=== PATIENT | male | born 1960 | race Hispanic/Latino ===

== ENCOUNTER 2017-08-20 11:47 | Emergency (ER) | payer OTHER ==
--- NOTE | 2017-08-20 13:09 | RAD REPORT ---
EXAM DESCRIPTION: [facility]08/20/2017 1:00 pm CLINICAL HISTORY: Right leg pain COMPARISON: None. FINDINGS: Right common femoral, superficial femoral, popliteal and right posterior tibial veins are compressible and demonstrate augmentation. Doppler demonstrates good flow. IMPRESSION: No evidence of deep venous thrombosis involving the right lower extremity.
--- NOTE | 2017-08-20 13:13 | ER ---
Nurse's Notes [facility] Name: Dhaval Carrizales Age: 56 yrs Sex: Male : 1960 Arrival Date: 08/20/2017 Time: 11:52 Bed 19 Private MD: Diagnosis: Right leg/calf pain Presentation: 08/20 12:06 Presenting complaint: Patient states: RIGHT calf pain and intermittent swelling x 2 hb days. Pain worse when ambulating. Transition of care: patient was not received from another setting of care. Onset of symptoms was August 18, 2017. Care prior to arrival: None. 12:06 Method Of Arrival: Ambulatory hb 12:06 Acuity: DANDRE 3 hb 12:30 Initial Sepsis Screen: Does the patient meet any 2 criteria? No. Patient's initial em sepsis screen is negative. Does the patient have a suspected source of infection? No. Patient's initial sepsis screen is negative. Historical: - Allergies: 12:07 No Known Allergies; hb - PMHx: 12:07 Diabetes - NIDDM; High Cholesterol; Hypertension; hb - PSHx: 12:07 None; hb - Immunization history:: Adult Immunizations up to date. - Social history:: Smoking status: Patient/guardian denies using tobacco. Screenin:55 Abuse screen: Denies threats or abuse. Nutritional screening: No deficits noted. em Tuberculosis screening: No symptoms or risk factors identified. Fall Risk None identified. Assessment: 12:24 General: Appears in no apparent distress. uncomfortable, Behavior is calm, cooperative, em Reports right calf pay for 2 days, denies trauma, swelling noted to right hester with crusted scabs, warm to touch Denies fever. Pain: Complains of pain in right calf Pain currently is 8 out of 10 on a pain scale. Neuro: Level of Consciousness is awake, alert, obeys commands, Oriented to person, place, time, situation. Cardiovascular: Capillary refill < 3 seconds Patient's skin is warm and dry. Respiratory: Airway is patent Respiratory effort is even, unlabored, Respiratory pattern is regular, symmetrical. GI: Abdomen is round non-distended, Patient currently denies nausea, vomiting. : No signs and/or symptoms were reported regarding the genitourinary system. EENT: No signs and/or symptoms were reported regarding the EENT system. Derm: No signs and/or symptoms reported regarding the dermatologic system. Musculoskeletal: Range of motion: intact in all extremities. 12:30 Reassessment: Patient appears in no apparent distress at this time. I agree with the iw above assessment by Jason Monaco LVN. Vital Signs: 12:07 BP 164 / 99; Pulse 84; Resp 16; Temp 98.1; Pulse Ox 100% on R/A; Weight 90.72 kg; hb Height 5 ft. 6 in. (167.64 cm); Pain 8/10; 12:07 Body Mass Index 32.28 (90.72 kg, 167.64 cm) hb ED Course: 11:52 Patient arrived in ED. na 12:06 Triage completed. hb 12:07 Arm band placed on right wrist. hb 12:08 Dean Eckert MD is Attending Physician. kdr 12:09 Jason Monaco LVN is Primary Nurse. em 12:47 Patient taken to ultrasound. aa4 12:55 Patient has correct armband on for positive identification. Bed in low position. Call em light in reach. Side rails up X2. 12:55 No provider procedures requiring assistance completed. em 13:00 Ultrasound completed. Patient tolerated well. aa4 13:00 Extremity Venous Uni Ltd In Process Unspecified. EDMS 13:00 Patient moved back from ultrasound. aa4 13:55 Patient did not have IV access during this emergency room visit. em Administered Medications: No medications were administered Outcome: 13:12 Discharge ordered by . kdr 13:47 Discharged to home ambulatory. em 13:47 Condition: good 13:47 Discharge instructions given to patient, Instructed on discharge instructions, follow up and referral plans. Demonstrated understanding of instructions, follow-up care. 13:49 Patient left the ED. iw Signatures: Dispatcher [employer] EDID Dean Eckert MD MD kdr Star, Pedro na Jason Monaco LVN LVN em Marianela Watts, CLARENCE RN Hannah Tellez aa4 Nohemi Scott RN RN Corrections: (The following items were deleted from the chart) 13:57 13:55 Condition: good em em 13:57 13:55 Discharged to home ambulatory, em em 13:57 13:55 Discharge instructions given to patient, Instructed on discharge instructions, em follow up and referral plans. Demonstrated understanding of instructions, follow-up care, em
--- NOTE | 2017-08-20 13:13 | EDPHYS ---
Physician Documentation [facility] Name: Dhaval Carrizales Age: 56 yrs Sex: Male : 1960 Arrival Date: 08/20/2017 Time: 11:52 Bed 19 Private MD: ED Physician Dean Eckert HPI: 08/20 12:25 This 56 yrs old Male presents to ER via Ambulatory with complaints of Leg Pain.kdr 12:26 The patient presents with pain, that is acute, swelling, The patient a focal density in kdr the right calf which he states regularly swells and is painful making it hard to walk. He seems to go down at night. The complaints affect the right calf. Context: The problem was sustained at an unknown site, resulted from an unknown cause, the patient can partially bear weight, the patient is able to ambulate, with mild difficulty, Problem is a result from a previous injury: No. The patient has numerous lesions in various states of healing which he states are from his work boots rubbing on his leg. Onset: The symptoms/episode began/occurred Wednesday. Modifying factors: The symptoms are alleviated by elevating leg, the symptoms are aggravated by movement, weight bearing, Worse with pain. Treatment prior to arrival includes: no previous treatment. Severity of symptoms: At their worst the symptoms were mild, in the emergency department the symptoms have resolved, and did so earlier today. The patient has not experienced similar symptoms in the past. The patient has not recently seen a physician. Historical: - Allergies: 12:07 No Known Allergies; hb - PMHx: 12:07 Diabetes - NIDDM; High Cholesterol; Hypertension; hb - PSHx: 12:07 None; hb - Immunization history:: Adult Immunizations up to date. - Social history:: Smoking status: Patient/guardian denies using tobacco. ROS: 12:26 Constitutional: Negative for fever, chills, and weight loss. kdr 12:26 MS/extremity: Positive for swelling, tenderness, warmth, Negative for pain. Exam: 12:26 Constitutional: This is a well developed, well nourished patient who is awake, alert, kdr and in no acute distress. 12:26 Musculoskeletal/extremity: Extremities: pain, swelling, tenderness. Vital Signs: 12:07 BP 164 / 99; Pulse 84; Resp 16; Temp 98.1; Pulse Ox 100% on R/A; Weight 90.72 kg; hb Height 5 ft. 6 in. (167.64 cm); Pain 8/10; 12:07 Body Mass Index 32.28 (90.72 kg, 167.64 cm) hb MDM: 13:12 Patient medically screened. kdr 19:01 Data reviewed: vital signs, nurses notes, lab test result(s). Counseling: I had a kdr detailed discussion with the patient and/or guardian regarding: the historical points, exam findings, and any diagnostic results supporting the discharge/admit diagnosis, lab results, radiology results, the need for outpatient follow up. 08/20 12:35 Order name: Extremity [facility] EDMS Administered Medications: No medications were administered Disposition: 08/20/17 13:12 Discharged to Home. Impression: Right leg/calf pain. - Condition is Stable. - Blank Diagnosis Outline, Medication Reconciliation Form, Thank You Letter, Antibiotic Education, Prescription Opioid Use form. - Follow up: Private Physician; When: 2 - 3 days; Reason: If symptoms return, Further diagnostic work-up, Recheck today's complaints, Continuance of care, Re-evaluation by your physician. - Problem is an ongoing problem. - Symptoms have improved. Signatures: Dispatcher [employer] EDMS Dean Eckert MD MD kdr Marianela Watts, CLARENCE RN Nohemi Scott, CLARENCE RN Corrections: (The following items were deleted from the chart) 12:32 12:25 Extrmty [facility] [employer]US.RAD.BRZ ordered. EDNV EDMS
[2017-08-20 13:54] VITALS: BP 164/99; TEMP 98.1; O2SAT 100
== END 2017-08-20 13:49 | disposition home or self-care (01) ==
LOC: ER 11:47
DX: M79.661 Pain in right lower leg (principal)
CPT/HCPCS: 93971; 99284

== ENCOUNTER 2017-11-03 15:19 | Emergency (ER) | payer OTHER ==
[2017-11-03] MEDS ORDERED: METHYLPREDNISOLONE 125 MG INJ ONE (16:11)
[2017-11-03] MEDS ORDERED: KETOROLAC 30 MG/ML INJ ONE (16:12)
--- NOTE | 2017-11-03 16:17 | ER ---
Nurse's Notes [facility] Name: Dhaval Carrizales Age: 57 yrs Sex: Male : 1960 Arrival Date: 11/03/2017 Time: 15:22 Bed 23 Private MD: SHARON GRAY Diagnosis: Olecranon bursitis, right elbow Presentation: 11/03 15:32 Presenting complaint: Patient states: pt was seen at PCP for right elbow swelling and sv pain and was prescribed Bactrim, Naproxen and Prednisone. Pain and swelling has not resolved. Transition of care: patient was not received from another setting of care. Onset of symptoms was October 27, 2017. Care prior to arrival: None. 15:32 Method Of Arrival: Ambulatory sv 15:32 Acuity: DANDRE 3 sv 15:40 Risk Assessment: Do you want to hurt yourself or someone else? Patient reports no kr2 desire to harm self or others. Initial Sepsis Screen: Does the patient meet any 2 criteria? No. Patient's initial sepsis screen is negative. Does the patient have a suspected source of infection? No. Patient's initial sepsis screen is negative. Triage Assessment: 15:40 General: Appears in no apparent distress. comfortable, well groomed, well developed, kr2 well nourished, Behavior is calm, cooperative, appropriate for age. Injury Description: Patient denies injury. Historical: - Allergies: 15:34 No Known Allergies; sv - PMHx: 15:34 Diabetes - NIDDM; High Cholesterol; Hypertension; sv - PSHx: 15:34 None; sv - Immunization history:: Adult Immunizations up to date. - Social history:: Smoking status: Patient/guardian denies using tobacco. - Ebola Screening: : No symptoms or risks identified at this time. - Family history:: not pertinent. - Hospitalizations: : No recent hospitalization is reported. Screenin:40 Abuse screen: Denies threats or abuse. Denies injuries from another. Nutritional kr2 screening: No deficits noted. Tuberculosis screening: No symptoms or risk factors identified. Fall Risk None identified. Assessment: 15:40 General: Appears in no apparent distress. comfortable, well groomed, well developed, kr2 well nourished, Behavior is calm, cooperative, appropriate for age. Pain: Complains of pain in right elbow Pain radiates to right arm Pain currently is 7 out of 10 on a pain scale. Quality of pain is described as aching, tender, Is continuous, Alleviated by rest, Aggravated by increased activity, repositioning. Neuro: Level of Consciousness is awake, alert, obeys commands, Oriented to person, place, time, situation, Appropriate for age. Cardiovascular: Capillary refill < 3 seconds in bilateral fingers Patient's skin is warm and dry. Respiratory: Airway is patent Respiratory effort is even, unlabored, Respiratory pattern is regular, symmetrical. GI: Abdomen is flat, non-distended. Derm: Skin is intact, is healthy with good turgor, Skin is pink, warm \T\ dry. Musculoskeletal: Circulation, motion, and sensation intact. Range of motion: limited in right elbow Swelling present in right elbow. 16:27 Reassessment: Patient appears in no apparent distress at this time. Patient and/or kr2 family updated on plan of care and expected duration. Pain level reassessed. Patient is alert, oriented x 3, equal unlabored respirations, skin warm/dry/pink. Vital Signs: 15:33 BP 142 / 87; Pulse 83; Resp 18; Temp 98.4; Pulse Ox 96% ; Weight 95.25 kg; Height 5 ft. sv 6 in. (167.64 cm); Pain 8/10; 16:31 BP 140 / 84; Pulse 80; Resp 20; Pulse Ox 99% on R/A; kr2 15:33 Body Mass Index 33.89 (95.25 kg, 167.64 cm) sv ED Course: 15:22 Patient arrived in ED. sb2 15:23 SHARON GRAY is Private Physician. sb2 15:33 Triage completed. sv 15:34 Arm band placed on left wrist. sv 15:40 Patient has correct armband on for positive identification. Bed in low position. Call kr2 light in reach. Side rails up X 1. Pulse ox on. NIBP on. 15:45 Terry Montana MD is Attending Physician. rn 16:00 Mireya Patrick RN is Primary Nurse. kr2 16:16 Jayesh Mckeon MD is Referral Physician. rn 16:29 No provider procedures requiring assistance completed. Patient did not have IV access kr2 during this emergency room visit. Administered Medications: 16:14 Drug: SOLU-Medrol 125 mg Route: IM; Site: left deltoid; kr2 16:28 Follow up: Response: No adverse reaction kr2 16:14 Drug: TORadol 30 mg Route: IM; Site: right deltoid; kr2 16:27 Follow up: Response: No adverse reaction kr2 Outcome: 16:16 Discharge ordered by . rn 16:29 Discharged to home ambulatory, with family. kr2 16:29 Condition: good 16:29 Discharge instructions given to patient, Instructed on discharge instructions, follow up and referral plans. medication usage, Demonstrated understanding of instructions, follow-up care, medications, Prescriptions given X 2. 16:31 Patient left the ED. kr2 Signatures: Sia Patricio RN RN Terry Cisneros MD MD rn Reaves, Karey, RN RN kr2 Zaida Andrew sb2 Corrections: (The following items were deleted from the chart) 16:28 16:14 SOLU-Medrol 125 mg IM in right deltoid kr2 kr2
--- NOTE | 2017-11-03 16:17 | EDPHYS ---
Physician Documentation [facility] Name: Dhaval Carrizales Age: 57 yrs Sex: Male : 1960 Arrival Date: 11/03/2017 Time: 15:22 Bed 23 Private MD: SHARON GRAY ED Physician Terry Montana HPI: 11/03 16:14 This 57 yrs old Male presents to ER via Ambulatory with complaints of Elbow rn Injury. 16:14 The patient or guardian complains of pain. The complaints affect the right elbow. rn Onset: The symptoms/episode began/occurred 1 week(s) ago. Severity of symptoms: At their worst the symptoms were moderate, in the emergency department the symptoms have improved. The patient has experienced a previous episode. The patient has been recently seen by a physician:. REports saw his physician last week, given steroids and abx, states swelling and redness improved but not gone away, no fever, his physician put a needle in it and no fluid came out, no trauma . Historical: - Allergies: 15:34 No Known Allergies; sv - PMHx: 15:34 Diabetes - NIDDM; High Cholesterol; Hypertension; sv - PSHx: 15:34 None; sv - Immunization history:: Adult Immunizations up to date. - Social history:: Smoking status: Patient/guardian denies using tobacco. - Ebola Screening: : No symptoms or risks identified at this time. - Family history:: not pertinent. - Hospitalizations: : No recent hospitalization is reported. ROS: 16:14 Constitutional: Negative for fever, chills, and weight loss, Eyes: Negative for injury, rn pain, redness, and discharge, Neck: Negative for injury, pain, and swelling, Cardiovascular: Negative for chest pain, palpitations, and edema, Respiratory: Negative for shortness of breath, cough, wheezing, and pleuritic chest pain, Abdomen/GI: Negative for abdominal pain, nausea, vomiting, diarrhea, and constipation, MS/Extremity: + swelling right elbow Skin: Negative for injury, rash, and discoloration, Neuro: Negative for headache, weakness, numbness, tingling, and seizure. Exam: 16:14 Constitutional: This is a well developed, well nourished patient who is awake, alert, rn and in no acute distress. MS/ Extremity: Pulses equal, no cyanosis. Neurovascular intact. Full, normal range of motion. Equal circumference. + right olecranon bursitis/prominence, non-fluctuant, no erythema Vital Signs: 15:33 BP 142 / 87; Pulse 83; Resp 18; Temp 98.4; Pulse Ox 96% ; Weight 95.25 kg; Height 5 ft. sv 6 in. (167.64 cm); Pain 8/10; 16:31 BP 140 / 84; Pulse 80; Resp 20; Pulse Ox 99% on R/A; kr2 15:33 Body Mass Index 33.89 (95.25 kg, 167.64 cm) sv MDM: 15:45 Patient medically screened. rn 16:14 Differential diagnosis: olecranon bursitis. Data reviewed: vital signs, nurses notes, rn and as a result, I will discharge patient. Counseling: I had a detailed discussion with the patient and/or guardian regarding: the historical points, exam findings, and any diagnostic results supporting the discharge/admit diagnosis, the need for outpatient follow up, to return to the emergency department if symptoms worsen or persist or if there are any questions or concerns that arise at home. Special discussion: I discussed with the patient/guardian in detail that at this point there is no indication for admission to the hospital. It is understood, however, that if the symptoms persist or worsen the patient needs to return immediately for re-evaluation. Based on the history and exam findings, there is no indication for further emergent testing or inpatient evaluation. I discussed with the patient/guardian the need to see the orthopedic surgeon for further evaluation of the symptoms. Administered Medications: 16:14 Drug: SOLU-Medrol 125 mg Route: IM; Site: left deltoid; kr2 16:28 Follow up: Response: No adverse reaction kr2 16:14 Drug: TORadol 30 mg Route: IM; Site: right deltoid; kr2 16:27 Follow up: Response: No adverse reaction kr2 Disposition: 11/03/17 16:16 Discharged to Home. Impression: Olecranon bursitis, right elbow. - Condition is Stable. - Discharge Instructions: Olecranon Bursitis, Bursitis, Rwoy-no-Dety. - Prescriptions for Clindamycin HCl 300 mg Oral Capsule - take 1 capsule by ORAL route every 6 hours for 10 days; 40 capsule. Prednisone 20 mg Oral Tablet - take 3 tablet by ORAL route once daily for 5 days; 15 tablet. - Medication Reconciliation Form, Thank You Letter, Antibiotic Education, Prescription Opioid Use form. - Follow up: Jayesh Mckeon MD; When: 2 - 3 days; Reason: Recheck today's complaints, Re-evaluation by your physician. - Problem is an ongoing problem. - Symptoms have improved. Signatures: Sia Patricio RN RN sv Nieto, Roman, MD MD rn Reaves, Karey, RN RN kr2 Corrections: (The following items were deleted from the chart) 16:31 16:16 11/03/2017 16:16 Discharged to Home. Impression: Olecranon bursitis, right elbow. kr2 Condition is Stable. Forms are Medication Reconciliation Form, Thank You Letter, Antibiotic Education, Prescription Opioid Use. Follow up: Jayesh Mckeon; When: 2 - 3 days; Reason: Recheck today's complaints, Re-evaluation by your physician. Problem is an ongoing problem. Symptoms have improved. rn
[2017-11-03 16:40] VITALS: TEMP 98.4
[2017-11-03 16:41] VITALS: BP 140/84; O2SAT 99
== END 2017-11-03 16:31 | disposition home or self-care (01) ==
LOC: ER 15:19
DX: M70.21 Olecranon bursitis, right elbow (principal); Y93.9 Activity, unspecified; E11.9 Type 2 diabetes mellitus without complications; E78.00 Pure hypercholesterolemia, unspecified; I10 Essential (primary) hypertension
CPT/HCPCS: 96372; 99283; J2930

== ENCOUNTER 2017-11-05 02:54 | Emergency (ER) | payer OTHER ==
[2017-11-05] MEDS ORDERED: TRAMADOL HCL 50 MG TAB ONE (03:08)
--- NOTE | 2017-11-05 03:36 | ER ---
Nurse's Notes [facility] Name: Dhaval Carrizales Age: 57 yrs Sex: Male : 1960 Arrival Date: 11/05/2017 Time: 02:54 Bed 5 Private MD: SHARON GRAY Diagnosis: Bursitis right elbow Presentation: 11/05 03:00 Presenting complaint: Patient states: Seen yesterday for same complaint and diagnosed tl2 with bursitis of right elbow. Pt was unable to fill prescriptions and pain has not improved. Transition of care: patient was not received from another setting of care. Onset of symptoms was November 02, 2017. Risk Assessment: Do you want to hurt yourself or someone else? Patient reports no desire to harm self or others. Initial Sepsis Screen: Does the patient meet any 2 criteria? No. Patient's initial sepsis screen is negative. Does the patient have a suspected source of infection? No. Patient's initial sepsis screen is negative. Care prior to arrival: None. 03:00 Method Of Arrival: Ambulatory tl2 03:00 Acuity: DANDRE 4 tl2 Triage Assessment: 03:05 General: Appears in no apparent distress. uncomfortable, Behavior is calm, cooperative, tl2 appropriate for age. Pain: Complains of pain in right elbow. Historical: - Allergies: 03:05 No Known Allergies; tl2 - Home Meds: 03:05 unknown diabetes med [Active]; unknown HTN med [Active]; tl2 - PMHx: 03:05 Diabetes - NIDDM; Hypertension; High Cholesterol; tl2 - Immunization history:: Adult Immunizations up to date. - Social history:: Smoking status: Patient/guardian denies using tobacco. - Ebola Screening: : No symptoms or risks identified at this time. Screenin:06 Abuse screen: Denies threats or abuse. Nutritional screening: No deficits noted. tl2 Tuberculosis screening: No symptoms or risk factors identified. Fall Risk None identified. Assessment: 03:08 General: Appears in no apparent distress. comfortable, Behavior is calm, cooperative. rv Pain: Complains of pain in right elbow. Neuro: Level of Consciousness is awake, alert, obeys commands, Oriented to person, place, time, situation. Cardiovascular: Heart tones S1 S2 present. Respiratory: Airway is patent. GI: No signs and/or symptoms were reported involving the gastrointestinal system. : No signs and/or symptoms were reported regarding the genitourinary system. EENT: No signs and/or symptoms were reported regarding the EENT system. Derm: Skin is intact. Vital Signs: 03:05 BP 171 / 98; Pulse 80; Resp 18; Temp 97.8(O); Pulse Ox 98% on R/A; Weight 95.25 kg; tl2 Height 5 ft. 6 in. (167.64 cm); Pain 8/10; 03:05 Body Mass Index 33.89 (95.25 kg, 167.64 cm) tl2 ED Course: 02:54 Patient arrived in ED. ds1 02:55 SHARON GRAY is Private Physician. ds1 02:56 Duane Lopez MD is Attending Physician. pkl 03:01 Triage completed. tl2 03:05 Arm band placed on right wrist. tl2 03:06 Patient has correct armband on for positive identification. Bed in low position. Call tl2 light in reach. Side rails up X 1. 03:35 Jayesh Mckeon MD is Referral Physician. pkl 03:42 Elbow Right 3 View XRAY In Process Unspecified. EDMS 03:54 No provider procedures requiring assistance completed. Patient did not have IV access rv during this emergency room visit. Administered Medications: 03:08 Drug: UltRAM 50 mg Route: PO; rv 03:55 Follow up: Response: No adverse reaction rv Outcome: 03:36 Discharge ordered by . pkl 03:54 Discharged to home ambulatory. rv 03:54 Condition: good 03:54 Discharge instructions given to patient, Instructed on discharge instructions, follow up and referral plans. 03:55 Patient left the ED. rv Signatures: Dispatcher [employer] EDMS Duane Lopez MD MD pkl Matilde Dc ds1 Renetta Jalloh RN RN tl2 Keron Dubon RN RN rv Corrections: (The following items were deleted from the chart) 03:39 03:39 Blood Glucose: Blood Glucose Reading=31 mg/dL. rv rv
--- NOTE | 2017-11-05 03:37 | EDPHYS ---
Physician Documentation [facility] Name: Dhaval Carrizales Age: 57 yrs Sex: Male : 1960 Arrival Date: 11/05/2017 Time: 02:54 Bed 5 Private MD: SHARON GRAY ED Physician Duane Lopez HPI: 11/05 03:06 This 57 yrs old Male presents to ER via Ambulatory with complaints of Elbow pkl Pain. 03:06 The complaints affect the right elbow. Onset: The symptoms/episode began/occurred 5 pkl day(s) ago. The patient has been recently seen at the [facility] Emergency Department, yesterday, for similar complaints. Historical: - Allergies: 03:05 No Known Allergies; tl2 - Home Meds: 03:05 unknown diabetes med [Active]; unknown HTN med [Active]; tl2 - PMHx: 03:05 Diabetes - NIDDM; Hypertension; High Cholesterol; tl2 - Immunization history:: Adult Immunizations up to date. - Social history:: Smoking status: Patient/guardian denies using tobacco. - Ebola Screening: : No symptoms or risks identified at this time. ROS: 03:06 Eyes: Negative for injury, pain, redness, and discharge, ENT: Negative for injury, pkl pain, and discharge, Neck: Negative for injury, pain, and swelling, Cardiovascular: Negative for chest pain, palpitations, and edema, Respiratory: Negative for shortness of breath, cough, wheezing, and pleuritic chest pain, Abdomen/GI: Negative for abdominal pain, nausea, vomiting, diarrhea, and constipation, Back: Negative for injury and pain, : Negative for injury, bleeding, discharge, and swelling, Neuro: Negative for headache, weakness, numbness, tingling, and seizure. 03:06 MS/extremity: Positive for pain, of the right elbow. Exam: 03:06 Head/Face: Normocephalic, atraumatic. Eyes: Pupils equal round and reactive to light, pkl extra-ocular motions intact. Lids and lashes normal. Conjunctiva and sclera are non-icteric and not injected. Cornea within normal limits. Periorbital areas with no swelling, redness, or edema. ENT: Nares patent. No nasal discharge, no septal abnormalities noted. Tympanic membranes are normal and external auditory canals are clear. Oropharynx with no redness, swelling, or masses, exudates, or evidence of obstruction, uvula midline. Mucous membranes moist. Neck: Trachea midline, no thyromegaly or masses palpated, and no cervical lymphadenopathy. Supple, full range of motion without nuchal rigidity, or vertebral point tenderness. No Meningismus. Chest/axilla: Normal chest wall appearance and motion. Nontender with no deformity. No lesions are appreciated. Cardiovascular: Regular rate and rhythm with a normal S1 and S2. No gallops, murmurs, or rubs. Normal PMI, no JVD. No pulse deficits. Respiratory: Lungs have equal breath sounds bilaterally, clear to auscultation and percussion. No rales, rhonchi or wheezes noted. No increased work of breathing, no retractions or nasal flaring. Abdomen/GI: Soft, non-tender, with normal bowel sounds. No distension or tympany. No guarding or rebound. No evidence of tenderness throughout. Back: No spinal tenderness. No costovertebral tenderness. Full range of motion. Neuro: Awake and alert, GCS 15, oriented to person, place, time, and situation. Cranial nerves II-XII grossly intact. Motor strength 5/5 in all extremities. Sensory grossly intact. Cerebellar exam normal. Normal gait. 03:06 Musculoskeletal/extremity: Extremities: grossly normal except: noted in the right elbow: pain, tenderness. Vital Signs: 03:05 BP 171 / 98; Pulse 80; Resp 18; Temp 97.8(O); Pulse Ox 98% on R/A; Weight 95.25 kg; tl2 Height 5 ft. 6 in. (167.64 cm); Pain 8/10; 03:05 Body Mass Index 33.89 (95.25 kg, 167.64 cm) tl2 MDM: 02:56 Patient medically screened. pkl 03:35 Data reviewed: vital signs, nurses notes, radiologic studies, plain films. pkl 11/05 03:05 Order name: Elbow Right 3 View XRAY pkl 11/05 03:34 Order name: Sling; Complete Time: 03:55 pkl Administered Medications: 03:08 Drug: UltRAM 50 mg Route: PO; rv 03:55 Follow up: Response: No adverse reaction rv Disposition: 11/05/17 03:36 Discharged to Home. Impression: Bursitis right elbow. - Condition is Stable. - Work release form, Medication Reconciliation Form, Thank You Letter, Antibiotic Education, Prescription Opioid Use form. - Follow up: Jayesh Mckeon MD; When: 2 - 3 days; Reason: Re-evaluation by your physician. - Problem is new. - Symptoms are unchanged. Signatures: Dispatcher [employer] EDDuane Kiran MD MD pkl Renetta Jalloh, RN RN tl2 Keron Dubon RN RN rv Corrections: (The following items were deleted from the chart) 03:55 03:36 11/05/2017 03:36 Discharged to Home. Impression: Bursitis right elbow. Condition rv is Stable. Forms are Medication Reconciliation Form, Thank You Letter, Antibiotic Education, Prescription Opioid Use. Follow up: Jayesh Mckeon; When: 2 - 3 days; Reason: Re-evaluation by your physician. Problem is new. Symptoms are unchanged. pkl
[2017-11-05 04:01] VITALS: BP 171/98; TEMP 97.8; O2SAT 98
--- NOTE | 2017-11-05 08:49 | RAD REPORT ---
EXAM DESCRIPTION: RAD - Elbow Right 3 View - 11/05/2017 3:43 am CLINICAL HISTORY: PAIN COMPARISON: No comparisons FINDINGS: Moderate soft tissue swelling is seen about the olecranon process, likely representing bur sitis. No fracture, dislocation or aggressive marrow pattern. No subcutaneous air seen
== END 2017-11-05 03:55 | disposition home or self-care (01) ==
LOC: ER 02:54
DX: M70.31 Other bursitis of elbow, right elbow (principal); E11.9 Type 2 diabetes mellitus without complications; I10 Essential (primary) hypertension; Y93.9 Activity, unspecified
CPT/HCPCS: 99283

== ENCOUNTER 2019-01-20 14:36 | Emergency (ER) | payer OTHER ==
--- OUTSIDE RECORDS SUMMARY | 2019-01-20 14:37 | XMS REPORT ---
:1960 Author Organization [employer] Care Team Providers Name Role Phone MckeonJayesh Provider Role Unavailable Allergies, Adverse Reactions, Alerts Substance Reaction Event Type N.K.D.A. Info Not Available Non Drug Allergy Problems Problem Type Condition Code Onset Dates Condition Status Assessment Pain in right elbow M25.521 Active Assessment Bursitis of other bursa of right M70.31 Active elbow Medications Medication Code Code Instructions Start End Status Dosage System Date Date Mupirocin [facility] 10312360326 2 % External Active not defined Clindamycin [facility] 85062869765 1 % External Active not Phosphate defined Hydrocodone-Clay [facility] 28144430839 10-325 MG Oral Active not taminophen defined Tramadol HCl [facility] 47804505143 50 MG Orally November 24, Active 1 tablet every 6 hrs 2017 as needed Clobetasol [facility] 20829658772 0.05 % External Active not Propionate defined Losartan [facility] 13919264357 100-12.5 MG Oral Active not Potassium-HCTZ defined GlipiZIDE [facility] 11759811001 5 MG Oral Active not defined Clindamycin HCl [facility] 32814756026 300 MG Orally November 24, Dec 04, Active 1 capsule every 6 hrs 2017 2018 Results No Known Results Summary Purpose [facility]
[2019-01-20] MEDS ORDERED: IBUPROFEN 200 MG TAB PO ONE (15:18)
[2019-01-20] MEDS ORDERED: PROMETHAZINE 25 MG TABLET ONE (15:19)
[2019-01-20] MEDS ORDERED: NA CHLORIDE 0.9% 1,000 ML ONE (16:53)
[2019-01-20 17:16] LABS: Absolute Lymphocytes (CBC) 0.8 K/uL (0.7-4.9); Basophils % 0.5 % (0-1.3); Hematocrit 44.4 % (39.6-49.0); Lymphocytes % 5.1 % (15.3-44.8); MPV 8.2 fL (7.6-11.3); RBC Red Blood Cell Count 5.26 M/uL (4.33-5.43)
[2019-01-20 17:25] LABS: Urine Bacteria <20 /HPF (NONE SEEN); Urine Culture Reflex Order NOT NEEDED; Urine Mucus MOD /HPF (NONE SEEN); Urine RBC 20-50 /HPF (NONE SEEN)
[2019-01-20 17:27] LABS: Albumin 3.6 g/dL (3.4-5.0); Bilirubin Direct 0.2 mg/dL (0-0.2); Bilirubin Total 0.9 mg/dL (0.2-1.0); Potassium 3.8 mmol/L (3.5-5.1); Protein, Total 7.7 g/dL (6.4-8.2)
--- NOTE | 2019-01-20 18:05 | RAD REPORT ---
EXAM DESCRIPTION: CT - Abdomen Pelvis W Contrast - 01/20/2019 5:48 pm CLINICAL HISTORY: Abdominal pain COMPARISON: 2013 TECHNIQUE: Computed axial tomography of the abdomen pelvis was obtained. 100 cc Isovue-300 was admin istered intravenously. Oral contrast was not requested which limits evaluation of bowel. All CT scans are performed using dose optimization technique as appropriate and may include automated exposure control or mA/KV adjustment according to patient size. FINDINGS: Fatty liver The Spleen, pancreas, adrenal and kidneys appear unremarkable. There is no evidence of diverticulitis. Normal appendix Small inguinal hernias contain fat. Mild enlargement prostate gland IMPRESSION: Fatty liver
--- NOTE | 2019-01-20 18:34 | ER ---
Nurse's Notes [facility] Name: Dhaval Carrizales Age: 58 yrs Sex: Male : 1960 Arrival Date: 01/20/2019 Time: 14:39 Bed 15 Private MD: Diagnosis: Fever, unspecified;Vomiting Presentation: 01/20 15:06 Presenting complaint: Patient states: Bodyaches and vomiting since yesterday. Denies aj1 cough, congestion, sore throat. Patient took Tylenol for fever at 1200 today. Denies SOB, denies CP. Transition of care: patient was not received from another setting of care. Onset of symptoms was January 19, 2019. Risk Assessment: Do you want to hurt yourself or someone else? Patient reports no desire to harm self or others. Initial Sepsis Screen: Does the patient meet any 2 criteria? Temp <36.0*C (96.8*F)) or > 38.3*C (100.9*F). HR > 90 bpm. Yes Does the patient have a suspected source of infection? Yes: Other: fever and vomiting If YES to both, name of provider notified: Dean Eckert MD. Care prior to arrival: None. 15:06 Method Of Arrival: Wheelchair aj1 15:06 Acuity: DANDRE 3 aj1 15:[address] Eckert about patient, hold sepsis protocol for now. aj1 Triage Assessment: 15:09 General: Appears in no apparent distress. uncomfortable, Behavior is calm, cooperative, aj1 appropriate for age. Pain: Denies pain. Neuro: Level of Consciousness is awake, alert, obeys commands, Oriented to person, place, time, situation. Cardiovascular: Patient's skin is warm and dry. Respiratory: Airway is patent Respiratory effort is even, unlabored, Respiratory pattern is regular, symmetrical. Historical: - Allergies: 15:09 No Known Allergies; aj1 - Home Meds: 15:09 Metformin Oral [Active]; Unknown HTN med [Active]; unknown cholesterol medication aj1 [Active]; - PMHx: 15:09 Diabetes - NIDDM; High Cholesterol; Hypertension; aj1 - Immunization history:: Flu vaccine is not up to date. - Social history:: Smoking status: Patient/guardian denies using tobacco. - Ebola Screening: : Patient denies travel to an Ebola-affected area in the 21 days before illness onset. Screenin:58 Abuse screen: Denies threats or abuse. Denies injuries from another. Nutritional bp screening: No deficits noted. Tuberculosis screening: No symptoms or risk factors identified. Fall Risk None identified. Assessment: 16:10 General: SEE TRIAGE NOTE. bp 18:16 Reassessment: Patient and/or family updated on plan of care and expected duration. Pain bp level reassessed. PT RETURNED FROM CT. ALL CURRENT ORDERS COMPLETED. Patient states symptoms have improved. 18:55 Reassessment: PT D/C HOME AMBULATORY WITH FAMILY, DX WITH FEVER AND VOMITING. bp Vital Signs: 15:09 BP 143 / 75; Pulse 107; Resp 20; Temp 102.9; Pulse Ox 96% on R/A; Weight 92.53 kg (R); aj1 Height 5 ft. 6 in. (167.64 cm) (R); Pain 9/10; 16:30 BP 141 / 79; Pulse 100; Resp 20; Pulse Ox 95% ; bp 18:14 BP 131 / 83; Pulse 92; Resp 18; Temp 99.2; Pulse Ox 96% ; bp 15:09 Body Mass Index 32.93 (92.53 kg, 167.64 cm) aj1 ED Course: 14:39 Patient arrived in ED. as 15:08 Triage completed. aj1 15:10 Arm band placed on Patient placed in waiting room, Patient notified of wait time. aj1 16:09 Brijesh Buck PA is PHCP. cp 16:09 Dean Eckert MD is Attending Physician. cp 16:11 Austin Blank, CLARENCE is Primary Nurse. bp 16:53 Initial lab(s) drawn, by ED staff, sent to lab. Inserted saline lock: 20 gauge in right lt1 antecubital area, using aseptic technique. 16:54 Urine Microscopic Only Sent. lt1 16:58 Patient has correct armband on for positive identification. Placed in gown. Bed in low bp position. Call light in reach. Side rails up X2. Adult w/ patient. 17:48 CT Abd/Pelvis - IV Contrast Only In Process Unspecified. EDMS 17:48 CT completed. Patient tolerated procedure well. Patient moved back from CT. 2 18:56 No provider procedures requiring assistance completed. IV discontinued, intact, bp bleeding controlled, No redness/swelling at site. Pressure dressing applied. Administered Medications: 15:28 CANCELLED (Inappropriate at this time): Tylenol 1000 mg PO once aj1 15:31 Drug: Motrin 600 mg Route: PO; aj1 16:46 Follow up: Response: No adverse reaction bp 15:31 Drug: Phenergan 25 mg Route: PO; aj1 16:47 Follow up: Response: No adverse reaction bp 16:50 Drug: NS 0.9% 1000 ml Route: IV; Rate: 1 bolus; Site: right antecubital; bp 18:57 Follow up: IV Status: Completed infusion; IV Intake: 1000ml bp Intake: 18:57 IV: 1000ml; Total: 1000ml. bp Outcome: 18:34 Discharge ordered by MD. cp 18:57 Discharged to home ambulatory, with family. bp 18:57 Condition: stable 18:57 Discharge instructions given to patient, Instructed on discharge instructions, follow up and referral plans. medication usage, Demonstrated understanding of instructions, follow-up care, medications, Prescriptions given X 2. 18:57 Patient left the ED. bp Signatures: Dispatcher [employer] EDMS Isis Goodwin, RN RN Stephanie Tovar Corey, PA PA cp McGuire, Victoria 2 Austin Blank RN RN Hansa Campbell
--- NOTE | 2019-01-20 18:35 | EDPHYS ---
Physician Documentation [facility] Name: Dhaval Carrizales Age: 58 yrs Sex: Male : 1960 Arrival Date: 01/20/2019 Time: 14:39 Bed 15 Private MD: ED Physician Dean Eckert HPI: 01/20 16:25 This 58 yrs old Male presents to ER via Wheelchair with complaints of Flu cp Symptoms. 16:25 The patient reports fever, with an emergency department temperature of 102.9 degrees cp Fahrenheit. Onset: The symptoms/episode began/occurred yesterday. Associated signs and symptoms: Pertinent positives: vomiting, body aches, Pertinent negatives: abdominal pain, chest pain, cough, diarrhea, headache, sinus congestion, sinus drainage. Severity of symptoms: in the emergency department the symptoms are unchanged despite home interventions. Historical: - Allergies: 15:09 No Known Allergies; aj1 - Home Meds: 15:09 Metformin Oral [Active]; Unknown HTN med [Active]; unknown cholesterol medication aj1 [Active]; - PMHx: 15:09 Diabetes - NIDDM; High Cholesterol; Hypertension; aj1 - Immunization history:: Flu vaccine is not up to date. - Social history:: Smoking status: Patient/guardian denies using tobacco. - Ebola Screening: : Patient denies travel to an Ebola-affected area in the 21 days before illness onset. ROS: 16:30 Constitutional: Positive for body aches, fever, Negative for poor PO intake. cp 16:30 Eyes: Negative for injury, pain, redness, and discharge. cp 16:30 ENT: Negative for drainage from ear(s), ear pain, sinus congestion, sore throat, difficulty swallowing, difficulty handling secretions. 16:30 Neck: Negative for pain with movement, pain at rest, stiffness, tenderness. 16:30 Cardiovascular: Negative for chest pain. 16:30 Respiratory: Negative for cough, shortness of breath, wheezing. 16:30 Abdomen/GI: Positive for vomiting, Negative for diarrhea, constipation, black/tarry stool, rectal bleeding. 16:30 Back: Negative for pain at rest, pain with movement. 16:30 : Negative for urinary symptoms, flank pain, testicular pain 16:30 Skin: Negative for rash. 16:30 Neuro: Negative for altered mental status, dizziness, headache, weakness. 16:30 All other systems are negative. Exam: 16:40 Constitutional: The patient appears in no acute distress, alert, awake, cp non-diaphoretic, non-toxic, well developed, well nourished. 16:40 Head/Face: Normocephalic, atraumatic. cp 16:40 Eyes: Periorbital structures: appear normal, Conjunctiva: normal, no exudate, no injection, Sclera: no appreciated abnormality, Lids and lashes: appear normal. 16:40 ENT: External ear(s): are unremarkable, Ear canal(s): are normal, clear, TM's: bulging, is not appreciated, bilaterally, dullness, bilaterally, erythema, is not appreciated, bilaterally, Nose: is normal, Mouth: Lips: moist, Oral mucosa: moist, Posterior pharynx: is normal, airway is patent, no erythema, no exudate. 16:40 Neck: ROM/movement: is normal, is supple, without pain, no range of motions limitations, no meningismus, no nuchal rigidity. 16:40 Chest/axilla: Inspection: normal, Palpation: is normal, no crepitus, no tenderness. 16:40 Cardiovascular: Rate: tachycardic, Rhythm: regular, Edema: is not appreciated, JVD: is not appreciated. 16:40 Respiratory: the patient does not display signs of respiratory distress, Respirations: normal, no use of accessory muscles, no retractions, no splinting, no tachypnea, Breath sounds: are clear throughout, no decreased breath sounds, no stridor, no wheezing. 16:40 Abdomen/GI: Inspection: abdomen appears normal, Bowel sounds: active, all quadrants, Palpation: soft, in all quadrants, mild abdominal tenderness, in the right lower quadrant, rebound tenderness, is not appreciated, involuntary guarding, is not appreciated. 16:40 Back: pain, is absent, ROM is normal. 16:40 Skin: cellulitis, is not appreciated, no rash present. 16:40 Neuro: Orientation: to person, place \T\ time. Mentation: is normal, Cerebellar function: is grossly normal, Motor: moves all fours, strength is normal, Sensation: is normal. Vital Signs: 15:09 BP 143 / 75; Pulse 107; Resp 20; Temp 102.9; Pulse Ox 96% on R/A; Weight 92.53 kg (R); aj1 Height 5 ft. 6 in. (167.64 cm) (R); Pain 9/10; 16:30 BP 141 / 79; Pulse 100; Resp 20; Pulse Ox 95% ; bp 18:14 BP 131 / 83; Pulse 92; Resp 18; Temp 99.2; Pulse Ox 96% ; bp 15:09 Body Mass Index 32.93 (92.53 kg, 167.64 cm) [facility] MDM: 16:13 Patient medically screened. cp 17:00 Differential diagnosis: viral Infection, bacterial infection, bronchitis, pneumonia cp UTI, gastroenteritis, meningitis. 18:33 Data reviewed: vital signs, nurses notes, lab test result(s), radiologic studies, CT cp scan. 18:33 Counseling: I had a detailed discussion with the patient and/or guardian regarding: the cp historical points, exam findings, and any diagnostic results supporting the discharge/admit diagnosis, lab results, radiology results, to return to the emergency department if symptoms worsen or persist or if there are any questions or concerns that arise at home. Response to treatment: the patient's symptoms have markedly improved after treatment, VSS. Discussed results of labs and CT. Patient appears non-toxic. Will discharge to home for continued monitoring. 01/20 15:11 Order name: Flu; Complete Time: 17:43 [facility] 01/20 16:22 Order name: Basic Metabolic Panel; Complete Time: 17:43 01/20 17:43 Interpretation: Normal except: NA 134; GLUC 265; GFR 62. 01/20 16:22 Order name: CBC with Diff 01/20 17:43 Interpretation: Normal except: WBC 15.0; NEY% 88.3; LYM% 5.1; NEUT A 13.3. 01/20 16:22 Order name: Creatinine for Radiology; Complete Time: 18:10 01/20 16:22 Order name: Hepatic Function; Complete Time: 17:43 01/20 18:12 Interpretation: Reviewed. 01/20 16:22 Order name: Lipase; Complete Time: 17:43 01/20 16:22 Order name: IV Saline Lock; Complete Time: 16:54 01/20 16:22 Order name: Urine Microscopic Only; Complete Time: 17:43 01/20 16:45 Order name: CT Abd/Pelvis - IV Contrast Only; Complete Time: 18:10 01/20 18:24 Order name: Blood Culture Adult (2) 01/20 16:22 Order name: Labs collected and sent; Complete Time: 16:54 01/20 16:22 Order name: Urine Dipstick-Ancillary (obtain specimen); Complete Time: 16:54 01/20 18:11 Order name: Vital Signs: recheck to include temp; Complete Time: 18:15 cp Administered Medications: 15:28 CANCELLED (Inappropriate at this time): Tylenol 1000 mg PO once aj1 15:31 Drug: Motrin 600 mg Route: PO; aj1 16:46 Follow up: Response: No adverse reaction bp 15:31 Drug: Phenergan 25 mg Route: PO; aj1 16:47 Follow up: Response: No adverse reaction bp 16:50 Drug: NS 0.9% 1000 ml Route: IV; Rate: 1 bolus; Site: right antecubital; bp 18:57 Follow up: IV Status: Completed infusion; IV Intake: 1000ml bp Disposition: 01/20/19 18:34 Discharged to Home. Impression: Fever, unspecified, Vomiting. - Condition is Stable. - Discharge Instructions: Fever, Adult, Vomiting, Adult. - Prescriptions for Ibuprofen 800 mg Oral Tablet - take 1 tablet by ORAL route every 8 hours As needed take with food; 30 tablet. Zofran 4 mg Oral Tablet - take 1 tablet by ORAL route every 12 hours As needed; 20 tablet. - Medication Reconciliation Form, Thank You Letter, Antibiotic Education, Prescription Opioid Use form. - Follow up: Private Physician; When: 2 - 3 days; Reason: Recheck today's complaints. - Problem is new. - Symptoms have improved. Addendum: 01/23/2019 09:02 Co-signature as Attending Physician, Dean Eckert MD I agree with the assessment and k dr plan of care. Signatures: Dispatcher [employer] EDIsis Bradshaw RN RN aj1 Dean Eckert MD MD [facility] Brijesh Buck PA PA Austin Iniguez RN RN bp Corrections: (The following items were deleted from the chart) 01/20 15:28 15:11 Tylenol 1000 mg PO once ordered. aj1 aj1 18:57 18:34 01/20/2019 18:34 Discharged to Home. Impression: Fever, unspecified; Vomiting. bp Condition is Stable. Forms are Medication Reconciliation Form, Thank You Letter, Antibiotic Education, Prescription Opioid Use. Follow up: Private Physician; When: 2 - 3 days; Reason: Recheck today's complaints. Problem is new. Symptoms have improved. cp
[2019-01-20 20:18] VITALS: BP 131/83; TEMP 99.2; O2SAT 96
[2019-01-20 22:13] LABS: Blood Morphology Comment NOT SEEN (NOT SEEN); Platelet Estimate ADEQ; Urine White Blood Cell Casts OK
== END 2019-01-20 18:57 | disposition home or self-care (01) ==
LOC: ER 14:36
DX: R11.10 Vomiting, unspecified (principal); I10 Essential (primary) hypertension; E78.00 Pure hypercholesterolemia, unspecified; E11.9 Type 2 diabetes mellitus without complications
CPT/HCPCS: 96361; 87040 ×2; 85025; 80048; 36415; 80076; 81015; 83690; 87804 ×2; 74177; 96360; 99284; Q9967; J7030

== ENCOUNTER 2024-04-11 01:13 | Inpatient (IN) | payer OTHER, SELFPAY ==
--- OUTSIDE RECORDS SUMMARY | 2024-04-11 01:21 | XMS REPORT | Continuity of Care Document ---
Author Name Unknown Address [address] [facility] [address] [place] [address] [facility] Address [address] [facility] [address] [place] [address] Care Team Providers Care Travel Services Professional Name Role Phone ED URENA Primary Care Physician UnavailRIGOBERTO Albarado Attending Clinician Unavailable ED URENA Attending Clinician Unavailable JAMA JOHNSON Attending Clinician Unavailable CHRISSIE CARRASCO Attending Clinician Unavailable CHRISSIE CARRASCO Attending Clinician Unavailable Rigoberto Lezama MD Attending Clinician [phone] Ed Rand Attending Clinician [phone] Lab, Yo Penaloza Attending Clinician Unavailable PRAKASH YATES Attending Clinician Unavailable Ed Rand Attending Clinician [phone] VAISHNAVI HERNANDEZ Attending Clinician Unavailabdirahman andrea Doctor Unassigned, Laura Attending Clinician U navailable UNKNOWN, ATTENDING Attending Clinician Unavailab racheal Lab, Ang Sangeetha Penaloza Attending Clinician Unavailable Unknown, Attending Attending Clinician Unavailab Vaishnavi Ramos Attending Clinician Prakash Yates MD Attending Clinician [phone] Rigoberto Lezama MD Attending Clinician [phone] MIGEL GUAN Attending Clinician UnavailMIGEL Randall Attending Clinician UnavailBENI Lowry Attending Clinician Unavailable COURTNEY PEDRAZA Attending Clinician Unavaila christy Zarate, [facility] Main Attending Clinician UnavailBeni Suresh MD Attending Clinician [phone] JESSICA AMEZQUITA Attending Clinician UnavailJessica Stewart Attending Clinician [phone] [facility] Attending Clinician Unavailable 1, [facility] Attending Clinician Unavailable DENITA PONCE Attending Clinician SPRING Queen Attending Clinician Unavailable Spring Salvador Attending Clinician [phone] Johnny Larson RN, Yamilka Attending Clinician Unavailable Santiago Wagner MD Attending Clinician [phone] AMANDA ZHOU Attending Clinician Unavailable LEV SANDERSON Attending Clinician Unavailable Lev Sanderson DO Attending Clinician [phone] JANIE PANIAGUA Attending Clinician Unavailable Janie Paniagua MD Attending Clinician [phone] Denita Ponce MD Attending Clinician +- [phone] NARINDER ANDERSON Attending Clinician Unavailable Narinder Anderson MD Attending Clinician [phone] DREW INGRAM Attending Clinician Unavaila christy Ingram ACNDrew Burnett Attending Clinician [phone]- [phone] Brody CASE Attending Clinician Unavailable Brody Staton Attending Clinician [phone] ATTILA SIMEON Attending Clinician Unavailable 2, [facility] Attending Clinician Unavailable ED URENA Admitting Clinician Unavailable LEV SANDERSON Admitting Clinician Unavailable JANIE PANIAGUA Admitting Clinician Unavailable Janie Paniagua MD Admitting Clinician [phone] NARINDER ANDERSON Admitting Clinician Unavailable Brody CASE Admitting Clinician Unavailable Payers Payer Name Policy Type Policy Number Effective Date Expirati on Date Source [facility] PPO/POS [id number] 2019 00:00:00 [employer] [id number] 2021 00:00:00 Problems Condition Name Condition Details Condition Category Status Onset Date Resolution Date Last Treatment Date Treating Clinician Comments Source Stage 3 chronic kidney disease, unspecifie d whether stage 3a or 3b CKD Stage 3 chronic kidney disease, unspecifie d whether stage 3a or 3b CKD Disease Active 01-19 00:00: 00 [facility] Leg edema Leg edema Disease Active 01-19 00:00: 00 [facility] Folliculit is barbae Folliculit is barbae Disease Active 1-04 00:00: 00 [facility] Other male erectile dysfunctio n Other male erectile dysfunctio n Disease Active 2022-05 00:00: 00 [facility] Vitamin D deficiency Vitamin D deficiency Disease Active 2022-05 00:00: 00 [facility] Hypertrigl yceridemia Hypertrigl yceridemia Disease Active 2022-05 00:00: 00 [facility] Obesity (BMI 30-39.9) Obesity (BMI 30-39.9) Disease Active 12-16 00:00: 00 [facility] Coronary artery calcificat ion Coronary artery calcificat ion Disease Active 12-16 00:00: 00 [facility] Encounter for colorectal cancer screening Encounter for colorectal cancer screening Disease Active 2021-05 00:00: 00 Overview: Formattin g of this note might be different from the original. 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, uncontroll ed Disease Active 12-06 00:00: 00 [facility] Pain in right elbow Pain in right elbow Diagnosis Active [facility] Bursitis of other bursa of right elbow Bursitis of other bursa of right elbow Diagnosis Active [facility] Allergies, Adverse Reactions, Alerts Allergy Name Allergy Type Status Severity Reaction(s) Onset Date Inactive Date Treating Clinician Comments Source NO KNOWN ALLERGIE S Drug Class Active [facility] Social History Social Habit Start Date Stop Date Quantity Comments Source History of tobacco use Current smoker [facility] Gender identity [facility] Sexual orientation [facility] Alcoholic beverage intake 2024-01-20 00:00:00 2024-01-20 00:00:00 Current drinker of alcohol (finding) [facility] History of Social function 2023-12-20 00:00:00 2023-12-20 00:00:00 [facility] Alcohol intake 2023-07-19 00:00:00 2023-07-19 00:00:00 Current drinker of alcohol (finding) [facility] Exposure to SARS-CoV-2 (event) 2022-08-25 00:00:00 2022-09-04 15:07:00 Not sure [facility] Tobacco use and exposure 2022-03-09 00:00:00 2022-03-09 00:00:00 Smokeless tobacco non-user [facility] Sex assigned at 1960 00:00:00 1960 00:00:00 [facility] Smoking Status Start Date Stop Date Source Ex-smoker 2022-03-09 00:00:00 2022-03-09 00:00:00 [facility] Medications Ordered Medication Name Filled Medication Name Start Date Stop Date Current Medication? Ordering Clinician Indication Dosage Frequency Signature (SIG) Comments Components Source carvediloL 12.5 mg tablet 01-19 00:00: 00 Yes [id number] 12.5mg Take 1 tablet by mouth in the morning and 1 tablet in the evening. Take with meals. [facility] atorvastati n 20 mg tablet 12-19 00:00: 00 Yes [id number] 20mg Take 1 tablet by mouth in the morning. [facility] empaglifloz in (JARDIANCE) 25 mg Tab tablet 12-19 00:00: 00 Yes [id number] 25mg Take 1 tablet by mouth every morning. [facility] gabapentin 300 mg capsule 12-19 00:00: 00 Yes [id number] 300mg Take 1 capsule by mouth in the morning and 1 capsule in the evening. [facility] glipiZIDE XL 10 mg 24 hr tablet 12-19 00:00: 00 Yes [id number] 20mg Take 2 tablets by mouth daily with breakfast. Per Dr. Yates endocrinol ogist [facility] losartan-hy drochloroth iazide 100-25 mg per tablet 12-19 00:00: 00 Yes [id number] 1{tbl} Take 1 tablet by mouth in the morning. [facility] omega-3-aci d ethyl esters 1 gram capsule 12-19 00:00: 00 Yes [id number] 2g Take 2 capsules by mouth in the morning and 2 capsules in the evening. [facility] insulin glargine U-300 conc (TOUJEO SOLOSTAR U-300 INSULIN) 300 unit/mL (1.5 mL) InPn 12-19 00:00: 00 Yes [id number] 30U inject 30 Units under the skin in the morning. [facility] Insulin Vassar, Disposable, (BD INSULIN PEN NEEDLE UF) 31 gauge x 5/16" Ndle 12-19 00:00: 00 Yes [id number] USE TO INJECT INSULIN DAILY. DX:E11.8 [facility] dulaglutide (TRULICITY) 0.75 mg/0.5 mL PnIj 12-19 00:00: 00 Yes [id number] .75mg inject 1 Pen under the skin weekly. [facility] carvediloL 6.25 mg tablet 12-19 00:00: 00 01-19 00:00 :00 No [id number] 6.25mg Take 1 tablet by mouth in the morning and 1 tablet in the evening. Take with meals. [facility] amLODIPine 10 mg tablet 11-04 00:00: 00 Yes [id number] 10mg Take 1 tablet by mouth in the morning. [facility] ezetimibe 10 mg tablet 10-31 00:00: 00 Yes [id number] 10mg Take 1 tablet by mouth in the morning. [facility] tadalafiL (CIALIS) 10 mg tablet 08-08 00:00: 00 Yes [id number] 10mg Take 1 tablet by mouth as needed for Erectile dysfunctio n. [facility] atorvastati n 20 mg tablet 08-08 00:00: 00 12-19 00:00 :00 No [id number] 20mg Take 1 tablet by mouth in the morning. [facility] dulaglutide (TRULICITY) 0.75 mg/0.5 mL PnIj 07-18 00:00: 00 12-19 00:00 :00 No [id number] .75mg inject 1 Pen under the skin weekly. [facility] LOVAZA, omega-3-aci d ethyl esters, 1 gram capsule 2-13 00:00: 00 12-19 00:00 :00 No [id number] 2g Take 2 capsules by mouth in the morning and 2 capsules in the evening. [facility] ACCU-CHEK SOFTCLIX LANCETS [facility] 06-01 00:00: 00 Yes [id number] Use as directed TID [facility] Blood-Gluco se Meter (ACCU-CHEK GUIDE GLUCOSE METER) [facility] 06-01 00:00: 00 Yes [id number] Use TID. Dx E11.8 [facility] blood sugar diagnostic (ACCU-CHEK GUIDE TEST STRIPS) strip 06-01 00:00: 00 Yes [id number] USE TID. DX:E11.8 [facility] empaglifloz in (JARDIANCE) 25 mg Tab 06-01 00:00: 00 12-19 00:00 :00 No [id number] 25mg Take 1 tablet by mouth every morning. [facility] glipiZIDE XL 10 mg 24 hr tablet 06-01 00:00: 00 12-19 00:00 :00 No [id number] 20mg Take 2 tablets by mouth daily with breakfast. Per Dr. Yates endocrinol ogist [facility] dulaglutide (TRULICITY) 0.75 mg/0.5 mL PnIj 30 00:00: 00 07-18 00:00 :00 No [id number] .75mg inject 1 Pen under the skin weekly. [facility] clindamycin (CLEOCIN T) 1 % lotion 05-06 00:00: 00 Yes [id number] Apply to area(s) 2 (two) times daily. [facility] methocarbam oL 500 mg tablet 05-06 00:00: 00 12-19 00:00 :00 No [id number] 500mg Take 1 tablet by mouth 3 (three) times daily as needed for Pain (scale 7-10). [facility] clindamycin 300 mg capsule 05-06 00:00: 00 12-19 00:00 :00 No [id number] 300mg Take 1 capsule by mouth in the morning and 1 capsule at noon and 1 capsule in the evening. [facility] LOVAZA, omega-3-aci d ethyl esters, 1 gram capsule 2022-05 00:00: 00 06-15 00:00 :00 No [id number] 2g Take 2 capsules by mouth in the morning and 2 capsules in the evening. [facility] ergocalcife rol, vitamin d2, 1,250 mcg (50,000 unit) capsule 2022-05 00:00: 00 Yes [id number] 39259P Take 1 capsule by mouth weekly. [facility] losartan-hy drochloroth iazide 100-25 mg per tablet 2022-05 00:00: 00 12-19 00:00 :00 No [id number] 1{tbl} Take 1 tablet by mouth in the morning. [facility] amLODIPine 10 mg tablet 2022-05 00:00: 00 11-04 00:00 :00 No [id number] 10mg Take 1 tablet by mouth in the morning. [facility] ezetimibe 10 mg tablet 2022-05 00:00: 00 10-29 00:00 :00 No [id number] 10mg Take 1 tablet by mouth in the morning. [facility] tadalafiL (CIALIS) 10 mg tablet 2022-05 00:00: 00 08-06 00:00 :00 No [id number] 10mg Take 1 tablet by mouth as needed for Erectile dysfunctio n. [facility] icosapent ethyL (VASCEPA) 1 gram capsule 2022-05 00:00: 00 03-16 00:00 :00 No [id number] 2g Take 2 capsules by mouth in the morning and 2 capsules in the evening. [facility] insulin glargine U-300 conc (TOUJEO SOLOSTAR U-300 INSULIN) 300 unit/mL (1.5 mL) InPn 01-19 00:00: 00 12-19 00:00 :00 No [id number] 30U inject 30 Units under the skin in the morning. [facility] Blood-Gluco se Sensor (FREESTYLE PAMELA 3 SENSOR) Becki 01-19 00:00: 00 06-01 00:00 :00 No [id number] Use as directed every 2 weeks [facility] carvediloL 6.25 mg tablet 12-16 00:00: 00 12-19 00:00 :00 No [id number] 6.25mg Take 1 tablet by mouth in the morning and 1 tablet in the evening. Take with meals. [facility] GABAPENTIN 300 mg capsule 12-11 00:00: 00 12-19 00:00 :00 No [id number] 300mg TAKE 1 CAPSULE BY MOUTH IN THE MORNING AND 1 CAPSULE IN THE EVENING. [facility] OZEMPIC 0.25 mg or 0.5 mg (2 mg/3 mL) PnIj 12-10 00:00: 00 Yes [id number] INJECT 0.25 MG UNDER THE SKIN WEEKLY. [facility] Insulin Vassar, Disposable, (BD INSULIN PEN NEEDLE UF) 31 gauge x 5/16" Ndle - 00:00: 00 12-19 00:00 :00 No [id number] USE TO INJECT INSULIN DAILY. DX:E11.8 [facility] insulin glargine U-300 conc (TOUOTONIEL SOLOSTAR U-300 INSULIN) 300 unit/mL (1.5 mL) InPn 12-10 00:00: 00 01-19 00:00 :00 No [id number] 24U inject 24 Units under the skin in the morning. [facility] semaglutide (OZEMPIC) 0.25 mg or 0.5 mg(2 mg/1.5 mL) PnIj 12-10 00:00: 00 12-10 00:00 :00 No [id number] .25mg inject 0.25 mg under the skin weekly. [facility] icosapent ethyL (VASCEPA) 1 gram capsule 11-14 00:00: 00 03-12 00:00 :00 No [id number] 2g Take 2 capsules by mouth in the morning and 2 capsules in the evening. [facility] ergocalcife rol, vitamin d2, 1,250 mcg (50,000 unit) capsule 11-14 00:00: 00 03-12 00:00 :00 No [id number] 23753Q Take 1 capsule by mouth weekly. [facility] empaglifloz in (JARDIANCE) 25 mg Tab 10-30 00:00: 00 06-01 00:00 :00 No [id number] 25mg Take 1 tablet by mouth every morning. [facility] glipiZIDE XL 10 mg 24 hr tablet 10-30 00:00: 00 06-01 00:00 :00 No [id number] 20mg Take 2 tablets by mouth daily with breakfast. Per Dr. Yates endocrinol ogslava [facility] carvediloL 6.25 mg tablet 614 00:00: 00 12-16 00:00 :00 No [id number] 6.25mg Take 1 tablet by mouth in the morning and 1 tablet in the evening. Take with meals. [facility] metoprolol tartrate 50 mg tablet 24 00:00: 00 Yes [id number] 50mg Take 1 tablet by mouth in the morning and 1 tablet in the evening. [facility] gabapentin 300 mg capsule 17 00:00: 00 12-11 00:00 :00 No [id number] 300mg TAKE 1 CAPSULE BY MOUTH IN THE MORNING AND 1 CAPSULE IN THE EVENING. [facility] tamsulosin 0.4 mg 24 hr capsule 05 00:00: 00 Yes [id number] 9102 .4mg Take 1 capsule by mouth in the morning and 1 capsule in the evening. [facility] finerenone 20 mg Tab 08-04 00:00: 00 Yes [id number] 20mg Take 1 tablet by mouth in the morning. [facility] Insulin Vassar, Disposable, (BD INSULIN PEN NEEDLE UF) 31 gauge x 5/16" Ndle 07-24 00:00: 00 Yes [id number] USE TO INJECT INSULIN DAILY. DX:E11.8 [facility] atorvastati n 20 mg tablet 07-24 00:00: 00 08-06 00:00 :00 No [id number] 20mg Take 1 tablet by mouth in the morning. [facility] amLODIPine 10 mg tablet 07-24 00:00: 00 03-12 00:00 :00 No [id number] 10mg Take 1 tablet by mouth in the morning. [facility] losartan-hy drochloroth iazide 100-25 mg per tablet 07-24 00:00: 00 03-12 00:00 :00 No [id number] 1{tbl} Take 1 tablet by mouth in the morning. [facility] ezetimibe 10 mg tablet 07-24 00:00: 00 03-12 00:00 :00 No [id number] 10mg Take 1 tablet by mouth in the morning. [facility] insulin glargine U-300 conc (TOUJEO SOLOSTAR U-300 INSULIN) 300 unit/mL (1.5 mL) InPn 24 00:00: 00 12-10 00:00 :00 No [id number] 24U inject 24 Units under the skin in the morning. [facility] Insulin Vassar, Disposable, (BD INSULIN PEN NEEDLE UF) 31 gauge x 5/16" Ndle 07-24 00:00: 00 12-10 00:00 :00 No [id number] USE TO INJECT INSULIN DAILY. DX:E11.8 [facility] empaglifloz in (JARDIANCE) 25 mg Tab 07-24 00:00: 00 10-30 00:00 :00 No [id number] 25mg Take 1 tablet by mouth every morning. [facility] glipiZIDE XL 10 mg 24 hr tablet 07-24 00:00: 00 10-30 00:00 :00 No [id number] 20mg Take 2 tablets by mouth daily with breakfast. Per Dr. Yates endocrinol ogist [facility] mupirocin 2 % ointment 07-21 00:00: 00 05-06 00:00 :00 No [facility] Diclofenac Sodium (VOLTAREN ARTHRITIS PAIN) 1 % gel 06-30 00:00: 00 Yes [id number] Apply to area(s) 2 (two) times daily as needed for Pain (scale 7-10). Apply to affected region, 0.5-1 ribbon [facility] tamsulosin 0.4 mg 24 hr capsule 2- 00:00: 00 08-05 00:00 :00 No [id number] 9102 .4mg Take 1 capsule by mouth in the morning. [facility] finerenone (KERENDIA) 10 mg Tab 2- 00:00: 00 08-04 00:00 :00 No [id number] 10mg Take 1 tablet by mouth in the morning. [facility] methocarbam oL 500 mg tablet 130 00:00: 00 Yes [id number] 500mg Take 1 tablet by mouth in the morning and 1 tablet at noon and 1 tablet in the evening. [facility] Diclofenac Sodium (VOLTAREN ARTHRITIS PAIN) 1 % gel 06-01 00:00: 00 06-30 00:00 :00 No [id number] Apply to area(s) 2 (two) times daily as needed for Pain (scale 7-10). Apply to affected region, 0.5-1 ribbon [facility] lidocaine 5 % (700 mg/patch) patch 05-29 00:00: 00 Yes APPLY 1 PATCH TO AREA(S) ONCE NOW FOR 1 DOSE. [facility] methocarbam oL 500 mg tablet 05-29 00:00: 00 06-01 00:00 :00 No [id number] 500mg Take 1 tablet by mouth in the morning and 1 tablet at noon and 1 tablet in the evening. Do all this for 5 days. [facility] water for irrigation irrigation solution 05-08 17:37: 00 05-08 18:10 :51 No PRN, Starting on Wed05/08/22 at 1137, Until Wed05/08/22 at 1210, Routine, Intra-op [facility] simethicone (GAS RELIEF (SIMETHICON E)) 40 mg/0.6 mL drops 05-08 17:37: 00 05-08 18:10 :51 No PRN, Starting on Wed05/08/22 at 1137, Until Wed05/08/22 at 1210, Routine, Intra-op [facility] lactated ringers IV infusion 1,000 mL 05-08 16:00: 00 05-08 16:23 :00 No 1000mL at 42 mL/hr, 1,000 mL, IV Infusion, ONCE, 1 dose, On Wed05/08/22 at 1000, Routine, DSU Pre-op [facility] ezetimibe 10 mg tablet 2021-05 00:00: 00 07-24 00:00 :00 No [id number] 10mg Take 1 tablet by mouth in the morning. [facility] niacin 100 mg tablet 2021-05 1- 00:00: 00 05-08 00:00 :00 No [id number] 100mg Take 1 tablet by mouth at bedtime. [facility] insulin glargine U-300 conc (TOUJEO SOLOSTAR U-300 INSULIN) 300 unit/mL (1.5 mL) In 2021-05 0-26 00:00: 00 07-24 00:00 :00 No [id number] 24U inject 24 Units under the skin daily. [facility] gabapentin 300 mg capsule 2021-05 0-25 00:00: 00 08-17 00:00 :00 No [id number] 300mg Take 1 capsule by mouth in the morning and 1 capsule in the evening. [facility] empaglifloz in (JARDIANCE) 25 mg Tab 2021-05 0-25 00:00: 00 07-24 00:00 :00 No [id number] 25mg Take 1 tablet by mouth every morning. [facility] glipiZIDE XL 10 mg 24 hr tablet 2021-05 0-25 00:00: 00 07-24 00:00 :00 No [id number] 20mg Take 2 tablets by mouth daily with breakfast. [facility] insulin degludec (TRESIBA FLEXTOUCH U-100) 100 unit/mL (3 mL) [facility] 2021-05 0-25 00:00: 00 02-25 00:00 :00 No [id number] 24U inject 24 Units under the skin daily. DX: E11.65 [facility] valACYclovi r (VALTREX) 1 gram tablet 8-05 00:00: 00 12-11 00:00 :00 No 1g Take 1 tablet by mouth in the morning and 1 tablet at noon and 1 tablet in the evening. [facility] traMADoL (ULTRAM) 50 mg tablet 7-07 00:00: 00 12-11 00:00 :00 No [id number] 50mg Take 1 tablet by mouth every 6 (six) hours as needed for Pain (scale 7-10). Indication s: acute pain [facility] gabapentin 300 mg capsule 10-22 00:00: 00 02-24 00:00 :00 No [id number] Take one capsule today. Tomorrow take one capsule twice (morning and afternoon) . After that take one capsule three times per day for 7 days. [facility] insulin degludec (TRESIBA FLEXTOUCH U-100) 100 unit/mL (3 mL) InPn 10-21 00:00: 00 02-24 00:00 :00 No [id number] 24U inject 24 Units under the skin daily. DX: E11.65 [facility] dulaglutide (TRULICITY) 0.75 mg/0.5 mL PnIj 10-21 00:00: 00 02-24 00:00 :00 No [id number] .75mg inject 1 Pen under the skin weekly. [facility] glipiZIDE XL 10 mg 24 hr tablet 10-21 00:00: 00 02-24 00:00 :00 No [id number] 20mg Take 2 tablets by mouth daily with breakfast. [facility] naproxen (NAPROSYN) 500 mg tablet 10-20 00:00: 00 05-08 00:00 :00 No [id number] 500mg Take 1 tablet by mouth 2 (two) times daily with meals. [facility] amLODIPine 10 mg tablet 6-17 00:00: 00 07-24 00:00 :00 No [id number] 10mg Take 1 tablet by mouth daily. [facility] losartan-hy drochloroth iazide 100-25 mg per tablet 4-20 00:00: 00 07-24 00:00 :00 No [id number] 1{tbl} Take 1 tablet by mouth daily. [facility] Lancets (ACCU-CHEK SOFTCLIX LANCETS) Misc 3-09 00:00: 00 Yes [id number] Use as directed BID [facility] blood sugar diagnostic (ACCU-CHEK GUIDE TEST STRIPS) strip 07-09 00:00: 00 06-01 00:00 :00 No [id number] USE TID. DX:E11.8 [facility] Lancets (ACCU-CHEK SOFTCLIX LANCETS) [facility] 07-09 00:00: 00 06-01 00:00 :00 No [id number] Use as directed BID [facility] atorvastati n 20 mg tablet 07-09 00:00: 00 07-24 00:00 :00 No [id number] 20mg Take 1 tablet by mouth daily. [facility] Insulin Vassar, Disposable, (BD INSULIN PEN NEEDLE UF) 31 gauge x 5/16" Ndle 07-09 00:00: 00 07-24 00:00 :00 No [id number] USE TO INJECT INSULIN DAILY. DX:E11.8 [facility] Blood-Gluco se Meter (ACCU-CHEK GUIDE GLUCOSE METER) [facility] 2019-05 00:00: 00 Yes Use TID. Dx E11.8 [facility] Blood-Gluco se Meter (ACCU-CHEK GUIDE GLUCOSE METER) [facility] 2019-05 00:00: 00 06-01 00:00 :00 No Use TID. Dx E11.8 [facility] Tramadol HCl Tramadol HCl 11-24 00:00: 00 Yes Jayesh Mckeon 1 tablet as needed [facility] Clindamycin HCl Clindamycin HCl 11-24 00:00: 00 12-04 00:00 :00 No Jayesh Mckeon 1 capsule [facility] Losartan Potassium-H CTZ Losartan Potassium-H CTZ Yes Jayesh Mckeon not defined [facility] GlipiZIDE GlipiZIDE Yes Jayesh Mckeon not defined [facility] Mupirocin Mupirocin Yes Jayesh Mckeon not defined [facility] Clindamycin Phosphate Clindamycin Phosphate Yes Jayesh Mckeon not defined [facility] Hydrocodone -Acetaminop hen Hydrocodone -Acetaminop hen Yes Jayesh Mckeon not defined [facility] Clobetasol Propionate Clobetasol Propionate Yes Jayesh Mckeon not defined [facility] Immunizations Ordered Immunization Name Filled Immunization Name Date Status Comments Source Zoster Vaccine Recombinant 2022-05-24 00:00:00 Completed [facility] Zoster Vaccine Recombinant 2022-05-24 00:00:00 Completed [facility] Zoster Vaccine Recombinant 2022-05-24 00:00:00 Completed [facility] Zoster Vaccine Recombinant 2022-05-24 00:00:00 Completed [facility] Zoster Vaccine Recombinant 2022-05-24 00:00:00 Completed [facility] Zoster Vaccine Recombinant 2022-05-24 00:00:00 Completed [facility] Zoster Vaccine Recombinant 2022-05-24 00:00:00 Completed [facility] Zoster Vaccine Recombinant 2022-05-24 00:00:00 Completed [facility] Zoster Vaccine Recombinant 2022-05-24 00:00:00 Completed [facility] Zoster Vaccine Recombinant 2022-05-24 00:00:00 Completed [facility] Zoster Vaccine Recombinant 2022-05-24 00:00:00 Completed [facility] Zoster Vaccine Recombinant 2022-05-24 00:00:00 Completed [facility] Zoster Vaccine Recombinant 2022-05-24 00:00:00 Completed [facility] Zoster Vaccine Recombinant 2022-05-24 00:00:00 Completed [facility] Zoster Vaccine Recombinant 2022-05-24 00:00:00 Completed [facility] Zoster Vaccine Recombinant 2022-05-24 00:00:00 Completed [facility] Zoster Vaccine Recombinant 2022-05-24 00:00:00 Completed [facility] Zoster Vaccine Recombinant 2022-05-24 00:00:00 Completed [facility] Zoster Vaccine Recombinant 2022-05-24 00:00:00 Completed [facility] Zoster Vaccine Recombinant 2022-05-24 00:00:00 Completed [facility] Zoster Vaccine Recombinant 2022-05-24 00:00:00 Completed [facility] Zoster Vaccine Recombinant 2022-05-24 00:00:00 Completed [facility] Zoster Vaccine Recombinant 2022-05-24 00:00:00 Completed [facility] Zoster Vaccine Recombinant 2022-05-24 00:00:00 Completed [facility] Zoster Vaccine Recombinant 2022-05-24 00:00:00 Completed [facility] Zoster Vaccine Recombinant 2022-05-24 00:00:00 Completed [facility] Zoster Vaccine Recombinant 2022-05-24 00:00:00 Completed [facility] Zoster Vaccine Recombinant 2022-05-24 00:00:00 Completed [facility] Zoster Vaccine Recombinant 2022-05-24 00:00:00 Completed [facility] Zoster Vaccine Recombinant 2022-05-24 00:00:00 Completed [facility] Zoster Vaccine Recombinant 2022-05-24 00:00:00 Completed [facility] Zoster Vaccine Recombinant 2022-05-24 00:00:00 Completed [facility] Zoster Vaccine Recombinant 2022-05-24 00:00:00 Completed [facility] Zoster Vaccine Recombinant 2022-05-24 00:00:00 Completed [facility] Zoster Vaccine Recombinant 2022-05-24 00:00:00 Completed [facility] Zoster Vaccine Recombinant 2022-05-24 00:00:00 Completed [facility] Zoster Vaccine Recombinant 2022-05-24 00:00:00 Completed [facility] Zoster Vaccine Recombinant 2022-05-24 00:00:00 Completed [facility] Zoster Vaccine Recombinant 2022-05-24 00:00:00 Completed [facility] Zoster Vaccine Recombinant 2022-05-24 00:00:00 Completed [facility] Zoster Vaccine Recombinant 2022-05-24 00:00:00 Completed [facility] Zoster Vaccine Recombinant 2022-05-24 00:00:00 Completed [facility] Zoster Vaccine Recombinant 2022-05-24 00:00:00 Completed [facility] Zoster Vaccine Recombinant 2022-03-15 00:00:00 Completed [facility] Zoster Vaccine Recombinant 2022-03-15 00:00:00 Completed [facility] Zoster Vaccine Recombinant 2022-03-15 00:00:00 Completed [facility] Zoster Vaccine Recombinant 2022-03-15 00:00:00 Completed [facility] Zoster Vaccine Recombinant 2022-03-15 00:00:00 Completed [facility] Zoster Vaccine Recombinant 2022-03-15 00:00:00 Completed [facility] Zoster Vaccine Recombinant 2022-03-15 00:00:00 Completed [facility] Zoster Vaccine Recombinant 2022-03-15 00:00:00 Completed [facility] Zoster Vaccine Recombinant 2022-03-15 00:00:00 Completed [facility] Zoster Vaccine Recombinant 2022-03-15 00:00:00 Completed [facility] Zoster Vaccine Recombinant 2022-03-15 00:00:00 Completed [facility] Zoster Vaccine Recombinant 2022-03-15 00:00:00 Completed [facility] Zoster Vaccine Recombinant 2022-03-15 00:00:00 Completed [facility] Zoster Vaccine Recombinant 2022-03-15 00:00:00 Completed [facility] Zoster Vaccine Recombinant 2022-03-15 00:00:00 Completed [facility] Zoster Vaccine Recombinant 2022-03-15 00:00:00 Completed [facility] Zoster Vaccine Recombinant 2022-03-15 00:00:00 Completed [facility] Zoster Vaccine Recombinant 2022-03-15 00:00:00 Completed [facility] Zoster Vaccine Recombinant 2022-03-15 00:00:00 Completed [facility] Zoster Vaccine Recombinant 2022-03-15 00:00:00 Completed [facility] Zoster Vaccine Recombinant 2022-03-15 00:00:00 Completed [facility] Zoster Vaccine Recombinant 2022-03-15 00:00:00 Completed [facility] Zoster Vaccine Recombinant 2022-03-15 00:00:00 Completed [facility] Zoster Vaccine Recombinant 2022-03-15 00:00:00 Completed [facility] Zoster Vaccine Recombinant 2022-03-15 00:00:00 Completed [facility] Zoster Vaccine Recombinant 2022-03-15 00:00:00 Completed [facility] Zoster Vaccine Recombinant 2022-03-15 00:00:00 Completed [facility] Zoster Vaccine Recombinant 2022-03-15 00:00:00 Completed [facility] Zoster Vaccine Recombinant 2022-03-15 00:00:00 Completed [facility] Zoster Vaccine Recombinant 2022-03-15 00:00:00 Completed [facility] Zoster Vaccine Recombinant 2022-03-15 00:00:00 Completed [facility] Zoster Vaccine Recombinant 2022-03-15 00:00:00 Completed [facility] Zoster Vaccine Recombinant 2022-03-15 00:00:00 Completed [facility] Zoster Vaccine Recombinant 2022-03-15 00:00:00 Completed [facility] Zoster Vaccine Recombinant 2022-03-15 00:00:00 Completed [facility] Zoster Vaccine Recombinant 2022-03-15 00:00:00 Completed [facility] Zoster Vaccine Recombinant 2022-03-15 00:00:00 Completed [facility] Zoster Vaccine Recombinant 2022-03-15 00:00:00 Completed [facility] Zoster Vaccine Recombinant 2022-03-15 00:00:00 Completed [facility] Zoster Vaccine Recombinant 2022-03-15 00:00:00 Completed [facility] Zoster Vaccine Recombinant 2022-03-15 00:00:00 Completed [facility] Zoster Vaccine Recombinant 2022-03-15 00:00:00 Completed [facility] Zoster Vaccine Recombinant 2022-03-15 00:00:00 Completed [facility] Influenza Virus Vaccine Quad IM, Preserv and ABX Free 6 MO-64 YRS 2022-03-09 00:00:00 Completed [facility] TDAP 2022-03-09 00:00:00 Completed [facility] Influenza Virus Vaccine Quad IM, Preserv and ABX Free 6 MO-64 YRS 2022-03-09 00:00:00 Completed [facility] TDAP 2022-03-09 00:00:00 Completed [facility] Influenza Virus Vaccine Quad IM, Preserv and ABX Free 6 MO-64 YRS 2022-03-09 00:00:00 Completed [facility] TDAP 2022-03-09 00:00:00 Completed [facility] Influenza Virus Vaccine Quad IM, Preserv and ABX Free 6 MO-64 YRS 2022-03-09 00:00:00 Completed [facility] TDAP 2022-03-09 00:00:00 Completed [facility] Influenza Virus Vaccine Quad IM, Preserv and ABX Free 6 MO-64 YRS 2022-03-09 00:00:00 Completed [facility] TDAP 2022-03-09 00:00:00 Completed [facility] Influenza Virus Vaccine Quad IM, Preserv and ABX Free 6 MO-64 YRS 2022-03-09 00:00:00 Completed [facility] TDAP 2022-03-09 00:00:00 Completed [facility] Influenza Virus Vaccine Quad IM, Preserv and ABX Free 6 MO-64 YRS 2022-03-09 00:00:00 Completed [facility] TDAP 2022-03-09 00:00:00 Completed [facility] Influenza Virus Vaccine Quad IM, Preserv and ABX Free 6 MO-64 YRS 2022-03-09 00:00:00 Completed [facility] TDAP 2022-03-09 00:00:00 Completed [facility] Influenza Virus Vaccine Quad IM, Preserv and ABX Free 6 MO-64 YRS 2022-03-09 00:00:00 Completed [facility] TDAP 2022-03-09 00:00:00 Completed [facility] Influenza Virus Vaccine Quad IM, Preserv and ABX Free 6 MO-64 YRS 2022-03-09 00:00:00 Completed [facility] TDAP 2022-03-09 00:00:00 Completed [facility] Influenza Virus Vaccine Quad IM, Preserv and ABX Free 6 MO-64 YRS 2022-03-09 00:00:00 Completed [facility] TDAP 2022-03-09 00:00:00 Completed [facility] Influenza Virus Vaccine Quad IM, Preserv and ABX Free 6 MO-64 YRS 2022-03-09 00:00:00 Completed [facility] TDAP 2022-03-09 00:00:00 Completed [facility] Influenza Virus Vaccine Quad IM, Preserv and ABX Free MO-64 YRS 2022-03-09 00:00:00 Completed [facility] TDAP 2022-03-09 00:00:00 Completed [facility] Influenza Virus Vaccine Quad IM, Preserv and ABX Free 6 MO-64 2022-03-09 00:00:00 Completed [facility] TDAP 2022-03-09 00:00:00 Completed [facility] Influenza Virus Vaccine Quad IM, Preserv and ABX Free 6 MO-64 YRS 2022-03-09 00:00:00 Completed [facility] TDAP 2022-03-09 00:00:00 Completed [facility] Influenza Virus Vaccine Quad IM, Preserv and ABX Free 6 MO-64 YRS 2022-03-09 00:00:00 Completed [facility] TDAP 2022-03-09 00:00:00 Completed [facility] Influenza Virus Vaccine Quad IM, Preserv and ABX Free 6 MO-64 YRS 2022-03-09 00:00:00 Completed [facility] TDAP 2022-03-09 00:00:00 Completed [facility] Influenza Virus Vaccine Quad IM, Preserv and ABX Free 6 MO-64 YRS 2022-03-09 00:00:00 Completed [facility] TDAP 2022-03-09 00:00:00 Completed [facility] Influenza Virus Vaccine Quad IM, Preserv and ABX Free 6 MO-64 YRS 2022-03-09 00:00:00 Completed [facility] TDAP 2022-03-09 00:00:00 Completed [facility] Influenza Virus Vaccine Quad IM, Preserv and ABX Free 6 MO-64 YRS 2022-03-09 00:00:00 Completed [facility] TDAP 2022-03-09 00:00:00 Completed [facility] Influenza Virus Vaccine Quad IM, Preserv and ABX Free 6 MO-64 YRS 2022-03-09 00:00:00 Completed [facility] TDAP 2022-03-09 00:00:00 Completed [facility] Influenza Virus Vaccine Quad IM, Preserv and ABX Free 6 MO-64 YRS 2022-03-09 00:00:00 Completed [facility] TDAP 2022-03-09 00:00:00 Completed [facility] Influenza Virus Vaccine Quad IM, Preserv and ABX Free 6 MO-64 YRS 2022-03-09 00:00:00 Completed [facility] TDAP 2022-03-09 00:00:00 Completed [facility] Influenza Virus Vaccine Quad IM, Preserv and ABX Free 6 MO-64 YRS 2022-03-09 00:00:00 Completed [facility] TDAP 2022-03-09 00:00:00 Completed [facility] Influenza Virus Vaccine Quad IM, Preserv and ABX Free 6 MO-64 YRS 2022-03-09 00:00:00 Completed [facility] TDAP 2022-03-09 00:00:00 Completed [facility] Influenza Virus Vaccine Quad IM, Preserv and ABX Free 6 MO-64 YRS 2022-03-09 00:00:00 Completed [facility] TDAP 2022-03-09 00:00:00 Completed [facility] Influenza Virus Vaccine Quad IM, Preserv and ABX Free 6 MO-64 YRS 2022-03-09 00:00:00 Completed [facility] TDAP 2022-03-09 00:00:00 Completed [facility] Influenza Virus Vaccine Quad IM, Preserv and ABX Free 6 MO-64 YRS 2022-03-09 00:00:00 Completed [facility] TDAP 2022-03-09 00:00:00 Completed [facility] Influenza Virus Vaccine Quad IM, Preserv and ABX Free 6 MO-64 YRS 2022-03-09 00:00:00 Completed [facility] TDAP 2022-03-09 00:00:00 Completed [facility] Influenza Virus Vaccine Quad IM, Preserv and ABX Free 6 MO-64 YRS 2022-03-09 00:00:00 Completed [facility] TDAP 2022-03-09 00:00:00 Completed [facility] Influenza Virus Vaccine Quad IM, Preserv and ABX Free 6 MO-64 YRS 2022-03-09 00:00:00 Completed [facility] TDAP 2022-03-09 00:00:00 Completed [facility] Influenza Virus Vaccine Quad IM, Preserv and ABX Free 6 MO-64 YRS 2022-03-09 00:00:00 Completed [facility] TDAP 2022-03-09 00:00:00 Completed [facility] Influenza Virus Vaccine Quad IM, Preserv and ABX Free 6 MO-64 YRS 2022-03-09 00:00:00 Completed [facility] TDAP 2022-03-09 00:00:00 Completed [facility] Influenza Virus Vaccine Quad IM, Preserv and ABX Free 6 MO-64 YRS 2022-03-09 00:00:00 Completed [facility] TDAP 2022-03-09 00:00:00 Completed [facility] Influenza Virus Vaccine Quad IM, Preserv and ABX Free 6 MO-64 YRS 2022-03-09 00:00:00 Completed [facility] TDAP 2022-03-09 00:00:00 Completed [facility] Influenza Virus Vaccine Quad IM, Preserv and ABX Free 6 MO-64 YRS 2022-03-09 00:00:00 Completed [facility] TDAP 2022-03-09 00:00:00 Completed [facility] Influenza Virus Vaccine Quad IM, Preserv and ABX Free 6 MO-64 YRS 2022-03-09 00:00:00 Completed [facility] TDAP 2022-03-09 00:00:00 Completed [facility] Influenza Virus Vaccine Quad IM, Preserv and ABX Free 6 MO-64 2022-03-09 00:00:00 Completed [facility] TD 2022-03-09 00:00:00 Completed [facility] Influenza Virus Vaccine Quad IM, Preserv and ABX Free 6 MO-64 YRS 2022-03-09 00:00:00 Completed [facility] TDAP 2022-03-09 00:00:00 Completed [facility] Influenza Virus Vaccine Quad IM, Preserv and ABX Free 6 MO-64 2022-03-09 00:00:00 Completed [facility] TDAP 2022-03-09 00:00:00 Completed [facility] Influenza Virus Vaccine Quad IM, Preserv and ABX Free 6 MO-64 2022-03-09 00:00:00 Completed [facility] TDAP 2022-03-09 00:00:00 Completed [facility] Influenza Virus Vaccine Quad IM, Preserv and ABX Free 6 MO-64 YRS 2022-03-09 00:00:00 Completed [facility] TDAP 2022-03-09 00:00:00 Completed [facility] Influenza Virus Vaccine Quad IM, Preserv and ABX Free 6 MO-64 YRS 2022-03-09 00:00:00 Completed [facility] TDAP 2022-03-09 00:00:00 Completed [facility] Influenza Virus Vaccine Quad IM, Preserv and ABX Free 6 MO-64 YRS 2022-03-09 00:00:00 Completed [facility] TDAP 2022-03-09 00:00:00 Completed [facility] Influenza Virus Vaccine Quad IM, Preserv and ABX Free 6 MO-64 YRS 2022-03-09 00:00:00 Completed [facility] TDAP 2022-03-09 00:00:00 Completed [facility] Influenza Virus Vaccine Quad IM, Preserv and ABX Free 6 MO-64 YRS 2022-03-09 00:00:00 Completed [facility] TDAP 2022-03-09 00:00:00 Completed [facility] Influenza Virus Vaccine Quad IM, Preserv and ABX Free 6 MO-64 YRS 2022-03-09 00:00:00 Completed [facility] TDAP 2022-03-09 00:00:00 Completed [facility] Influenza Virus Vaccine Quad IM, Preserv and ABX Free 6 MO-64 YRS 2022-03-09 00:00:00 Completed [facility] TDAP 2022-03-09 00:00:00 Completed [facility] Influenza Virus Vaccine Quad IM, Preserv and ABX Free 6 MO-64 YRS 2022-03-09 00:00:00 Completed [facility] TDAP 2022-03-09 00:00:00 Completed [facility] Influenza Virus Vaccine Quad IM, Preserv and ABX Free 6 MO-64 YRS (FLUCELVAX) 2022-03-09 00:00:00 Completed [facility] TDAP 2022-03-09 00:00:00 Completed [facility] Influenza Virus Vaccine Quad IM, Preserv and ABX Free 6 MO-64 YRS (FLUCELVAX) 2022-03-09 00:00:00 Completed [facility] TDAP 2022-03-09 00:00:00 Completed [facility] Influenza Virus Vaccine Quad IM, Preserv and ABX Free 6 MO-64 YRS (FLUCELVAX) 2022-03-09 00:00:00 Completed [facility] TDAP 2022-03-09 00:00:00 Completed [facility] SARS-COV-2 COVID-19 PFIZER VACCINE 2020-12-05 00:00:00 Completed [facility] SARS-COV-2 COVID-19 PFIZER VACCINE 2020-12-05 00:00:00 Completed [facility] SARS-COV-2 COVID-19 PFIZER VACCINE 2020-12-05 00:00:00 Completed [facility] SARS-COV-2 COVID-19 PFIZER VACCINE 2020-12-05 00:00:00 Completed [facility] SARS-COV-2 COVID-19 PFIZER VACCINE 2020-12-05 00:00:00 Completed [facility] SARS-COV-2 COVID-19 PFIZER VACCINE 2020-12-05 00:00:00 Completed [facility] SARS-COV-2 COVID-19 PFIZER VACCINE 2020-12-05 00:00:00 Completed [facility] SARS-COV-2 COVID-19 PFIZER VACCINE 2020-12-05 00:00:00 Completed [facility] SARS-COV-2 COVID-19 PFIZER VACCINE 2020-12-05 00:00:00 Completed [facility] SARS-COV-2 COVID-19 PFIZER VACCINE 2020-12-05 00:00:00 Completed [facility] SARS-COV-2 COVID-19 PFIZER VACCINE 2020-12-05 00:00:00 Completed [facility] SARS-COV-2 COVID-19 PFIZER VACCINE 2020-12-05 00:00:00 Completed [facility] SARS-COV-2 COVID-19 PFIZER VACCINE 2020-12-05 00:00:00 Completed [facility] SARS-COV-2 COVID-19 PFIZER VACCINE 2020-12-05 00:00:00 Completed [facility] SARS-COV-2 COVID-19 PFIZER VACCINE 2020-12-05 00:00:00 Completed [facility] SARS-COV-2 COVID-19 PFIZER VACCINE 2020-12-05 00:00:00 Completed [facility] SARS-COV-2 COVID-19 PFIZER VACCINE 2020-12-05 00:00:00 Completed [facility] SARS-COV-2 COVID-19 PFIZER VACCINE 2020-12-05 00:00:00 Completed [facility] SARS-COV-2 COVID-19 PFIZER VACCINE 2020-12-05 00:00:00 Completed [facility] SARS-COV-2 COVID-19 PFIZER VACCINE 2020-12-05 00:00:00 Completed [facility] SARS-COV-2 COVID-19 PFIZER VACCINE 2020-12-05 00:00:00 Completed [facility] SARS-COV-2 COVID-19 PFIZER VACCINE 2020-12-05 00:00:00 Completed [facility] SARS-COV-2 COVID-19 PFIZER VACCINE 2020-12-05 00:00:00 Completed [facility] SARS-COV-2 COVID-19 PFIZER VACCINE 2020-12-05 00:00:00 Completed [facility] SARS-COV-2 COVID-19 PFIZER VACCINE 2020-12-05 00:00:00 Completed [facility] SARS-COV-2 COVID-19 PFIZER VACCINE 2020-12-05 00:00:00 Completed [facility] SARS-COV-2 COVID-19 PFIZER VACCINE 2020-12-05 00:00:00 Completed [facility] SARS-COV-2 COVID-19 PFIZER VACCINE 2020-12-05 00:00:00 Completed [facility] SARS-COV-2 COVID-19 PFIZER VACCINE 2020-12-05 00:00:00 Completed [facility] SARS-COV-2 COVID-19 PFIZER VACCINE 2020-12-05 00:00:00 Completed [facility] SARS-COV-2 COVID-19 PFIZER VACCINE 2020-12-05 00:00:00 Completed [facility] SARS-COV-2 COVID-19 PFIZER VACCINE 2020-12-05 00:00:00 Completed [facility] SARS-COV-2 COVID-19 PFIZER VACCINE 2020-12-05 00:00:00 Completed [facility] SARS-COV-2 COVID-19 PFIZER VACCINE 2020-12-05 00:00:00 Completed [facility] SARS-COV-2 COVID-19 PFIZER VACCINE 2020-12-05 00:00:00 Completed [facility] SARS-COV-2 COVID-19 PFIZER VACCINE 2020-12-05 00:00:00 Completed [facility] SARS-COV-2 COVID-19 PFIZER VACCINE 2020-12-05 00:00:00 Completed [facility] SARS-COV-2 COVID-19 PFIZER VACCINE 2020-12-05 00:00:00 Completed [facility] SARS-COV-2 COVID-19 PFIZER VACCINE 2020-12-05 00:00:00 Completed [facility] SARS-COV-2 COVID-19 PFIZER VACCINE 2020-12-05 00:00:00 Completed [facility] SARS-COV-2 COVID-19 PFIZER VACCINE 2020-12-05 00:00:00 Completed [facility] SARS-COV-2 COVID-19 PFIZER VACCINE 2020-12-05 00:00:00 Completed [facility] SARS-COV-2 COVID-19 PFIZER VACCINE 2020-12-05 00:00:00 Completed [facility] SARS-COV-2 COVID-19 PFIZER VACCINE 2020-11-12 00:00:00 Completed [facility] SARS-COV-2 COVID-19 PFIZER VACCINE 2020-11-12 00:00:00 Completed [facility] SARS-COV-2 COVID-19 PFIZER VACCINE 2020-11-12 00:00:00 Completed [facility] SARS-COV-2 COVID-19 PFIZER VACCINE 2020-11-12 00:00:00 Completed [facility] SARS-COV-2 COVID-19 PFIZER VACCINE 2020-11-12 00:00:00 Completed [facility] SARS-COV-2 COVID-19 PFIZER VACCINE 2020-11-12 00:00:00 Completed [facility] SARS-COV-2 COVID-19 PFIZER VACCINE 2020-11-12 00:00:00 Completed [facility] SARS-COV-2 COVID-19 PFIZER VACCINE 2020-11-12 00:00:00 Completed [facility] SARS-COV-2 COVID-19 PFIZER VACCINE 2020-11-12 00:00:00 Completed [facility] SARS-COV-2 COVID-19 PFIZER VACCINE 2020-11-12 00:00:00 Completed [facility] SARS-COV-2 COVID-19 PFIZER VACCINE 2020-11-12 00:00:00 Completed [facility] SARS-COV-2 COVID-19 PFIZER VACCINE 2020-11-12 00:00:00 Completed [facility] SARS-COV-2 COVID-19 PFIZER VACCINE 2020-11-12 00:00:00 Completed [facility] SARS-COV-2 COVID-19 PFIZER VACCINE 2020-11-12 00:00:00 Completed [facility] SARS-COV-2 COVID-19 PFIZER VACCINE 2020-11-12 00:00:00 Completed [facility] SARS-COV-2 COVID-19 PFIZER VACCINE 2020-11-12 00:00:00 Completed [facility] SARS-COV-2 COVID-19 PFIZER VACCINE 2020-11-12 00:00:00 Completed [facility] SARS-COV-2 COVID-19 PFIZER VACCINE 2020-11-12 00:00:00 Completed [facility] SARS-COV-2 COVID-19 PFIZER VACCINE 2020-11-12 00:00:00 Completed [facility] SARS-COV-2 COVID-19 PFIZER VACCINE 2020-11-12 00:00:00 Completed [facility] SARS-COV-2 COVID-19 PFIZER VACCINE 2020-11-12 00:00:00 Completed [facility] SARS-COV-2 COVID-19 PFIZER VACCINE 2020-11-12 00:00:00 Completed [facility] SARS-COV-2 COVID-19 PFIZER VACCINE 2020-11-12 00:00:00 Completed [facility] SARS-COV-2 COVID-19 PFIZER VACCINE 2020-11-12 00:00:00 Completed [facility] SARS-COV-2 COVID-19 PFIZER VACCINE 2020-11-12 00:00:00 Completed [facility] SARS-COV-2 COVID-19 PFIZER VACCINE 2020-11-12 00:00:00 Completed [facility] SARS-COV-2 COVID-19 PFIZER VACCINE 2020-11-12 00:00:00 Completed [facility] SARS-COV-2 COVID-19 PFIZER VACCINE 2020-11-12 00:00:00 Completed [facility] SARS-COV-2 COVID-19 PFIZER VACCINE 2020-11-12 00:00:00 Completed [facility] SARS-COV-2 COVID-19 PFIZER VACCINE 2020-11-12 00:00:00 Completed [facility] SARS-COV-2 COVID-19 PFIZER VACCINE 2020-11-12 00:00:00 Completed [facility] SARS-COV-2 COVID-19 PFIZER VACCINE 2020-11-12 00:00:00 Completed [facility] SARS-COV-2 COVID-19 PFIZER VACCINE 2020-11-12 00:00:00 Completed [facility] SARS-COV-2 COVID-19 PFIZER VACCINE 2020-11-12 00:00:00 Completed [facility] SARS-COV-2 COVID-19 PFIZER VACCINE 2020-11-12 00:00:00 Completed [facility] SARS-COV-2 COVID-19 PFIZER VACCINE 2020-11-12 00:00:00 Completed [facility] SARS-COV-2 COVID-19 PFIZER VACCINE 2020-11-12 00:00:00 Completed [facility] SARS-COV-2 COVID-19 PFIZER VACCINE 2020-11-12 00:00:00 Completed [facility] SARS-COV-2 COVID-19 PFIZER VACCINE 2020-11-12 00:00:00 Completed [facility] SARS-COV-2 COVID-19 PFIZER VACCINE 2020-11-12 00:00:00 Completed [facility] SARS-COV-2 COVID-19 PFIZER VACCINE 2020-11-12 00:00:00 Completed [facility] SARS-COV-2 COVID-19 PFIZER VACCINE 2020-11-12 00:00:00 Completed [facility] SARS-COV-2 COVID-19 PFIZER VACCINE 2020-11-12 00:00:00 Completed [facility] SARS-COV-2 COVID-19 PFIZER VACCINE Unknown Completed [facility] Zoster Vaccine Recombinant Unknown Completed [facility] Influenza Virus Vaccine Quad IM, Preserv and ABX Free 6 MO-64 YRS (FLUCELVAX) Unknown Completed [facility] TDAP Unknown Completed [facility] Zoster Vaccine Recombinant Unknown Completed [facility] SARS-COV-2 COVID-19 PFIZER VACCINE Unknown Completed [facility] TDAP Unknown Completed [facility] Influenza Virus Vaccine Quad IM, Preserv and ABX Free 6 MO-64 YRS (FLUCELVAX) Unknown Completed [facility] Zoster Vaccine Recombinant Unknown Completed [facility] SARS-COV-2 COVID-19 PFIZER VACCINE Unknown Completed [facility] Influenza Virus Vaccine Quad IM, Preserv and ABX Free 6 MO-64 YRS (FLUCELVAX) Unknown Completed [facility] TDAP Unknown Completed [facility] Zoster Vaccine Recombinant Unknown Completed [facility] SARS-COV-2 COVID-19 PFIZER VACCINE Unknown Completed [facility] Influenza Virus Vaccine Quad IM, Preserv and ABX Free 6 MO-64 YRS (FLUCELVAX) Unknown Completed [facility] TDAP Unknown Completed [facility] Zoster Vaccine Recombinant Unknown Completed [facility] SARS-COV-2 COVID-19 PFIZER VACCINE Unknown Completed [facility] TDAP Unknown Completed [facility] TDAP Unknown Completed [facility] Influenza Virus Vaccine Quad IM, Preserv and ABX Free 6 MO-64 YRS (FLUCELVAX) Unknown Completed [facility] Zoster Vaccine Recombinant Unknown Completed [facility] SARS-COV-2 COVID-19 PFIZER VACCINE Unknown Completed [facility] Influenza Virus Vaccine Quad IM, Preserv and ABX Free 6 MO-64 YRS (FLUCELVAX) Unknown Completed [facility] Zoster Vaccine Recombinant Unknown Completed [facility] SARS-COV-2 COVID-19 PFIZER VACCINE Unknown Completed [facility] Influenza Virus Vaccine Quad IM, Preserv and ABX Free 6 MO-64 YRS (FLUCELVAX) Unknown Completed [facility] TDAP Unknown Completed [facility] Zoster Vaccine Recombinant Unknown Completed [facility] SARS-COV-2 COVID-19 PFIZER VACCINE Unknown Completed [facility] Influenza Virus Vaccine Quad IM, Preserv and ABX Free 6 MO-64 YRS (FLUCELVAX) Unknown Completed [facility] TDAP Unknown Completed [facility] Zoster Vaccine Recombinant Unknown Completed [facility] SARS-COV-2 COVID-19 PFIZER VACCINE Unknown Completed [facility] Influenza Virus Vaccine Quad IM, Preserv and ABX Free 6 MO-64 YRS (FLUCELVAX) Unknown Completed [facility] TDAP Unknown Completed [facility] Zoster Vaccine Recombinant Unknown Completed [facility] SARS-COV-2 COVID-19 PFIZER VACCINE Unknown Completed [facility] Influenza Virus Vaccine Quad IM, Preserv and ABX Free 6 MO-64 YRS (FLUCELVAX) Unknown Completed [facility] TDAP Unknown Completed [facility] Zoster Vaccine Recombinant Unknown Completed [facility] SARS-COV-2 COVID-19 PFIZER VACCINE Unknown Completed [facility] TDAP Unknown Completed [facility] Influenza Virus Vaccine Quad IM, Preserv and ABX Free 6 MO-64 YRS (FLUCELVAX) Unknown Completed [facility] Zoster Vaccine Recombinant Unknown Completed [facility] SARS-COV-2 COVID-19 PFIZER VACCINE Unknown Completed [facility] Influenza Virus Vaccine Quad IM, Preserv and ABX Free 6 MO-64 YRS (FLUCELVAX) Unknown Completed [facility] TDAP Unknown Completed [facility] Zoster Vaccine Recombinant Unknown Completed [facility] SARS-COV-2 COVID-19 PFIZER VACCINE Unknown Completed [facility] Influenza Virus Vaccine Quad IM, Preserv and ABX Free 6 MO-64 YRS (FLUCELVAX) Unknown Completed [facility] TDAP Unknown Completed [facility] Zoster Vaccine Recombinant Unknown Completed [facility] SARS-COV-2 COVID-19 PFIZER VACCINE Unknown Completed [facility] Influenza Virus Vaccine Quad IM, Preserv and ABX Free 6 MO-64 YRS (FLUCELVAX) Unknown Completed [facility] TDAP Unknown Completed [facility] Zoster Vaccine Recombinant Unknown Completed [facility] SARS-COV-2 COVID-19 PFIZER VACCINE Unknown Completed [facility] Influenza Virus Vaccine Quad IM, Preserv and ABX Free 6 MO-64 YRS (FLUCELVAX) Unknown Completed [facility] TDAP Unknown Completed [facility] Zoster Vaccine Recombinant Unknown Completed [facility] SARS-COV-2 COVID-19 PFIZER VACCINE Unknown Completed [facility] TDAP Unknown Completed [facility] Influenza Virus Vaccine Quad IM, Preserv and ABX Free 6 MO-64 YRS (FLUCELVAX) Unknown Completed [facility] Zoster Vaccine Recombinant Unknown Completed [facility] SARS-COV-2 COVID-19 PFIZER VACCINE Unknown Completed [facility] Influenza Virus Vaccine Quad IM, Preserv and ABX Free 6 MO-64 YRS (FLUCELVAX) Unknown Completed [facility] TDAP Unknown Completed [facility] Zoster Vaccine Recombinant Unknown Completed [facility] SARS-COV-2 COVID-19 PFIZER VACCINE Unknown Completed [facility] Influenza Virus Vaccine Quad IM, Preserv and ABX Free 6 MO-64 YRS (FLUCELVAX) Unknown Completed [facility] TDAP Unknown Completed [facility] Zoster Vaccine Recombinant Unknown Completed [facility] SARS-COV-2 COVID-19 PFIZER VACCINE Unknown Completed [facility] Influenza Virus Vaccine Quad IM, Preserv and ABX Free 6 MO-64 YRS (FLUCELVAX) Unknown Completed [facility] TDAP Unknown Completed [facility] Zoster Vaccine Recombinant Unknown Completed [facility] SARS-COV-2 COVID-19 PFIZER VACCINE Unknown Completed [facility] Influenza Virus Vaccine Quad IM, Preserv and ABX Free 6 MO-64 YRS (FLUCELVAX) Unknown Completed [facility] TDAP Unknown Completed [facility] Zoster Vaccine Recombinant Unknown Completed [facility] SARS-COV-2 COVID-19 PFIZER VACCINE Unknown Completed [facility] Influenza Virus Vaccine Quad IM, Preserv and ABX Free 6 MO-64 YRS (FLUCELVAX) Unknown Completed [facility] TDAP Unknown Completed [facility] Zoster Vaccine Recombinant Unknown Completed [facility] SARS-COV-2 COVID-19 PFIZER VACCINE Unknown Completed [facility] Influenza Virus Vaccine Quad IM, Preserv and ABX Free 6 MO-64 YRS (FLUCELVAX) Unknown Completed [facility] TDAP Unknown Completed [facility] Zoster Vaccine Recombinant Unknown Completed [facility] SARS-COV-2 COVID-19 PFIZER VACCINE Unknown Completed [facility] Influenza Virus Vaccine Quad IM, Preserv and ABX Free 6 MO-64 YRS (FLUCELVAX) Unknown Completed [facility] TDAP Unknown Completed [facility] Zoster Vaccine Recombinant Unknown Completed [facility] SARS-COV-2 COVID-19 PFIZER VACCINE Unknown Completed [facility] Influenza Virus Vaccine Quad IM, Preserv and ABX Free 6 MO-64 YRS (FLUCELVAX) Unknown Completed [facility] TDAP Unknown Completed [facility] Zoster Vaccine Recombinant Unknown Completed [facility] SARS-COV-2 COVID-19 PFIZER VACCINE Unknown Completed [facility] Vital Signs Vital Name Observation Time Observation Value Comments S ource Systolic blood pressure 2024-01-20 20:54:00 177 mm[Hg] [facility] Diastolic blood pressure 2024-01-20 20:54:00 90 mm[Hg] [facility] Heart rate 2024-01-20 20:54:00 78 /min [facility] Oxygen saturation in Arterial blood by Pulse oximetry 2024-01-20 20:54:00 96 /min [facility] Respiratory rate 2024-01-20 20:48:00 18 /min [facility] Body height 2024-01-20 20:48:00 167.6 cm [facility] Body weight 2024-01-20 20:48:00 96.888 kg [facility] BMI 2024-01-20 20:48:00 34.48 kg/m2 [facility] Systolic blood pressure 2023-12-20 21:48:00 191 mm[Hg] [facility] Diastolic blood pressure 2023-12-20 21:48:00 94 mm[Hg] [facility] Heart rate 2023-12-20 21:47:00 74 /min [facility] Body height 2023-12-20 21:47:00 167.6 cm [facility] Body weight 2023-12-20 21:47:00 90.447 kg [facility] BMI 2023-12-20 21:47:00 32.18 kg/m2 [facility] Oxygen saturation in Arterial blood by Pulse oximetry 2023-12-20 21:47:00 97 /min [facility] Systolic blood pressure 2023-07-19 20:56:00 167 mm[Hg] [facility] Diastolic blood pressure 2023-07-19 20:56:00 83 mm[Hg] [facility] Heart rate 2023-07-19 20:55:00 83 /min [facility] Body temperature 2023-07-19 20:55:00 36.72 Deyanira [facility] Respiratory rate 2023-07-19 20:55:00 18 /min [facility] Body height 2023-07-19 20:55:00 167.6 cm [facility] Body weight 2023-07-19 20:55:00 90.357 kg [facility] BMI 2023-07-19 20:55:00 32.15 kg/m2 [facility] Oxygen saturation in Arterial blood by Pulse oximetry 2023-07-19 20:55:00 99 /min [facility] Systolic blood pressure 2023-06-01 21:55:00 161 mm[Hg] [facility] Diastolic blood pressure 2023-06-01 21:55:00 76 mm[Hg] [facility] Heart rate 2023-06-01 21:55:00 76 /min [facility] Body height 2023-06-01 21:55:00 167.6 cm [facility] Body weight 2023-06-01 21:55:00 91.627 kg [facility] BMI 2023-06-01 21:55:00 32.60 kg/m2 [facility] Oxygen saturation in Arterial blood by Pulse oximetry 2023-06-01 21:55:00 97 /min [facility] Systolic blood pressure 2023-05-06 19:44:00 138 mm[Hg] [facility] Diastolic blood pressure 2023-05-06 19:44:00 83 mm[Hg] [facility] Heart rate 2023-05-06 19:44:00 76 /min [facility] Oxygen saturation in Arterial blood by Pulse oximetry 2023-05-06 19:44:00 97 /min [facility] Body height 2023-05-06 19:42:00 167.6 cm [facility] Body weight 2023-05-06 19:42:00 89.721 kg [facility] BMI 2023-05-06 19:42:00 31.93 kg/m2 [facility] Systolic blood pressure 2023-03-12 22:04:00 140 mm[Hg] manually done [facility] Diastolic blood pressure 2023-03-12 22:04:00 90 mm[Hg] manually done [facility] Heart rate 2023-03-12 21:57:00 72 /min [facility] Body height 2023-03-12 21:57:00 167.6 cm [facility] Body weight 2023-03-12 21:57:00 93.759 kg [facility] BMI 2023-03-12 21:57:00 33.36 kg/m2 [facility] Oxygen saturation in Arterial blood by Pulse oximetry 2023-03-12 21:57:00 97 /min [facility] Systolic blood pressure 2023-01-19 19:50:00 135 mm[Hg] [facility] Diastolic blood pressure 2023-01-19 19:50:00 78 mm[Hg] [facility] Body height 2023-01-19 19:50:00 167.6 cm [facility] Body weight 2023-01-19 19:50:00 97.523 kg [facility] BMI 2023-01-19 19:50:00 34.70 kg/m2 [facility] Systolic blood pressure 2022-12-16 18:43:00 121 mm[Hg] [facility] Diastolic blood pressure 2022-12-16 18:43:00 71 mm[Hg] [facility] Heart rate 2022-12-16 18:43:00 74 /min [facility] [facility] Body height 2022-12-16 18:43:00 167.6 cm [facility] Body weight 2022-12-16 18:43:00 93.35 kg [facility] BMI 2022-12-16 18:43:00 33.22 kg/m2 [facility] Oxygen saturation in Arterial blood by Pulse oximetry 2022-12-16 18:43:00 96 /min [facility] Systolic blood pressure 2022-12-10 18:11:00 129 mm[Hg] [facility] Diastolic blood pressure 2022-12-10 18:11:00 62 mm[Hg] [facility] Heart rate 2022-12-10 18:04:00 78 /min [facility] Body temperature 2022-12-10 18:04:00 36.89 Deyanira [facility] Respiratory rate 2022-12-10 18:04:00 18 /min [facility] Body height 2022-12-10 18:04:00 167.6 cm [facility] Body weight 2022-12-10 18:04:00 94.348 kg [facility] BMI 2022-12-10 18:04:00 33.57 kg/m2 [facility] Systolic blood pressure 2022-10-30 20:57:00 106 mm[Hg] [facility] Diastolic blood pressure 2022-10-30 20:57:00 66 mm[Hg] [facility] Heart rate 2022-10-30 20:57:00 75 /min [facility] Body height 2022-10-30 20:57:00 167.6 cm [facility] Body weight 2022-10-30 20:57:00 94.348 kg [facility] BMI 2022-10-30 20:57:00 33.57 kg/m2 [facility] Oxygen saturation in Arterial blood by Pulse oximetry 2022-10-30 20:57:00 97 /min [facility] Systolic blood pressure 2022-10-14 18:30:00 145 mm[Hg] [facility] Diastolic blood pressure 2022-10-14 18:30:00 81 mm[Hg] [facility] Heart rate 2022-10-14 18:30:00 83 /min [facility] Oxygen saturation in Arterial blood by Pulse oximetry 2022-10-14 18:30:00 96 /min [facility] Respiratory rate 2022-10-14 18:21:00 21 /min [facility] Body height 2022-10-14 18:21:00 167.6 cm [facility] Body weight 2022-10-14 18:21:00 94.53 kg [facility] BMI 2022-10-14 18:21:00 33.64 kg/m2 [facility] Systolic blood pressure 2022-08-24 20:43:00 151 mm[Hg] [facility] Diastolic blood pressure 2022-08-24 20:43:00 78 mm[Hg] [facility] Heart rate 2022-08-24 20:37:00 83 /min [facility] Body height 2022-08-24 20:37:00 167.6 cm [facility] Body weight 2022-08-24 20:37:00 95.029 kg [facility] BMI 2022-08-24 20:37:00 33.81 kg/m2 [facility] Oxygen saturation in Arterial blood by Pulse oximetry 2022-08-24 20:37:00 97 /min [facility] Systolic blood pressure 2022-08-05 20:47:00 141 mm[Hg] [facility] Diastolic blood pressure 2022-08-05 20:47:00 85 mm[Hg] [facility] Heart rate 2022-08-05 20:47:00 77 /min [facility] Oxygen saturation in Arterial blood by Pulse oximetry 2022-08-05 20:47:00 95 /min [facility] Body temperature 2022-08-05 20:46:00 37 Deyanira [facility] Respiratory rate 2022-08-05 20:46:00 18 /min [facility] Body height 2022-08-05 20:46:00 167.6 cm [facility] Body weight 2022-08-05 20:46:00 92.987 kg [facility] BMI 2022-08-05 20:46:00 33.09 kg/m2 [facility] Systolic blood pressure 2022-08-04 20:55:00 143 mm[Hg] [facility] Diastolic blood pressure 2022-08-04 20:55:00 74 mm[Hg] [facility] Heart rate 2022-08-04 20:55:00 78 /min [facility] Body temperature 2022-08-04 20:54:00 36.56 Deyanira [facility] Body height 2022-08-04 20:54:00 167.6 cm [facility] Body weight 2022-08-04 20:54:00 92.761 kg [facility] BMI 2022-08-04 20:54:00 33.01 kg/m2 [facility] Oxygen saturation in Arterial blood by Pulse oximetry 2022-08-04 20:54:00 97 /min [facility] Systolic blood pressure 2022-07-24 19:33:00 174 mm[Hg] [facility] Diastolic blood pressure 2022-07-24 19:33:00 95 mm[Hg] [facility] Heart rate 2022-07-24 19:33:00 78 /min [facility] Oxygen saturation in Arterial blood by Pulse oximetry 2022-07-24 19:33:00 97 /min [facility] Body height 2022-07-24 19:13:00 167.6 cm [facility] Body weight 2022-07-24 19:13:00 93.577 kg [facility] BMI 2022-07-24 19:13:00 33.30 kg/m2 [facility] Systolic blood pressure 2022-06-25 19:15:00 139 mm[Hg] [facility] Diastolic blood pressure 2022-06-25 19:15:00 79 mm[Hg] [facility] Heart rate 2022-06-25 19:15:00 83 /min [facility] Body temperature 2022-06-25 19:15:00 36.89 Deyanira [facility] Respiratory rate 2022-06-25 19:15:00 16 /min [facility] Body height 2022-06-25 19:15:00 167.6 cm [facility] Body weight 2022-06-25 19:15:00 93.895 kg [facility] BMI 2022-06-25 19:15:00 33.41 kg/m2 [facility] Oxygen saturation in Arterial blood by Pulse oximetry 2022-06-25 19:15:00 94 /min [facility] Systolic blood pressure 2022-06-23 21:40:00 152 mm[Hg] [facility] Diastolic blood pressure 2022-06-23 21:40:00 81 mm[Hg] [facility] Heart rate 2022-06-23 21:40:00 82 /min [facility] Body temperature 2022-06-23 21:39:00 36.83 Deyanira [facility] Body height 2022-06-23 21:39:00 167.6 cm [facility] Body weight 2022-06-23 21:39:00 89.721 kg [facility] BMI 2022-06-23 21:39:00 31.93 kg/m2 [facility] Oxygen saturation in Arterial blood by Pulse oximetry 2022-06-23 21:39:00 95 /min [facility] Systolic blood pressure 2022-06-01 20:23:00 130 mm[Hg] [facility] Diastolic blood pressure 2022-06-01 20:23:00 76 mm[Hg] [facility] Heart rate 2022-06-01 20:23:00 80 /min [facility] Body height 2022-06-01 20:23:00 167.6 cm [facility] Body weight 2022-06-01 20:23:00 95.346 kg [facility] BMI 2022-06-01 20:23:00 33.93 kg/m2 [facility] Oxygen saturation in Arterial blood by Pulse oximetry 2022-06-01 20:23:00 97 /min [facility] Systolic blood pressure 2022-05-29 18:00:00 125 mm[Hg] [facility] Diastolic blood pressure 2022-05-29 18:00:00 100 mm[Hg] [facility] Heart rate 2022-05-29 18:00:00 100 /min [facility] Body temperature 2022-05-29 18:00:00 37.11 Deyanira [facility] Respiratory rate 2022-05-29 18:00:00 20 /min [facility] Body height 2022-05-29 18:00:00 167.6 cm [facility] Body weight 2022-05-29 18:00:00 95.255 kg [facility] BMI 2022-05-29 18:00:00 33.89 kg/m2 [facility] Oxygen saturation in Arterial blood by Pulse oximetry 2022-05-29 18:00:00 100 /min [facility] Heart rate 2022-05-08 18:43:00 68 /min [facility] Respiratory rate 2022-05-08 18:43:00 14 /min [facility] Oxygen saturation in Arterial blood by Pulse oximetry 2022-05-08 18:43:00 99 /min [facility] Systolic blood pressure 2022-05-08 18:42:00 151 mm[Hg] [facility] Diastolic blood pressure 2022-05-08 18:42:00 86 mm[Hg] [facility] Body temperature 2022-05-08 18:11:00 36.17 Deyanira [facility] Body weight 2022-05-01 20:00:00 95.255 kg [facility] BMI 2022-05-01 20:00:00 33.89 kg/m2 [facility] Systolic blood pressure 2022-05-08 16:20:00 180 mm[Hg] [facility] Diastolic blood pressure 2022-05-08 16:20:00 89 mm[Hg] [facility] Heart rate 2022-05-08 16:05:00 77 /min [facility] Body temperature 2022-05-08 16:05:00 36.83 Deyanira [facility] Respiratory rate 2022-05-08 16:05:00 18 /min [facility] Oxygen saturation in Arterial blood by Pulse oximetry 2022-05-08 16:05:00 98 /min [facility] Body weight 2022-05-01 20:00:00 95.255 kg [facility] BMI 2022-05-01 20:00:00 33.89 kg/m2 [facility] Systolic blood pressure 2022-03-13 14:11:00 140 mm[Hg] [facility] Diastolic blood pressure 2022-03-13 14:11:00 80 mm[Hg] [facility] Heart rate 2022-03-13 14:11:00 82 /min [facility] Body temperature 2022-03-13 14:11:00 36.22 Deyanira [facility] Respiratory rate 2022-03-13 14:11:00 18 /min [facility] Body height 2022-03-13 14:11:00 167.6 cm [facility] Body weight 2022-03-13 14:11:00 91.536 kg [facility] BMI 2022-03-13 14:11:00 32.57 kg/m2 [facility] Oxygen saturation in Arterial blood by Pulse oximetry 2022-03-13 14:11:00 98 /min [facility] Systolic blood pressure 2022-03-09 21:59:00 110 mm[Hg] [facility] Diastolic blood pressure 2022-03-09 21:59:00 72 mm[Hg] [facility] Heart rate 2022-03-09 21:59:00 84 /min [facility] Body height 2022-03-09 21:59:00 167.6 cm [facility] Body weight 2022-03-09 21:59:00 91.082 kg [facility] BMI 2022-03-09 21:59:00 32.41 kg/m2 [facility] Oxygen saturation in Arterial blood by Pulse oximetry 2022-03-09 21:59:00 99 /min [facility] Systolic blood pressure 2022-02-24 19:10:00 172 mm[Hg] [facility] Diastolic blood pressure 2022-02-24 19:10:00 96 mm[Hg] [facility] Heart rate 2022-02-24 19:01:00 77 /min [facility] Body weight 2022-02-24 19:01:00 92.262 kg [facility] BMI 2022-02-24 19:01:00 32.83 kg/m2 [facility] Oxygen saturation in Arterial blood by Pulse oximetry 2022-02-24 19:01:00 98 /min [facility] Systolic blood pressure 2021-12-11 15:04:00 174 mm[Hg] [facility] Diastolic blood pressure 2021-12-11 15:04:00 84 mm[Hg] [facility] Heart rate 2021-12-11 15:03:00 75 /min [facility] Body height 2021-12-11 15:03:00 167.6 cm [facility] Body weight 2021-12-11 15:03:00 92.987 kg [facility] BMI 2021-12-11 15:03:00 33.09 kg/m2 [facility] Procedures Procedure Date / Time Performed Performing Clinician Source COMP. METABOLIC PANEL (48246) 2023-12-21 12:53:00 Ed Urena [facility] CBC WITH DIFF 2023-12-21 12:53:00 Ed Urena [facility] PATIENT FINANCIAL POLICY 2023-07-19 20:31:13 Doctor Unassigned, Laura [facility] POCT HEMOGLOBIN A1C TEST 2023-07-19 00:00:00 Brien Urena [facility] XR LUMBAR SPINE 3 VW 2023-05-07 19:16:50 Zeynep Urena [facility] URINALYSIS 2023-05-06 20:42:00 Ed Urena [facility] LIPID PANEL ([id number])(TOTAL CHOLESTEROL, TRIGLYCERIDES, HDL) 2023-05-06 [facility]:42[facility] (A1C) 2023-05-06 20:42:00 Ed Urena [facility] FLU VACC (), 6 MO-64 YRS, .5ML, IM, QUAD (FLUCELVAX) 2023-03-12 22:28:39 [facility] A[facility]C [facility] 2022-12-10 00:00:00 Brien Urenaokjosselyn [facility] MEDICATION CORRESPONDENCE 2022-11-14 05:01:00 Do ctor Unassigned, Laura [facility] COMP. METABOLIC PANEL ([id number]) 2022-11-13 20:31:00 Ed Urena [facility] CBC WITH DIFF 2022-11-13 20:31:[address] [facility] POCT URINALYSIS AUTO 2022-08-05 21:00:00 Meet Cortez [facility] ASSIGNMENT OF BENEFITS 2022-07-24 18:47:44 Docto r Unassigned, Laura [facility] US RETROPERITONEAL COMPLETE 2022-07-08 17:46:21 Vaishnavi Hernandez [facility] ASSIGNMENT OF BENEFITS 2022-07-08 15:34:52 Docto r Unassigned, Laura [facility] PATIENT FINANCIAL POLICY 2022-06-25 18:28:56 Doctor Unassigned, Laura [facility] POCT URINALYSIS AUTO 2022-06-25 00:00:00 Diego Amezquita [facility] CT THORAX WO CONTRAST 2022-05-29 18:52:10 Oscar Sanderson [facility] CT CERVICAL SPINE WO CONTRAST 2022-05-29 18:51:19 Lev Sanderson [facility] CONSENT/REFUSAL FOR DIAGNOSIS AND TREATMENT 2022-05-29 17:51:11 Doctor Unassigned, Laura [facility] COLONOSCOPY 2022-05-08 [facility]:21[facility] 2022-05-08 16:28:00 Neo Paniagua [facility] POCT GLUCOSE (AUTOMATED) 2022-05-08 16:28:00 Neo Paniagua aram [facility] COLONOSCOPY (ENDO) 2022-05-08 15:15:56 Ed Urena [facility] COLONOSCOPY (ENDO) 2022-05-08 15:15:56 Ed Urena [facility] DAY SURGERY - ADC 2022-05-08 06:01:00 Doctor Nicolette ssigned, Laura [facility] COMP. METABOLIC PANEL ([id number]) 2022-03-10 13:46:00 Ed Urena [facility] CBC WITH DIFF 2022-03-10 13:46:[address] [facility] URINALYSIS 2022-03-10 13:46:00 Ed Urena [facility] URINE CULTURE 2022-03-10 13:46:[address] [facility] TDAP VACCINE, >11 YRS, IM 2022-03-09 22:13:45 Raheem Urena [facility] FLU VACC ([id number]), 6 MO-64 YRS, .5ML, IM, QUAD (FLUCELVAX) 2022-03-09 22:00:27 Ed Urena [facility] POCT HEMOGLOBIN A1C TEST 2022-02-24 19:11:00 Cielo Yates [facility] Encounters Start Date/Time End Date/Time Encounter Type Admission Type Attending Clinicians Care Facility Care Department Encounter ID Source 2024-06-23 16:00:00 2024-06-23 16:00:00 Outpatient R ED URENA [facility] [id number] [facility] 2024-03-24 14:30:00 2024-03-24 14:30:00 Outpatient R ALEX JAMA [facility] [id number] [facility] 2024-03-21 15:30:00 2024-03-21 15:30:00 Outpatient R JAMA JOHNSON [facility] [id number] [facility] 2024-02-01 16:00:00 2024-02-01 16:00:00 Outpatient R CHRISSIE CARRASCO SIBY [facility] [id number] [facility] 2024-01-20 15:40:00 2024-01-20 16:10:22 [facility] [id number] [facility] 2024-01-20 15:40:00 2024-01-20 16:10:22 [facility] 1.2.840.114 350.1.13.10 4.2.7.2.686 [id number] [facility] 2024-01-18 15:20:00 2024-01-18 15:20:00 [facility] [id number] [facility] 2023-12-23 00:00:00 2023-12-23 14:57:22 Telephone Ed Urena [facility] JOE?CHRISTYJosselyn [facility] 1.2.840.114 350.1.13.10 4.2.7.2.686 [id number] [facility] 2023-12-21 07:45:00 2023-12-21 08:00:00 Gas Meter Installer Helper Visit Lab, Yo Urena Ed Lab, Yo Penaloza [facility]?SHANAE [facility] MEDICAL OFFICE BUILD[facility] 1..840.114 350.1.13.10 4.2.7.2.686 [id number] [facility] 2023-12-21 07:45:00 2023-12-21 07:45:00 Outpatient R ZEYNEP URENAA [facility] [id number] [facility] 2023-12-20 16:30:00 2023-12-20 17:04:25 [facility] [id number] [facility] 2023-12-20 16:30:00 2023-12-20 17:04:25 [facility] 1.840.114 350.1.13.10 4.2.7.2.686 [id number] [facility] 2023-12-16 15:00:00 2023-12-16 15:00:00 Outpatient R RIGOBERTO LEZAMA [facility] [id number] [facility] 2023-11-30 16:00:00 2023-11-30 16:00:00 Outpatient R PRAKASH YATES [facility] [id number] [facility] 2023-11-05 00:00:00 2023-11-05 14:04:44 [facility] MEDICAL OFFICE BUILDING 1.840.114 350.1.13.10 4.2.7.2.686 [id number] [facility] 2023-10-30 00:00:00 2023-11-01 08:34:28 [facility] DIAZ?[facility] MEDICAL OFFICE BUILDING 1.840.114 350.1.13.10 4.2.7.2.686 [id number] [facility] 2023-08-07 00:00:00 2023-08-07 00:00:00 [facility] MEDICAL OFFICE BUILDING 1.840.114 350.1.13.10 4.2.7.2.686 [id number] [facility] 2023-07-29 15:30:00 2023-07-29 15:30:00 Outpatient R NURY URENATHIA [facility] [id number] [facility] 2023-07-27 00:00:00 2023-07-27 00:00:00 Telephone [facility] MED[facility] OFFICE BUILD[facility] 1.840.114 350.1.13.10 4.2.7.2.686 [id number] [facility] 2023-07-19 16:00:00 2023-07-19 16:38:26 Outpatient R ED URENA [facility] [id number] [facility] 2023-07-19 16:00:00 2023-07-19 16:38:26 [facility] MEDICAL OFFICE BUILDING 1.84.114 350.1.13.10 4.2.7.2.686 [id number] [facility] 2023-07-19 00:00:00 2023-07-19 00:00:00 Orders Only Doctor Unassigned, Laura [facility] 1..114 350.1.13.10 4.2.7.2.686 [id number] [facility] 2023-06-23 15:30:00 2023-06-23 15:30:00 Outpatient R VAISHNAVI HERNANDEZ [facility] [id number] [facility] 2023-06-18 13:45:00 2023-06-18 15:27:23 Outpatient R UNKNOWN, ATTENDING [facility] [id number] [facility] 2023-06-18 13:45:00 2023-06-18 14:00:00 Gas Meter Installer Helper Visit Gonzalo, Yo Penaloza Unknown, Attending [facility] 1.84.114 350.1.13.10 4.2.7.2.686 [id number] [facility] 2023-06-15 00:00:00 2023-06-15 00:00:00 RefEd Licea [facility] MEDICAL OFFICE BUILDING 1..114 350.1.13.10 4.2.7.2.686 [id number] [facility] 2023-06-04 00:00:00 2023-06-04 00:00:00 Telephone [facility]ishnavi [facility] 1.114 350.1.13.10 4.2.7.2.686 [id number] [facility] 2023-06-01 16:00:00 2023-06-01 16:57:48 Outpatient R PRAKASH YATES [facility] [id number] [facility] 2023-06-01 16:00:00 2023-06-01 16:57:48 [facility] MEDICAL OFFICE BUILDING 1.84.114 350.1.13.10 4.2.7.2.686 [id number] [facility] 2023-05-10 00:00:00 2023-05-10 00:00:00 Patient Secure Msg Doctor Unassigned, Laura [facility] 1.84.114 350.1.13.10 4.2.7.2.686 [id number] [facility] 2023-05-07 12:11:39 2023-05-07 23:59:00 Outpatient R ED URENA [facility] [id number] [facility] 2023-05-07 12:11:39 2023-05-07 23:59:00 Hospital En[facility] [facility] DIAZ?[facility] 1.840.114 350.1.13.10 4.2.7.2.686 [id number] [facility] 2023-05-07 00:00:00 2023-05-07 00:00:00 Patient Secure Msg Doctor Unassigned, Laura [facility] GARY DIAZ?[facility] 1.84.114 350.1.13.10 4.2.7.2.686 [id number] 044 [id number] [facility] 2023-05-06 14:36:19 2023-05-06 23:59:00 Outpatient R ED URENA [facility] [id number] [facility] 2023-05-06 14:36:19 2023-05-06 23:59:00 Hospital Encounter Ed Urena [facility] GARY DIAZ[facility] 1.840.114 350.1.13.10 4.2.7.2.686 [id number] [facility] 2023-05-06 15:00:00 2023-05-06 15:00:00 Gas Meter Installer Helper Visit Lab, Ang - Db Nury [facility] MEDICAL OFFICE BUILDING 1.84.114 350.1.13.10 4.2.7.2.686 [id number] [facility] 2023-05-06 13:30:00 2023-05-06 14:39:13 Office Visit Ed Urena [facility] GARY DIAZ?[facility] MEDICAL OFFICE BUILDING 1.20.114 350.1.13.10 4.2.7.2.686 [id number] [id number] [facility] 2023-03-27 00:00:00 2023-03-27 00:00:00 [facility] 1..840.114 350.1.13.10 4.2.7.2.686 [id number] [id number] [facility] 2023-03-13 00:00:00 2023-03-13 00:00:00 Refill Romel [facility] JOE[facility] 1..840.114 350.1.13.10 4.2.7.2.686 [id number] 044 [id number] [facility] 2023-03-12 16:00:00 2023-03-12 16:36:57 Outpatient [facility] [id number] [facility] 2023-03-12 16:00:00 2023-03-12 16:36:57 Office Visit Nury [facility]Count[facility] 1..840.114 350.1.13.10 4.2.7.2.686 [id number] [facility] 2023-01-19 15:00:00 2023-01-19 15:58:41 Outpatient R ERONPRAKASH [facility] [id number] [facility] 2023-01-19 15:00:00 2023-01-19 15:58:41 [facility]E [facility] MEDICAL OFFICE BUILDING 1.2.840.114 350.1.13.10 4.2.7.2.686 [id number] [facility] 2023-01-15 07:30:00 2023-01-15 08:31:34 [facility] [id number] [facility] 2023-01-15 07:30:00 2023-01-15 07:45:00 Gas Meter Installer Helper Visit Lab, Yo Penaloza [facility]E?[facility]E [facility] MEDICAL OFFICE BUILDING 1.2.840.114 350.1.13.10 4.2.7.2.686 [id number] [facility] 2023-01-11 11:00:00 2023-01-11 13:59:43 [facility] [id number] [facility] 2023-01-11 11:00:00 2023-01-11 13:59:43 Telemedici ne Visit [facility] MEDICAL OFFICE BUILDING 1..840.114 350.1.13.10 4.2.7.2.686 [id number] [id number] [facility] 2023-01-11 00:00:00 2023-01-11 00:00:00 Telephone [facility] MEDICAL OFFICE BUILDING 1..840.114 350.1.13.10 4.2.7.2.686 [id number] 044 [id number] [facility] 2022-12-16 14:00:00 2022-12-16 14:20:00 [facility] NAN HENDERSONIO NAL BUILDING 1..840.114 350.1.13.10 4.2.7.2.686 [id number] [facility] 2022-12-16 14:00:00 2022-12-16 14:00:00 [facility] [id number] [facility] 2022-12-11 00:00:00 2022-12-11 00:00:00 Refill Prakash Yates [facility] JOE?[facility] MEDICAL OFFICE BUILDING 1.2840.114 350.1.13.10 4.2.7.2.686 [id number] [facility] 2022-12-10 13:30:00 2022-12-10 14:03:28 Outpatient R ED URENA [facility] [id number] [facility] 2022-12-10 13:30:00 2022-12-10 14:03:28 Office [facility] 1.20.114 350.1.13.10 4.2.7.2.686 [id number] [facility] 2022-12-10 00:00:00 2022-12-10 00:00:00 Refill [facility] MEDICAL OFFICE BUILDING 1.840.114 350.1.13.10 4.2.7.2.686 [id number] [facility] 2022-12-10 00:00:00 2022-12-10 00:00:00 Telephone Ed Urena [facility]?SHANAE [facility] MEDICAL OFFICE BUILDING 1.2840.114 350.1.13.10 4.2.7.2.686 [id number] [id number] [facility] 2022-11-18 00:00:00 2022-11-18 00:00:00 Telephone [facility] MEDICAL OFFICE BUILD[facility] 1.2840.114 350.1.13.10 4.2.7.2.686 [id number] [facility] 2022-11-14 00:00:00 2022-11-14 00:00:00 Orders Only Doctor Unassigned, Laura [facility] 1.2840.114 350.1.13.10 4.2.7.2.686 [id number] [facility] 2022-11-13 16:00:00 2022-11-13 16:15:00 Gas Meter Installer Helper Visit Lab, Yo Penaloza Romel [facility]?SHANAE [facility] MEDICAL OFFICE BUILDING 1..840.114 350.1.13.10 4.2.7.2.686 [id number] [facility] 2022-11-13 16:00:00 2022-11-13 15:56:45 [facility] [id number] [facility] 2022-11-11 13:00:00 2022-11-11 13:00:00 Outpatient [facility] [id number] [facility] 2022-11-10 15:00:00 2022-11-10 15:00:00 Outpatient R MIGEL GUAN STRAHIL [facility] [id number] [facility] 2022-10-30 16:00:00 2022-10-30 16:45:43 [facility] [id number] [facility] 2022-10-30 16:00:00 2022-10-30 16:45:43 Office Visit [facility]ury [facility]E [facility] MEDICAL OFFICE BUILDING 1..840.114 350.1.13.10 4.2.7.2.686 [id number] [facility] 2022-10-28 00:00:00 2022-10-28 00:00:00 [facility] 1..840.114 350.1.13.10 4.2.7.2.686 [id number] [facility] 2022-10-16 00:00:00 2022-10-16 00:00:00 Refill [facility] 1..840.114 350.1.13.10 4.2.7.2.686 [id number] [facility] 2022-10-14 13:20:00 2022-10-14 13:52:14 Out[facility] [id number] [facility] 2022-10-14 13:20:00 2022-10-14 13:40:00 Office Visit [facility] 1..840.114 350.1.13.10 4.2.7.2.686 [id number] [facility] 2022-10-02 14:00:00 2022-10-02 14:00:00 Outpatient R [facility] [id number] [facility] 2022-10-02 00:00:00 2022-10-02 00:00:00 Telephone Vaishnavi Hernandez [facility] 1..840.114 350.1.13.10 4.2.7.2.686 [id number] [facility] 2022-09-07 16:00:00 2022-09-07 16:00:00 Outpatient R DE URENA [facility] [id number] [facility] 2022-09-04 16:00:00 2022-09-04 16:15:00 Gas Meter Installer Helper Visit Lab, Ed Hylton [facility] JOE?SHANAE GONZALEZ MEDICAL OFFICE BUILDING 1.2.840.114 350.1.13.10 4.2.7.2.686 [id number] [facility] 2022-09-04 16:00:00 2022-09-04 16:00:00 Outpatient R ED URENA [facility] [id number] [facility] 2022-09-03 16:30:00 2022-09-03 16:30:00 Outpatient R [facility] [id number] [facility] 2022-08-25 09:30:00 2022-08-25 09:58:40 [facility] [id number] [facility] 2022-08-24 15:30:00 2022-08-24 16:18:33 [facility] [id number] [facility] 2022-08-24 15:30:00 2022-08-24 16:18:33 Office Visit Nury [facility]?SHA[facility]E [facility] MEDICAL OFFICE BUILDING 1.2.840.114 350.1.13.10 4.2.7.2.686 [id number] [facility] 2022-08-21 14:00:00 2022-08-21 14:00:00 Outpatient R VANESA PEDRAZAROSA [facility] [id number] [facility] 2022-08-17 08:00:00 2022-08-17 08:00:00 Outpatient R FABBY [facility] [id number] [facility] 2022-08-17 00:00:00 2022-08-17 00:00:00 Refill Prakash Yates [facility] MEDICAL OFFICE BUILDING 1..840.114 350.1.13.10 4.2.7.2.686 [id number] [facility] 2022-08-15 08:15:00 2022-08-15 08:30:00 Gas Meter Installer Helper Visit Pob, Adc Lab [facility] 1..840.114 350.1.13.10 4.2.7.2.686 [id number] [facility] 2022-08-15 08:15:00 2022-08-15 08:15:00 Outpatient R FABBY [facility] [id number] [facility] 2022-08-14 11:15:00 2022-08-14 11:15:00 Outpatient R [facility] [id number] [facility] 2022-08-13 00:00:00 2022-08-13 00:00:00 [facility] 1.2.840.114 350.1.13.10 4.2.7.2.686 [id number] [facility] 2022-08-12 10:30:00 2022-08-12 10:30:00 Outpatient R FABBY [facility] [id number] [facility] 2022-08-11 00:00:00 2022-08-11 00:00:00 Telephone David Vaishnavi [facility]ALTY [place] [facility] 1.114 350.1.13.10 4.2.7.2.686 [id number] [facility] 2022-08-05 15:30:00 2022-08-05 16:16:13 Outpatient R [facility] [id number] [facility] 2022-08-05 15:30:00 2022-08-05 16:16:13 Office Visit Jessica Amezquita [facility] 1.840.114 350.1.13.10 4.2.7.2.686 [id number] [facility] 2022-08-04 16:00:00 2022-08-04 16:54:58 Outpatient R DAVID [facility] [id number] [facility] 2022-08-04 16:00:00 2022-08-04 16:54:58 Office Visit David [facility] [place] [facility] 1.114 350.1.13.10 4.2.7.2.686 [id number] [facility] 2022-08-04 16:30:00 2022-08-04 16:45:00 Gas Meter Installer Helper Visit Vtc-Lab Antoni [facility] 1..114 350.1.13.10 4.2.7.2.686 [id number] [facility] 2022-07-27 08:15:00 2022-07-27 08:30:00 Gas Meter Installer Helper Visit Lab, Yo Urena [facility] MEDICAL OFFICE BUILDING 1.114 350.1.13.10 4.2.7.2.686 [id number] [facility] 2022-07-27 08:15:00 2022-07-27 08:15:00 Outpatient R [facility] [id number] [facility] 2022-07-27 00:00:00 2022-07-27 00:00:00 Telephone Vaishnavi Hernandez [facility] I[facility]TY [facility] 1.114 350.1.13.10 4.2.7.2.686 [id number] [facility] 2022-07-24 14:30:00 2022-07-24 15:35:21 Outpatient R ROMEL ED [facility] [id number] [facility] 2022-07-24 14:30:00 2022-07-24 15:35:21 Office Visit Romel [facility] MEDICAL OFFICE BUILDING 1..114 350.1.13.10 4.2.7.2.686 [id number] [facility] 2022-07-24 00:00:00 2022-07-24 00:00:00 Orders Only Doctor Unassigned, Laura [facility] 1..114 350.1.13.10 4.2.7.2.686 [id number] [facility] 2022-07-10 00:00:00 2022-07-10 00:00:00 Telephone Vaishnavi Hernandez [facility] 1.0.114 350.1.13.10 4.2.7.2.686 [id number] [facility] 2022-07-08 09:35:27 2022-07-08 23:59:00 Hospital Encounter David Vaishnavi [facility] 1.840.114 350.1.13.10 4.2.7.2.686 [id number] [facility] 2022-07-08 10:30:00 2022-07-08 10:45:00 Gas Meter Installer Helper Visit 1, [facility] 1.0.114 350.1.13.10 4.2.7.2.686 [id number] [facility] 2022-07-08 09:37:38 2022-07-08 09:37:38 Outpatient R DAVID [facility] [id number] [facility] 2022-07-08 00:00:00 2022-07-08 00:00:00 Orders Only Doctor Unassigned, Laura [facility] 1..114 350.1.13.10 4.2.7.2.686 [id number] [facility] 2022-06-29 00:00:00 2022-06-29 00:00:00 Ed Rosen [facility]?SHANAE GONZALEZ MEDICAL OFFICE BUILDING 1..114 350.1.13.10 4.2.7.2.686 [id number] [facility] 2022-06-25 13:00:00 2022-06-25 13:51:49 Outpatient R JESSICA AMEZQUITA [facility] [id number] [facility] 2022-06-25 13:00:00 2022-06-25 13:51:49 Office Visit [facility]Jessica [facility] 1.20.114 350.1.13.10 4.2.7.2.686 [id number] [facility] 2022-06-25 00:00:00 2022-06-25 00:00:00 Orders Only Doctor Unassigned, Laura [facility] 1.0.114 350.1.13.10 4.2.7.2.686 [id number] [facility] 2022-06-23 15:30:00 2022-06-23 16:34:50 Outpatient Nelda [facility] [id number] [facility] 2022-06-23 15:30:00 2022-06-23 16:34:50 Office Visit [facility] 1..114 350.1.13.10 4.2.7.2.686 [id number] [facility] 2022-06-23 00:00:00 2022-06-23 00:00:00 Telephone David [facility]PEC [facility] 1..114 350.1.13.10 4.2.7.2.686 [id number] [facility] 2022-06-18 00:00:00 2022-06-18 00:00:00 Telephone Yamilka Fink [facility] 1..114 350.1.13.10 4.2.7.2.686 [id number] [facility] 2022-06-17 15:00:00 2022-06-17 15:15:00 Gas Meter Installer Helper Visit Lab, Spring Sinclair [facility]E GON[facility] OFF[facility] BUILDING 1.2840.114 350.1.13.10 4.2.7.2.686 [id number] [facility] 2022-06-17 15:00:00 2022-06-17 15:00:00 Outpatient SPRING HINKLE [facility] [id number] [facility] 2022-06-17 00:00:00 2022-06-17 00:00:00 Telephone Santiago Wagner [facility] 1.2840.114 350.1.13.10 4.2.7.2.686 [id number] [facility] 2022-06-17 00:00:00 2022-06-17 00:00:00 Telephone Johnny [facility] 1..114 350.1.13.10 4.2.7.2.686 [id number] [facility] 2022-06-11 00:00:00 2022-06-11 00:00:00 Telephone Spring Arita [facility] 1.2.114 350.1.13.10 4.2.7.2.686 [id number] [facility] 2022-06-01 14:30:00 2022-06-01 15:11:27 Outpatient R ED URENA [facility] [id number] [facility] 2022-06-01 14:30:00 2022-06-01 15:11:27 [facility] OFF[facility] BUILD[facility] 1.2.114 350.1.13.10 4.2.7.2.686 [id number] [facility] 2022-05-29 15:20:00 2022-05-29 15:20:00 Outpatient AMANDA KEARNEY [facility] [id number] [facility] 2022-05-29 12:01:00 2022-05-29 13:58:00 Emergency X LEV SANDERSON [facility] ERT [id number] [facility] 2022-05-29 12:01:00 2022-05-29 13:58:00 Emergency Lev Sanderson [facility] 1.114 350.1.13.10 4.2.7.2.686 [id number] [facility] 2022-05-20 16:00:00 2022-05-20 16:00:00 Outpatient ED PIZANO [facility] [id number] [facility] 2022-05-08 09:50:00 2022-05-08 12:53:00 Outpatient R SIVA [facility] [id number] [facility] 2022-05-08 09:50:00 2022-05-08 12:53:00 Hospital Encounter Siva Janie [facility]GICAL [place] 1..114 350.1.13.10 4.2.7.2.686 [id number] [facility] 2022-05-08 10:50:00 2022-05-08 11:47:00 Surgery Siva [facility] SURGICAL [place] 1.114 350.1.13.10 4.2.7.2.686 [id number] [facility] 2022-05-08 00:00:00 2022-05-08 00:00:00 Orders Only Doctor Unassigned, Laura [facility] 1.114 350.1.13.10 4.2.7.2.686 [id number] [facility] 2022-03-16 00:00:00 2022-03-16 00:00:00 Prep For Surgery Siva [facility] BUILDING 1.114 350.1.13.10 4.2.7.2.686 [id number] [facility] 2022-03-13 08:45:00 2022-03-13 09:17:50 Outpatient R LILO AMEZQUITATNEY [facility] [id number] [facility] 2022-03-13 08:45:00 2022-03-13 09:17:50 Office Visit Jessica Amezquita [facility] BUILDING 1.2.840.114 350.1.13.10 4.2.7.2.686 [id number] [facility] 2022-03-10 07:45:00 2022-03-10 08:00:00 Gas Meter Installer Helper Visit Lab, [facility] MEDICAL OFFICE BUILDING 1.2.840.114 350.1.13.10 4.2.7.2.686 [id number] [facility] 2022-03-10 07:45:00 2022-03-10 07:45:00 Outpatient R ROMEL ED [facility] [id number] [facility] 2022-03-09 16:00:00 2022-03-09 16:43:58 Outpatient R ROMEL ED [facility] [id number] [facility] 2022-03-09 16:00:00 2022-03-09 16:43:58 Office [facility] MEDICAL OFFICE BUILDING 1.2.840.114 350.1.13.10 4.2.7.2.686 [id number] [facility] 2022-03-06 16:00:00 2022-03-06 16:00:00 Outpatient R ROMELED [facility] [id number] [facility] 2022-02-25 00:00:00 2022-02-25 00:00:00 [facility]ill [facility] 1..840.114 350.1.13.10 4.2.7.2.686 [id number] [facility] 2022-02-24 14:30:00 2022-02-24 14:59:43 Outpatient R ERON [facility] [id number] [facility] 2022-02-24 14:30:00 2022-02-24 14:59:43 Office Visit [facility] 1..840.114 350.1.13.10 4.2.7.2.686 [id number] [facility] 2022-02-24 00:00:00 2022-02-24 00:00:00 Refill [facility] JOE?SHANAE SO[facility] MEDICAL OFFICE BUILDING 1..840.114 350.1.13.10 4.2.7.2.686 [id number] [facility] 2022-02-13 16:30:00 2022-02-13 16:30:00 Outpatient R DENITA PONCE [facility] [id number] [facility] 2021-12-11 10:00:00 2021-12-11 10:15:00 Office Visit Denita Ponce [facility] 1..840.114 350.1.13.10 4.2.7.2.686 [id number] [facility] 2021-12-11 10:00:00 2021-12-11 10:00:00 Outpatient R DENITA PONCE [facility] [id number] [facility] 2021-12-08 00:00:00 2021-12-08 00:00:00 Telephone [facility] JOE?[facility]E SO[facility] MEDICAL OFFICE BUILDING 1..840.114 350.1.13.10 4.2.7.2.686 [id number] [facility] 2021-12-05 00:00:00 2021-12-05 00:00:00 Telephone [facility]NAE [facility] 1.2.840.114 350.1.13.10 4.2.7.2.686 [id number] [facility] 2021-12-05 00:00:00 2021-12-05 00:00:00 Telephone [facility] 1.2.840.114 350.1.13.10 4.2.7.2.686 [id number] [facility] 2021-11-19 16:30:00 2021-11-19 16:30:00 Outpatient R DENITA PONCE [facility] [id number] [facility] 2021-11-07 14:00:00 2021-11-07 14:21:24 Office Visit J[facility] MED[facility]ILD[facility] 1.2.840.114 350.1.13.10 4.2.7.2.686 [id number] [facility] 2021-11-07 14:00:00 2021-11-07 14:00:00 Outpatient R DENITA PONCE [facility] [id number] [facility] 2021-11-06 19:52:00 2021-11-07 00:05:00 Emergency X NARINDER ANDERSON [facility] ERT [id number] [facility] 2021-11-06 19:52:00 2021-11-07 00:05:00 Emergency X NARINDER ANDERSON [facility] ERT [id number] [facility] 2021-11-06 19:52:00 2021-11-07 00:05:00 Emergency Narinder Anderson [facility] 1.84.114 350.1.13.10 4.2.7.2.686 [id number] [facility] 2021-10-23 11:15:00 2021-10-23 11:52:04 Outpatient R ARNELDENITA POST [facility] [id number] [facility] 2021-10-23 11:15:00 2021-10-23 11:30:00 Office Visit Denita Ponce sanya [facility]?SHANAE GONZ[facility] 1.84.114 350.1.13.10 4.2.7.2.686 [id number] [facility] 2021-10-23 11:15:00 2021-10-23 11:15:00 [facility] [id number] [facility] 2021-10-22 10:20:00 2021-10-22 10:38:00 Emergency X NATALY [facility] ERT [id number] [facility] 2021-10-22 10:20:00 2021-10-22 10:38:00 Emergency [place], [facility] 1..114 350.1.13.10 4.2.7.2.686 [id number] [facility] 2021-10-22 10:20:00 2021-10-22 10:38:00 Emergency X RIDNOE, [facility] ERT [id number] [facility] 2021-10-21 15:30:00 2021-10-21 16:18:40 Outpatient R ERON [facility] [id number] [facility] 2021-10-21 15:30:00 2021-10-21 16:18:40 [facility] 1.84.114 350.1.13.10 4.2.7.2.686 [id number] [facility] 2021-10-21 15:30:00 2021-10-21 15:30:00 Outpatient Nelda YATESCIELOCARINE [facility] [id number] [facility] 2021-10-20 18:27:00 2021-10-20 21:32:00 Emergency X Brody CASE [facility] ERT [id number] [facility] 2021-10-20 18:27:00 2021-10-20 21:32:00 Emergency Brody Case Nan [facility] 1..840.114 350.1.13.10 4.2.7.2.686 [id number] [facility] 2021-10-20 18:27:00 2021-10-20 21:32:00 Emergency X Brody CASE [facility] ERT [id number] [facility] 2021-10-17 16:00:00 2021-10-17 16:15:00 Office Visit Denita Ponce [facility] MEDICAL OFFICE BUILDING 1..840.114 350.1.13.10 4.2.7.2.686 [id number] [facility] 2021-10-17 16:00:00 2021-10-17 16:00:00 Outpatient DENITA MARINO [facility] [id number] [facility] 2021-10-17 16:00:00 2021-10-17 16:00:00 Outpatient DENITA MARINO [facility] [id number] [facility] 2021-10-04 00:00:00 2021-10-04 00:00:00 Refill Eron [facility] MEDICAL OFFICE BUILDING 1..840.114 350.1.13.10 4.2.7.2.686 [id number] 220 [id number] [facility] 2021-09-24 00:00:00 2021-09-24 00:00:00 RefDenita Gale [facility] JOE?SHANAE GONZALEZ MEDICAL OFFICE BUILDING 1.2.840.114 350.1.13.10 4.2.7.2.686 [id number] 044 [id number] [facility] 2021-09-17 15:15:00 2021-09-17 15:30:00 Office Visit Denita Ponce [facility] JOE?SHANAE SOFIA MEDICAL OFFICE BUILDING 1.2.840.114 350.1.13.10 4.2.7.2.686 [id number] 044 [id number] [facility] 2021-09-17 15:15:00 2021-09-17 15:15:00 Outpatient DENITA MARINO [facility] [id number] [facility] 2021-08-20 00:00:00 2021-08-20 00:00:00 Refradha Denita Ponce [facility] JOE?SHANAE GONZALEZ MEDICAL OFFICE BUILDING 1.2.840.114 350.1.13.10 4.2.7.2.686 [id number] 044 [id number] [facility] 2021-08-13 16:15:00 2021-08-13 16:32:17 Outpatient DENITA MARINO [facility] [id number] [facility] 2021-08-13 16:15:00 2021-08-13 16:30:00 Office Visit Denita Ponce [facility] JOE?SHANAE GONZALEZ MEDICAL OFFICE BUILDING 1.2.840.114 350.1.13.10 4.2.7.2.686 [id number] 044 [id number] [facility] 2021-08-13 16:15:00 2021-08-13 16:15:00 Outpatient DENITA MARINO [facility] [id number] [facility] 2021-07-17 09:00:00 2021-07-17 09:00:00 Outpatient DENITA MARINO [facility] [id number] [facility] 2021-07-11 16:00:00 2021-07-11 16:00:00 Outpatient R [facility] [id number] [facility] 2021-07-11 13:15:00 2021-07-11 13:15:00 Outpatient R ERON [facility] [id number] [facility] 2021-07-09 16:00:00 2021-07-09 17:09:10 Outpatient R ERON [facility] [id number] [facility] 2021-07-09 00:00:00 2021-07-09 00:00:00 Orders Only Doctor Unassigned, Laura [facility] 1.84.114 350.1.13.10 4.2.7.2.686 [id number] [id number] [facility] 2021-05-12 00:00:00 2021-05-12 00:00:00 Orders Only Doctor Unassigned, Laura [facility] 1.84.114 350.1.13.10 4.2.7.2.686 [id number] [id number] [facility] 2021-04-22 00:00:00 2021-04-22 00:00:00 Telephone Eron [facility] JOE?SHANAE GONZALEZ MEDICAL OFFICE BUILDING 1.840.114 350.1.13.10 4.2.7.2.686 [id number] 220 [id number] [facility] 2021-03-26 00:00:00 2021-03-26 00:00:00 Denita Benites [facility] OFFICE BUILDING ONE 1..114 350.1.13.10 4.2.7.2.686 [id number] 044 [id number] [facility] 2021-02-21 13:30:00 2021-02-21 13:30:00 Outpatient R ATTILA SIMEON [facility] [id number] [facility] 2020-12-25 16:00:00 2020-12-25 16:00:00 Outpatient R ERON [facility] [id number] [facility] 2020-10-10 00:00:00 2020-10-10 00:00:00 Refill Eron [facility] Building 1.2.840.114 350.1.13.10 4.2.7.2.686 [id number] [facility] 2020-09-17 14:30:00 2020-09-17 14:30:00 Outpatient R ERON [facility] [id number] [facility] 2020-09-17 00:00:00 2020-09-17 00:00:00 Refill Eron [facility] 1.2.840.114 350.1.13.10 4.2.7.2.686 [id number] 220 [id number] [facility] 2020 00:00:00 2020 00:00:00 Refill Eron [facility] 1.2.840.114 350.1.13.10 4.2.7.2.686 [id number] 220 [id number] [facility] 2020-07-16 00:00:00 2020-07-16 00:00:00 Orders Only Doctor Unassigned, Laura [facility] 1.2.840.114 350.1.13.10 4.2.7.2.686 [id number] [id number] [facility] 2020-05-16 00:00:00 2020-05-16 00:00:00 Refill Eron [facility] 1.2.840.114 350.1.13.10 4.2.7.2.686 [id number] 220 [id number] [facility] 2020-05-15 15:15:13 2020-05-15 16:26:08 Office Visit Eron [facility] 1.2.840.114 350.1.13.10 4.2.7.2.686 [id number] 220 [id number] [facility] 2020-05-15 15:30:00 2020-05-15 15:30:00 Outpatient R YATES [facility] [id number] [facility] 2020-05-10 00:00:00 2020-05-10 00:00:00 Orders Only Doctor Unassigned, Laura [facility] 1.2.840.114 350.1.13.10 4.2.7.2.686 [id number] [id number] [facility] 2020-04-09 00:00:00 2020-04-09 00:00:00 Telephone Eron [facility] 1.2.840.114 350.1.13.10 4.2.7.2.686 [id number] 220 [id number] [facility] 2020-03-25 00:00:00 2020-03-25 00:00:00 Telephone Eron [facility] Building 1.2.840.114 350.1.13.10 4.2.7.2.686 [id number] 220 [id number] [facility] 2020-03-23 00:00:00 2020-03-23 00:00:00 Refill Eron [facility] 1.2.840.114 350.1.13.10 4.2.7.2.686 [id number] 220 [id number] [facility] 2020-02-13 15:30:00 2020-02-13 15:30:00 Outpatient R YATES [facility] [id number] [facility] 2020-02-08 00:00:00 2020-02-08 00:00:00 Refill Eron [facility] Building 1.2.840.114 350.1.13.10 4.2.7.2.686 [id number] [facility] 2020-02-07 17:19:30 2020-02-07 17:34:30 [employer] Installer Helper Visit Pob, Adc Lab Main Eron [facility] Building 1.2.840.114 350.1.13.10 4.2.7.2.686 [id number] [facility] 2020-02-07 16:13:47 2020-02-07 17:10:45 Office Visit Eron [facility] Building 1.2.840.114 350.1.13.10 4.2.7.2.686 [id number] [facility] 2020-02-07 16:30:00 2020-02-07 16:30:00 Outpatient R ERON [facility] [id number] [facility] 2020-02-07 00:00:00 2020-02-07 00:00:00 Orders Only Doctor Unassigned, Laura [facility] 1.2.840.114 350.1.13.10 4.2.7.2.686 [id number] [id number] [facility] 2020-02-03 00:00:00 2020-02-03 00:00:00 Refill Denita Ponce [facility] Office Building One 1.2840.114 350.1.13.10 4.2.7.2.686 [id number] 044 [id number] [facility] 2020-01-30 00:00:00 2020-01-30 00:00:00 Refill Eron [facility] Building 1.2840.114 350.1.13.10 4.2.7.2.686 [id number] 220 [id number] [facility] 2019-11-23 00:00:00 2019-11-23 00:00:[address] [facility] Building 1.2.840.114 350.1.13.10 4.2.7.2.686 [id number] 220 [id number] [facility] 2019-11-15 08:19:13 2019-11-15 08:34:13 Gas Meter Installer Helper Visit 2, Adc Lab Denita Ponce [facility] Building 1.2.840.114 350.1.13.10 4.2.7.2.686 [id number] [facility] 2019-11-15 08:00:00 2019-11-15 08:00:00 Outpatient R [facility] [id number] [facility] 2019-11-09 00:00:00 2019-11-09 00:00:00 Refill Eron [facility] 1.2.840.114 350.1.13.10 4.2.7.2.686 [id number] 220 [id number] [facility] 2019-11-08 09:07:25 2019-11-08 11:21:14 [facility] Building 1.2.840.114 350.1.13.10 4.2.7.2.686 [id number] 220 [id number] [facility] 2019-11-08 10:53:11 2019-11-08 11:08:11 Gas Meter Installer Helper Visit 2, Adc Lab Eron [facility] Building 1.2.840.114 350.1.13.10 4.2.7.2.686 [id number] [facility] 2019-11-08 09:30:00 2019-11-08 09:30:00 Outpatient R ERON [facility] [id number] [facility] 2019-10-13 00:00:00 2019-10-13 00:00:00 Telephone Denita Ponce [facility] Office Building One 1.2.840.114 350.1.13.10 4.2.7.2.686 [id number] 044 [id number] [facility] 2019-10-10 00:00:00 2019-10-10 00:00:00 Telephone Denita Ponce [facility] Office Building One 1.2.840.114 350.1.13.10 4.2.7.2.686 [id number] 044 [id number] [facility] 2019-08-09 14:30:00 2019-08-09 14:30:00 Outpatient Nelda YATESCIELOCARINE [facility] [id number] [facility] 2019-01-16 15:54:16 2019-01-16 16:19:47 Office Visit Jovan [facility] Office Building One 1.2840.114 350.1.13.10 4.2.7.2.686 [id number] 044 [id number] [facility] 2018-12-13 15:43:30 2018-12-13 16:32:48 Office Visit Jovan [facility] Office Building One 1.2840.114 350.1.13.10 4.2.7.2.686 [id number] 044 [id number] [facility] 2018-12-07 00:00:00 2018-12-07 00:00:00 Refill Denita Ponce [facility] Office Building One 1.2840.114 350.1.13.10 4.2.7.2.686 [id number] 044 [id number] [facility] 2018-12-06 13:44:04 2018-12-06 15:53:35 Office Visit Denita Ponce [facility] Office Building One 1.2840.114 350.1.13.10 4.2.7.2.686 [id number] 044 [id number] [facility] 2018-12-06 14:48:43 2018-12-06 15:03:43 Gas Meter Installer Helper Visit 1, Adc Lab Denita Ponce [facility] 1.2.840.114 350.1.13.10 4.2.7.2.686 [id number] [facility] 2017-11-24 14:00:00 2017-11-24 14:00:00 Outpatient [facility] [id number] [facility] Results Test Description Test Time Test Comments Results Result Co mments Source [facility] with [id number] 19:10:17* Test Item Value Reference Range Interpretation Comme nts WBC (test code = 6690-2) 7.36 4.20-10.70 RBC (test code = 789-8) 4.93 4.26-5.52 HGB (test code = 718-7) 14.1 g/dL 12.2-16.4 HCT (test code = 4544-3) 40.8 % 38.4-49.3 MCV (test code = 787-2) 82.8 fL 81.7-95.6 MCH (test code = 785-6) 28.6 pg 26.1-32.7 MCHC (test code = 786-4) 34.6 g/dL 31.2-35.0 RDW-SD (test code = 21337-9) 36.6 fL 38.5-51.6 L RDW-CV (test code = 788-0) 12.1 % 12.1-15.4 PLT (test code = 777-3) 273 150-328 MPV (test code = 59187-9) 10.3 fL 9.8-13.0 NRBC/100 WBC (test code = 7645933859) 0.0 0.0-10.0 NRBC x10^3 (test code = 4061274064) See_Comment [Automated messa ge] The system which generated this result transmitted reference range: 10*3/?L. The reference range was not used to interpret this result as normal/abnormal. GRAN MAT (NEUT) % (test code = 770-8) 65.3 % IMM GRAN % (test code = 8680470586) 0.30 % LYMPH % (test code = 736-9) 23.8 % MONO % (test code = 5905-5) 7.1 % EOS % (test code = 713-8) 2.3 % BASO % (test code = 706-2) 1.2 % GRAN MAT x10^3(ANC) (test code = 2802410003) 4.81 10*3/uL 1.99-6.95 IMM GRAN x10^3 (test code = 6286543036) 0.00-0.06 LYMPH x10^3 (test code = 731-0) 1.75 10*3/uL 1.09-3.23 MONO x10^3 (test code = 742-7) 0.52 10*3/uL 0.36-1.02 EOS x10^3 (test code = 711-2) 0.17 10*3/uL 0.06-0.53 BASO x10^3 (test code = 704-7) 0.09 10*3/uL 0.01-0.09 Lab Interpretation (test code = 50977-0) Abnormal [facility] Hemoglobin A1C [id number] 21:46:00* Test Item Value Reference Range Interpretation Comme [facility] POCT HBA1C (test code = 4548-4) 9.2 % 4-6 A Lab Interpretation (test cod e = 68411-8) Abnormal [facility] Hemoglobin A1C [id number] 21:46:00* Test Item Value Reference Range Interpretation Comme [facility] POCT HBA1C (test code = 4548-4) 9.2 % 4-6 A Lab Interpretation (test cod e = 27702-0) [facility]2023-05-06 23:32:25* Test Item Value Reference Range Interpretation Comme [facility] HGB A1C (test code = 4548-4) 8.7 % 4.0-5.7 H JUAN (test code = JUAN) Reference RangesNormal: <5.7%Prediabetes: 5.7 - 6.4%Diabetes: > 6.5% Lab Interpretation (test code = 44982-1) [facility]normal [facility] (93636)(Total Cholesterol, Triglycerides, HDL)2023-05-06 23:04:57* Test Item Value Reference Range Interpretation Comme nts CHOL (test code = 0893998968) 123 mg/dL 120-200 HDL (test code = 0587097770) 37 mg/dL >=40 L HDLC RATIO (test code = 3192754991) 3.3 <=5.0 TRIG (test code = 9070588481) 162 mg/dL 30-170 LDL CHOL (test code = 06239-8) 54 mg/dL <=160 VLDL (test code = 4479398505) 32 mg/dL 5-60 Lab Interpretation (test cod e = 82670-0) Abnormal [facility] HEMOGLOBIN A1C [id number] 18:40:00* Test Item Value Reference Range Interpretation Comme [facility] POCT HBA1C (test code = 4548-4) 12.1 % 4-6 A Lab Interpretation (test cod e = 44451-1) Abnormal [facility] HEMOGLOBIN A1C [id number] 18:40:00* Test Item Value Reference Range Interpretation Comme [facility] POCT HBA1C (test code = 4548-4) 12.1 % 4-6 A Lab Interpretation (test cod e = 00813-6) [facility]normal [facility] MET[facility]OLIC PANEL (96511)2022-11-13 22:06:03* Test Item Value Reference Range Interpretation Comme nts NA (test code = 9887361899) 134 mmol/L 135-145 L K (test code = 6392994616) 4.3 mmol/L 3.5-5.0 CL (test code = 0138724311) 101 mmol/L 98-108 CO2 TOTAL (test code = 2161726895) 23 mmol/L 23-31 AGAP (test code = 3862361222) 10 2-16 BUN (test code = 1304879296) 36 mg/dL 7-23 H GLUCOSE (test code = 1339154372) 372 mg/dL 70-110 H CREATININE (test code = 2376627080) 1.83 mg/dL 0.60-1.25 H TOTAL BILI (test code = 0156842840) 0.5 mg/dL 0.1-1.1 CALCIUM (test code = 2191752318) 8.6 mg/dL 8.6-10.6 T PROTEIN (test code = 1472385346) 6.5 g/dL 6.3-8.2 ALBUMIN (test code = 9777270337) 3.6 g/dL 3.5-5.0 ALK PHOS (test code = 6916037203) 149 U/L 34-122 H ALTv (test code = 1742-6) 14 U/L 5-50 AST(SGOT) (test code = 4638092304) 19 U/L 13-40 eGFR (test code = 6378559435) 37.8 mL/min/1.73m2 JUAN (test code = JUAN) Association of Glomerular Filtration Rate (GFR) and Staging of Kidney Disease* + --+ --+ ------+| GFR (mL/min/1.73 m2) ?| With Kidney Damage ?| ?Without Kidney Damage+ --------+ --------+ +| ?>90 ?| ?Stage one ?| ? Normal ?+ ---+ ---+ -------+| ?60-89 ?| ?Stage two ?| ? Decreased GFR ? + --+ --+ ------+| ?30-59 ?| ?Stage three ?| ? Stage three ? + --+ --+ ------+| ?15-29 ?| ?Stage four ? | ? Stage four ?+ ---+ ---+ -------+| ?<15 (or dialysis) ? ?| ?Stage five ? | ? Stage five ?+ ---+ ---+ -------+ *Each stage assumes the associated GFR level has been in effect for at least three months. ?Stages 1 to 5, with or without kidney disease, indicate chronic kidney disease. Notes: Determination of stages one and two (with eGFR >59mL/min/1.73 m2) requires estimation of kidney damage for at least three months as defined by structural or functional abnormalities of the kidney, manifested by either:Pathological abnormalities or Markers of kidney damage (including abnormalities in the composition of the blood or urine or abnormalities in imaging tests). Lab Interpretation (test code = 94074-3) Abnormal [facility] MET[facility]OLIC PANEL (10807)2022-11-13 22:06:03* Test Item Value Reference Range Interpretation Comme nts NA (test code = 9811489226) 134 mmol/L 135-145 L K (test code = 1971111355) 4.3 mmol/L 3.5-5.0 CL (test code = 6927672309) 101 mmol/L 98-108 CO2 TOTAL (test code = 1434177578) 23 mmol/L 23-31 AGAP (test code = 3189917223) 10 2-16 BUN (test code = 8973054895) 36 mg/dL 7-23 H GLUCOSE (test code = 8719845701) 372 mg/dL 70-110 H CREATININE (test code = 6098782869) 1.83 mg/dL 0.60-1.25 H TOTAL BILI (test code = 3406766426) 0.5 mg/dL 0.1-1.1 CALCIUM (test code = 9750146357) 8.6 mg/dL 8.6-10.6 T PROTEIN (test code = 6262116548) 6.5 g/dL 6.3-8.2 ALBUMIN (test code = 9213413552) 3.6 g/dL 3.5-5.0 ALK PHOS (test code = 0270028729) 149 U/L 34-122 H ALTv (test code = 1742-6) 14 U/L 5-50 AST(SGOT) (test code = 7085625714) 19 U/L 13-40 eGFR (test code = 9507401888) 37.8 mL/min/1.73m2 JUAN (test code = JUAN) Association of Glomerular Filtration Rate (GFR) and Staging of Kidney Disease* + --+ --+ ------+| GFR (mL/min/1.73 m2) ?| With Kidney Damage ?| ?Without Kidney Damage+ --------+ --------+ +| ?>90 ?| ?Stage one ?| ? Normal ?+ ---+ ---+ -------+| ?60-89 ?| ?Stage two ?| ? Decreased GFR ? + --+ --+ ------+| ?30-59 ?| ?Stage three ?| ? Stage three ? + --+ --+ ------+| ?15-29 ?| ?Stage four ? | ? Stage four ?+ ---+ ---+ -------+| ?<15 (or dialysis) ? ?| ?Stage five ? | ? Stage five ?+ ---+ ---+ -------+ *Each stage assumes the associated GFR level has been in effect for at least three months. ?Stages 1 to 5, with or without kidney disease, indicate chronic kidney disease. Notes: Determination of stages one and two (with eGFR >59mL/min/1.73 m2) requires estimation of kidney damage for at least three months as defined by structural or functional abnormalities of the kidney, manifested by either:Pathological abnormalities or Markers of kidney damage (including abnormalities in the composition of the blood or urine or abnormalities in imaging tests). Lab Interpretation (test code = 09307-0) Abnormal [facility] WITH [id number] 21:29:55* Test Item Value Reference Range Interpretation Comme nts WBC (test code = 6690-2) 6.82 See_Comment [[employer]] The system which generated this result transmitted reference range: 4.20 - 10.70 10*3/?L. The reference range was not used to interpret this result as normal/abnormal. RBC (test code = 789-8) 4.39 See_Comment [[employer]] The system which generated this result transmitted reference range: 4.26 - 5.52 10*6/?L. The reference range was not used to interpret this result as normal/abnormal. HGB (test code = 718-7) 12.8 g/dL 12.2-16.4 HCT (test code = 4544-3) 36.5 % 38.4-49.3 L MCV (test code = 787-2) 83.1 fL 81.7-95.6 MCH (test code = 785-6) 29.2 pg 26.1-32.7 MCHC (test code = 786-4) 35.1 g/dL 31.2-35.0 H RDW-SD (test code = 05552-0) 36.3 fL 38.5-51.6 L RDW-CV (test code = 788-0) 12.0 % 12.1-15.4 L PLT (test code = 777-3) 244 See_Comment [Automated messa ge] The system which generated this result transmitted reference range: 150 - 328 10*3/?L. The reference range was not used to interpret this result as normal/abnormal. MPV (test code = 74018-5) 10.8 fL 9.8-13.0 NRBC/100 WBC (test code = 9652339406) 0.0 See_Comment [Automated me ssage] The system which generated this result transmitted reference range: 0.0 - 10.0 /100 WBCs. The reference range was not used to interpret this result as normal/abnormal. NRBC x10^3 (test code = 3837523334) See_Comment [Automated messa ge] The system which generated this result transmitted reference range: 10*3/?L. The reference range was not used to interpret this result as normal/abnormal. GRAN MAT (NEUT) % (test code = 770-8) 55.9 % IMM GRAN % (test code = 4197779248) 0.40 % LYMPH % (test code = 736-9) 32.6 % MONO % (test code = 5905-5) 8.9 % EOS % (test code = 713-8) 1.3 % BASO % (test code = 706-2) 0.9 % GRAN MAT x10^3(ANC) (test code = 0915998584) 3.81 10*3/uL 1.99-6.95 IMM GRAN x10^3 (test code = 1408627667) 0.03 10*3/uL 0.00-0.06 LYMPH x10^3 (test code = 731-0) 2.22 10*3/uL 1.09-3.23 MONO x10^3 (test code = 742-7) 0.61 10*3/uL 0.36-1.02 EOS x10^3 (test code = 711-2) 0.09 10*3/uL 0.06-0.53 BASO x10^3 (test code = 704-7) 0.06 10*3/uL 0.01-0.09 Lab Interpretation (test code = 10929-3) Abnormal [facility] WITH [id number] 21:29:55* Test Item Value Reference Range Interpretation Comme nts WBC (test code = 6690-2) 6.82 See_Comment [Automated messa ge] The system which generated this result transmitted reference range: 4.20 - 10.70 10*3/?L. The reference range was not used to interpret this result as normal/abnormal. RBC (test code = 789-8) 4.39 See_Comment [Automated messa ge] The system which generated this result transmitted reference range: 4.26 - 5.52 10*6/?L. The reference range was not used to interpret this result as normal/abnormal. HGB (test code = 718-7) 12.8 g/dL 12.2-16.4 HCT (test code = 4544-3) 36.5 % 38.4-49.3 L MCV (test code = 787-2) 83.1 fL 81.7-95.6 MCH (test code = 785-6) 29.2 pg 26.1-32.7 MCHC (test code = 786-4) 35.1 g/dL 31.2-35.0 H RDW-SD (test code = 71123-5) 36.3 fL 38.5-51.6 L RDW-CV (test code = 788-0) 12.0 % 12.1-15.4 L PLT (test code = 777-3) 244 See_Comment [Automated messa ge] The system which generated this result transmitted reference range: 150 - 328 10*3/?L. The reference range was not used to interpret this result as normal/abnormal. MPV (test code = 41703-3) 10.8 fL 9.8-13.0 NRBC/100 WBC (test code = 1985958314) 0.0 See_Comment [Automated [employer] ssage] The system which generated this result transmitted reference range: 0.0 - 10.0 /100 WBCs. The reference range was not used to interpret this result as normal/abnormal. NRBC x10^3 (test code = 2541156791) See_Comment [Automated messa ge] The system which generated this result transmitted reference range: 10*3/?L. The reference range was not used to interpret this result as normal/abnormal. GRAN MAT (NEUT) % (test code = 770-8) 55.9 % IMM GRAN % (test code = 0018067296) 0.40 % LYMPH % (test code = 736-9) 32.6 % MONO % (test code = 5905-5) 8.9 % EOS % (test code = 713-8) 1.3 % BASO % (test code = 706-2) 0.9 % GRAN MAT x10^3(ANC) (test code = 9795235471) 3.81 10*3/uL 1.99-6.95 IMM GRAN x10^3 (test code = 8876413351) 0.03 10*3/uL 0.00-0.06 LYMPH x10^3 (test code = 731-0) 2.22 10*3/uL 1.09-3.23 MONO x10^3 (test code = 742-7) 0.61 10*3/uL 0.36-1.02 EOS x10^3 (test code = 711-2) 0.09 10*3/uL 0.06-0.53 BASO x10^3 (test code = 704-7) 0.06 10*3/uL 0.01-0.09 Lab Interpretation (test code = 33225-4) Abnormal [facility] URINALYSIS, [id number] 21:01:00 * Test Item Value Reference Range Interpretation Comme nts POCT U SP GRAV (test code = 3255) 1.015 mg/dl 1.005-1.025 POCT PH U (test code = 3254) 6 mg/dl 5-8 POCT U LEUK EST (test code = 3263) negative Negative - Negative POCT U NIT (test code = 3262) negative Negative - Negati ve POCT U PROT (test code = 3259) 100 Negative - Negative POCT U GLU (test code = 3256) 1000 Negative - Negati ve POCT U KETONE (test code = 3258) negative Negative - Negative POCT U UROBILI (test code = 3260) 0.2 mg/dl 0.2-1 POCT U BILI (test code = 3261) negative Negative - Negative POCT U BLD (test code = 3257) small Negative - Negati ve POCT U COLOR (test code = 3266) yellow POCT U APPEAR (test code = 3267) clear [facility] URINALYSIS, [id number] 21:01:00 * Test Item Value Reference Range Interpretation Comme nts POCT U SP GRAV (test code = 3255) 1.015 mg/dl 1.005-1.025 POCT PH U (test code = 3254) 6 mg/dl 5-8 POCT U LEUK EST (test code = 3263) negative Negative - Negative POCT U NIT (test code = 3262) negative Negative - Negati ve POCT U PROT (test code = 3259) 100 Negative - Negative POCT U GLU (test code = 3256) 1000 Negative - Negati ve POCT U KETONE (test code = 3258) negative Negative - Negative POCT U UROBILI (test code = 3260) 0.2 mg/dl 0.2-1 POCT U BILI (test code = 3261) negative Negative - Negative POCT U BLD (test code = 3257) small Negative - Negati ve POCT U COLOR (test code = 3266) yellow POCT U APPEAR (test code = 3267) clear [facility] URINALYSIS, [id number] 19:06:00 * Test Item Value Reference Range Interpretation Comme nts POCT U SP GRAV (test code = 3255) 1.010 mg/dl 1.005-1.025 POCT PH U (test code = 3254) 5.0 mg/dl 5-8 POCT U LEUK EST (test code = 3263) negative Negative - Negative POCT U NIT (test code = 3262) negative Negative - Negative POCT U PROT (test code = 3259) 100 mg Negative - Negative POCT U GLU (test code = 3256) 1000 Negative - Negative POCT U KETONE (test code = 3258) negative Negative - Negative POCT U UROBILI (test code = 3260) 0.2 mg/dl 0.2-1 POCT U BILI (test code = 3261) negative Negative - Negative POCT U BLD (test code = 3257) trace-intact Negative - Negative POCT U COLOR (test code = 3266) yellow POCT U APPEAR (test code = 3267) clear [facility] URINALYSIS, [id number] 19:06:00 * Test Item Value Reference Range Interpretation Comme nts POCT U SP GRAV (test code = 3255) 1.010 mg/dl 1.005-1.025 POCT PH U (test code = 3254) 5.0 mg/dl 5-8 POCT U LEUK EST (test code = 3263) negative Negative - Negative POCT U NIT (test code = 3262) negative Negative - Negative POCT U PROT (test code = 3259) 100 mg Negative - Negative POCT U GLU (test code = 3256) 1000 Negative - Negative POCT U KETONE (test code = 3258) negative Negative - Negative POCT U UROBILI (test code = 3260) 0.2 mg/dl 0.2-1 POCT U BILI (test code = 3261) negative Negative - Negative POCT U BLD (test code = 3257) trace-intact Negative - Negative POCT U COLOR (test code = 3266) yellow POCT U APPEAR (test code = 3267) clear [facility] GLUCOSE (AUTOMATED)2022-05-08 16:32:04* Test Item Value Reference Range Interpretation Comme nts POCT GLU (test code = 8140376241) 242 mg/dL 70-110 H Lab Interpretation (test cod e = 30652-9) Abnormal [facility] GLUCOSE (AUTOMATED)2022-05-08 16:32:04* Test Item Value Reference Range Interpretation Comme nts POCT GLU (test code = 2133218898) 242 mg/dL 70-110 H Lab Interpretation (test cod e = 47538-6) Abnormal [facility]. METABOLIC PANEL ([id number])2022-03-10 23:46:15* Test Item Value Reference Range Interpretation Comme nts NA (test code = 3341415911) 141 mmol/L 135-145 K (test code = 5467247262) 3.9 mmol/L 3.5-5.0 CL (test code = 5175643078) 104 mmol/L 98-108 CO2 TOTAL (test code = 5007924502) 28 mmol/L 23-31 AGAP (test code = 6506955989) 2-16 BUN (test code = 3201487708) 40 mg/dL 7-23 H GLUCOSE (test code = 8269262193) 186 mg/dL 70-110 H CREATININE (test code = 4157732621) 1.89 mg/dL 0.60-1.25 H TOTAL BILI (test code = 3935074853) 0.5 mg/dL 0.1-1.1 CALCIUM (test code = 2741400042) 8.8 mg/dL 8.6-10.6 T PROTEIN (test code = 1174692586) 7.4 g/dL 6.3-8.2 ALBUMIN (test code = 8756695404) 4.4 g/dL 3.5-5.0 ALK PHOS (test code = 7238988801) 109 U/L 34-122 ALTv (test code = 1742-6) 16 U/L 5-50 AST(SGOT) (test code = 6506132481) 25 U/L 13-40 eGFR (test code = 1610799546) mL/min/1.73m2 JUAN (test code = JUAN) Association of Glomerular Filtration Rate (GFR) and Staging of Kidney Disease* + --+ --+ ------+| GFR (mL/min/1.73 m2) ?| With Kidney Damage ?| ?Without Kidney Damage+ --------+ --------+ +| ?>90 ?| ?Stage one ?| ? Normal ?+ ---+ ---+ -------+| ?60-89 ?| ?Stage two ?| ? Decreased GFR ? + --+ --+ ------+| ?30-59 ?| ?Stage three ?| ? Stage three ? + --+ --+ ------+| ?15-29 ?| ?Stage four ? | ? Stage four ?+ ---+ ---+ -------+| ?<15 (or dialysis) ? ?| ?Stage five ? | ? Stage five ?+ ---+ ---+ -------+ *Each stage assumes the associated GFR level has been in effect for at least three months. ?Stages 1 to 5, with or without kidney disease, indicate chronic kidney disease. Notes: Determination of stages one and two (with eGFR >59mL/min/1.73 m2) requires estimation of kidney damage for at least three months as defined by structural or functional abnormalities of the kidney, manifested by either:Pathological abnormalities or Markers of kidney damage (including abnormalities in the composition of the blood or urine or abnormalities in imaging tests). Lab Interpretation (test code = 14229-3) [facility]OL[facility] PAN[facility] ([id number])2022-03-10 23:46:15* Test Item Value Reference Range Interpretation Comme nts NA (test code = 3637733959) 141 mmol/L 135-145 K (test code = 8877219360) 3.9 mmol/L 3.5-5.0 CL (test code = 1828197808) 104 mmol/L 98-108 CO2 TOTAL (test code = 9285055502) 28 mmol/L 23-31 AGAP (test code = 4620946909) 2-16 BUN (test code = 8831024249) 40 mg/dL 7-23 H GLUCOSE (test code = 7137388825) 186 mg/dL 70-110 H CREATININE (test code = 4043787741) 1.89 mg/dL 0.60-1.25 H TOTAL BILI (test code = 8231527740) 0.5 mg/dL 0.1-1.1 CALCIUM (test code = 4128505603) 8.8 mg/dL 8.6-10.6 T PROTEIN (test code = 5241567931) 7.4 g/dL 6.3-8.2 ALBUMIN (test code = 1488427911) 4.4 g/dL 3.5-5.0 ALK PHOS (test code = 2212780817) 109 U/L 34-122 ALTv (test code = 1742-6) 16 U/L 5-50 AST(SGOT) (test code = 2495597880) 25 U/L 13-40 eGFR (test code = 1413718548) mL/min/1.73m2 JUAN (test code = JUAN) Association of Glomerular Filtration Rate (GFR) and Staging of Kidney Disease* + --+ --+ ------+| GFR (mL/min/1.73 m2) ?| With Kidney Damage ?| ?Without Kidney Damage+ --------+ --------+ +| ?>90 ?| ?Stage one ?| ? Normal ?+ ---+ ---+ -------+| ?60-89 ?| ?Stage two ?| ? Decreased GFR ? + --+ --+ ------+| ?30-59 ?| ?Stage three ?| ? Stage three ? + --+ --+ ------+| ?15-29 ?| ?Stage four ? | ? Stage four ?+ ---+ ---+ -------+| ?<15 (or dialysis) ? ?| ?Stage five ? | ? Stage five ?+ ---+ ---+ -------+ *Each stage assumes the associated GFR level has been in effect for at least three months. ?Stages 1 to 5, with or without kidney disease, indicate chronic kidney disease. Notes: Determination of stages one and two (with eGFR >59mL/min/1.73 m2) requires estimation of kidney damage for at least three months as defined by structural or functional abnormalities of the kidney, manifested by either:Pathological abnormalities or Markers of kidney damage (including abnormalities in the composition of the blood or urine or abnormalities in imaging tests). Lab Interpretation (test code = 74605-6) Abnormal [facility]. METABOLIC PANEL ([id number])2022-03-10 23:46:15* Test Item Value Reference Range Interpretation Comme nts NA (test code = 2420440180) 141 mmol/L 135-145 K (test code = 0239595192) 3.9 mmol/L 3.5-5.0 CL (test code = 3951278506) 104 mmol/L 98-108 CO2 TOTAL (test code = 4816055841) 28 mmol/L 23-31 AGAP (test code = 7790480087) 2-16 BUN (test code = 7844199659) 40 mg/dL 7-23 H GLUCOSE (test code = 2903653447) 186 mg/dL 70-110 H CREATININE (test code = 2398038653) 1.89 mg/dL 0.60-1.25 H TOTAL BILI (test code = 5947481555) 0.5 mg/dL 0.1-1.1 CALCIUM (test code = 7601523956) 8.8 mg/dL 8.6-10.6 T PROTEIN (test code = 9490216406) 7.4 g/dL 6.3-8.2 ALBUMIN (test code = 6782688637) 4.4 g/dL 3.5-5.0 ALK PHOS (test code = 5974915357) 109 U/L 34-122 ALTv (test code = 1742-6) 16 U/L 5-50 AST(SGOT) (test code = 1273798259) 25 U/L 13-40 eGFR (test code = 7759837128) mL/min/1.73m2 JUAN (test code = JUAN) Association of Glomerular Filtration Rate (GFR) and Staging of Kidney Disease* + --+ --+ ------+| GFR (mL/min/1.73 m2) ?| With Kidney Damage ?| ?Without Kidney Damage+ --------+ --------+ +| ?>90 ?| ?Stage one ?| ? Normal ?+ ---+ ---+ -------+| ?60-89 ?| ?Stage two ?| ? Decreased GFR ? + --+ --+ ------+| ?30-59 ?| ?Stage three ?| ? Stage three ? + --+ --+ ------+| ?15-29 ?| ?Stage four ? | ? Stage four ?+ ---+ ---+ -------+| ?<15 (or dialysis) ? ?| ?Stage five ? | ? Stage five ?+ ---+ ---+ -------+ *Each stage assumes the associated GFR level has been in effect for at least three months. ?Stages 1 to 5, with or without kidney disease, indicate chronic kidney disease. Notes: Determination of stages one and two (with eGFR >59mL/min/1.73 m2) requires estimation of kidney damage for at least three months as defined by structural or functional abnormalities of the kidney, manifested by either:Pathological abnormalities or Markers of kidney damage (including abnormalities in the composition of the blood or urine or abnormalities in imaging tests). Lab Interpretation (test code = 49452-0) Abnormal [facility] WITH [id number] 19:46:27* Test Item Value Reference Range Interpretation Comme nts WBC (test code = 6690-2) See_Comment [Automated [employer]] The system which generated this result transmitted reference range: 4.20 - 10.70 10*3/?L. The reference range was not used to interpret this result as normal/abnormal. RBC (test code = 789-8) See_Comment [Automated [employer]] The system which generated this result transmitted reference range: 4.26 - 5.52 10*6/?L. The reference range was not used to interpret this result as normal/abnormal. HGB (test code = 718-7) 14.2 g/dL 12.2-16.4 HCT (test code = 4544-3) 40.1 % 38.4-49.3 MCV (test code = 787-2) 82.5 fL 81.7-95.6 MCH (test code = 785-6) 29.2 pg 26.1-32.7 MCHC (test code = 786-4) 35.4 g/dL 31.2-35.0 H RDW-SD (test code = 96957-0) 34.6 fL 38.5-51.6 L RDW-CV (test code = 788-0) 11.7 % 12.1-15.4 L PLT (test code = 777-3) See_Comment [Automated [employer]a ge] The system which generated this result transmitted reference range: 150 - 328 10*3/?L. The reference range was not used to interpret this result as normal/abnormal. MPV (test code = 43549-3) 10.6 fL 9.8-13.0 NRBC/100 WBC (test code = 7010216271) See_Comment [Automated [employer] ssage] The system which generated this result transmitted reference range: 0.0 - 10.0 /100 WBCs. The reference range was not used to interpret this result as normal/abnormal. NRBC x10^3 (test code = 0624824352) See_Comment [Automated messa ge] The system which generated this result transmitted reference range: 10*3/?L. The reference range was not used to interpret this result as normal/abnormal. GRAN MAT (NEUT) % (test code = 770-8) 53.7 % IMM GRAN % (test code = 4311997803) 0.70 % LYMPH % (test code = 736-9) 35.1 % MONO % (test code = 5905-5) 7.8 % EOS % (test code = 713-8) 1.9 % BASO % (test code = 706-2) 0.8 % GRAN MAT x10^3(ANC) (test code = 5490767176) 3.94 10*3/uL 1.99-6.95 IMM GRAN x10^3 (test code = 3050942024) 0.05 10*3/uL 0.00-0.06 LYMPH x10^3 (test code = 731-0) 2.58 10*3/uL 1.09-3.23 MONO x10^3 (test code = 742-7) 0.57 10*3/uL 0.36-1.02 EOS x10^3 (test code = 711-2) 0.14 10*3/uL 0.06-0.53 BASO x10^3 (test code = 704-7) 0.06 10*3/uL 0.01-0.09 Lab Interpretation (test code = 05582-4) Abnormal [facility] WITH [id number] 19:46:27* Test Item Value Reference Range Interpretation Comme nts WBC (test code = 6690-2) See_Comment [Automated [employer]] The system which generated this result transmitted reference range: 4.20 - 10.70 10*3/?L. The reference range was not used to interpret this result as normal/abnormal. RBC (test code = 789-8) See_Comment [Automated [employer]] The system which generated this result transmitted reference range: 4.26 - 5.52 10*6/?L. The reference range was not used to interpret this result as normal/abnormal. HGB (test code = 718-7) 14.2 g/dL 12.2-16.4 HCT (test code = 4544-3) 40.1 % 38.4-49.3 MCV (test code = 787-2) 82.5 fL 81.7-95.6 MCH (test code = 785-6) 29.2 pg 26.1-32.7 MCHC (test code = 786-4) 35.4 g/dL 31.2-35.0 H RDW-SD (test code = 61783-0) 34.6 fL 38.5-51.6 L RDW-CV (test code = 788-0) 11.7 % 12.1-15.4 L PLT (test code = 777-3) See_Comment [Automated [employer]] The system which generated this result transmitted reference range: 150 - 328 10*3/?L. The reference range was not used to interpret this result as normal/abnormal. MPV (test code = 98312-5) 10.6 fL 9.8-13.0 NRBC/100 WBC (test code = 8682262259) See_Comment [Automated me ssage] The system which generated this result transmitted reference range: 0.0 - 10.0 /100 WBCs. The reference range was not used to interpret this result as normal/abnormal. NRBC x10^3 (test code = 3779832258) See_Comment [Automated messa ge] The system which generated this result transmitted reference range: 10*3/?L. The reference range was not used to interpret this result as normal/abnormal. GRAN MAT (NEUT) % (test code = 770-8) 53.7 % IMM GRAN % (test code = 7134671667) 0.70 % LYMPH % (test code = 736-9) 35.1 % MONO % (test code = 5905-5) 7.8 % EOS % (test code = 713-8) 1.9 % BASO % (test code = 706-2) 0.8 % GRAN MAT x10^3(ANC) (test code = 9210032280) 3.94 10*3/uL 1.99-6.95 IMM GRAN x10^3 (test code = 0136115863) 0.05 10*3/uL 0.00-0.06 LYMPH x10^3 (test code = 731-0) 2.58 10*3/uL 1.09-3.23 MONO x10^3 (test code = 742-7) 0.57 10*3/uL 0.36-1.02 EOS x10^3 (test code = 711-2) 0.14 10*3/uL 0.06-0.53 BASO x10^3 (test code = 704-7) 0.06 10*3/uL 0.01-0.09 Lab Interpretation (test code = 03196-4) Abnormal [facility] WITH [id number] 19:46:27* Test Item Value Reference Range Interpretation Comme nts WBC (test code = 6690-2) See_Comment [Automated messa ge] The system which generated this result transmitted reference range: 4.20 - 10.70 10*3/?L. The reference range was not used to interpret this result as normal/abnormal. RBC (test code = 789-8) See_Comment [Automated [employer]] The system which generated this result transmitted reference range: 4.26 - 5.52 10*6/?L. The reference range was not used to interpret this result as normal/abnormal. HGB (test code = 718-7) 14.2 g/dL 12.2-16.4 HCT (test code = 4544-3) 40.1 % 38.4-49.3 MCV (test code = 787-2) 82.5 fL 81.7-95.6 MCH (test code = 785-6) 29.2 pg 26.1-32.7 MCHC (test code = 786-4) 35.4 g/dL 31.2-35.0 H RDW-SD (test code = 56055-0) 34.6 fL 38.5-51.6 L RDW-CV (test code = 788-0) 11.7 % 12.1-15.4 L PLT (test code = 777-3) See_Comment [Automated [employer]] The system which generated this result transmitted reference range: 150 - 328 10*3/?L. The reference range was not used to interpret this result as normal/abnormal. MPV (test code = 90008-9) 10.6 fL 9.8-13.0 NRBC/100 WBC (test code = 8047700694) See_Comment [Automated [employer] ssage] The system which generated this result transmitted reference range: 0.0 - 10.0 /100 WBCs. The reference range was not used to interpret this result as normal/abnormal. NRBC x10^3 (test code = 6428727185) See_Comment [Automated [employer]] The system which generated this result transmitted reference range: 10*3/?L. The reference range was not used to interpret this result as normal/abnormal. GRAN MAT (NEUT) % (test code = 770-8) 53.7 % IMM GRAN % (test code = 6082719950) 0.70 % LYMPH % (test code = 736-9) 35.1 % MONO % (test code = 5905-5) 7.8 % EOS % (test code = 713-8) 1.9 % BASO % (test code = 706-2) 0.8 % GRAN MAT x10^3(ANC) (test code = 8814728889) 3.94 10*3/uL 1.99-6.95 IMM GRAN x10^3 (test code = 3851713865) 0.05 10*3/uL 0.00-0.06 LYMPH x10^3 (test code = 731-0) 2.58 10*3/uL 1.09-3.23 MONO x10^3 (test code = 742-7) 0.57 10*3/uL 0.36-1.02 EOS x10^3 (test code = 711-2) 0.14 10*3/uL 0.06-0.53 BASO x10^3 (test code = 704-7) 0.06 10*3/uL 0.01-0.09 Lab Interpretation (test code = 28174-8) Abnormal [facility] HEMOGLOBIN A1C [id number] 19:13:00* Test Item Value Reference Range Interpretation Comme [facility] POCT HBA1C (test code = 4548-4) 12.4 % 4-6 A Lab Interpretation (test cod e = 07033-0) Abnormal [facility] HEMOGLOBIN A1C [id number] 19:13:00* Test Item Value Reference Range Interpretation Comme [facility] POCT HBA1C (test code = 4548-4) 12.4 % 4-6 A Lab Interpretation (test cod e = 51380-3) Abnormal [facility]
[2024-04-11 02:01] LABS: Absolute Basophils 0.1 K/uL (0-0.5); Absolute Eosinophils 0.2 K/uL (0-0.5); Absolute Lymphocytes (CBC) 2.3 K/uL (0.7-4.9); Absolute Monocytes 0.9 K/uL (0.1-1.3); Absolute Neutrophil 3.4 K/uL (1.8-8.0); Basophils % 1.1 % (0-1.3); Eosinophils % 2.7 % (0-4.4); Hematocrit 40.6 % (39.6-49.0); Lymphocytes % 34.4 % (15.3-44.8); MCH 28.4 pg (27.0-35.0); MCHC 34.4 g/dL (32.0-36.0); MCV 82.6 fL (80-100); MPV 8.4 fL (7.6-11.3); Monocytes % 12.7 % (3.3-12.3); Neutrophils % 49.1 % (41.7-73.7); Nucleated Red Blood Cells % 0.2 % (0-0); Platelets 233 thou/uL (152-406); RBC Red Blood Cell Count 4.91 M/uL (4.33-5.43); Red Cell Distribution Width 13.4 % (12.1-15.2)
[2024-04-11] MEDS ORDERED: cloNIDine HCL 0.1 MG TAB ONE (02:06)
[2024-04-11] MEDS ORDERED: AZITHROMYCIN 250 MG TAB ONE (02:06)
[2024-04-11] MEDS ORDERED: BENZONATATE 100 MG CAP PO ONE (02:06)
[2024-04-11] MEDS ORDERED: CODEINE 30MG/APAP 300MG TAB ONE (02:07)
[2024-04-11] MEDS ORDERED: LOSARTAN POTASSIUM 50 MG TABLET ONE (02:07)
[2024-04-11] MEDS ORDERED: GUAIFENESIN/DM 5 ML UCUP ONE (02:08)
[2024-04-11 02:13] LABS: AST/SGOT 11 U/L (15-37); Albumin 2.2 g/dL (3.4-5.0); Albumin/Globulin Ratio 0.6 (1.1-1.8); Alkaline Phosphatase 127 U/L (45-117); Anion Gap 5.5 mEq/L (5.0-15.0); BUN Blood Urea Nitrogen 39 mg/dL (7-18); Bicarbonate 27 mEq/L (21-32); Bilirubin Total 0.2 mg/dL (0.2-1.0); Glomerular Filtration Rate 23 ml/min (=/>90); Glucose Level 270 mg/dL (74-106); NT PRO-BNP 1722 pg/mL (<125); Potassium 3.5 mEq/L (3.5-5.1); Protein, Total 6.2 g/dL (6.4-8.2); Sodium Level 139 mEq/L (136-145); Troponin High Sensitivity 41.1 pg/mL (<58.9)
[2024-04-11 02:18] LABS: ALT/SGPT < 14 U/L (16-61); Bilirubin Direct < 0.2 mg/dL (0-0.2)
[2024-04-11 02:30] LABS: SARS-CoV-2 Antigen CONTROL BLUE LINE VIS/BG OK; SARS-CoV-2 Antigen Rapid Res Negative (Negative)
--- NOTE | 2024-04-11 06:05 | RAD REPORT ---
EXAM: XR Chest, 1 View CLINICAL HISTORY: Chest pain. TECHNIQUE: Frontal view of the chest. COMPARISON: No relevant prior studies available. FINDINGS: Lungs: Unremarkable. No consolidation. Pleural space: Unremarkable. No pneumothorax. Heart: The cardiac silhouette is accentuated by portable technique. Mediastinum: Unremarkable. Normal mediastinal contour. Bones/joints: Unremarkable. No acute fracture. IMPRESSION: No acute disease. Electronically signed by: Valentina Stevens MD 04/11/2024 03:25 AM [facility] Due to temporary technical issues with the PACS[employer] reporting system, reports are being sherrie d by the in-house radiologist without review as a courtesy to ensure prompt reporting the interpreting radiologist is fully responsible for the content of the report. Transcribed Date/Time: 04/11/2024 6:05 AM
[2024-04-11] MEDS ORDERED: NA CHLORIDE 0.9% 1,000 ML ONE ×2 (06:19→14:40)
--- NOTE | 2024-04-11 06:25 | ER ---
Nurse's Notes [facility] Name: Dhaval Carrizales Age: 63 yrs Sex: Male : 1960 Arrival Date: 04/11/2024 Time: 01:13 Bed 15 Private MD: Diagnosis: Uncontrolled hypertension, acute on chronic renal insufficiency, diastolic congestive heart failure Presentation: 04/11 01:23 Chief complaint: Patient states: cough, congestion, body aches since wednesday. lg3 Coronavirus screen: Client denies travel out of the [place] in the last 14 days. Client presents with at least one sign or symptom that may indicate coronavirus-19. Standard/surgical mask placed on the client. Ebola Screen: No symptoms or risks identified at this time. Initial Sepsis Screen: Does the patient meet any 2 criteria? No. Patient's initial sepsis screen is negative. Does the patient have a suspected source of infection? No. Patient's initial sepsis screen is negative. Risk Assessment: Do you want to hurt yourself or someone else? Patient reports no desire to harm self or others. Onset of symptoms was April 08, 2024. 01:23 Method Of Arrival: Ambulatory lg3 01:23 Acuity: DANDRE 4 lg3 Triage Assessment: 01:25 General: Appears in no apparent distress. comfortable, Behavior is calm, cooperative. lg3 Pain: Complains of pain in chest. EENT: No deficits noted. Reports nasal congestion nasal discharge. Neuro: No deficits noted. Mathis Agitation-Sedation Scale (RASS): 0 - Alert and Calm Level of Consciousness is awake, alert, obeys commands, Oriented to person, place, time, situation. Cardiovascular: No deficits noted. Reports chest pain, Heart tones S1 S2 present Capillary refill < 3 seconds Clubbing of nail beds is absent JVD is absent Patient's skin is warm and dry. Respiratory: Reports cough that is pain with cough Breath sounds are clear bilaterally. GI: No deficits noted. No signs and/or symptoms were reported involving the gastrointestinal system. : No signs and/or symptoms were reported regarding the genitourinary system. Derm: No deficits noted. No signs and/or symptoms reported regarding the dermatologic system. Skin is intact, is healthy with good turgor, Skin is dry, Skin is normal, Skin temperature is warm. Musculoskeletal: No deficits noted. Circulation, motion, and sensation intact. Range of motion: intact in all extremities. Historical: - Allergies: 01:25 No Known Allergies; lg3 - PMHx: 01:25 Diabetes - NIDDM; High Cholesterol; Hypertension; lg3 - PSHx: 01:25 None; lg3 - Immunization history:: Adult Immunizations up to date. - Infectious Disease History:: Denies. - Social history:: Smoking status: Patient denies any tobacco usage or history of. Patient/guardian denies using alcohol, street drugs. - Family history:: not pertinent. Screenin:37 [facility] ED Fall Risk Assessment (Adult) History of falling in the last 3 months, kj2 including since admission No falls in past 3 months (0 pts) Confusion or Disorientation No (0 pts) Intoxicated or Sedated No (0 pts) Impaired Gait No (0 pts) Mobility Assist Device Used No (0 pt) Altered Elimination No (0 pt) Score/Fall Risk Level 0 - 2 = Low Risk Maintained a safe environment, Hourly rounding (assess needs \T\ fall precautionary measures) done. Abuse screen: Denies threats or abuse. Denies injuries from another. Nutritional screening: No deficits noted. Tuberculosis screening: No symptoms or risk factors identified. Assessment: 01:35 General: Appears in no apparent distress. uncomfortable, Behavior is calm, cooperative. kj2 Pain: Complains of pain in chest. Neuro: Level of Consciousness is awake, alert, obeys commands, Oriented to person, place, time, situation. Cardiovascular: Chest pain is described as mild. Respiratory: Airway is patent Respiratory effort is even, unlabored. GI: No signs and/or symptoms were reported involving the gastrointestinal system. : No signs and/or symptoms were reported regarding the genitourinary system. 01:40 Cardiovascular: Patient's skin is warm and dry. Respiratory: Airway is patent kj2 Respiratory effort is unlabored. 02:30 Reassessment: Patient appears in no apparent distress at this time. Patient and/or kj2 family updated on plan of care and expected duration. Pain level reassessed. Patient is alert, oriented x 3, equal unlabored respirations, skin warm/dry/pink. 03:30 Reassessment: Patient appears in no apparent distress at this time. Patient and/or kj2 family updated on plan of care and expected duration. Pain level reassessed. Patient is alert, oriented x 3, equal unlabored respirations, skin warm/dry/pink. 05:23 Reassessment: Patient appears in no apparent distress at this time. Patient and/or kj2 family updated on plan of care and expected duration. Pain level reassessed. Patient is alert, oriented x 3, equal unlabored respirations, skin warm/dry/pink. 06:30 Reassessment: Patient appears in no apparent distress at this time. Patient and/or kj2 family updated on plan of care and expected duration. Pain level reassessed. Patient is alert, oriented x 3, equal unlabored respirations, skin warm/dry/pink. 07:15 General: Appears in no apparent distress. Behavior is calm, cooperative, appropriate ap3 for age. Neuro: Level of Consciousness is awake, alert, obeys commands, Oriented to person, place, time, situation. Cardiovascular: Patient's skin is warm and dry. Respiratory: Airway is patent Respiratory effort is even, unlabored, Respiratory pattern is regular, symmetrical. 16:45 General: charge nurse called to notify for report- no answer.. ap3 Vital Signs: 01:23 BP 182 / 91; Pulse 78; Resp 17 S; Temp 98.6(O); Pulse Ox 98% on R/A; Weight 95.25 kg lg3 (R); Height 5 ft. 6 in. ; 03:36 BP 151 / 91; Pulse 64; Resp 20; Pulse Ox 100% on R/A; kj2 04:50 BP 147 / 81; Pulse 62; Resp 18; Pulse Ox 97% on R/A; kj2 05:23 BP 144 / 82; Pulse 60; Resp 18; kj2 06:30 BP 142 / 93; Pulse 63; Resp 20; Pulse Ox 97% on R/A; kj2 01:23 Body Mass Index 33.89 (95.25 kg, 167.64 cm) lg3 Volcano Coma Score: 06:20 Eye Response: spontaneous(4). Motor Response: obeys commands(6). Verbal Response: sp4 oriented(5). Total: 15. ED Course: 01:15 Patient arrived in ED. jj6 01:22 Estevan Sanders MD is Attending Physician. sp4 01:25 Triage completed. lg3 01:25 Arm band placed on right wrist. lg3 01:27 EKG done, by ED staff, reviewed by Estevan Sanders MD COVID swab sent to lab. Flu lg3 and/or RSV swab sent to lab. 01:35 Kim Chavez RN is Primary Nurse. kj2 01:38 Patient has correct armband on for positive identification. Bed in low position. Call kj2 light in reach. Provided Education on: call light. 01:39 SARS RAPID Sent. kj2 01:40 Influenza Screen (a \T\ B) Sent. kj2 01:51 XRAY Chest (1 view) In Process Unspecified. EDMS 06:24 Stevan Cooper is Hospitalizing Provider. sp4 07:05 Report given to CLARENCE Young. kj2 15:39 No provider procedures requiring assistance completed. Patient admitted, IV remains in ap3 place. Administered Medications: 02:10 Drug: cloNIDine PO 0.2 mg PO once Route: PO; kj2 04:44 Follow up: Response: No adverse reaction kj2 02:15 Drug: Acetaminophen-Codeine PO (300 mg-30 mg) 2 tabs PO once; RASS on ADMIN: Combtv4, kj2 Very Agttd3, Agttd2, Rstlss1, AlertClm0, Drwsy-1, Lt Sdtn-2, Mod Sdtn-3, Dp Sdtn-4, UnArsble-5 Route: PO; 04:43 Follow up: Response: No adverse reaction kj2 02:15 Drug: Tessalon Perle PO 200 mg PO once Route: PO; kj2 04:41 Follow up: Response: No adverse reaction kj2 02:15 Drug: AZITHromycin PO 500 mg PO once Route: PO; kj2 04:41 Follow up: Response: No adverse reaction kj2 02:15 Drug: Losartan PO 100 mg PO once Route: PO; kj2 04:40 Follow up: Response: No adverse reaction kj2 02:18 Drug: Dextromethorphan-Guaifenesin PO Liquid 10 mg-100 mg/5 mL 10 ml PO once Route: PO; kj2 04:44 Follow up: Response: No adverse reaction kj2 06:30 Drug: NS 0.9% IV 1000 ml IV at 125 ml/hr Per protocol; to be given as a bolus over 60 kj2 minutes {Note: infusing at 125ml/hr per MD order.} Route: IV; Rate: 125 ml/hr; Site: right antecubital; 08:28 Not Given (Physician Discretion): ns 0.9% 1000 ml IV at 1000 ml once; to be given as a ap3 bolus over 60 minutes Medication: 01:37 VIS not applicable for this client. kj2 Outcome: 06:24 Decision to Hospitalize by Provider. sp4 15:40 Admitted to ER Hold. Please see [facility] for further documentation. ap3 15:40 Condition: good 15:40 Instructed on the need for admit, 17:25 Patient left the ED. ap3 Signatures: Dispatcher [employer] EDHannah Sanchez RN RN ap3 Apple Casanova, RN RN osman3 Blanka Jacobo Sergey, MD MD sp4 Kim Chavez RN RN kj2
--- NOTE | 2024-04-11 06:25 | EDPHYS ---
Physician Documentation [facility] Name: Dhaval Carrizales Age: 63 yrs Sex: Male : 1960 Arrival Date: 04/11/2024 Time: 01:13 Bed 15 Private MD: ED Physician Estevan Sanders HPI: 04/11 01:22 This 63 yrs old Male presents to ER via Unassigned with complaints of Cough, sp4 Congestion, Chest Wall Pain, BODY ACHES. 06:19 63-year-old male with history of poorly controlled diabetes high cholesterol sp4 hypertension presents with acute chest pain cough congestion and bodyaches. Patient also reports elevated blood pressure. Historical: - Allergies: :25 No Known Allergies; lg3 - PMHx: :25 Diabetes - NIDDM; High Cholesterol; Hypertension; lg3 - PSHx: :25 None; lg3 - Immunization history:: Adult Immunizations up to date. - Infectious Disease History:: Denies. - Social history:: Smoking status: Patient denies any tobacco usage or history of. Patient/guardian denies using alcohol, street drugs. - Family history:: not pertinent. ROS: 06:20 Constitutional: Positive for fever, positive for cough productive of mucus, positive sp4 for chills, positive for shortness of breath and elevated blood pressure, positive for chest wall pain 06:20 All other systems are negative, Exam: 06:20 Constitutional: This is a well developed, well nourished patient who is awake, alert, sp4 and in no acute distress. Head/Face: Normocephalic, atraumatic. Eyes: Pupils equal round and reactive to light, extra-ocular motions intact. Lids and lashes normal. Conjunctiva and sclera are not injected. Cornea within normal limits. Periorbital areas with no swelling, redness, or edema. ENT: Nares patent. No nasal discharge, no septal abnormalities noted. Tympanic membranes are normal and external auditory canals are clear. Oropharynx with no redness, swelling, or masses, exudates, or evidence of obstruction, uvula midline. Mucous membranes moist. Neck: Trachea midline, no thyromegaly or masses palpated, and no cervical lymphadenopathy. Supple, full range of motion without nuchal rigidity, or vertebral point tenderness. Chest/axilla: Normal chest wall appearance and motion. Nontender with no deformity. No lesions are appreciated. Cardiovascular: Regular rate and rhythm with a normal S1 and S2. No gallops, murmurs, or rubs. Normal PMI, no JVD. No pulse deficits. Respiratory: Lungs have equal breath sounds bilaterally, clear to auscultation and percussion. No rales, rhonchi or wheezes noted. No increased work of breathing, no retractions or nasal flaring. Abdomen/GI: Soft, with normal bowel sounds. No distension or tympany. No guarding or rebound. No evidence of tenderness throughout. Back: No spinal tenderness. No costovertebral tenderness. Skin: Warm, dry with normal turgor. Normal color with no rashes, no lesions, and no evidence of cellulitis. MS/ Extremity: Pulses equal, no cyanosis. Neurovascular intact. Full, normal range of motion. Neuro: Awake and alert, GCS 15, oriented to person, place, time, and situation. Cranial nerves II-XII grossly intact. Motor strength 5/5 in all extremities. Sensory grossly intact. Psych: Awake, alert, with orientation to person, place and time. Behavior, mood, and affect are within normal limits 06:20 ECG was reviewed by the Attending Physician. EMS EKG at 0 130 Vital Signs: 01:23 BP 182 / 91; Pulse 78; Resp 17 S; Temp 98.6(O); Pulse Ox 98% on R/A; Weight 95.25 kg lg3 (R); Height 5 ft. 6 in. ; 03:36 BP 151 / 91; Pulse 64; Resp 20; Pulse Ox 100% on R/A; kj2 04:50 BP 147 / 81; Pulse 62; Resp 18; Pulse Ox 97% on R/A; kj2 05:23 BP 144 / 82; Pulse 60; Resp 18; kj2 06:30 BP 142 / 93; Pulse 63; Resp 20; Pulse Ox 97% on R/A; kj2 01:23 Body Mass Index 33.89 (95.25 kg, 167.64 cm) lg3 Cherie Coma Score: 06:20 Eye Response: spontaneous(4). Motor Response: obeys commands(6). Verbal Response: sp4 oriented(5). Total: 15. MDM: 04:10 Medical Screening Exam initiated sp4 06:20 ED course: EXAM: XR Chest, 1 View CLINICAL HISTORY: Chest pain. TECHNIQUE: Frontal view sp4 of the chest. COMPARISON: No relevant prior studies available. FINDINGS: Lungs: Unremarkable. No consolidation. Pleural space: Unremarkable. No pneumothorax. Heart: The cardiac silhouette is accentuated by portable technique. Mediastinum: Unremarkable. Normal mediastinal contour. Bones/joints: Unremarkable. No acute fracture. IMPRESSION: No acute disease. . 06:22 Differential Diagnosis: Obstructed Airway Bronchitis Influenza Upper Respiratory sp4 Infection Sinusitis Pharyngitis Otitis Media Allergic Rhinitis. Data reviewed: vital signs, nurses notes, lab test result(s), EKG, radiologic studies, plain films. Consideration of Admission/Observation Patient was admitted/placed on observation. Escalation of care including admission/observation considered. Management of patient was discussed with the following: Hospitalist: Kenneth MENDOZA admit team . ED course: Patient is acute on chronic renal insufficiency, poorly controlled diabetes and uncontrolled hypertension.. 04/11 01:23 Order name: Influenza Screen (a \T\ B); Complete Time: 05:03 sp4 04/11 01:23 Order name: Basic Metabolic Panel; Complete Time: 05:03 sp4 04/11 01:23 Order name: CBC with Diff; Complete Time: 05:03 sp4 04/11 01:23 Order name: LFT's; Complete Time: 05:03 sp4 04/11 01:23 Order name: NT PRO-BNP; Complete Time: 05:03 sp4 04/11 01:23 Order name: Troponin HS; Complete Time: 05:03 sp4 04/11 01:27 Order name: SARS RAPID; Complete Time: 05:03 lg3 04/11 05:36 Order name: Troponin High Sensitivity; Complete Time: 06:25 sp4 04/11 08:00 Order name: Urinalysis w/ reflexes EDMS 04/11 08:00 Order name: Basic Metabolic Panel EDMS 04/11 08:00 Order name: Basic Metabolic Panel EDMS 04/11 08:00 Order name: Basic Metabolic Panel EDMS 04/11 08:00 Order name: CBC with Automated Diff EDMS 04/11 08:00 Order name: CBC with Automated Diff EDMS 04/11 08:00 Order name: CBC with Automated Diff EDMS 04/11 08:00 Order name: Lipid Profile EDMS 04/11 08:00 Order name: Lipid Profile EDMS 04/11 08:00 Order name: Magnesium EDMS 04/11 08:00 Order name: Magnesium EDMS 04/11 08:00 Order name: Magnesium EDMS 04/11 08:00 Order name: Phosphorus EDMS 04/11 08:00 Order name: Phosphorus EDMS 04/11 08:00 Order name: Phosphorus EDMS 04/11 11:12 Order name: Glucose, Ancillary Testing EDMS 04/11 16:43 Order name: Glucose, Ancillary Testing EDMS 04/11 01:23 Order name: XRAY Chest (1 view); Complete Time: 06:18 sp4 04/11 08:00 Order name: Echo with Doppler EDMS 04/11 01:23 Order name: EKG; Complete Time: 01:23 sp4 04/11 01:23 Order name: Cardiac monitoring; Complete Time: 03:12 sp4 04/11 01:23 Order name: EKG - Nurse/Tech; Complete Time: 01:39 sp4 04/11 01:23 Order name: IV Saline Lock; Complete Time: :40 sp4 04/11 01:23 Order name: Labs collected and sent; Complete Time: 01:40 sp4 04/11 01:23 Order name: O2 Per Protocol; Complete Time: 03:12 sp4 04/11 01:23 Order name: O2 Sat Monitoring; Complete Time: 03:12 sp4 EC:30 Rate is 74 beats/min. Rhythm is regular, Normal Sinus Rhythm. QRS [place] is Normal. [place] sp4 interval is normal. QRS interval is normal. QT interval is normal. No Q waves. T waves are Normal. No ST changes noted. Clinical impression: No evidence of ischemia. Interpreted by me. Reviewed by me. Administered Medications: 02:10 Drug: cloNIDine PO 0.2 mg PO once Route: PO; kj2 04:44 Follow up: Response: No adverse reaction kj2 02:15 Drug: Acetaminophen-Codeine PO (300 mg-30 mg) 2 tabs PO once; RASS on ADMIN: Combtv4, kj2 Very Agttd3, Agttd2, Rstlss1, AlertClm0, Drwsy-1, Lt Sdtn-2, Mod Sdtn-3, Dp Sdtn-4, UnArsble-5 Route: PO; 04:43 Follow up: Response: No adverse reaction kj2 02:15 Drug: Tessalon Perle PO 200 mg PO once Route: PO; kj2 04:41 Follow up: Response: No adverse reaction kj2 02:15 Drug: AZITHromycin PO 500 mg PO once Route: PO; kj2 04:41 Follow up: Response: No adverse reaction kj2 02:15 Drug: Losartan PO 100 mg PO once Route: PO; kj2 04:40 Follow up: Response: No adverse reaction kj2 02:18 Drug: Dextromethorphan-Guaifenesin PO Liquid 10 mg-100 mg/5 mL 10 ml PO once Route: PO; kj2 04:44 Follow up: Response: No adverse reaction kj2 06:30 Drug: NS 0.9% IV 1000 ml IV at 125 ml/hr Per protocol; to be given as a bolus over 60 kj2 minutes {Note: infusing at 125ml/hr per MD order.} Route: IV; Rate: 125 ml/hr; Site: right antecubital; 08:28 Not Given (Physician Discretion): ns 0.9% 1000 ml IV at 1000 ml once; to be given as a ap3 bolus over 60 minutes Disposition Summary: 04/11/24 06:24 Hospitalization Ordered Notes: Hospitalization Status: Inpatient Admission sp4 Provider: Stevan Cooper spLidia Condition: Fair sp4 Problem: new sp4 Symptoms: have improved sp4 Bed/Room Type: Standard sp4 Location: Telemetry/MedSurg (Inpatient)(04/11/24 16:11) bd Room Assignment: [facility](04/11/24 16:11) bd Diagnosis - Uncontrolled hypertension, acute on chronic renal insufficiency, diastolic sp4 congestive heart failure Forms: - Medication Reconciliation Form sp4 - SBAR form sp4 - Leadership Thank You Letter sp4 Signatures: Dispatcher [employer] Alee Bueno Jahala, RN RN jl7 Apple Casanova RN RN osman3 Estevan Sanders MD MD sp4 Kim Chavez RN RN kj2 Hannah Olivia RN ap3 Corrections: (The following items were deleted from the chart) 09:40 06:24 Telemetry/MedSurg (Inpatient) sp4 jl7 09:40 06:24 sp4 jl7 16:11 09:40 [facility] ER HOLD jl7 bd 16:11 09:40 ERHOLD- jl7 bd
--- NOTE | 2024-04-11 07:44 | P.HP ---
Certification for Inpatient Patient admitted to: Observation With expected LOS: <2 Midnights Patient will require the following post-hospital care: None Practitioner: I am a practitioner with admitting privileges, knowledge of patient current condition, hospital course, and medical plan of care. Services: Services provided to patient in accordance with Admission requirements found in Title 42 Section 412.3 of the Code of Federal Regulations Patient History Date of Service: 04/11/24 Reason for admission: VICTORIANO, CP r/o History of Present Illness: Dhaval Carrizales is a 63 year old male with Pmhx diabetes mellitusNIDDM, hypercholesterolemia, hypertension who presented to the ED with chief complaint of cough, congestion, body aches with chills since Wednesday (4 days). Upon arrival to the emergency room he was found to be hypertensive 182/91. Clonidine and losartan administered with good response. Chest x-ray with no acute findings. Laboratory evaluation significant for BUN/creatinine 39/2.96, GFR 23, serum glucose 270, BNP 1722, troponin within normal limits. Dhaval be admitted to hospitalist service for further evaluation and treatment of VICTORIANO, hypertension, chest pain rule out. Allergies No Known Allergies Allergy (Verified 04/19/17 12:59) Home Medications: Atorvastatin Calcium [Lipitor*] 20 mg PO BEDTIME 02/11/17 glipiZIDE [Glucotrol*] 5 mg PO BID 02/11/17 Losartan/Hydrochlorothiazide [Losartan-Hctz 100-12.5 mg Tab] 25 mg PO DAILY 04/11/24 - Past Medical/Surgical History Diabetic: Yes -: Diabetes mellitus -: Hypertension -: Hypercholesterolemia -: Kidney disease -: Facial abscess Sx - Social History Smoking Status: Never smoker Alcohol use: No CD- Drugs: No Caffeine use: Yes Review of Systems Respiratory: Cough Cardiovascular: Chest Pain Physical Examination - Physical Exam General: Alert, In no apparent distress, Oriented x3 HEENT: Atraumatic, Normocephalic, PERRLA Neck: Supple, 2+ carotid pulse no bruit Respiratory: Normal air movement, Rhonchi/gurgles Cardiovascular: No edema, Normal pulses, Regular rate/rhythm, Normal S1 S2 Capillary refill: <2 Seconds Gastrointestinal: Normal bowel sounds, Soft and benign Musculoskeletal: No clubbing Integumentary: No rashes Neurological: Normal speech, Normal tone - Studies Laboratory Data (last 24 hrs) 04/11/24 04/11/24 01:39 01:39 WBC 6.80 Hgb 14.0 Hct 40.6 Plt Count 233 Sodium 139 Potassium 3.5 BUN 39 H Creatinine 2.96 H Glucose 270 H Total Bilirubin 0.2 AST 11 L ALT < 14 L Alkaline Phosphatase 127 H Microbiology Data (last 24 hrs): 04/11/24 01:39 Nasopharnyx Influenza Type A Antigen Screen - Final 04/11/24 01:39 Nasopharnyx Influenza Type B Antigen Screen - Final Assessment and Plan - Plan Assessment and plan Chest pain rule out Cough and congestion - EKG: No obvious ST segment changes, trend - troponin 41.1/ 30.6, Serial pending - Ordered transthoracic echocardiogram - chest x-ray no acute findings - Consult Cardiology - recommendations appreciated - Start daily baby aspirin and statin - Symptom control with PRN acetaminophen, nitroglycerin, morphine -continuous telemetry -TSH/FreeT4, A1C, lipid panel pending -Tessalon pearls and Robitussin DM -Flu negative Hypertension with hypertensive urgency Hypercholesterolemia -Continue home medication -Clonidine and losartan given in the ED -Hydralazine as needed Diabetes mellitusNIDDM with hyperglycemia -Serum glucose 270 -Accu-Chek with sliding scale insulin -A1c in a.m. -Consistent carb VICTORIANO -BUN/creatinine 39/2.96, GFR 23 -Gentle IV fluids -Nephrology consulted DVT PPx heparin Full code LOS 24-hour OBS Discharge Plan: Home Plan to discharge in: 24 Hours - Advance Directives Does patient have a Living Will: No Does patient have a Durable POA for Healthcare: No
[2024-04-11] MEDS ORDERED: D50W 25 GM/50 ML SYRINGE IV PRN (07:53)
[2024-04-11] MEDS ORDERED: GLUCAGON 1 MG/VIAL IV PRN (07:53)
[2024-04-11] MEDS ORDERED: ACETAMINOPHEN 325 MG TABLET PO PRN (07:53)
[2024-04-11] MEDS: NA CHLORIDE 0.9% 1,000 ML IV SCH (08:00)
[2024-04-11 08:56] VITALS: BMI 33.9
[2024-04-11] MEDS ORDERED: FLU (Fluarix Triv) TS24-25(6MOS UP)/PF 45 MCG/0.5 ML Syringe IM ONE (09:30)
[2024-04-11] MEDS ORDERED: INSULIN REGULAR (HUMAN) 100 UNIT/ML ONE ×2 (11:11→17:00)
[2024-04-11] MEDS: INSULIN REGULAR (HUMAN) 100 UNIT/ML SQ SCH (11:14)
--- NOTE | 2024-04-11 14:05 | P.CNS ---
Date of Consult: 04/11/24 Chief Complaint: VICTORIANO, CP r/o History of Present Illness: Patient with PMH of HTN, DM, presented with chest pain, congestion, cough with sputum production, chills, report chest pain as sharp, denies any other cardiac symptoms. Allergies No Known Allergies Allergy (Verified 04/19/17 12:59) Home medications list reviewed: Yes Home Medications: Atorvastatin Calcium [Lipitor*] 20 mg PO BEDTIME 02/11/17 Losartan/Hydrochlorothiazide [Losartan-Hctz 100-12.5 mg Tab] 1 each PO [id number] 02/11/17 glipiZIDE [Glucotrol*] 5 mg PO BID 02/11/17 - Past Medical/Surgical History Diabetic: Yes -: CHF -: HTN -: Facial abscess Sx - Social History Alcohol use: No CD- Drugs: No Caffeine use: Yes Review of Systems 10-point ROS is otherwise unremarkable Physical Examination Temp Pulse Resp BP Pulse Ox 98.7 F 71 18 152/97 H 99 04/11/24 11:19 04/11/24 11:19 04/11/24 11:19 04/11/24 11:19 04/11/24 11:19 General: Alert, In no apparent distress HEENT: Atraumatic, PERRLA, Mucous membr. moist/pink, EOMI, Sclerae nonicteric Neck: Supple, 2+ carotid pulse no bruit, No LAD, Without JVD or thyroid abnormality Respiratory: Clear to auscultation bilaterally, Normal air movement Cardiovascular: Regular rate/rhythm, Normal S1 S2 Gastrointestinal: Normal bowel sounds, No tenderness Musculoskeletal: No tenderness Integumentary: No rashes Neurological: Normal gait, Normal speech, Normal tone, Normal affect Lymphatics: No axilla or inguinal lymphadenopathy Laboratory Data (last 24 hrs) 04/11/24 04/11/24 01:39 01:39 WBC 6.80 Hgb 14.0 Hct 40.6 Plt Count 233 Sodium 139 Potassium 3.5 BUN 39 H Creatinine 2.96 H Glucose 270 H Total Bilirubin 0.2 AST 11 L ALT < 14 L Alkaline Phosphatase 127 H - Problems (1) Chest pain Current Visit: Yes Status: Acute Plan: most likely non cardiac as symptoms are atypical, continue to trend cardiac enzymes. get echo (2) HTN (hypertension) Current Visit: Yes Status: Acute Plan: continue home medications. (3) VICTORIANO (acute kidney injury) Current Visit: Yes Status: Acute Plan: no signs of volume overload, hydration and monitor kidney function.
[2024-04-11] MEDS ORDERED: HEPARIN 10,000 UNIT/10 ML VIAL IV ONE (18:22)
[2024-04-11] MEDS ORDERED: D10W 125 ML IV PRN (18:31)
[2024-04-11 19:10] LABS: Absolute Basophils 0.1 K/uL (0-0.5); Absolute Eosinophils 0.1 K/uL (0-0.5); Absolute Lymphocytes (CBC) 2.1 K/uL (0.7-4.9); Absolute Monocytes 0.8 K/uL (0.1-1.3); Absolute Neutrophil 2.9 K/uL (1.8-8.0); Basophils % 0.9 % (0-1.3); Eosinophils % 2.4 % (0-4.4); Hemoglobin 12.9 g/dL (13.6-17.9); Lymphocytes % 34.7 % (15.3-44.8); MCH 28.5 pg (27.0-35.0); MCHC 33.9 g/dL (32.0-36.0); MCV 83.9 fL (80-100); MPV 8.5 fL (7.6-11.3); Monocytes % 13.3 % (3.3-12.3); Neutrophils % 48.7 % (41.7-73.7); Platelets 207 thou/uL (152-406); RBC Red Blood Cell Count 4.53 M/uL (4.33-5.43); Red Cell Distribution Width 13.4 % (12.1-15.2)
[2024-04-11 19:20] LABS: PT Prothrombin Time 10.6 SECONDS (9.4-12.5); PTT, Activated Partial Thromb 34.8 SECONDS (24.3-36.9); Protime INR 0.94
[2024-04-11] MEDS: HEPARIN 5000 UNIT/ML 1 ML VIAL IV ONE (19:34)
[2024-04-11] MEDS: HEPARIN/D5W 25,000 UNIT/500 ML BAG IV PRN (19:34)
[2024-04-11] MEDS: BENZONATATE 100 MG CAP PO PRN (19:35)
[2024-04-11] MEDS: AMLODIPINE 5 MG TAB PO ONE (19:36)
[2024-04-11] MEDS ORDERED: HEPARIN 5000 UNIT/ML 1 ML VIAL SQ SCH (21:00)
[2024-04-11] MEDS: HYDRALAZINE HCL 20 MG/ML VIAL IV PRN (22:04)
[2024-04-11] MEDS: MELATONIN 5 MG TABLET PO PRN (22:04)
[2024-04-11] MEDS: ATORVASTATIN 40 MG TAB PO SCH (22:04)
[2024-04-12] MEDS: GUAIFENESIN/DM 5 ML UCUP PO PRN (02:55)
[2024-04-12 04:14] LABS: Specific Gravity 1.015 (1.005-1.030); Sqamous Epithelial None Seen /HPF (None Seen); Urine Bacteria None Seen /HPF (<20); Urine Bilirubin NEGATIVE (Negative); Urine Blood 1+ (Negative); Urine Clarity Clear (Clear); Urine Color Light-Yellow (Yellow); Urine Culture Reflex Order NOT NEEDED; Urine Glucose 4+ (Over) (Negative); Urine Ketones NEGATIVE (Negative); Urine Microscopic Reflex YN ORDER UMIC; Urine Nitrite NEGATIVE (Negative); Urine Protein 3+ (Negative); Urine RBC <5 /HPF (None Seen); Urine Urobilinogen Normal (Normal); Urine WBC None Seen /HPF (<5); Urine pH 6.5 (5.0-7.0)
[2024-04-12 04:47] LABS: Nucleated Red Blood Cells % 0.1 % (0-0)
[2024-04-12 04:52] LABS: Absolute Eosinophils 0.2 K/uL (0-0.5); Absolute Lymphocytes (CBC) 1.8 K/uL (0.7-4.9); Absolute Monocytes 0.6 K/uL (0.1-1.3); Absolute Neutrophil 3.6 K/uL (1.8-8.0); Basophils % 0.7 % (0-1.3); Eosinophils % 2.9 % (0-4.4); Hematocrit 38.1 % (39.6-49.0); Lymphocytes % 28.4 % (15.3-44.8); MCH 28.5 pg (27.0-35.0); MCHC 34.2 g/dL (32.0-36.0); MCV 83.5 fL (80-100); MPV 8.4 fL (7.6-11.3); Monocytes % 10.2 % (3.3-12.3); Neutrophils % 57.8 % (41.7-73.7); Platelets 212 thou/uL (152-406); RBC Red Blood Cell Count 4.56 M/uL (4.33-5.43); Red Cell Distribution Width 13.6 % (12.1-15.2)
[2024-04-12 05:07] LABS: Anion Gap 5.8 mEq/L (5.0-15.0); Magnesium 1.8 mg/dL (1.6-2.4); Phosphorus 3.5 mg/dL (2.5-4.9); Potassium 3.8 mEq/L (3.5-5.1); Thyroid Stimulating Hormone 3.67 uIU/mL (0.358-3.740)
[2024-04-12] MEDS: MAGNESIUM SULFATE 1 gm IVPB 1 GM/100 ML BAG IV ONE (08:48)
[2024-04-12] MEDS: ASPIRIN EC 81 MG TAB PO SCH (08:48)
[2024-04-12] MEDS: POTASSIUM 25 MEQ EFFERV TAB PO ONE (08:48)
--- NOTE | 2024-04-12 10:11 | P.CNS ---
Date of Consult: 04/12/24 Reason for Consult: CKD Requesting Physician: aravind abel Chief Complaint: VICTORIANO, CP r/o History of Present Illness: Dhaval Carrizales is a 63 year old male with Pmhx diabetes mellitusNIDDM, hypercholesterolemia, hypertension who presented to the ED with chief complaint of cough, congestion, body aches with chills since Wednesday (4 days). Upon arrival to the emergency room he was found to be hypertensive 182/91. Clonidine and losartan administered with good response. Chest x-ray with no acute findings. Laboratory evaluation significant for BUN/creatinine 39/2.96, GFR 23, serum glucose 270, BNP 1722, troponin within normal limits. Dhaval be admitted to hospitalist service for further evaluation and treatment of VICTORIANO, hypertension, chest pain rule out. 01:22 This 63 yrs old Male presents to ER via Unassigned with complaints of Cough, Congestion, Chest Wall Pain, BODY ACHES. 06:19 63-year-old male with history of poorly controlled diabetes high cholester ol hypertension presents with acute chest pain cough congestion and bodyaches. Patient also reports elevated blood pressure. Allergies No Known Allergies Allergy (Verified 04/19/17 12:59) Home medications list reviewed: Yes Home Medications: glipiZIDE [Glucotrol*] 5 mg PO BID 02/11/17 Losartan/Hydrochlorothiazide [Losartan-Hctz 100-12.5 mg Tab] 25 mg PO DAILY 04/11/24 Benzonatate [Tessalon Perle*] 200 mg PO TID PRN #30 cap 04/12/24 Guaif/Dm [Robitussin Dm*] 10 ml PO Q6H PRN #118 ml 04/12/24 Rosuvastatin [Crestor] 5 mg PO BEDTIME #30 tab 04/12/24 - Past Medical/Surgical History Diabetic: Yes -: DM II -: HTN -: HLD -: CKD (Dr. Abraham/ Margarito) -: Facial abscess Sx - Social History Alcohol use: No CD- Drugs: No Caffeine use: Yes Review of Systems 10-point ROS is otherwise unremarkable Physical Examination Temp Pulse Resp BP Pulse Ox 97.4 F 69 18 167/88 H 96 04/12/24 08:00 04/12/24 08:00 04/12/24 08:00 04/12/24 08:00 04/12/24 08:00 General: In no apparent distress, Oriented x3, Cooperative HEENT: Atraumatic Neck: Supple Respiratory: Clear to auscultation bilaterally Cardiovascular: No edema, Regular rate/rhythm Gastrointestinal: Soft and benign, Non-distended Musculoskeletal: No clubbing, No contractures Integumentary: No rashes, No cyanosis Neurological: Normal speech Blood work reviewed in the chart. Imagings Data: XR Chest, 1 View CLINICAL HISTORY: Chest pain. TECHNIQUE: Frontal view of the chest. COMPARISON: No relevant prior studies available. FINDINGS: Lungs: Unremarkable. No consolidation. Pleural space: Unremarkable. No pneumothorax. Heart: The cardiac silhouette is accentuated by portable technique. Mediastinum: Unremarkable. Normal mediastinal contour. Bones/joints: Unremarkable. No acute fracture. IMPRESSION: No acute disease. Conclusions/Impression: CKD IV with Proteinuria -No NSAIDs Hypokalemia -Repklete as ordered HTN with CKD -Agree with Amlodipine DM II with CKD -RISS Hospitalist, Cardiology and ER notes reviewed Case discussed with the hospitalist team Case reviewed with Dr. Abel Thank you kindly for the consultation
--- NOTE | 2024-04-12 12:24 | P.DS ---
Admission Date: 04/11/24 Discharge Date: 04/12/24 Disposition: ROUTINE DISCHARGE Reason for Admission: VICTORIANO, CP r/o Brief History of Present Illness: Diagnosis Chest pain rule out Cough and congestion Hypertension with hypertensive urgency Hypercholesterolemia Diabetes mellitusNIDDM with hyperglycemia CKD IV with proteinuria HPI 04/11/2024 Dhaval Carrizales is a 63 year old male with Pmhx diabetes mellitusNIDDM, hypercholesterolemia, hypertension who presented to the ED with chief complaint of cough, congestion, body aches with chills since Wednesday (4 days). Upon arrival to the emergency room he was found to be hypertensive 182/91. Clonidine and losartan administered with good response. Chest x-ray with no acute findings. Laboratory evaluation significant for BUN/creatinine 39/2.96, GFR 23, serum glucose 270, BNP 1722, troponin within normal limits. Dhaval be admitted to hospitalist service for further evaluation and treatment of VICTORIANO, hypertension, chest pain rule out. Hospital Course: Dhaval Carrizales is a pleasant 63-year-old male with a past medical history significant for diabetes mellitusNIDDM, hypercholesterolemia, and hypertension who was admitted to the [facility] on 04/11/2024 for chest pain rule out, VICTORIANO. Dhaval presented to the ED with complaint of cough and congestion with some chest pain. He reported those symptoms accompany flu. Flu resulted negative. Lab work revealed VICTORIANO with BUN/creatinine 39/2.96, GFR 23. He reports seeing a patent litigation associate [address] Abraham was consulted and cleared him for discharge and follow-up outpatient. Dr. Foy was consulted for chest pain, determined it was noncardiac and cleared him for discharge from a cardiac standpoint. Troponins trended negative, EKG negative, and chest x-ray with no acute findings. Blood glucose was elevated and responded well to insulin therapy. A1c 8.9, he will need to follow-up with PCP concerning diabetes management. On 06/13/2023, Dhaval was seen on morning rounds and deemed medically stable for discharge home with family support. Dhaval was discharged with instructions to schedule follow-up appointments with Dr. Abraham and PCP. Dhaval was provided prescriptions for Lipitor, Robitussin DM, Tessalon Perle. Physical Exam General: Alert and Oriented x3, NAD HEENT: Atraumatic, Normocephalic, PERRLA Neck: Supple, 2+ carotid pulse no bruit Respiratory: Normal air movement, Rhonchi/gurgles Cardiovascular: No edema, Normal pulses, RRR, Normal S1 S2 Capillary refill: <2 Seconds Gastrointestinal: Normal active bowel sounds, Soft and benign on palpation, nontender Musculoskeletal: No clubbing Integumentary: No rashes Neurological: Normal speech, Normal tone Vital Signs/Physical Exam: Temp Pulse Resp BP Pulse Ox 97.4 F 69 18 167/88 H 96 04/12/24 08:00 04/12/24 08:00 04/12/24 08:00 04/12/24 08:00 04/12/24 08:00 Laboratory Data at Discharge: WBC 6.20 thou/uL (4.3-10.9) 04/12/24 04:07 Hgb 13.0 g/dL (13.6-17.9) L 04/12/24 04:07 Hct 38.1 % (39.6-49.0) L 04/12/24 04:07 Plt Count 212 thou/uL (152-406) 04/12/24 04:07 PT 10.6 SECONDS (9.4-12.5) 04/11/24 18:58 INR 0.94 04/11/24 18:58 APTT Cancelled 04/12/24 03:50 Sodium 142 mEq/L (136-145) 04/12/24 04:07 Potassium 3.8 mEq/L (3.5-5.1) 04/12/24 04:07 BUN 35 mg/dL (7-18) H 04/12/24 04:07 Creatinine 2.84 mg/dL (0.70-1.30) H 04/12/24 04:07 Glucose 166 mg/dL (74-106) H 04/12/24 04:07 Phosphorus 3.5 mg/dL (2.5-4.9) 04/12/24 04:07 Magnesium 1.8 mg/dL (1.6-2.4) 04/12/24 04:07 Total Bilirubin 0.2 mg/dL (0.2-1.0) 04/11/24 01:39 AST 11 U/L (15-37) L 04/11/24 01:39 ALT < 14 U/L (16-61) L 04/11/24 01:39 Alkaline Phosphatase 127 U/L (45-117) H 04/11/24 01:39 Triglycerides 223 mg/dL (<150) H 04/12/24 04:07 Cholesterol 177 mg/dL (<200) 04/12/24 04:07 HDL Cholesterol 34 mg/dL (40-60) L 04/12/24 04:07 Cholesterol/HDL Ratio 5.21 04/12/24 04:07 Home Medications: Atorvastatin Calcium [Lipitor*] 20 mg PO BEDTIME 02/11/17 glipiZIDE [Glucotrol*] 5 mg PO BID 02/11/17 Losartan/Hydrochlorothiazide [Losartan-Hctz 100-12.5 mg Tab] 25 mg PO DAILY 04/11/24 Atorvastatin Calcium [Lipitor] 40 mg PO BEDTIME #30 tab 04/12/24 Benzonatate [Tessalon Perle*] 200 mg PO TID PRN #30 cap 04/12/24 Guaif/Dm [Robitussin Dm*] 10 ml PO Q6H PRN #118 ml 04/12/24 New Medications: Atorvastatin Calcium [Lipitor] 40 mg PO BEDTIME #30 tab Guaif/Dm [Robitussin Dm*] 10 ml PO Q6H PRN #118 ml PRN Reason: COUGH - 2ND LINE Benzonatate [Tessalon Perle*] 200 mg PO TID PRN #30 cap PRN Reason: COUGH - 1ST LINE Diet: Renal Activity: Ad vania Followup: Gianna Urena NP [Primary Care Provider] - 1-2 Weeks Elio Abraham DO [ACTIVE - CAN ADMIT] -
[2024-04-12] MEDS: AMLODIPINE 10 MG TAB PO ONE (17:01)
[2024-04-13 07:10] LABS: Absolute Lymphocytes (CBC) 1.4 K/uL (0.7-4.9); Absolute Monocytes 0.5 K/uL (0.1-1.3); Absolute Neutrophil 4.2 K/uL (1.8-8.0); Basophils % 0.4 % (0-1.3); Eosinophils % 0.4 % (0-4.4); Hematocrit 39.7 % (39.6-49.0); Hemoglobin 13.5 g/dL (13.6-17.9); Lymphocytes % 22.9 % (15.3-44.8); MCH 28.4 pg (27.0-35.0); MCHC 34.1 g/dL (32.0-36.0); MCV 83.1 fL (80-100); MPV 8.3 fL (7.6-11.3); Monocytes % 7.6 % (3.3-12.3); Neutrophils % 68.7 % (41.7-73.7); Nucleated Red Blood Cells % 0.1 % (0-0); Platelets 222 thou/uL (152-406); RBC Red Blood Cell Count 4.77 M/uL (4.33-5.43); Red Cell Distribution Width 13.6 % (12.1-15.2)
[2024-04-13 07:29] LABS: Anion Gap 7.4 mEq/L (5.0-15.0); Magnesium 2.1 mg/dL (1.6-2.4); Phosphorus 3.4 mg/dL (2.5-4.9); Potassium 3.4 mEq/L (3.5-5.1)
[2024-04-13] MEDS: LOSARTAN/HCTZ 50-12.5 PO SCH ×2 (09:00→09:21)
[2024-04-13] MEDS: AMLODIPINE 5 MG TAB PO SCH (09:46)
[2024-04-13] MEDS: AMLODIPINE 5 MG TAB PO ONE (14:33)
[2024-04-13] MEDS: HYDRALAZINE HCL 20 MG/ML VIAL IV ONE (14:34)
--- NOTE | 2024-04-13 16:12 | RAD REPORT ---
EXAMINATION: CT CHEST WITHOUT CONTRAST CLINICAL INDICATION: Shortness of breath TECHNIQUE: Routine CT scan of the chest without intravenous contrast. One or more of the following do se reduction techniques were used: Automated exposure control, adjustment of the mA and/or kV according to patient size, and/or iterative reconstruction. Unless otherwise specified, incidental fi ndings do not require dedicated imaging follow-up. COMPARISON: Recent chest radiograph reviewed FINDINGS: LOWER NECK: Visualized thyroid gland and soft tissues are normal. LUNGS: Tiny nodules seen in the right upper lobe laterally, subpleural location. No focal infiltrate detected. PLEURA: Trace bilateral pleural fluid. MEDIASTINUM AND LYMPH NODES: No mediastinal mass or fluid collection. Normal size mediastinal, hilar, and axillary lymph nodes. OSSEOUS STRUCTURES AND CHEST WALL: Intact. UPPER ABDOMEN: No significant abnormalities. IMPRESSION: Trace bilateral pleural fluid. Small nodule right lung is relatively low suspicion. Recommend follow-up LDCT in 6-12 months to monit or. Examination limited by lack of IV contrast.
--- NOTE | 2024-04-13 16:33 | P.DS ---
Admission Date: 04/13/24 Discharge Date: 04/13/24 Reason for Admission: VICTORIANO, CP r/o Consultations: Dr. Abraham, Dr. Foy Brief History of Present Illness: Admission Date: 04/11/24 Discharge Date: 04/13/24 Disposition: ROUTINE DISCHARGE Reason for Admission: VICTORIANO, CP r/o Brief History of Present Illness: Diagnosis Chest pain rule out Cough and congestion Hypertension with hypertensive urgency Hypercholesterolemia Diabetes mellitusNIDDM with hyperglycemia CKD IV with proteinuria HPI 04/11/2024 Dhaval Carrizales is a 63 year old male with Pmhx diabetes mellitusNIDDM, hypercholesterolemia, hypertension who presented to the ED with chief complaint of cough, congestion, body aches with chills since Wednesday (4 days). Upon arrival to the emergency room he was found to be hypertensive 182/91. Clonidine and losartan administered with good response. Chest x-ray with no acute findings. Laboratory evaluation significant for BUN/creatinine 39/2.96, GFR 23, serum glucose 270, BNP 1722, troponin within normal limits. Dhaval be admitted to hospitalist service for further evaluation and treatment of VICTORIANO, hypertension, chest pain rule out. Hospital Course: Dhaval Carrizales is a pleasant 63-year-old male with a past medical history significant for diabetes mellitusNIDDM, hypercholesterolemia, and hypertension who was admitted to the [facility] on 04/11/2024 for chest pain rule out, VICTORIANO. Dhaval presented to the ED with complaint of cough and congestion with some chest pain. He reported those symptoms accompany flu. Flu resulted negative. Lab work revealed VICTORIANO with BUN/creatinine 39/2.96, GFR 23. He reports seeing a managing broker [address] Abraham was consulted and cleared him for discharge and follow-up outpatient. Dr. Foy was consulted for chest pain, determined it was noncardiac and cleared him for discharge from a cardiac standpoint. Troponins trended negative, EKG negative, and chest x-ray with no acute findings. Blood glucose was elevated and responded well to insulin therapy. A1c 8.9, he will need to follow-up with PCP concerning diabetes manage ment. On 06/14/2023, Dhaval was seen on morning rounds and deemed medically stable for discharge home with family support. Dhaval was discharged with instructions to schedule follow-up appointments with Dr. Abraham and PCP. Dhaval was provided prescriptions for Lipitor, Robitussin DM, Tessalon Perle. New Medications: Atorvastatin Calcium [Lipitor] 40 mg PO BEDTIME #30 tab Guaif/Dm [Robitussin Dm*] 10 ml PO Q6H PRN #118 ml PRN Reason: COUGH - 2ND LINE Benzonatate [Tessalon Perle*] 200 mg PO TID PRN #30 cap PRN Reason: COUGH - 1ST LINE Diet: Renal Activity: Ad vania Followup: Gianna Urena NP [Primary Care Provider] - 1-2 Weeks Elio Abraham DO [ACTIVE - CAN ADMIT] - <Patty Harvey - Last Filed: 04/13/24 16:30> Admission Date: 04/13/24 Discharge Date: 04/17/24 Brief History of Present Illness: Patient discharged on 04/12/2024 was held because of uncontrolled blood pressure. Amlodipine 10 mg daily was added to his home dose losartan hydrochlorothiazide. Blood pressure improved. Patient's spouse was concerned about patient persistent cough and requested CT chest. CT chest done showed pulmonary nodule and trace bilateral pleural effusions, no infiltrate. Follow-up with CT chest within 6 to 12 months recommended to the patient. Patient subsequently discharged on 04/14/2024. <aravind abel - Last Filed: 04/17/24 18:32> Disposition: ROUTINE DISCHARGE Discharge Condition: GOOD Vital Signs/Physical Exam: Temp Pulse Resp BP Pulse Ox 98.4 F 80 18 181/85 H 98 04/13/24 12:00 04/13/24 14:33 04/13/24 12:00 04/13/24 14:33 04/13/24 12:00 General: Alert, In no apparent distress HEENT: Atraumatic, Normocephalic Neck: Supple Respiratory: Normal air movement Cardiovascular: Normal pulses Capillary refill: <2 Seconds Gastrointestinal: Soft and benign Musculoskeletal: No clubbing, No swelling Integumentary: No rashes Neurological: Normal speech, Normal tone, Normal affect Lymphatics: No axilla or inguinal lymphadenopathy External genitalia: Deferred Rectal: Deferred Laboratory Data at Discharge: WBC 6.10 thou/uL (4.3-10.9) 04/13/24 06:20 Hgb 13.5 g/dL (13.6-17.9) L 04/13/24 06:20 Hct 39.7 % (39.6-49.0) 04/13/24 06:20 Plt Count 222 thou/uL (152-406) 04/13/24 06:20 PT 10.6 SECONDS (9.4-12.5) 04/11/24 18:58 INR 0.94 04/11/24 18:58 APTT Cancelled 04/12/24 03:50 Sodium 142 mEq/L (136-145) 04/13/24 06:20 Potassium 3.4 mEq/L (3.5-5.1) L 04/13/24 06:20 BUN 30 mg/dL (7-18) H 04/13/24 06:20 Creatinine 2.60 mg/dL (0.70-1.30) H 04/13/24 06:20 Glucose 178 mg/dL (74-106) H 04/13/24 06:20 Phosphorus 3.4 mg/dL (2.5-4.9) 04/13/24 06:20 Magnesium 2.1 mg/dL (1.6-2.4) 04/13/24 06:20 Total Bilirubin 0.2 mg/dL (0.2-1.0) 04/11/24 01:39 AST 11 U/L (15-37) L 04/11/24 01:39 ALT < 14 U/L (16-61) L 04/11/24 01:39 Alkaline Phosphatase 127 U/L (45-117) H 04/11/24 01:39 Triglycerides 223 mg/dL (<150) H 04/12/24 04:07 Cholesterol 177 mg/dL (<200) 04/12/24 04:07 HDL Cholesterol 34 mg/dL (40-60) L 04/12/24 04:07 Cholesterol/HDL Ratio 5.21 04/12/24 04:07 <Harvey,Patty Coleman - Last Filed: 04/13/24 16:30> Vital Signs/Physical Exam: Temp Pulse Resp BP Pulse Ox 97.7 F 75 14 148/69 H 94 04/14/24 09:21 04/14/24 09:31 04/14/24 09:21 04/14/24 09:31 04/14/24 09:21 Laboratory Data at Discharge: WBC 6.10 thou/uL (4.3-10.9) 04/13/24 06:20 Hgb 13.5 g/dL (13.6-17.9) L 04/13/24 06:20 Hct 39.7 % (39.6-49.0) 04/13/24 06:20 Plt Count 222 thou/uL (152-406) 04/13/24 06:20 PT 10.6 SECONDS (9.4-12.5) 04/11/24 18:58 INR 0.94 04/11/24 18:58 APTT Cancelled 04/12/24 03:50 Sodium 140 mEq/L (136-145) 04/14/24 04:18 Potassium 3.5 mEq/L (3.5-5.1) 04/14/24 04:18 BUN 37 mg/dL (7-18) H 04/14/24 04:18 Creatinine 3.03 mg/dL (0.70-1.30) H 04/14/24 04:18 Glucose 208 mg/dL (74-106) H 04/14/24 04:18 Uric Acid 6.0 mg/dL (3.5-7.2) 04/14/24 04:18 Phosphorus 4.0 mg/dL (2.5-4.9) 04/14/24 04:18 Magnesium 2.1 mg/dL (1.6-2.4) 04/13/24 06:20 Total Bilirubin 0.2 mg/dL (0.2-1.0) 04/11/24 01:39 AST 11 U/L (15-37) L 04/11/24 01:39 ALT < 14 U/L (16-61) L 04/11/24 01:39 Alkaline Phosphatase 127 U/L (45-117) H 04/11/24 01:39 Triglycerides 223 mg/dL (<150) H 04/12/24 04:07 Cholesterol 177 mg/dL (<200) 04/12/24 04:07 HDL Cholesterol 34 mg/dL (40-60) L 04/12/24 04:07 Cholesterol/HDL Ratio 5.21 04/12/24 04:07 <aravind abel - Last Filed: 04/17/24 18:32> Diet: Renal Activity: Ad vania <Harvey,Patty Coleman - Last Filed: 04/13/24 16:30> <aravind abel - Last Filed: 04/17/24 18:32> Home Medications: glipiZIDE [Glucotrol*] 5 mg PO BID 02/11/17 Benzonatate [Tessalon Perle*] 200 mg PO TID PRN #30 cap 04/12/24 Guaif/Dm [Robitussin Dm*] 10 ml PO Q6H PRN #118 ml 04/12/24 Rosuvastatin [Crestor] 5 mg PO BEDTIME #30 tab 04/12/24 Amlodipine [Norvasc*] 10 mg PO DAILY #30 tab 04/14/24 carvediloL [Coreg] 3.125 mg PO BID #60 tab 04/14/24 New Medications: carvediloL [Coreg] 3.125 mg PO BID #60 tab Rosuvastatin [Crestor] 5 mg PO BEDTIME #30 tab Amlodipine [Norvasc*] 10 mg PO DAILY #30 tab Guaif/Dm [Robitussin Dm*] 10 ml PO Q6H PRN #118 ml PRN Reason: COUGH - 2ND LINE Benzonatate [Tessalon Perle*] 200 mg PO TID PRN #30 cap PRN Reason: COUGH - 1ST LINE Physician Discharge Instructions: Dhaval Carrizales is a pleasant 63-year-old male with a past medical history significant for diabetes mellitusNIDDM, hypercholesterolemia, and hypertension who was admitted to the [facility] on 04/11/2024 for chest pain rule out, VICTORIANO. Dhaval presented to the ED with complaint of cough and congestion with some chest pain. He reported those symptoms accompany flu. Flu resulted negative. Lab work revealed VICTORIANO with BUN/creatinine 39/2.96, GFR 23. He reports seeing a managing broker [address] Abraham was consulted and cleared him for disc harge and follow-up outpatient. Dr. Foy was consulted for chest pain, determined it was noncardiac and cleared him for discharge from a cardiac standpoint. Troponins trended negative, EKG negative, and chest x-ray with no acute findings. Blood glucose was elevated and responded well to insulin therapy. A1c 8.9, he will need to follow-up with PCP concerning diabetes management. On 04/13/2024, Dhaval was seen on morning rounds and deemed medically stable for discharge home with family support. Dhaval was discharged with instructions to schedule follow-up appointments with Dr. Abraham and PCP. Dhaval was provided prescriptions for Lipitor, Robitussin DM, Tessalon Perle. Followup: Elio Abraham DO [ACTIVE - CAN ADMIT] - 1-2 Weeks Prosper Foy MD [ACTIVE - CAN ADMIT] - 1-2 Days (Please call for arrangement for stress test.) Gianna Urena NP [Primary Care Provider] - 1-2 Weeks
--- NOTE | 2024-04-13 22:16 | P.PN ---
Date of Service: 04/13/24 Vital Signs Temp Pulse Resp BP Pulse Ox 98.2 F 88 18 148/65 H 98 04/13/24 16:00 04/13/24 16:00 04/13/24 16:00 04/13/24 16:00 04/13/24 16:00 Medications Acetaminophen (Acetaminophen 325 Mg Tablet) 650 mg PO Q4HP PRN PRN Reason: Pain scale 2-4 (Mild)orT>100.4 Amlodipine Besylate (Amlodipine 10 Mg Tab) 10 mg PO DAILY [facility] Aspirin (Aspirin Ec 81 Mg Tab) 81 mg PO DAILY [facility] Last Admin: 04/13/24 08:26 Dose: 81 mg Atorvastatin Calcium (Atorvastatin 40 Mg Tab) 40 mg PO BEDTIME [facility] Last Admin: 04/13/24 21:06 Dose: 40 mg Benzonatate (Benzonatate 100 Mg Cap) 200 mg PO TID PRN PRN Reason: COUGH - 1ST LINE Last Admin: 04/13/24 21:09 Dose: 200 mg Glucagon (Glucagon 1 Mg/Vial) 1 mg IV 1X PRN; Protocol PRN Reason: HYPOGLYCEMIA Guaifenesin/Dextromethorphan (Guaifenesin/Dm 5 Ml Ucup) 10 ml PO Q6H PRN PRN Reason: COUGH - 2ND LINE Last Admin: 04/13/24 05:48 Dose: 10 ml HCTZ/Losartan Potassium (Losartan/Hctz 50-12.5) 2 tab PO DAILY [facility] Last Admin: 04/13/24 09:21 Dose: 2 tab Hydralazine HCl (Hydralazine Hcl 20 Mg/Ml Vial) 10 mg IV Q4HP PRN PRN Reason: SBP>160 [facility] Last Admin: 04/13/24 21:17 Dose: 10 mg Insulin Human Regular (Insulin Regular (Human) 100 Unit/Ml) 0 unit SQ ACHS [facility]; Protocol Last Admin: 04/13/24 21:00 Dose: Not Given Melatonin (Melatonin 5 Mg Tablet) 5 mg PO BEDTIME PRN PRN PRN Reason: INSOMNIA Last Admin: 04/13/24 21:09 Dose: 5 mg Lab Results (last 24 hrs) 04/13/24 07:45: POC Glucose 161 H 04/13/24 06:20: Sodium 142, Potassium 3.4 L, Chloride 111 H, Carbon Dioxide 27, Anion Gap 7.4, BUN 30 H, Creatinine 2.60 H, Est GFR (CKD-EPI) 27 L, Glucose 178 H, Calcium 8.7 D, Phosphorus 3.4, Magnesium 2.1 04/13/24 06:20: WBC 6.10, RBC 4.77, Hgb 13.5 L, Hct 39.7, MCV 83.1, MCH 28.4, MCHC 34.1, RDW 13.6, Plt Count 222, MPV 8.3, Neutrophils % 68.7, Lymphocytes % 22.9, Monocytes % 7.6, Eosinophils % 0.4, Basophils % 0.4, Absolute Neutrophils 4.2, Absolute Lymphocytes 1.4, Absolute Monocytes 0.5, Absolute Eosinophils 0.0, Absolute Basophils 0.0 Microbiology Results 04/11/24 01:39 Nasopharnyx Influenza Type A Antigen Screen - Final 04/11/24 01:39 Nasopharnyx Influenza Type B Antigen Screen - Final Assessment/ Plan: Nephrology No dyspnea No chest pain Cough and congestion No acute events overnight Vitals, medications, blood work and imaging reviewed in the chart General: In no apparent distress, Oriented x3, Cooperative HEENT: Atraumatic Neck: Supple Respiratory: Clear to auscultation bilaterally Cardiovascular: No edema, Regular rate/rhythm Gastrointestinal: Soft and benign, Non-distended Musculoskeletal: No clubbing, No contractures Integumentary: No rashes, No cyanosis Neurological: Normal speech Blood work reviewed in the chart. Imagings Data: XR Chest, 1 View CLINICAL HISTORY: Chest pain. TECHNIQUE: Frontal view of the chest. COMPARISON: No relevant prior studies available. FINDINGS: Lungs: Unremarkable. No consolidation. Pleural space: Unremarkable. No pneumothorax. Heart: The cardiac silhouette is accentuated by portable technique. Mediastinum: Unremarkable. Normal mediastinal contour. Bones/joints: Unremarkable. No acute fracture. IMPRESSION: No acute disease. Conclusions/Impression: CKD IV with Proteinuria -No NSAIDs Hypokalemia -Repklete as ordered HTN with CKD -Continue Amlodipine -Continue Losartan/HCTZ DM II with CKD & Hyperglycemia -RISS Case reviewed with Dr. Cooper
[2024-04-14 04:20] VITALS: O2SAT 95
[2024-04-14 04:49] LABS: Albumin 2.1 g/dL (3.4-5.0); Anion Gap 7.5 mEq/L (5.0-15.0); Potassium 3.5 mEq/L (3.5-5.1)
[2024-04-14 05:40] LABS: Hepatitis B Core Ab, Total Nonreactive (Nonreactive); Hepatitis B surface AG Interp. Nonreactive (Nonreactive); Hepatitis C Virus Ab Nonreactive (Nonreactive)
[2024-04-14 05:41] LABS: HBsAG Nonreactive Report Report
[2024-04-14] MEDS: POTASSIUM CL SA 10 MEQ TAB PO ONE (08:14)
[2024-04-14] MEDS: AMLODIPINE 10 MG TAB PO SCH (08:15)
[2024-04-14 08:22] VITALS: TEMP 97.7
[2024-04-14 08:29] LABS: Specific Gravity 1.015 (1.005-1.030); Sqamous Epithelial None Seen /HPF (None Seen); Urine Bacteria None Seen /HPF (<20); Urine Bilirubin NEGATIVE (Negative); Urine Blood 1+ (Negative); Urine Clarity Clear (Clear); Urine Color Light-Yellow (Yellow); Urine Culture Reflex Order NOT NEEDED; Urine Glucose 3+ (Negative); Urine Ketones NEGATIVE (Negative); Urine Micro Reflex YN NO BILL MICROSCOPIC; Urine Mucus Slight /HPF (None Seen); Urine Nitrite NEGATIVE (Negative); Urine Protein 3+ (Negative); Urine RBC <5 /HPF (None Seen); Urine Urobilinogen Normal (Normal); Urine WBC <5 /HPF (<5); Urine Yeast (Budding) Trace /HPF (None Seen)
[2024-04-14] MEDS ORDERED: LOSARTAN/HCTZ 50-12.5 PO SCH (09:00)
[2024-04-14] MEDS ORDERED: AMLODIPINE 5 MG TAB PO SCH (09:12)
[2024-04-14 09:22] VITALS: BP 148/69
[2024-04-14 10:23] LABS: MA/CREAT RATIO 5054.5 (< 30.0); UR PROTEIN 690.3 mg/dL (<11.9); Urine Protein/Creatinine Ratio 6.28 ratio (<0.15)
--- NOTE | 2024-04-14 13:41 | P.PN ---
Date of Service: 04/13/24 Subjective Awaiting discharge no complaints, blood pressure this morning 185/85, will try to get down further prior to discharge Review of Systems Respiratory: Cough Cardiovascular: Chest Pain Physical Examination - Physical Exam General: Alert, In no apparent distress, Oriented x3 HEENT: Atraumatic, Normocephalic, PERRLA Neck: Supple, 2+ carotid pulse no bruit Respiratory: Normal air movement, Rhonchi/gurgles Cardiovascular: No edema, Normal pulses, Regular rate/rhythm, Normal S1 S2 Capillary refill: <2 Seconds Gastrointestinal: Normal bowel sounds, Soft and benign Musculoskeletal: No clubbing Integumentary: No rashes Neurological: Normal speech, Normal tone - Studies Laboratory Data (last 24 hrs) 04/11/24 04/11/24 01:39 01:39 WBC 6.80 Hgb 14.0 Hct 40.6 Plt Count 233 Sodium 139 Potassium 3.5 BUN 39 H Creatinine 2.96 H Glucose 270 H Total Bilirubin 0.2 AST 11 L ALT < 14 L Alkaline Phosphatase 127 H Microbiology Data (last 24 hrs): 04/11/24 01:39 Nasopharnyx Influenza Type A Antigen Screen - Final 04/11/24 01:39 Nasopharnyx Influenza Type B Antigen Screen - Final Assessment and Plan Chest pain rule out Cough and congestion - EKG: No obvious ST segment changes, trend - troponin 41.1/ 30.6, Serial pending - Ordered transthoracic echocardiogram - chest x-ray no acute findings - Consult Cardiology - recommendations - Start daily baby aspirin and statin - Symptom control with PRN acetaminophen, nitroglycerin, morphine -continuous telemetry -TSH/FreeT4, A1C, lipid panel pending -Don Sanchez DM -Flu negative Hypertension with hypertensive urgency Hypercholesterolemia -Continue home medication -Clonidine and losartan given in the ED -Hydralazine as needed Diabetes mellitusNIDDM with hyperglycemia -Serum glucose 270 -Accu-Chek with sliding scale insulin -A1c in a.m. -Consistent carb VICTORIANO -BUN/creatinine 39/2.96, GFR 23 -Gentle IV fluids -Nephrology recommends changing antihypertensive from losartan/HCTZ to Coreg and amlodipine DVT PPx heparin Full code LOS 24-hour OBS Discharge Plan: Home Plan to discharge in: 24 Hours - Advance Directives Does patient have a Living Will: No Does patient have a Durable POA for Healthcare: No
--- NOTE | 2024-04-14 15:59 | EKG ---
Test Date: 2024-04-11 Test Time: 01:30:21 Machine Adjuster Leader Case Trim: ANGÉLICA MEASUREMENT RESULTS: Intervals: Rate: 74 ME: 108 QRSD: 84 QT: 390 QTc: 432 [place]: P: 6 ME: 108 QRS: 130 T: -22 INTERPRETIVE STATEMENTS: Sinus rhythm with short ME Left posterior fascicular block Abnormal ECG Compared to ECG 10/29/2013 04:35:05 Short ME interval now present Left posterior fascicular block now present T-wave abnormality no longer present Electronically Signed On 04-14-24 15:52:57 CHIEF PORT DIRECTOR by Prosper Foy
--- NOTE | 2024-04-17 06:15 | P.PN ---
Date of Service: 04/12/24 Subjective Awake and feeling well. Blood pressure elevated, will treat and plan to discharge when decreased. ROS 10 point ROS as noted above, otherwise negative Physical Exam General: Alert and Oriented x3, NAD HEENT: Atraumatic, Normocephalic, PERRLA Neck: Supple, 2+ carotid pulse no bruit Respiratory: Normal air movement, clear BBS, on RA Cardiovascular: No edema, Normal pulses, RR, Normal S1 S2 Capillary refill: <2 Seconds Gastrointestinal: Normal active bowel sounds, Soft and benign on palpation, nontender Musculoskeletal: No clubbing Integumentary: No rashes Neurological: Normal speech, Normal tone Vitals Reviewed Problem list Chest pain rule out Cough and congestion Hypertension with hypertensive urgency Hypercholesterolemia Diabetes mellitusNIDDM with hyperglycemia VICTORIANO Assessment and Plan Chest pain rule out Cough and congestion - EKG: No obvious ST segment changes, trend - troponin 41.1/ 30.6/27.8/26.2/24.2 - Ordered transthoracic echocardiogram, results pending - chest x-ray no acute findings - Consult Cardiology - recommendations appreciated - Start daily baby aspirin and statin - Symptom control with PRN acetaminophen, nitroglycerin, morphine -continuous telemetry -TSH/FreeT4 3.670/0.97, A1C 8.9, lipid panel (triglyceride 223, cholesterol 177, LDL 98, HDL 34) -Don pho[place] and Jacintoitussin DM -Flu negative Hypertension with hypertensive urgency Hypercholesterolemia -Norvasc -Clonidine and losartan given in the ED -Hydralazine as needed Diabetes mellitusNIDDM with hyperglycemia -Serum glucose 166 -Accu-Chek with sliding scale insulin -A1c 8.9 -Consistent carb VICTORIANO -BUN/creatinine 35/2.84, GFR 24 -Gentle IV fluids -Nephrology consulted, follow up outpatient DVT PPx heparin Full code LOS 24-hour OBS Discharge Plan: Home Plan to discharge in: 24 Hours
[2024-04-18 13:14] LABS: Abnormal Protein Band 1 REPORT; Albumin, (SPE) 2.6 g/dL (3.8-4.8); Alpha-1-Globulins 0.2 g/dL (0.2-0.3); Alpha-2-Globulins 0.8 g/dL (0.5-0.9); Beta 1 Globulin 0.4 g/dL (0.4-0.6); Gamma Globulins 0.7 g/dL (0.8-1.7); INTERPRETATION REPORT; Total Protein 5.2 g/dL (6.1-8.1)
[2024-04-19 05:36] LABS: Complement C3 149 mg/dL (82-185)
[2024-04-19 10:42] LABS: Anti-Nuclear Antibody Screen Negative (Negative)
--- NOTE | 2024-04-20 11:41 | EKG ---
Test Date: 2024-04-12 Test Time: 14:38:07 Bridge Painter: Nelda BARBER MEASUREMENT RESULTS: Intervals: Rate: 79 IA: 130 QRSD: 86 QT: 388 QTc: 444 [place]: P: 41 IA: 130 QRS: 35 T: 121 INTERPRETIVE STATEMENTS: Normal sinus rhythm Nonspecific T wave abnormality Abnormal ECG Compared to ECG 04/11/2024 01:30:21 T-wave abnormality now present Short IA interval no longer present Left posterior fascicular block no longer present Electronically Signed On 04-20-24 11:39:03 RISK SPECIALIST by Prosepr Foy
--- NOTE | 2024-04-24 12:34 | ECHO ---
HEIGHT: 5 ft 6 in WEIGHT: 209 lb 15.845 oz DATE OF STUDY: 04/12/[address]: Fifi Baird NP 2-DIMENSIONAL: YES M.MODE: YES DOPPLER: YES COLOR FLOW: YES TDS: NO PORTABLE: YES DEFINITY: NO BUBBLE STUDY: NO DIAGNOSIS: CHEST PAIN, CONGESTIVE HEART FAILURE CARDIAC HISTORY: CATHERIZATION: SURGERY: PROSTHETIC VALVE: PACEMAKER: MEASUREMENTS (cm) DIASTOLIC (NORMALS) SYSTOLIC (NORMALS) IVSd 1.2 (0.6-1.2) LA Diam 4.4 (1.9-4.0) LVEF 60-65% LVIDd 4.8 (3.5-5.7) LVIDs 3.2 (2.0-3.5) %FS 32% LVPWd 1.3 (0.6-1.2) Ao Diam 3.1 (2.0-3.7) 2 DIMENSIONAL ASSESSMENT: RIGHT ATRIUM: NORMAL LEFT ATRIUM: NORMAL RIGHT VENTRICLE: NORMAL LEFT VENTRICLE: NORMAL TRICUSPID VALVE: NORMAL MITRAL VALVE: NORMAL PULMONIC VALVE: NORMAL AORTIC VALVE: NORMAL PERICARDIAL EFFUSION: NONE AORTIC ROOT: NORMAL LEFT VENTRICULAR WALL MOTION: NORMAL. DOPPLER/COLOR FLOW: NORMAL. COMMENTS: 1. NORMAL LEFT VENTRICULAR SYSTOLIC FUNCTION. LEFT VENTRICULAR EJECTION FRACTION 60-65%. NORMAL WALL MOTION. 2. NORMAL DIASTOLIC FUNCTION. TECHNOLOGIST: DIONNA HICKEY
== END 2024-04-14 09:41 | disposition home or self-care (01) | DRG 683 ==
LOC: ER 01:13 → ERHOLD 07:53 → 2ND 17:05 → OBSVTOIN 04-13 09:12
PROVIDERS: ADMIT Internal Medicine; ATTEND Internal Medicine
DX: N17.9 Acute kidney failure, unspecified (principal); I13.0 Hypertensive heart and chronic kidney disease with heart failure and stage 1 through stage 4 chronic kidney disease, or unspecified chronic kidney disease; I50.32 Chronic diastolic (congestive) heart failure; N18.4 Chronic kidney disease, stage 4 (severe); E11.22 Type 2 diabetes mellitus with diabetic chronic kidney disease; E11.65 Type 2 diabetes mellitus with hyperglycemia; E87.6 Hypokalemia; E78.00 Pure hypercholesterolemia, unspecified; I16.0 Hypertensive urgency; R07.9 Chest pain, unspecified; Z11.52 Encounter for screening for COVID-19; Z79.84 Long term (current) use of oral hypoglycemic drugs; Z79.899 Other long term (current) drug therapy
CPT/HCPCS: 36415; 71045; 71250; 80048; 80061; 80069; 80076; 81001; 82043; 82570; 82947; 83036; 83735; 83880; 84100; 84156; 84165; 84439; 84443; 84484; 84550; 85025; 85610; 85730; 86038; 86160; 86335; 86704; 86803; 87340; 87804; 87811; 93005; 93306; 99285; G0378; J0360; J1644; J3475; J7030

== ENCOUNTER 2024-08-21 17:21 | Emergency (ER) | payer OTHER ==
--- OUTSIDE RECORDS SUMMARY | 2024-08-21 17:30 | XMS REPORT | Continuity of Care Document ---
Author Name Unknown Address [address] [facility] [address] [place] [address] [facility] [place] Address [address] [facility] [address] [place] [address] Care Team Providers Care Linux Unix System Administrator Name Role Phone ED URENA Primary Care Physician Unavailab GERRY Fields Attending Clinician Unavailable GERRY MALIN Attending Clinician Unavailable RIGOBERTO JOHNSTON Attending Clinician Unavailable ED URENA Attending Clinician Unavailable SPRING ARITA Attending Clinician Unavailable Maya Montoya CPhT Attending Clinician Unavail able Ed Rand Attending Clinician + [phone] Lab, Ang - Db Attending Clinician Unavailable Yessi Arana LVN Attending Clinician Unavailabl e JAMA JOHNSON Attending Clinician Unavailable CHRISSIE CARRASCO Attending Clinician Unavailable CHRISSIE CARRASCO Attending Clinician Unavailable Rigoberto Johnston MD Attending Clinician [phone] PRAKASH LITTLEJOHN Attending Clinician Unavailable Ed Rand Attending Clinician + [phone] VAISHNAVI HERNANDEZ Attending Clinician Unavailabl e Doctor Unassigned, Numidia Attending Clinician U navailable UNKNOWN, ATTENDING Attending Clinician Unavailab le Lab, Ang - Db Attending Clinician Unavailable Unknown, Attending Attending Clinician Unavailab Vaishnavi Ramos Attending Clinician Prakash Littlejohn MD Attending Clinician [phone] Rigoberto Johnston MD Attending Clinician [phone] MIGEL GUAN Attending Clinician Unavaila MIGEL Car Attending Clinician Unavaila BENI Joyner Attending Clinician Unavailable COURTNEY PEDRAZA Attending Clinician Unavaila christy Pob, [facility] Main Attending Clinician Unavailabdirahman Sequeira MD, Beni Attending Clinician [phone] JESSICA AMEZQUITA Attending Clinician Unavaila Jessica Lee Attending Clinician [facility] Attending Clinician Unavailable 1, [facility] Attending Clinician Unavailable DENITA PONCE Attending Clinician Rachel FORDE, Spring Attending Clinician [phone] Johnny Larson RN, Yamilka Attending Clinician Unavailable Santiago Wagner MD Attending Clinician [phone] AMANDA ZHOU Attending Clinician Unavailable LEV WALSH Attending Clinician Unavailable Lev Walsh DO Attending Clinician [phone] JANIE PANIAGUA Attending Clinician Unavailable Janie Paniagua MD Attending Clinician [phone] Denita Ponce MD Attending Clinician + [phone] NARINDER ANDERSON Attending Clinician Unavailable Narinder Anderson MD Attending Clinician [phone] DREW INGRAM Attending Clinician Unavaila Drew Desir Attending Clinician +- [phone] Brody EARL Attending Clinician Unavailable Brody Staton Attending Clinician [phone] ATTILA SIMEON Attending Clinician Unavailable 2, [facility] Attending Clinician Unavailable ED URENA Admitting Clinician Unavailable LEV WALSH Admitting Clinician Unavailable JANIE PANIAGUA Admitting Clinician Unavailable Janie Paniagua MD Admitting Clinician [phone] NARINDER ANDERSON Admitting Clinician Unavailable Brody EARL Admitting Clinician Unavailable Payers Payer Name Policy Type Policy Number Effective Date Expirati on Date Source AETNA POS/AETNA POS II [id number] 2024 00:00:00 [facility] [id number] 2019 00:00:00 ENTRUST [id number] 2021 00:00:00 Problems Condition Name Condition Details [...] is barbae Folliculit is barbae Disease Active 05-06 00:00: 00 [facility] Other [...] Added automatic ally from request for surgery [id number] [facility] Dyslipidem ia Dyslipidem ia Disease Active 07-09 00:00: 00 [facility] Essential hypertensi on Essential hypertensi on Disease Active 12-06 00:00: 00 [facility] Hyperchole sterolemia Hyperchole sterolemia Disease Active 12-06 00:00: 00 [facility] 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, 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, uncontroll ed Disease Active 8-06 00:00: 00 [facility] Pain in right elbow Pain in right elbow Diagnosis Active [facility] Bursitis of other bursa of right elbow Bursitis of other bursa of right elbow Diagnosis Active [facility] Allergies, Adverse Reactions, Alerts Allergy Name Allergy Type Status Severity Reaction(s) Onset Date Inactive Date Treating Clinician Comments Source NO KNOWN ALLERGIE S Drug Class Active [facility] Social History Social Habit Start Date Stop Date Quantity Comments Source History of tobacco use Current smoker [facility] Gender identity [facility] Sexual orientation U [facility] Alcoholic beverage intake 2024-08-17 00:00:00 2024-08-17 00:00:00 Current drinker of alcohol (finding) [facility] History of Social function 2023-12-20 00:00:00 2023-12-20 00:00:00 [facility] Alcohol intake 2023-07-19 00:00:00 2023-07-19 00:00:00 Current drinker of alcohol (finding) [facility] Exposure to SARS-CoV-2 (event) 2022-08-25 00:00:00 2022-09-04 15:07:00 Not sure [facility] Tobacco use and exposure 2022-03-09 00:00:00 2022-03-09 00:00:00 Smokeless tobacco non-user [facility] Sex assigned at 1960 00:00:00 1960 00:00:00 [facility] Smoking Status Start Date Stop Date Source Ex-smoker 2022-03-09 00:00:00 2022-03-09 00:00:00 U [facility] Medications Ordered Medication Name Filled Medication Name Start Date Stop Date Current Medication? Ordering Clinician Indication Dosage Frequency Signature (SIG) Comments Components Source amLODIPine 10 mg tablet 08-17 00:00: 00 Yes [id number] 10mg Take 1 tablet by mouth in the morning. [facility] atorvastati n 20 mg tablet 08-17 00:00: 00 Yes [id number] 20mg Take 1 tablet by mouth in the morning. [facility] carvediloL 12.5 mg tablet 08-17 00:00: 00 Yes [id number] 12.5mg Take 1 tablet by mouth in the morning and 1 tablet in the evening. Take with meals. [facility] glipiZIDE XL 10 mg 24 hr tablet 08-17 00:00: 00 Yes [id number] 20mg Take 2 tablets by mouth daily with breakfast. Per Dr. Littlejohn endocrinol ogist [facility] ezetimibe 10 mg tablet 08-17 00:00: 00 Yes [id number] 10mg Take 1 tablet by mouth in the morning. [facility] empaglifloz in (JARDIANCE) 10 mg tablet 08-17 00:00: 00 Yes [id number] 10mg Take 1 tablet by mouth in the morning. [facility] dulaglutide (TRULICITY) 0.75 mg/0.5 mL PnIj [id number] 0651-0 4-17 00:00: 00 Yes [id number] .75mg inject 1 Pen under the skin weekly. [facility] insulin glargine U-300 conc (TOUJEO SOLOSTAR U-300 INSULIN) 300 unit/mL (1.5 mL) In insulin glargine U-300 conc (TOUJEO SOLOSTAR U-300 INSULIN) 300 unit/mL (1.5 mL) InPn 2-06 00:00: 00 Yes [id number] 30U inject 30 Units under the skin in the morning. [facility] losartan-hy drochloroth iazide 100-25 mg per tablet 05-30 00:00: 00 Yes [id number] 1{tbl} Take 1 tablet by mouth in the morning. [facility] gabapentin 300 mg capsule 05-30 00:00: 00 Yes 300mg Take 1 capsule by mouth in the morning and 1 capsule in the evening. [facility] Insulin [place], Disposable, (BD INSULIN PEN NEEDLE UF) 31 gauge x 5/16" Ndle 05-30 00:00: 00 Yes [id number] USE TO INJECT INSULIN DAILY. DX:E11.8 [facility] atorvastati n 20 mg tablet 05-30 00:00: 00 08-17 00:00 :00 No [id number] 20mg Take 1 tablet by mouth in the morning. [facility] empaglifloz in (JARDIANCE) 25 mg Tab tablet 05-30 00:00: 00 08-17 00:00 :00 No [id number] 25mg Take 1 tablet by mouth every morning. [facility] glipiZIDE XL 10 mg 24 hr tablet 05-30 00:00: 00 08-17 00:00 :00 No [id number] 20mg Take 2 tablets by mouth daily with breakfast. Per Dr. Littlejohn endocrinol ogist [facility] ezetimibe 10 mg tablet 05-30 00:00: 00 08-17 00:00 :00 No [id number] 10mg Take 1 tablet by mouth in the morning. [facility] amLODIPine 10 mg tablet 05-30 00:00: 00 08-17 00:00 :00 No [id number] 10mg Take 1 tablet by mouth in the morning. [facility] dulaglutide (TRULICITY) 0.75 mg/0.5 mL PnIj 05-30 00:00: 00 08-17 00:00 :00 No [id number] .75mg inject 1 Pen under the skin weekly. [facility] insulin glargine U-300 conc (TOUJEO SOLOSTAR U-300 INSULIN) 300 unit/mL (1.5 mL) InPn 05-30 00:00: 00 06-07 00:00 :00 No [id number] 30U inject 30 Units under the skin in the morning. [facility] carvediloL 12.5 mg tablet 01-19 00:00: 00 08-17 00:00 :00 No [id number] 12.5mg Take 1 tablet by mouth in the morning and 1 tablet in the evening. Take with meals. [facility] omega-3-aci d ethyl esters 1 gram capsule 12-19 00:00: 00 Yes [id number] 2g Take 2 capsules by mouth in the morning and 2 capsules in the evening. [facility] atorvastati n 20 mg tablet 12-19 00:00: 00 05-30 00:00 :00 No [id number] 20mg Take 1 tablet by mouth in the morning. [facility] empaglifloz in (JARDIANCE) 25 mg Tab tablet 12-19 00:00: 00 05-30 00:00 :00 No [id number] 25mg Take 1 tablet by mouth every morning. [facility] gabapentin 300 mg capsule 12-19 00:00: 00 05-30 00:00 :00 No [id number] 300mg Take 1 capsule by mouth in the morning and 1 capsule in the evening. [facility] glipiZIDE XL 10 mg 24 hr tablet 12-19 00:00: 00 05-30 00:00 :00 No [id number] 20mg Take 2 tablets by mouth daily with breakfast. Per Dr. Littlejohn endocrinol ogist [facility] losartan-hy drochloroth iazide 100-25 mg per tablet 12-19 00:00: 00 05-30 00:00 :00 No [id number] 1{tbl} Take 1 tablet by mouth in the morning. [facility] insulin glargine U-300 conc (TOUJEO SOLOSTAR U-300 INSULIN) 300 unit/mL (1.5 mL) InPn 12-19 00:00: 00 05-30 00:00 :00 No [id number] 30U inject 30 Units under the skin in the morning. [facility] Insulin [place], Disposable, (BD INSULIN PEN NEEDLE UF) 31 gauge x 5/16" Ndle 12-19 00:00: 00 05-30 00:00 :00 No [id number] USE TO INJECT INSULIN DAILY. DX:E11.8 [facility] dulaglutide (TRULICITY) 0.75 mg/0.5 mL PnIj - 00:00: 00 05-30 00:00 :00 No [id number] .75mg inject 1 Pen under the skin weekly. [facility] carvediloL 6.25 mg tablet 12-19 00:00: 00 01-19 00:00 :00 No [id number] 6.25mg Take 1 tablet by mouth in the morning and 1 tablet in the evening. Take with meals. [facility] amLODIPine 10 mg tablet - 00:00: 00 05-30 00:00 :00 No [id number] 10mg Take 1 tablet by mouth in the morning. [facility] ezetimibe 10 mg tablet 10-31 00:00: 00 05-30 00:00 :00 No [id number] 10mg Take 1 tablet by mouth in the morning. [facility] tadalafiL (CIALIS) 10 mg tablet - 00:00: 00 Yes [id number] 10mg Take 1 tablet by mouth as needed for Erectile dysfunctio n. [facility] atorvastati n 20 mg tablet 08-08 00:00: 00 12-19 00:00 :00 No [id number] 20mg Take 1 tablet by mouth in the morning. [facility] dulaglutide (TRULICITY) 0.75 mg/0.5 mL PnIj 3-18 00:00: 00 12-19 00:00 :00 No [id number] .75mg inject 1 Pen under the skin weekly. [facility] LOVAZA, omega-3-aci d ethyl esters, 1 gram capsule 2-13 00:00: 00 12-19 00:00 :00 No [id number] 2g Take 2 capsules by mouth in the morning and 2 capsules in the evening. [facility] ACCU-CHEK SOFTCLIX LANCETS Misc 1-30 00:00: 00 Yes [id number] Use as directed TID [facility] Blood-Gluco se Meter (ACCU-CHEK GUIDE GLUCOSE METER) Misc 06-01 00:00: 00 Yes [id number] Use TID. Dx E11.8 [facility] blood sugar diagnostic (ACCU-CHEK GUIDE TEST STRIPS) strip 06-01 00:00: 00 Yes [id number] USE TID. DX:E11.8 [facility] blood sugar diagnostic (ACCU-CHEK GUIDE TEST STRIPS) strip 06-01 00:00: 00 Yes [id number] USE TID. DX:E11.8 [facility] empaglifloz in (JARDIANCE) 25 mg Tab 06-01 00:00: 00 12-19 00:00 :00 No [id number] 25mg Take 1 tablet by mouth every morning. [facility] glipiZIDE XL 10 mg 24 hr tablet 06-01 00:00: 00 12-19 00:00 :00 No [id number] 20mg Take 2 tablets by mouth daily with breakfast. Per Dr. Littlejohn endocrinol ogist [facility] dulaglutide (TRULICITY) 0.75 mg/0.5 mL PnIj 06-01 00:00: 00 07-18 00:00 :00 No [id number] .75mg inject 1 Pen under the skin weekly. [facility] clindamycin (CLEOCIN T) 1 % lotion 05-06 00:00: 00 Yes [id number] Apply to area(s) 2 (two) times daily. [facility] methocarbam oL 500 mg tablet 05-06 00:00: 00 12-19 00:00 :00 No [id number] 500mg Take 1 tablet by mouth 3 (three) times daily as needed for Pain (scale 7-10). [facility] clindamycin 300 mg capsule 05-06 00:00: 00 12-19 00:00 :00 No [id number] 300mg Take 1 capsule by mouth in the morning and 1 capsule at noon and 1 capsule in the evening. [facility] LOVAZA, omega-3-aci d ethyl esters, 1 gram capsule 2022-05 00:00: 00 06-15 00:00 :00 No [id number] 2g Take 2 capsules by mouth in the morning and 2 capsules in the evening. [facility] ergocalcife rol, vitamin d2, 1,250 mcg (50,000 unit) capsule 2022-05 00:00: 00 05-30 00:00 :00 No [id number] 90264O Take 1 capsule by mouth weekly. [facility] losartan-hy drochloroth iazide 100-25 mg per tablet 2022-05 00:00: 00 12-19 00:00 :00 No [id number] 1{tbl} Take 1 tablet by mouth in the morning. [facility] amLODIPine 10 mg tablet 2022-05 00:00: 00 11-04 00:00 :00 No [id number] 10mg Take 1 tablet by mouth in the morning. [facility] ezetimibe 10 mg tablet 2022-05 00:00: 00 10-29 00:00 :00 No [id number] 10mg Take 1 tablet by mouth in the morning. [facility] tadalafiL (CIALIS) 10 mg tablet 2022-05 00:00: 00 08-06 00:00 :00 No [id number] 10mg Take 1 tablet by mouth as needed for Erectile dysfunctio n. [facility] icosapent ethyL (VASCEPA) 1 gram capsule 2022-05 00:00: 00 03-16 00:00 :00 No [id number] 2g Take 2 capsules by mouth in the morning and 2 capsules in the evening. [facility] insulin glargine U-300 conc (TOUJEO SOLOSTAR U-300 INSULIN) 300 unit/mL (1.5 mL) InPn 01-19 00:00: 00 12-19 00:00 :00 No [id number] 30U inject 30 Units under the skin in the morning. [facility] Blood-Gluco se Sensor (FREESTYLE PAMELA 3 SENSOR) Becki 01-19 00:00: 00 06-01 00:00 :00 No [id number] Use as directed every 2 weeks [facility] carvediloL 6.25 mg tablet 12-16 00:00: 00 12-19 00:00 :00 No [id number] 6.25mg Take 1 tablet by mouth in the morning and 1 tablet in the evening. Take with meals. [facility] GABAPENTIN 300 mg capsule 12-11 00:00: 00 12-19 00:00 :00 No [id number] 300mg TAKE 1 CAPSULE BY MOUTH IN THE MORNING AND 1 CAPSULE IN THE EVENING. [facility] OZEMPIC 0.25 mg or 0.5 mg (2 mg/3 mL) [facility] 12-10 00:00: 00 Yes [id number] INJECT 0.25 MG UNDER THE SKIN WEEKLY. [facility] Insulin [place], Disposable, (BD INSULIN PEN NEEDLE UF) 31 gauge x 5/16" Ndle 12-10 00:00: 00 12-19 00:00 :00 No [id number] USE TO INJECT INSULIN DAILY. DX:E11.8 [facility] insulin glargine U-300 conc (TOUJEO SOLOSTAR U-300 INSULIN) 300 unit/mL (1.5 mL) InPn 12-10 00:00: 00 01-19 00:00 :00 No [id number] 24U inject 24 Units under the skin in the morning. [facility] semaglutide (OZEMPIC) 0.25 mg or 0.5 mg(2 mg/1.5 mL) PnIj 12-10 00:00: 00 12-10 00:00 :00 No [id number] .25mg inject 0.25 mg under the skin weekly. [facility] icosapent ethyL (VASCEPA) 1 gram capsule 7-15 00:00: 00 03-12 00:00 :00 No [id number] 2g Take 2 capsules by mouth in the morning and 2 capsules in the evening. [facility] ergocalcife rol, vitamin d2, 1,250 mcg (50,000 unit) capsule 7-15 00:00: 00 03-12 00:00 :00 No [id number] 96922D Take 1 capsule by mouth weekly. [facility] empaglifloz in (JARDIANCE) 25 mg Tab 10-30 00:00: 00 06-01 00:00 :00 No [id number] 25mg Take 1 tablet by mouth every morning. [facility] glipiZIDE XL 10 mg 24 hr tablet 10-30 00:00: 00 06-01 00:00 :00 No [id number] 20mg Take 2 tablets by mouth daily with breakfast. Per Dr. Littlejohn endocrinol ogslava [facility] carvediloL 6.25 mg tablet 6-14 00:00: 00 12-16 00:00 :00 No [id number] 6.25mg Take 1 tablet by mouth in the morning and 1 tablet in the evening. Take with meals. [facility] metoprolol tartrate 50 mg tablet 4-24 00:00: 00 Yes [id number] 50mg Take 1 tablet by mouth in the morning and 1 tablet in the evening. [facility] gabapentin 300 mg capsule 4-17 00:00: 00 12-11 00:00 :00 No [id number] 300mg TAKE 1 CAPSULE BY MOUTH IN THE MORNING AND 1 CAPSULE IN THE EVENING. [facility] tamsulosin 0.4 mg 24 hr capsule 4-05 00:00: 00 08-25 00:00 :00 No [id number] 9102 .4mg Take 1 capsule by mouth in the morning and 1 capsule in the evening. [facility] finerenone 20 mg Tab 4-04 00:00: 00 Yes [id number] 20mg Take 1 tablet by mouth in the morning. [facility] Insulin [place], Disposable, (BD INSULIN PEN NEEDLE UF) 31 gauge x 5/16" Ndle 07-24 00:00: 00 Yes [id number] USE TO INJECT INSULIN DAILY. DX:E11.8 [facility] atorvastati n 20 mg tablet 07-24 00:00: 00 08-06 00:00 :00 No [id number] 20mg Take 1 tablet by mouth in the morning. [facility] ezetimibe 10 mg tablet 07-24 00:00: 00 03-12 00:00 :00 No [id number] 10mg Take 1 tablet by mouth in the morning. [facility] amLODIPine 10 mg tablet 07-24 00:00: 00 03-12 00:00 :00 No [id number] 10mg Take 1 tablet by mouth in the morning. [facility] losartan-hy drochloroth iazide 100-25 mg per tablet 07-24 00:00: 00 03-12 00:00 :00 No [id number] 1{tbl} Take 1 tablet by mouth in the morning. [facility] insulin glargine U-300 conc (TOUJEO SOLOSTAR U-300 INSULIN) 300 unit/mL (1.5 mL) InPn 07-24 00:00: 00 12-10 00:00 :00 No [id number] 24U inject 24 Units under the skin in the morning. [facility] Insulin [place], Disposable, (BD INSULIN PEN NEEDLE UF) 31 gauge x 5/16" Ndle 07-24 00:00: 00 12-10 00:00 :00 No [id number] USE TO INJECT INSULIN DAILY. DX:E11.8 [facility] empaglifloz in (JARDIANCE) 25 mg Tab 07-24 00:00: 00 10-30 00:00 :00 No [id number] 25mg Take 1 tablet by mouth every morning. [facility] glipiZIDE XL 10 mg 24 hr tablet 07-24 00:00: 00 10-30 00:00 :00 No [id number] 20mg Take 2 tablets by mouth daily with breakfast. Per Dr. Littlejohn endocrinol ogist [facility] mupirocin 2 % ointment 3- 00:00: 00 05-06 00:00 :00 No [facility] Diclofenac Sodium (VOLTAREN ARTHRITIS PAIN) 1 % gel 06-30 00:00: 00 08-25 00:00 :00 No [id number] Apply to area(s) 2 (two) times daily as needed for Pain (scale 7-10). Apply to affected region, 0.5-1 ribbon [facility] tamsulosin 0.4 mg 24 hr capsule 06-25 00:00: 00 08-05 00:00 :00 No [id number] 9102 .4mg Take 1 capsule by mouth in the morning. [facility] finerenone (KERENDIA) 10 mg Tab 06-23 00:00: 00 08-04 00:00 :00 No [id number] 10mg Take 1 tablet by mouth in the morning. [facility] methocarbam oL 500 mg tablet 06-01 00:00: 00 08-25 00:00 :00 No [id number] 500mg Take 1 tablet by mouth in the morning and 1 tablet at noon and 1 tablet in the evening. [facility] Diclofenac Sodium (VOLTAREN ARTHRITIS PAIN) 1 % gel 06-01 00:00: 00 06-30 00:00 :00 No [id number] Apply to area(s) 2 (two) times daily as needed for Pain (scale 7-10). Apply to affected region, 0.5-1 ribbon [facility] lidocaine 5 % (700 mg/patch) patch 05-29 00:00: 00 08-25 00:00 :00 No APPLY 1 PATCH TO AREA(S) ONCE NOW FOR 1 DOSE. [facility] methocarbam oL 500 mg tablet 05-29 00:00: 00 06-01 00:00 :00 No [id number] 500mg Take 1 tablet by mouth in [...] 2021-05 00:00: 00 07-24 00:00 :00 No [id number] 10mg Take 1 tablet by mouth in the morning. [facility] niacin 100 mg tablet 2021-05 00:00: 00 05-08 00:00 :00 No [id number] 100mg Take 1 tablet by mouth at bedtime. [facility] insulin glargine U-300 conc (TOUJEO SOLOSTAR U-300 INSULIN) 300 unit/mL (1.5 mL) InPn 2021-05 0-26 00:00: 00 07-24 00:00 :00 No [id number] 24U inject 24 Units under the skin daily. [facility] gabapentin 300 mg capsule 2021-05 0-25 00:00: 00 08-17 00:00 :00 No [id number] 300mg Take 1 capsule by mouth in the morning and 1 capsule in the evening. [facility] empaglifloz in (JARDIANCE) 25 mg Tab 2021-05 0-25 00:00: 00 07-24 00:00 :00 No [id number] 25mg Take 1 tablet by mouth every morning. [facility] glipiZIDE XL 10 mg 24 hr tablet 2021-05 0-25 00:00: 00 07-24 00:00 :00 No [id number] 20mg Take 2 tablets by mouth daily with breakfast. [facility] insulin degludec (TRESIBA FLEXTOUCH U-100) 100 unit/mL (3 mL) In 2021-05 0 00:00: 00 02-25 00:00 :00 No [id number] 24U inject 24 Units under the skin [...] 10-22 00:00: 00 02-24 00:00 :00 No [id number] Take one capsule today. Tomorrow take one capsule twice (morning and afternoon) . After that take one capsule three times per day for 7 days. [facility] insulin degludec (TRESIBA FLEXTOUCH U-100) 100 unit/mL (3 mL) InPn 10-21 00:00: 00 02-24 00:00 :00 No [id number] 24U inject 24 Units under the skin daily. DX: E11.65 [facility] dulaglutide (TRULICITY) 0.75 mg/0.5 mL PnIj 10-21 00:00: 00 02-24 00:00 :00 No [id number] .75mg inject 1 Pen under the skin weekly. [facility] glipiZIDE XL 10 mg 24 hr tablet 6-21 00:00: 00 02-24 00:00 :00 No [id number] 20mg Take 2 tablets by mouth daily with breakfast. [facility] naproxen (NAPROSYN) 500 mg tablet 6-20 00:00: 00 05-08 00:00 :00 No [id number] 500mg Take 1 tablet by mouth 2 (two) times daily with meals. [facility] amLODIPine 10 mg tablet -17 00:00: 00 07-24 00:00 :00 No [id number] 10mg Take 1 tablet by mouth daily. [facility] losartan-hy drochloroth iazide 100-25 mg per tablet - 00:00: 00 07-24 00:00 :00 No [id number] 1{tbl} Take 1 tablet by mouth daily. [facility] Lancets (ACCU-CHEK SOFTCLIX LANCETS) [facility] 07-09 00:00: 00 Yes [id number] Use as directed BID [facility] blood sugar diagnostic (ACCU-CHEK GUIDE TEST STRIPS) strip 07-09 00:00: 00 06-01 00:00 :00 No [id number] USE TID. DX:E11.8 [facility] Lancets (ACCU-CHEK SOFTCLIX LANCETS) [facility] [place]-09 00:00: 00 06-01 00:00 :00 No [id number] Use as directed BID [facility] atorvastati n 20 mg tablet 07-09 00:00: 00 07-24 00:00 :00 No [id number] 20mg Take 1 tablet by mouth daily. [facility] Insulin [place], Disposable, (BD INSULIN PEN NEEDLE UF) 31 gauge x 5/16" Ndle - 00:00: 00 07-24 00:00 :00 No [id number] USE TO INJECT INSULIN DAILY. DX:E11.8 [facility] Blood-Gluco se Meter (ACCU-CHEK GUIDE GLUCOSE METER) [facility] [place]-05 00:00: 00 Yes Use TID. Dx E11.8 [facility] Blood-Gluco se Meter (ACCU-CHEK GUIDE GLUCOSE METER) [facility] [place]-05 00:00: 00 06-01 00:00 :00 No Use TID. Dx E11.8 [facility] Tramadol HCl Tramadol HCl 11-24 00:00: 00 Yes Jayesh Mckeon 1 tablet as needed [facility] Clindamycin HCl Clindamycin HCl 11-24 00:00: 00 12-04 00:00 :00 No Jayesh Mckeon 1 capsule [facility] Losartan Potassium-H CTZ Losartan Potassium-H CTZ Yes Jayesh Mckeon not defined [facility] GlipiZIDE GlipiZIDE Yes Jayesh Mckeon not defined [facility] [facility] Mupirocin Yes Jayesh Mckeon not defined [facility] Clindamycin Phosphate Clindamycin Phosphate Yes Jayesh Mckeon not defined [facility] Hydrocodone -Acetaminop hen Hydrocodone -Acetaminop hen Yes Jayesh Mckeon not defined [facility] Clobetasol Propionate Clobetasol Propionate Yes Jayesh Mckeon not defined [facility] Immunizations Ordered Immunization Name Filled Immunization Name Date Status Comments Source Pneumococcal 20 Conjugate, PCV20 (Prevnar 20) 2024-05-30 00:00:00 Completed [facility] Flu Injectable MDCK Pres-Free (FLUCELVAX) 2024-05-30 00:00:00 Completed SARS-COV-2 COVID 19 DORIS SUCROSE VACCINE 12+, 0.3 ML (30 MCG), IM PFIZER (TORRES TOP) 2024-05-30 00:00:00 Completed Influenza Virus Vaccine Quad IM, Preserv and ABX Free 6 MO-64 YRS (FLUCELVAX) 2023-03-12 00:00:00 Completed [facility] Zoster Vaccine Recombinant 2022-05-24 00:00:00 Completed [facility] Zoster Vaccine Recombinant 2022-05-24 00:00:00 Completed [facility] Zoster Vaccine Recombinant 2022-05-24 00:00:00 Completed [facility] Zoster Vaccine Recombinant 2022-05-24 00:00:00 Completed [facility] Zoster Vaccine Recombinant 2022-05-24 00:00:00 Completed [facility] Zoster Vaccine Recombinant 2022-05-24 00:00:00 Completed [facility] Zoster Vaccine Recombinant 2022-05-24 00:00:00 Completed [facility] Zoster Vaccine Recombinant 2022-05-24 00:00:00 Completed [facility] Zoster Vaccine Recombinant 2022-05-24 00:00:00 Completed [facility] Zoster Vaccine Recombinant 2022-05-24 00:00:00 Completed [facility] Zoster Vaccine Recombinant 2022-05-24 00:00:00 Completed [facility] Zoster Vaccine Recombinant 2022-05-24 00:00:00 Completed [facility] Zoster Vaccine Recombinant 2022-05-24 00:00:00 Completed [facility] Zoster Vaccine Recombinant 2022-05-24 00:00:00 Completed [facility] Zoster Vaccine Recombinant 2022-05-24 00:00:00 Completed [facility] Zoster Vaccine Recombinant 2022-05-24 00:00:00 Completed [facility] Zoster Vaccine Recombinant 2022-05-24 00:00:00 Completed [facility] Zoster Vaccine Recombinant 2022-05-24 00:00:00 Completed [facility] Zoster Vaccine Recombinant 2022-05-24 00:00:00 Completed [facility] Zoster Vaccine Recombinant 2022-05-24 00:00:00 Completed [facility] Zoster Vaccine Recombinant 2022-05-24 00:00:00 Completed [facility] Zoster Vaccine Recombinant 2022-05-24 00:00:00 Completed [facility] Zoster Vaccine Recombinant 2022-05-24 00:00:00 Completed [facility] Zoster Vaccine Recombinant 2022-05-24 00:00:00 Completed [facility] Zoster Vaccine Recombinant 2022-05-24 00:00:00 Completed [facility] Zoster Vaccine Recombinant 2022-05-24 00:00:00 Completed [facility] Zoster Vaccine Recombinant 2022-05-24 00:00:00 Completed [facility] Zoster Vaccine Recombinant 2022-05-24 00:00:00 Completed [facility] Zoster Vaccine Recombinant 2022-05-24 00:00:00 Completed [facility] Zoster Vaccine Recombinant 2022-05-24 00:00:00 Completed [facility] Zoster Vaccine Recombinant 2022-05-24 00:00:00 Completed [facility] Zoster Vaccine Recombinant 2022-05-24 00:00:00 Completed [facility] Zoster Vaccine Recombinant 2022-05-24 00:00:00 Completed [facility] Zoster Vaccine Recombinant 2022-05-24 00:00:00 Completed [facility] Zoster Vaccine Recombinant 2022-05-24 00:00:00 Completed [facility] Zoster Vaccine Recombinant 2022-05-24 00:00:00 Completed [facility] Zoster Vaccine Recombinant 2022-05-24 00:00:00 Completed [facility] Zoster Vaccine Recombinant 2022-05-24 00:00:00 Completed [facility] Zoster Vaccine Recombinant 2022-05-24 00:00:00 Completed [facility] Zoster Vaccine Recombinant 2022-05-24 00:00:00 Completed [facility] Zoster Vaccine Recombinant 2022-05-24 00:00:00 Completed [facility] Zoster Vaccine Recombinant 2022-05-24 00:00:00 Completed [facility] Zoster Vaccine Recombinant 2022-05-24 00:00:00 Completed [facility] Zoster Vaccine Recombinant 2022-05-24 00:00:00 Completed Zoster Vaccine Recombinant 2022-03-15 00:00:00 Completed [facility] Zoster Vaccine Recombinant 2022-03-15 00:00:00 Completed [facility] Zoster Vaccine Recombinant 2022-03-15 00:00:00 Completed [facility] Zoster Vaccine Recombinant 2022-03-15 00:00:00 Completed [facility] Zoster Vaccine Recombinant 2022-03-15 00:00:00 Completed [facility] Zoster Vaccine Recombinant 2022-03-15 00:00:00 Completed [facility] Zoster Vaccine Recombinant 2022-03-15 00:00:00 Completed [facility] Zoster Vaccine Recombinant 2022-03-15 00:00:00 Completed [facility] Zoster Vaccine Recombinant 2022-03-15 00:00:00 Completed [facility] Zoster Vaccine Recombinant 2022-03-15 00:00:00 Completed [facility] Zoster Vaccine Recombinant 2022-03-15 00:00:00 Completed [facility] Zoster Vaccine Recombinant 2022-03-15 00:00:00 Completed [facility] Zoster Vaccine Recombinant 2022-03-15 00:00:00 Completed [facility] Zoster Vaccine Recombinant 2022-03-15 00:00:00 Completed [facility] Zoster Vaccine Recombinant 2022-03-15 00:00:00 Completed [facility] Zoster Vaccine Recombinant 2022-03-15 00:00:00 Completed [facility] Zoster Vaccine Recombinant 2022-03-15 00:00:00 Completed [facility] Zoster Vaccine Recombinant 2022-03-15 00:00:00 Completed [facility] Zoster Vaccine Recombinant 2022-03-15 00:00:00 Completed [facility] Zoster Vaccine Recombinant 2022-03-15 00:00:00 Completed [facility] Zoster Vaccine Recombinant 2022-03-15 00:00:00 Completed [facility] Zoster Vaccine Recombinant 2022-03-15 00:00:00 Completed [facility] Zoster Vaccine Recombinant 2022-03-15 00:00:00 Completed [facility] Zoster Vaccine Recombinant 2022-03-15 00:00:00 Completed [facility] Zoster Vaccine Recombinant 2022-03-15 00:00:00 Completed [facility] Zoster Vaccine Recombinant 2022-03-15 00:00:00 Completed [facility] Zoster Vaccine Recombinant 2022-03-15 00:00:00 Completed [facility] Zoster Vaccine Recombinant 2022-03-15 00:00:00 Completed [facility] Zoster Vaccine Recombinant 2022-03-15 00:00:00 Completed [facility] Zoster Vaccine Recombinant 2022-03-15 00:00:00 Completed [facility] Zoster Vaccine Recombinant 2022-03-15 00:00:00 Completed [facility] Zoster Vaccine Recombinant 2022-03-15 00:00:00 Completed [facility] Zoster Vaccine Recombinant 2022-03-15 00:00:00 Completed [facility] Zoster Vaccine Recombinant 2022-03-15 00:00:00 Completed [facility] Zoster Vaccine Recombinant 2022-03-15 00:00:00 Completed [facility] Zoster Vaccine Recombinant 2022-03-15 00:00:00 Completed [facility] Zoster Vaccine Recombinant 2022-03-15 00:00:00 Completed [facility] Zoster Vaccine Recombinant 2022-03-15 00:00:00 Completed [facility] Zoster Vaccine Recombinant 2022-03-15 00:00:00 Completed [facility] Zoster Vaccine Recombinant 2022-03-15 00:00:00 Completed [facility] Zoster Vaccine Recombinant 2022-03-15 00:00:00 Completed [facility] Zoster Vaccine Recombinant 2022-03-15 00:00:00 Completed [facility] Zoster Vaccine Recombinant 2022-03-15 00:00:00 Completed [facility] Zoster Vaccine Recombinant 2022-03-15 00:00:00 Completed Influenza Virus Vaccine Quad IM, Preserv and ABX Free 6 MO-64 YRS 2022-03-09 00:00:00 Completed [facility] TDAP 2022-03-09 00:00:00 Completed [facility] Influenza Virus Vaccine Quad IM, Preserv and ABX Free 6 MO-64 YRS 2022-03-09 00:00:00 Completed [facility] TDAP 2022-03-09 00:00:00 Completed [facility] Influenza Virus Vaccine Quad IM, Preserv and ABX Free 6 MO-64 YRS 2022-03-09 00:00:00 Completed [facility] TDAP 2022-03-09 00:00:00 Completed [facility] Influenza Virus Vaccine Quad IM, Preserv and ABX Free 6 MO-64 YRS 2022-03-09 00:00:00 Completed [facility] TDAP 2022-03-09 00:00:00 Completed [facility] Influenza Virus Vaccine Quad IM, Preserv and ABX Free 6 MO-64 YRS 2022-03-09 00:00:00 Completed [facility] TDAP 2022-03-09 00:00:00 Completed [facility] Influenza Virus Vaccine Quad IM, Preserv and ABX Free 6 MO-64 YRS 2022-03-09 00:00:00 Completed [facility] TDAP 2022-03-09 00:00:00 Completed [facility] Influenza Virus Vaccine Quad IM, Preserv and ABX Free 6 MO-64 YRS 2022-03-09 00:00:00 Completed [facility] TDAP 2022-03-09 00:00:00 Completed [facility] Influenza Virus Vaccine Quad IM, Preserv and ABX Free 6 MO-64 YRS 2022-03-09 00:00:00 Completed [facility] TDAP 2022-03-09 00:00:00 Completed [facility] Influenza Virus Vaccine Quad IM, Preserv and ABX Free 6 MO-64 YRS 2022-03-09 00:00:00 Completed [facility] TDAP 2022-03-09 00:00:00 Completed [facility] Influenza Virus Vaccine Quad IM, Preserv and ABX Free 6 MO-64 YRS 2022-03-09 00:00:00 Completed [facility] TDAP 2022-03-09 00:00:00 Completed [facility] Influenza Virus Vaccine Quad IM, Preserv and ABX Free 6 MO-64 YRS 2022-03-09 00:00:00 Completed [facility] TDAP 2022-03-09 00:00:00 Completed [facility] Influenza Virus Vaccine Quad IM, Preserv and ABX Free 6 MO-64 YRS 2022-03-09 00:00:00 Completed [facility] TDAP 2022-03-09 00:00:00 Completed [facility] Influenza Virus Vaccine Quad IM, Preserv and ABX Free 6 MO-64 YRS 2022-03-09 00:00:00 Completed [facility] TDAP 2022-03-09 00:00:00 Completed [facility] Influenza Virus Vaccine Quad IM, Preserv and ABX Free 6 MO-64 YRS 2022-03-09 00:00:00 Completed [facility] TDAP 2022-03-09 00:00:00 Completed [facility] Influenza Virus Vaccine Quad IM, Preserv and ABX Free 6 MO-64 YRS 2022-03-09 00:00:00 Completed [facility] TDAP 2022-03-09 00:00:00 Completed [facility] Influenza Virus Vaccine Quad IM, Preserv and ABX Free 6 MO-64 YRS 2022-03-09 00:00:00 Completed [facility] TDAP 2022-03-09 00:00:00 Completed [facility] Influenza Virus Vaccine Quad IM, Preserv and ABX Free 6 MO-64 YRS 2022-03-09 00:00:00 Completed [facility] TDAP 2022-03-09 00:00:00 Completed [facility] Influenza Virus Vaccine Quad IM, Preserv and ABX Free 6 MO-64 YRS 2022-03-09 00:00:00 Completed [facility] TDAP 2022-03-09 00:00:00 Completed [facility] Influenza Virus Vaccine Quad IM, Preserv and ABX Free 6 MO-64 YRS 2022-03-09 00:00:00 Completed [facility] TDAP 2022-03-09 00:00:00 Completed [facility] Influenza Virus Vaccine Quad IM, Preserv and ABX Free 6 MO-64 YRS 2022-03-09 00:00:00 Completed [facility] TDAP 2022-03-09 00:00:00 Completed [facility] Influenza Virus Vaccine Quad IM, Preserv and ABX Free 6 MO-64 YRS 2022-03-09 00:00:00 Completed [facility] TDAP 2022-03-09 00:00:00 Completed [facility] Influenza Virus Vaccine Quad IM, Preserv and ABX Free 6 MO-64 YRS 2022-03-09 00:00:00 Completed [facility] TDAP 2022-03-09 00:00:00 Completed [facility] Influenza Virus Vaccine Quad IM, Preserv and ABX Free 6 MO-64 YRS 2022-03-09 00:00:00 Completed [facility] TDAP 2022-03-09 00:00:00 Completed [facility] Influenza Virus Vaccine Quad IM, Preserv and ABX Free 6 MO-64 YRS 2022-03-09 00:00:00 Completed [facility] TDAP 2022-03-09 00:00:00 Completed [facility] Influenza Virus Vaccine Quad IM, Preserv and ABX Free 6 MO-64 YRS 2022-03-09 00:00:00 Completed [facility] TDAP 2022-03-09 00:00:00 Completed [facility] Influenza Virus Vaccine Quad IM, Preserv and ABX Free 6 MO-64 YRS 2022-03-09 00:00:00 Completed [facility] TDAP 2022-03-09 00:00:00 Completed [facility] Influenza Virus Vaccine Quad IM, Preserv and ABX Free 6 MO-64 YRS 2022-03-09 00:00:00 Completed [facility] TDAP 2022-03-09 00:00:00 Completed [facility] Influenza Virus Vaccine Quad IM, Preserv and ABX Free MO-64 YRS 2022-03-09 00:00:00 Completed [facility] TDAP 2022-03-09 00:00:00 Completed [facility] Influenza Virus Vaccine Quad IM, Preserv and ABX Free 6 MO-64 YRS 2022-03-09 00:00:00 Completed [facility] TDAP 2022-03-09 00:00:00 Completed [facility] Influenza Virus Vaccine Quad IM, Preserv and ABX Free MO-64 YRS 2022-03-09 00:00:00 Completed [facility] TDAP 2022-03-09 00:00:00 Completed [facility] Influenza Virus Vaccine Quad IM, Preserv and ABX Free 6 MO-64 YRS 2022-03-09 00:00:00 Completed [facility] TDAP 2022-03-09 00:00:00 Completed [facility] Influenza Virus Vaccine Quad IM, Preserv and ABX Free 6 MO-64 YRS 2022-03-09 00:00:00 Completed [facility] TDAP 2022-03-09 00:00:00 Completed [facility] Influenza Virus Vaccine Quad IM, Preserv and ABX Free 6 MO-64 YRS 2022-03-09 00:00:00 Completed [facility] TDAP 2022-03-09 00:00:00 Completed [facility] Influenza Virus Vaccine Quad IM, Preserv and ABX Free 6 MO-64 YRS 2022-03-09 00:00:00 Completed [facility] TDAP 2022-03-09 00:00:00 Completed [facility] Influenza Virus Vaccine Quad IM, Preserv and ABX Free 6 MO-64 YRS 2022-03-09 00:00:00 Completed [facility] TDAP 2022-03-09 00:00:00 Completed [facility] Influenza Virus Vaccine Quad IM, Preserv and ABX Free 6 MO-64 YRS 2022-03-09 00:00:00 Completed [facility] TDAP 2022-03-09 00:00:00 Completed [facility] Influenza Virus Vaccine Quad IM, Preserv and ABX Free 6 MO-64 YRS 2022-03-09 00:00:00 Completed [facility] TDAP 2022-03-09 00:00:00 Completed [facility] Influenza Virus Vaccine Quad IM, Preserv and ABX Free 6 MO-64 YRS 2022-03-09 00:00:00 Completed [facility] TDAP 2022-03-09 00:00:00 Completed [facility] Influenza Virus Vaccine Quad IM, Preserv and ABX Free MO-64 YRS 2022-03-09 00:00:00 Completed [facility] TDAP 2022-03-09 00:00:00 Completed [facility] Influenza Virus Vaccine Quad IM, Preserv and ABX Free 6 MO-64 YRS 2022-03-09 00:00:00 Completed [facility] TDAP 2022-03-09 00:00:00 Completed [facility] Influenza Virus Vaccine Quad IM, Preserv and ABX Free 6 MO-64 YRS 2022-03-09 00:00:00 Completed [facility] TDAP 2022-03-09 00:00:00 Completed [facility] Influenza Virus Vaccine Quad IM, Preserv and ABX Free 6 MO-64 YRS 2022-03-09 00:00:00 Completed [facility] TDAP 2022-03-09 00:00:00 Completed [facility] Influenza Virus Vaccine Quad IM, Preserv and ABX Free 6 MO-64 2022-03-09 00:00:00 Completed [facility] TDAP 2022-03-09 00:00:00 Completed [facility] Influenza Virus Vaccine Quad IM, Preserv and ABX Free 6 MO-64 YRS 2022-03-09 00:00:00 Completed [facility] TDAP 2022-03-09 00:00:00 Completed [facility] Influenza Virus Vaccine Quad IM, Preserv and ABX Free 6 MO-64 YRS 2022-03-09 00:00:00 Completed [facility] TDAP 2022-03-09 00:00:00 Completed [facility] Influenza Virus Vaccine Quad IM, Preserv and ABX Free 6 MO-64 YRS 2022-03-09 00:00:00 Completed [facility] TDAP 2022-03-09 00:00:00 Completed [facility] Influenza Virus Vaccine Quad IM, Preserv and ABX Free 6 MO-64 YRS 2022-03-09 00:00:00 Completed [facility] TDAP 2022-03-09 00:00:00 Completed [facility] Influenza Virus Vaccine Quad IM, Preserv and ABX Free 6 MO-64 YRS 2022-03-09 00:00:00 Completed [facility] TDAP 2022-03-09 00:00:00 Completed [facility] Influenza Virus Vaccine Quad IM, Preserv and ABX Free 6 MO-64 YRS 2022-03-09 00:00:00 Completed [facility] TDAP 2022-03-09 00:00:00 Completed [facility] Influenza Virus Vaccine Quad IM, Preserv and ABX Free 6 MO-64 YRS (FLUCELVAX) 2022-03-09 00:00:00 Completed [facility] TDAP 2022-03-09 00:00:00 Completed [facility] Influenza Virus Vaccine Quad IM, Preserv and ABX Free 6 MO-64 YRS (FLUCELVAX) 2022-03-09 00:00:00 Completed [facility] TDAP 2022-03-09 00:00:00 Completed [facility] Influenza Virus Vaccine Quad IM, Preserv and ABX Free 6 MO-64 YRS (FLUCELVAX) 2022-03-09 00:00:00 Completed [facility] TDAP 2022-03-09 00:00:00 Completed [facility] Influenza Virus Vaccine Quad IM, Preserv and ABX Free 6 MO-64 YRS (FLUCELVAX) 2022-03-09 00:00:00 Completed [facility] TDAP 2022-03-09 00:00:00 Completed SARS-COV-2 COVID-19 PFIZER VACCINE 2020-12-05 00:00:00 Completed [facility] SARS-COV-2 COVID-19 PFIZER VACCINE 2020-12-05 00:00:00 Completed [facility] SARS-COV-2 COVID-19 PFIZER VACCINE 2020-12-05 00:00:00 Completed [facility] SARS-COV-2 COVID-19 PFIZER VACCINE 2020-12-05 00:00:00 Completed [facility] SARS-COV-2 COVID-19 PFIZER VACCINE 2020-12-05 00:00:00 Completed [facility] SARS-COV-2 COVID-19 PFIZER VACCINE 2020-12-05 00:00:00 Completed [facility] SARS-COV-2 COVID-19 PFIZER VACCINE 2020-12-05 00:00:00 Completed [facility] SARS-COV-2 COVID-19 PFIZER VACCINE 2020-12-05 00:00:00 Completed [facility] SARS-COV-2 COVID-19 PFIZER VACCINE 2020-12-05 00:00:00 Completed [facility] SARS-COV-2 COVID-19 PFIZER VACCINE 2020-12-05 00:00:00 Completed [facility] SARS-COV-2 COVID-19 PFIZER VACCINE 2020-12-05 00:00:00 Completed [facility] SARS-COV-2 COVID-19 PFIZER VACCINE 2020-12-05 00:00:00 Completed [facility] SARS-COV-2 COVID-19 PFIZER VACCINE 2020-12-05 00:00:00 Completed [facility] SARS-COV-2 COVID-19 PFIZER VACCINE 2020-12-05 00:00:00 Completed [facility] SARS-COV-2 COVID-19 PFIZER VACCINE 2020-12-05 00:00:00 Completed [facility] SARS-COV-2 COVID-19 PFIZER VACCINE 2020-12-05 00:00:00 Completed [facility] SARS-COV-2 COVID-19 PFIZER VACCINE 2020-12-05 00:00:00 Completed [facility] SARS-COV-2 COVID-19 PFIZER VACCINE 2020-12-05 00:00:00 Completed [facility] SARS-COV-2 COVID-19 PFIZER VACCINE 2020-12-05 00:00:00 Completed [facility] SARS-COV-2 COVID-19 PFIZER VACCINE 2020-12-05 00:00:00 Completed [facility] SARS-COV-2 COVID-19 PFIZER VACCINE 2020-12-05 00:00:00 Completed [facility] SARS-COV-2 COVID-19 PFIZER VACCINE 2020-12-05 00:00:00 Completed [facility] SARS-COV-2 COVID-19 PFIZER VACCINE 2020-12-05 00:00:00 Completed [facility] SARS-COV-2 COVID-19 PFIZER VACCINE 2020-12-05 00:00:00 Completed [facility] SARS-COV-2 COVID-19 PFIZER VACCINE 2020-12-05 00:00:00 Completed [facility] SARS-COV-2 COVID-19 PFIZER VACCINE 2020-12-05 00:00:00 Completed [facility] SARS-COV-2 COVID-19 PFIZER VACCINE 2020-12-05 00:00:00 Completed [facility] SARS-COV-2 COVID-19 PFIZER VACCINE 2020-12-05 00:00:00 Completed [facility] SARS-COV-2 COVID-19 PFIZER VACCINE 2020-12-05 00:00:00 Completed [facility] SARS-COV-2 COVID-19 PFIZER VACCINE 2020-12-05 00:00:00 Completed [facility] SARS-COV-2 COVID-19 PFIZER VACCINE 2020-12-05 00:00:00 Completed [facility] SARS-COV-2 COVID-19 PFIZER VACCINE 2020-12-05 00:00:00 Completed [facility] SARS-COV-2 COVID-19 PFIZER VACCINE 2020-12-05 00:00:00 Completed [facility] SARS-COV-2 COVID-19 PFIZER VACCINE 2020-12-05 00:00:00 Completed [facility] SARS-COV-2 COVID-19 PFIZER VACCINE 2020-12-05 00:00:00 Completed [facility] SARS-COV-2 COVID-19 PFIZER VACCINE 2020-12-05 00:00:00 Completed [facility] SARS-COV-2 COVID-19 PFIZER VACCINE 2020-12-05 00:00:00 Completed [facility] SARS-COV-2 COVID-19 PFIZER VACCINE 2020-12-05 00:00:00 Completed [facility] SARS-COV-2 COVID-19 PFIZER VACCINE 2020-12-05 00:00:00 Completed [facility] SARS-COV-2 COVID-19 PFIZER VACCINE 2020-12-05 00:00:00 Completed [facility] SARS-COV-2 COVID-19 PFIZER VACCINE 2020-12-05 00:00:00 Completed [facility] SARS-COV-2 COVID-19 PFIZER VACCINE 2020-12-05 00:00:00 Completed [facility] SARS-COV-2 COVID-19 PFIZER VACCINE 2020-12-05 00:00:00 Completed [facility] SARS-COV-2 COVID-19 PFIZER VACCINE 2020-12-05 00:00:00 Completed SARS-COV-2 COVID-19 PFIZER VACCINE 2020-11-12 00:00:00 Completed [facility] SARS-COV-2 COVID-19 PFIZER VACCINE 2020-11-12 00:00:00 Completed [facility] SARS-COV-2 COVID-19 PFIZER VACCINE 2020-11-12 00:00:00 Completed [facility] SARS-COV-2 COVID-19 PFIZER VACCINE 2020-11-12 00:00:00 Completed [facility] SARS-COV-2 COVID-19 PFIZER VACCINE 2020-11-12 00:00:00 Completed [facility] SARS-COV-2 COVID-19 PFIZER VACCINE 2020-11-12 00:00:00 Completed [facility] SARS-COV-2 COVID-19 PFIZER VACCINE 2020-11-12 00:00:00 Completed [facility] SARS-COV-2 COVID-19 PFIZER VACCINE 2020-11-12 00:00:00 Completed [facility] SARS-COV-2 COVID-19 PFIZER VACCINE 2020-11-12 00:00:00 Completed [facility] SARS-COV-2 COVID-19 PFIZER VACCINE 2020-11-12 00:00:00 Completed [facility] SARS-COV-2 COVID-19 PFIZER VACCINE 2020-11-12 00:00:00 Completed [facility] SARS-COV-2 COVID-19 PFIZER VACCINE 2020-11-12 00:00:00 Completed [facility] SARS-COV-2 COVID-19 PFIZER VACCINE 2020-11-12 00:00:00 Completed [facility] SARS-COV-2 COVID-19 PFIZER VACCINE 2020-11-12 00:00:00 Completed [facility] SARS-COV-2 COVID-19 PFIZER VACCINE 2020-11-12 00:00:00 Completed [facility] [facility] SARS-COV-2 COVID-19 PFIZER VACCINE 2020-11-12 00:00:00 Completed [facility] SARS-COV-2 COVID-19 PFIZER VACCINE 2020-11-12 00:00:00 Completed [facility] SARS-COV-2 COVID-19 PFIZER VACCINE 2020-11-12 00:00:00 Completed [facility] SARS-COV-2 COVID-19 PFIZER VACCINE 2020-11-12 00:00:00 Completed [facility] SARS-COV-2 COVID-19 PFIZER VACCINE 2020-11-12 00:00:00 Completed [facility] SARS-COV-2 COVID-19 PFIZER VACCINE 2020-11-12 00:00:00 Completed [facility] SARS-COV-2 COVID-19 PFIZER VACCINE 2020-11-12 00:00:00 Completed [facility] SARS-COV-2 COVID-19 PFIZER VACCINE 2020-11-12 00:00:00 Completed [facility] SARS-COV-2 COVID-19 PFIZER VACCINE 2020-11-12 00:00:00 Completed [facility] SARS-COV-2 COVID-19 PFIZER VACCINE 2020-11-12 00:00:00 Completed [facility] SARS-COV-2 COVID-19 PFIZER VACCINE 2020-11-12 00:00:00 Completed [facility] SARS-COV-2 COVID-19 PFIZER VACCINE 2020-11-12 00:00:00 Completed [facility] SARS-COV-2 COVID-19 PFIZER VACCINE 2020-11-12 00:00:00 Completed [facility] SARS-COV-2 COVID-19 PFIZER VACCINE 2020-11-12 00:00:00 Completed [facility] SARS-COV-2 COVID-19 PFIZER VACCINE 2020-11-12 00:00:00 Completed [facility] SARS-COV-2 COVID-19 PFIZER VACCINE 2020-11-12 00:00:00 Completed [facility] SARS-COV-2 COVID-19 PFIZER VACCINE 2020-11-12 00:00:00 Completed [facility] SARS-COV-2 COVID-19 PFIZER VACCINE 2020-11-12 00:00:00 Completed [facility] SARS-COV-2 COVID-19 PFIZER VACCINE 2020-11-12 00:00:00 Completed [facility] SARS-COV-2 COVID-19 PFIZER VACCINE 2020-11-12 00:00:00 Completed [facility] SARS-COV-2 COVID-19 PFIZER VACCINE 2020-11-12 00:00:00 Completed [facility] SARS-COV-2 COVID-19 PFIZER VACCINE 2020-11-12 00:00:00 Completed [facility] SARS-COV-2 COVID-19 PFIZER VACCINE 2020-11-12 00:00:00 Completed [facility] SARS-COV-2 COVID-19 PFIZER VACCINE 2020-11-12 00:00:00 Completed [facility] SARS-COV-2 COVID-19 PFIZER VACCINE 2020-11-12 00:00:00 Completed [facility] SARS-COV-2 COVID-19 PFIZER VACCINE 2020-11-12 00:00:00 Completed [facility] SARS-COV-2 COVID-19 PFIZER VACCINE 2020-11-12 00:00:00 Completed [facility] SARS-COV-2 COVID-19 PFIZER VACCINE 2020-11-12 00:00:00 Completed [facility] SARS-COV-2 COVID-19 PFIZER VACCINE 2020-11-12 00:00:00 Completed SARS-COV-2 COVID-19 PFIZER VACCINE Unknown Completed [facility] Zoster Vaccine Recombinant Unknown Completed [facility] Influenza Virus Vaccine Quad IM, Preserv and ABX Free 6 MO-64 YRS (FLUCELVAX) Unknown Completed [facility] TDAP Unknown Completed [facility] Zoster Vaccine Recombinant Unknown Completed [facility] SARS-COV-2 COVID-19 PFIZER VACCINE Unknown Completed [facility] TDAP Unknown Completed [facility] Influenza Virus Vaccine Quad IM, Preserv and ABX Free 6 MO-64 YRS (FLUCELVAX) Unknown Completed [facility] Zoster Vaccine Recombinant Unknown Completed [facility] SARS-COV-2 COVID-19 PFIZER VACCINE Unknown Completed [facility] Influenza Virus Vaccine Quad IM, Preserv and ABX Free 6 MO-64 YRS (FLUCELVAX) Unknown Completed [facility] TDAP Unknown Completed [facility] Zoster Vaccine Recombinant Unknown Completed [facility] SARS-COV-2 COVID-19 PFIZER VACCINE Unknown Completed [facility] Influenza Virus Vaccine Quad IM, Preserv and ABX Free 6 MO-64 YRS (FLUCELVAX) Unknown Completed [facility] TDAP Unknown Completed [facility] Zoster Vaccine Recombinant Unknown Completed [facility] SARS-COV-2 COVID-19 PFIZER VACCINE Unknown Completed [facility] TDAP Unknown Completed [facility] TDAP Unknown Completed [facility] Influenza Virus Vaccine Quad IM, Preserv and ABX Free 6 MO-64 YRS (FLUCELVAX) Unknown Completed [facility] Zoster Vaccine Recombinant Unknown Completed [facility] SARS-COV-2 COVID-19 PFIZER VACCINE Unknown Completed [facility] Influenza Virus Vaccine Quad IM, Preserv and ABX Free 6 MO-64 YRS (FLUCELVAX) Unknown Completed [facility] Zoster Vaccine Recombinant Unknown Completed [facility] SARS-COV-2 COVID-19 PFIZER VACCINE Unknown Completed [facility] Influenza Virus Vaccine Quad IM, Preserv and ABX Free 6 MO-64 YRS (FLUCELVAX) Unknown Completed [facility] TDAP Unknown Completed [facility] Zoster Vaccine Recombinant Unknown Completed [facility] SARS-COV-2 COVID-19 PFIZER VACCINE Unknown Completed [facility] Influenza Virus Vaccine Quad IM, Preserv and ABX Free 6 MO-64 YRS (FLUCELVAX) Unknown Completed [facility] TDAP Unknown Completed [facility] Zoster Vaccine Recombinant Unknown Completed [facility] SARS-COV-2 COVID-19 PFIZER VACCINE Unknown Completed [facility] Influenza Virus Vaccine Quad IM, Preserv and ABX Free 6 MO-64 YRS (FLUCELVAX) Unknown Completed [facility] TDAP Unknown Completed [facility] Zoster Vaccine Recombinant Unknown Completed [facility] SARS-COV-2 COVID-19 PFIZER VACCINE Unknown Completed [facility] Influenza Virus Vaccine Quad IM, Preserv and ABX Free 6 MO-64 YRS (FLUCELVAX) Unknown Completed [facility] TDAP Unknown Completed [facility] Zoster Vaccine Recombinant Unknown Completed [facility] SARS-COV-2 COVID-19 PFIZER VACCINE Unknown Completed [facility] TDAP Unknown Completed [facility] Influenza Virus Vaccine Quad IM, Preserv and ABX Free 6 MO-64 YRS (FLUCELVAX) Unknown Completed [facility] Zoster Vaccine Recombinant Unknown Completed [facility] SARS-COV-2 COVID-19 PFIZER VACCINE Unknown Completed [facility] Influenza Virus Vaccine Quad IM, Preserv and ABX Free 6 MO-64 YRS (FLUCELVAX) Unknown Completed [facility] TDAP Unknown Completed [facility] Zoster Vaccine Recombinant Unknown Completed [facility] SARS-COV-2 COVID-19 PFIZER VACCINE Unknown Completed [facility] Influenza Virus Vaccine Quad IM, Preserv and ABX Free 6 MO-64 YRS (FLUCELVAX) Unknown Completed [facility] TDAP Unknown Completed [facility] Zoster Vaccine Recombinant Unknown Completed [facility] SARS-COV-2 COVID-19 PFIZER VACCINE Unknown Completed [facility] Influenza Virus Vaccine Quad IM, Preserv and ABX Free 6 MO-64 YRS (FLUCELVAX) Unknown Completed [facility] TDAP Unknown Completed [facility] Zoster Vaccine Recombinant Unknown Completed [facility] SARS-COV-2 COVID-19 PFIZER VACCINE Unknown Completed [facility] Influenza Virus Vaccine Quad IM, Preserv and ABX Free 6 MO-64 YRS (FLUCELVAX) Unknown Completed [facility] TDAP Unknown Completed [facility] Zoster Vaccine Recombinant Unknown Completed [facility] SARS-COV-2 COVID-19 PFIZER VACCINE Unknown Completed [facility] TDAP Unknown Completed [facility] Influenza Virus Vaccine Quad IM, Preserv and ABX Free 6 MO-64 YRS (FLUCELVAX) Unknown Completed [facility] Zoster Vaccine Recombinant Unknown Completed [facility] SARS-COV-2 COVID-19 PFIZER VACCINE Unknown Completed [facility] Influenza Virus Vaccine Quad IM, Preserv and ABX Free 6 MO-64 YRS (FLUCELVAX) Unknown Completed [facility] TDAP Unknown Completed [facility] Zoster Vaccine Recombinant Unknown Completed [facility] SARS-COV-2 COVID-19 PFIZER VACCINE Unknown Completed [facility] Influenza Virus Vaccine Quad IM, Preserv and ABX Free 6 MO-64 YRS (FLUCELVAX) Unknown Completed [facility] TDAP Unknown Completed [facility] Zoster Vaccine Recombinant Unknown Completed [facility] SARS-COV-2 COVID-19 PFIZER VACCINE Unknown Completed [facility] Influenza Virus Vaccine Quad IM, Preserv and ABX Free 6 MO-64 YRS (FLUCELVAX) Unknown Completed [facility] TDAP Unknown Completed [facility] Zoster Vaccine Recombinant Unknown Completed [facility] SARS-COV-2 COVID-19 PFIZER VACCINE Unknown Completed [facility] Influenza Virus Vaccine Quad IM, Preserv and ABX Free 6 MO-64 YRS (FLUCELVAX) Unknown Completed [facility] TDAP Unknown Completed [facility] Zoster Vaccine Recombinant Unknown Completed [facility] SARS-COV-2 COVID-19 PFIZER VACCINE Unknown Completed [facility] Influenza Virus Vaccine Quad IM, Preserv and ABX Free 6 MO-64 YRS (FLUCELVAX) Unknown Completed [facility] TDAP Unknown Completed [facility] Zoster Vaccine Recombinant Unknown Completed [facility] SARS-COV-2 COVID-19 PFIZER VACCINE Unknown Completed [facility] Influenza Virus Vaccine Quad IM, Preserv and ABX Free 6 MO-64 YRS (FLUCELVAX) Unknown Completed [facility] TDAP Unknown Completed [facility] Zoster Vaccine Recombinant Unknown Completed [facility] SARS-COV-2 COVID-19 PFIZER VACCINE Unknown Completed [facility] Influenza Virus Vaccine Quad IM, Preserv and ABX Free 6 MO-64 YRS (FLUCELVAX) Unknown Completed [facility] TDAP Unknown Completed [facility] Zoster Vaccine Recombinant Unknown Completed [facility] SARS-COV-2 COVID-19 PFIZER VACCINE Unknown Completed [facility] Influenza Virus Vaccine Quad IM, Preserv and ABX Free 6 MO-64 YRS (FLUCELVAX) Unknown Completed [facility] TDAP Unknown Completed [facility] Zoster Vaccine Recombinant Unknown Completed [facility] SARS-COV-2 COVID-19 PFIZER VACCINE Unknown Completed [facility] Vital Signs Vital Name Observation Time Observation Value Comments S ource Systolic blood pressure 2024-08-17 20:47:00 168 mm[Hg] [facility] Diastolic blood pressure 2024-08-17 20:47:00 84 mm[Hg] [facility] Heart rate 2024-08-17 20:46:00 78 /min [facility] Body height 2024-08-17 20:46:00 167.6 cm [facility] Body weight 2024-08-17 20:46:00 92.67 kg [facility] BMI 2024-08-17 20:46:00 32.97 kg/m2 [facility] Oxygen saturation in Arterial blood by Pulse oximetry 2024-08-17 20:46:00 98 /min [facility] Systolic blood pressure 2024-05-30 21:24:00 184 mm[Hg] [facility] Diastolic blood pressure 2024-05-30 21:24:00 81 mm[Hg] [facility] Heart rate 2024-05-30 21:23:00 71 /min [facility] Body temperature 2024-05-30 21:23:00 36.11 Deyanira [facility] Body height 2024-05-30 21:23:00 167.6 cm [facility] Body weight 2024-05-30 21:23:00 93.441 kg [facility] BMI 2024-05-30 21:23:00 33.25 kg/m2 [facility] Oxygen saturation in Arterial blood by Pulse oximetry 2024-05-30 21:23:00 97 /min [facility] Systolic blood pressure 2024-01-20 20:54:00 177 mm[Hg] [facility] Diastolic blood pressure 2024-01-20 20:54:00 90 mm[Hg] [facility] Heart rate 2024-01-20 20:54:00 78 /min [facility] Oxygen saturation in Arterial blood by Pulse oximetry 2024-01-20 20:54:00 96 /min [facility] Respiratory rate 2024-01-20 20:48:00 18 /min [facility] Body height 2024-01-20 20:48:00 167.6 cm [facility] Body weight 2024-01-20 20:48:00 96.888 kg [facility] BMI 2024-01-20 20:48:00 34.48 kg/m2 [facility] Systolic blood pressure 2023-12-20 21:48:00 191 mm[Hg] [facility] Diastolic blood pressure 2023-12-20 21:48:00 94 mm[Hg] [facility] Heart rate 2023-12-20 21:47:00 74 /min [facility] Body height 2023-12-20 21:47:00 167.6 cm [facility] Body weight 2023-12-20 21:47:00 90.447 kg [facility] BMI 2023-12-20 21:47:00 32.18 kg/m2 [facility] Oxygen saturation in Arterial blood by Pulse oximetry 2023-12-20 21:47:00 97 /min [facility] Systolic blood pressure 2023-07-19 20:56:00 167 mm[Hg] [facility] Diastolic blood pressure 2023-07-19 20:56:00 83 mm[Hg] [facility] Heart rate 2023-07-19 20:55:00 83 /min [facility] Body temperature 2023-07-19 20:55:00 36.72 Deyanira [facility] Respiratory rate 2023-07-19 20:55:00 18 /min [facility] Body height 2023-07-19 20:55:00 167.6 cm [facility] Body weight 2023-07-19 20:55:00 90.357 kg [facility] BMI 2023-07-19 20:55:00 32.15 kg/m2 [facility] Oxygen saturation in Arterial blood by Pulse oximetry 2023-07-19 20:55:00 99 /min [facility] Systolic blood pressure 2023-06-01 21:55:00 161 mm[Hg] [facility] Diastolic blood pressure 2023-06-01 21:55:00 76 mm[Hg] [facility] Heart rate 2023-06-01 21:55:00 76 /min [facility] Body height 2023-06-01 21:55:00 167.6 cm [facility] Body weight 2023-06-01 21:55:00 91.627 kg [facility] BMI 2023-06-01 21:55:00 32.60 kg/m2 [facility] Oxygen saturation in Arterial blood by Pulse oximetry 2023-06-01 21:55:00 97 /min [facility] Systolic blood pressure 2023-05-06 19:44:00 138 mm[Hg] [facility] Diastolic blood pressure 2023-05-06 19:44:00 83 mm[Hg] [facility] Heart rate 2023-05-06 19:44:00 76 /min [facility] Oxygen saturation in Arterial blood by Pulse oximetry 2023-05-06 19:44:00 97 /min [facility] Body height 2023-05-06 19:42:00 167.6 cm [facility] Body weight 2023-05-06 19:42:00 89.721 kg [facility] BMI 2023-05-06 19:42:00 31.93 kg/m2 [facility] Systolic blood pressure 2023-03-12 22:04:00 140 mm[Hg] manually done [facility] Diastolic blood pressure 2023-03-12 22:04:00 90 mm[Hg] manually done [facility] Heart rate 2023-03-12 21:57:00 72 /min [facility] Body height 2023-03-12 21:57:00 167.6 cm [facility] Body weight 2023-03-12 21:57:00 93.759 kg [facility] BMI 2023-03-12 21:57:00 33.36 kg/m2 [facility] Oxygen saturation in Arterial blood by Pulse oximetry 2023-03-12 21:57:00 97 /min [facility] Systolic blood pressure 2023-01-19 19:50:00 135 mm[Hg] [facility] Diastolic blood pressure 2023-01-19 19:50:00 78 mm[Hg] [facility] Body height 2023-01-19 19:50:00 167.6 cm [facility] Body weight 2023-01-19 19:50:00 97.523 kg [facility] BMI 2023-01-19 19:50:00 34.70 kg/m2 [facility] Systolic blood pressure 2022-12-16 18:43:00 121 mm[Hg] [facility] Diastolic blood pressure 2022-12-16 18:43:00 71 mm[Hg] [facility] Heart rate 2022-12-16 18:43:00 74 /min [facility] Body height 2022-12-16 18:43:00 167.6 cm [facility] Body weight 2022-12-16 18:43:00 93.35 kg [facility] BMI 2022-12-16 18:43:00 33.22 kg/m2 [facility] Oxygen saturation in Arterial blood by Pulse oximetry 2022-12-16 18:43:00 96 /min [facility] Systolic blood pressure 2022-12-10 18:11:00 129 mm[Hg] [facility] Diastolic blood pressure 2022-12-10 18:11:00 62 mm[Hg] [facility] Heart rate 2022-12-10 18:04:00 78 /min [facility] Body temperature 2022-12-10 18:04:00 36.89 Deyanira [facility] Respiratory rate 2022-12-10 18:04:00 18 /min [facility] Body height 2022-12-10 18:04:00 167.6 cm [facility] Body weight 2022-12-10 18:04:00 94.348 kg [facility] BMI 2022-12-10 18:04:00 33.57 kg/m2 [facility] Systolic blood pressure 2022-10-30 20:57:00 106 mm[Hg] [facility] Diastolic blood pressure 2022-10-30 20:57:00 66 mm[Hg] [facility] Heart rate 2022-10-30 20:57:00 75 /min [facility] Body height 2022-10-30 20:57:00 167.6 cm [facility] Body weight 2022-10-30 20:57:00 94.348 kg [facility] BMI 2022-10-30 20:57:00 33.57 kg/m2 [facility] Oxygen saturation in Arterial blood by Pulse oximetry 2022-10-30 20:57:00 97 /min [facility] Systolic blood pressure 2022-10-14 18:30:00 145 mm[Hg] [facility] Diastolic blood pressure 2022-10-14 18:30:00 81 mm[Hg] [facility] Heart rate 2022-10-14 18:30:00 83 /min [facility] Oxygen saturation in Arterial blood by Pulse oximetry 2022-10-14 18:30:00 96 /min [facility] Respiratory rate 2022-10-14 18:21:00 21 /min [facility] Body height 2022-10-14 18:21:00 167.6 cm [facility] Body weight 2022-10-14 18:21:00 94.53 kg [facility] BMI 2022-10-14 18:21:00 33.64 kg/m2 [facility] Systolic blood pressure 2022-08-24 20:43:00 151 mm[Hg] [facility] Diastolic blood pressure 2022-08-24 20:43:00 78 mm[Hg] [facility] Heart rate 2022-08-24 20:37:00 83 /min [facility] Body height 2022-08-24 20:37:00 167.6 cm [facility] Body weight 2022-08-24 20:37:00 95.029 kg [facility] BMI 2022-08-24 20:37:00 33.81 kg/m2 [facility] Oxygen saturation in Arterial blood by Pulse oximetry 2022-08-24 20:37:00 97 /min [facility] Systolic blood pressure 2022-08-05 20:47:00 141 mm[Hg] [facility] Diastolic blood pressure 2022-08-05 20:47:00 85 mm[Hg] [facility] Heart rate 2022-08-05 20:47:00 77 /min [facility] Oxygen saturation in Arterial blood by Pulse oximetry 2022-08-05 20:47:00 95 /min [facility] Body temperature 2022-08-05 20:46:00 37 Deyanira [facility] Respiratory rate 2022-08-05 20:46:00 18 /min [facility] Body height 2022-08-05 20:46:00 167.6 cm [facility] Body weight 2022-08-05 20:46:00 92.987 kg [facility] BMI 2022-08-05 20:46:00 33.09 kg/m2 [facility] Systolic blood pressure 2022-08-04 20:55:00 143 mm[Hg] [facility] Diastolic blood pressure 2022-08-04 20:55:00 74 mm[Hg] [facility] Heart rate 2022-08-04 20:55:00 78 /min [facility] Body temperature 2022-08-04 20:54:00 36.56 Deyanira [facility] Body height 2022-08-04 20:54:00 167.6 cm [facility] Body weight 2022-08-04 20:54:00 92.761 kg [facility] BMI 2022-08-04 20:54:00 33.01 kg/m2 [facility] Oxygen saturation in Arterial blood by Pulse oximetry 2022-08-04 20:54:00 97 /min [facility] Systolic blood pressure 2022-07-24 19:33:00 174 mm[Hg] [facility] Diastolic blood pressure 2022-07-24 19:33:00 95 mm[Hg] [facility] Heart rate 2022-07-24 19:33:00 78 /min [facility] Oxygen saturation in Arterial blood by Pulse oximetry 2022-07-24 19:33:00 97 /min [facility] Body height 2022-07-24 19:13:00 167.6 cm [facility] Body weight 2022-07-24 19:13:00 93.577 kg [facility] BMI 2022-07-24 19:13:00 33.30 kg/m2 [facility] Systolic blood pressure 2022-06-25 19:15:00 139 mm[Hg] [facility] Diastolic blood pressure 2022-06-25 19:15:00 79 mm[Hg] [facility] Heart rate 2022-06-25 19:15:00 83 /min [facility] Body temperature 2022-06-25 19:15:00 36.89 Deyanira [facility] Respiratory rate 2022-06-25 19:15:00 16 /min [facility] Body height 2022-06-25 19:15:00 167.6 cm [facility] Body weight 2022-06-25 19:15:00 93.895 kg [facility] BMI 2022-06-25 19:15:00 33.41 kg/m2 [facility] Oxygen saturation in Arterial blood by Pulse oximetry 2022-06-25 19:15:00 94 /min [facility] Systolic blood pressure 2022-06-23 21:40:00 152 mm[Hg] [facility] Diastolic blood pressure 2022-06-23 21:40:00 81 mm[Hg] [facility] Heart rate 2022-06-23 21:40:00 82 /min [facility] Body temperature 2022-06-23 21:39:00 36.83 Deyanira [facility] Body height 2022-06-23 21:39:00 167.6 cm [facility] Body weight 2022-06-23 21:39:00 89.721 kg [facility] BMI 2022-06-23 21:39:00 31.93 kg/m2 [facility] Oxygen saturation in Arterial blood by Pulse oximetry 2022-06-23 21:39:00 95 /min [facility] Systolic blood pressure 2022-06-01 20:23:00 130 mm[Hg] [facility] Diastolic blood pressure 2022-06-01 20:23:00 76 mm[Hg] [facility] Heart rate 2022-06-01 20:23:00 80 /min [facility] Body height 2022-06-01 20:23:00 167.6 cm [facility] Body weight 2022-06-01 20:23:00 95.346 kg [facility] BMI 2022-06-01 20:23:00 33.93 kg/m2 [facility] Oxygen saturation in Arterial blood by Pulse oximetry 2022-06-01 20:23:00 97 /min [facility] Systolic blood pressure 2022-05-29 18:00:00 125 mm[Hg] [facility] Diastolic blood pressure 2022-05-29 18:00:00 100 mm[Hg] [facility] Heart rate 2022-05-29 18:00:00 100 /min [facility] Body temperature 2022-05-29 18:00:00 37.11 Deyanira [facility] Respiratory rate 2022-05-29 18:00:00 20 /min [facility] Body height 2022-05-29 18:00:00 167.6 cm [facility] Body weight 2022-05-29 18:00:00 95.255 kg [facility] BMI 2022-05-29 18:00:00 33.89 kg/m2 [facility] Oxygen saturation in Arterial blood by Pulse oximetry 2022-05-29 18:00:00 100 /min [facility] Heart rate 2022-05-08 18:43:00 68 /min [facility] Respiratory rate 2022-05-08 18:43:00 14 /min [facility] Oxygen saturation in Arterial blood by Pulse oximetry 2022-05-08 18:43:00 99 /min [facility] Systolic blood pressure 2022-05-08 18:42:00 151 mm[Hg] [facility] Diastolic blood pressure 2022-05-08 18:42:00 86 mm[Hg] [facility] Body temperature 2022-05-08 18:11:00 36.17 Deyanira [facility] Body weight 2022-05-01 20:00:00 95.255 kg [facility] BMI 2022-05-01 20:00:00 33.89 kg/m2 [facility] Systolic blood pressure 2022-05-08 16:20:00 180 mm[Hg] [facility] Diastolic blood pressure 2022-05-08 16:20:00 89 mm[Hg] [facility] Heart rate 2022-05-08 16:05:00 77 /min [facility] Body temperature 2022-05-08 16:05:00 36.83 Deyanira [facility] Respiratory rate 2022-05-08 16:05:00 18 /min [facility] Oxygen saturation in Arterial blood by Pulse oximetry 2022-05-08 16:05:00 98 /min [facility] Body weight 2022-05-01 20:00:00 95.255 kg [facility] BMI 2022-05-01 20:00:00 33.89 kg/m2 [facility] Systolic blood pressure 2022-03-13 14:11:00 140 mm[Hg] [facility] Diastolic blood pressure 2022-03-13 14:11:00 80 mm[Hg] [facility] Heart rate 2022-03-13 14:11:00 82 /min [facility] Body temperature 2022-03-13 14:11:00 36.22 Deyanira [facility] Respiratory rate 2022-03-13 14:11:00 18 /min [facility] Body height 2022-03-13 14:11:00 167.6 cm [facility] Body weight 2022-03-13 14:11:00 91.536 kg [facility] BMI 2022-03-13 14:11:00 32.57 kg/m2 [facility] Oxygen saturation in Arterial blood by Pulse oximetry 2022-03-13 14:11:00 98 /min [facility] Systolic blood pressure 2022-03-09 21:59:00 110 mm[Hg] [facility] Diastolic blood pressure 2022-03-09 21:59:00 72 mm[Hg] [facility] Heart rate 2022-03-09 21:59:00 84 /min [facility] Body height 2022-03-09 21:59:00 167.6 cm [facility] Body weight 2022-03-09 21:59:00 91.082 kg [facility] BMI 2022-03-09 21:59:00 32.41 kg/m2 [facility] Oxygen saturation in Arterial blood by Pulse oximetry 2022-03-09 21:59:00 99 /min [facility] Systolic blood pressure 2022-02-24 19:10:00 172 mm[Hg] [facility] Diastolic blood pressure 2022-02-24 19:10:00 96 mm[Hg] [facility] Heart rate 2022-02-24 19:01:00 77 /min [facility] Body weight 2022-02-24 19:01:00 92.262 kg [facility] BMI 2022-02-24 19:01:00 32.83 kg/m2 [facility] Oxygen saturation in Arterial blood by Pulse oximetry 2022-02-24 19:01:00 98 /min [facility] Systolic blood pressure 2021-12-11 15:04:00 174 mm[Hg] [facility] Diastolic blood pressure 2021-12-11 15:04:00 84 mm[Hg] [facility] Heart rate 2021-12-11 15:03:00 75 /min [facility] Body height 2021-12-11 15:03:00 167.6 cm [facility] Body weight 2021-12-11 15:03:00 92.987 kg [facility] BMI 2021-12-11 15:03:00 33.09 kg/m2 [facility] Procedures Procedure Date / Time Performed Performing Clinician Source PNEUMOCOCCAL 20 CONJUGATE (PREVNAR 20) VACCINE 2024-05-30 21:43:47 Ed Urena [facility] SARS-COV-2 COVID 19 DORIS SUCROSE VACCINE 12+, , 0.3 ML (30 MCG), IM PFIZER (TORRES TOP) 2024-05-30 21:43:47 Ed Urena [facility] FLU VACC ([id number]), 6 MO-64 YRS, .5ML, IM, TIV (FLUCELVAX) 2024-05-30 [facility]:43[facility] METABOLIC PANEL (04488) 2023-12-21 12:53:00 Ed Urena [facility] CBC WITH DIFF 2023-12-21 12:53:00 Ed Urena [facility] PATIENT FINANCIAL POLICY 2023-07-19 20:31:13 Doctor Unassigned, Numidia [facility] POCT HEMOGLOBIN A1C TEST 2023-07-19 00:00:00 Brien Urena [facility] XR LUMBAR SPINE 3 VW 2023-05-07 19:16:50 Zeynep Urena [facility] URINALYSIS 2023-05-06 20:42:00 Ed Urena [facility] LIPID PANEL ([id number])(TOTAL CHOLESTEROL, TRIGLYCERIDES, HDL) 2023-05-06 20:42:00 [facility] GLYCOSYLATED HEMOGLOBIN (A1C) 2023-05-06 20:42:00 Ed Urena [facility] FLU VACC ([id number]), 6 MO-64 YRS, .5ML, IM, QUAD (FLUCELVAX) 2023-03-12 22:28:39 [facility]EM[facility] A1C TEST 2022-12-10 00:00:00 Brien Urenamejosselyn [facility] MEDICATION CORRESPONDENCE 2022-11-14 05:01:00 Do ctor Unassigned, Numidia [facility] COMP. METABOLIC PANEL ([id number]) 2022-11-13 20:31:00 Ed Urena [facility] CBC WITH DIFF 2022-11-13 20:31:00 Ed Urena [facility] DISCLOSURE AND CONSENT, MEDICAL AND SURGICAL PROCEDURES 2022-08-25 05:01:00 Doctor Unassigned, Numidia [facility] POCT URINALYSIS AUTO 2022-08-05 21:00:00 Alzweri, Lait h [facility] ASSIGNMENT OF BENEFITS 2022-07-24 18:47:44 Docto r Unassigned, Numidia [facility] US RETROPERITONEAL COMPLETE 2022-07-08 17:46:21 Vaishnavi Hernandez [facility] ASSIGNMENT OF BENEFITS 2022-07-08 15:34:52 Docto r Unassigned, Numidia [facility] PATIENT FINANCIAL POLICY 2022-06-25 18:28:56 Doctor Unassigned, Numidia [facility] POCT URINALYSIS AUTO 2022-06-25 00:00:00 Diego Amezquita [facility] CT THORAX WO CONTRAST 2022-05-29 18:52:10 Oscar Walsh [facility] CT CERVICAL SPINE WO CONTRAST 2022-05-29 18:51:19 Lev Walsh [facility] CONSENT/REFUSAL FOR DIAGNOSIS AND TREATMENT 2022-05-29 17:51:11 Doctor Unassigned, Numidia [facility] COLONOSCOPY 2022-05-08 17:21:00 [facility]SE (AUTOMATED) 2022-05-08 16:28:00 Neo Paniagua [facility] POCT GLUCOSE (AUTOMATED) 2022-05-08 16:28:00 Neo Paniagua [facility] COLONOSCOPY (ENDO) 2022-05-08 15:15:56 Ed Urena [facility] COLONOSCOPY (ENDO) 2022-05-08 15:15:56 Ed Urena [facility] DAY SURGERY - ADC 2022-05-08 06:01:00 Doctor Nicolette ssigned, Numidia [facility] COMP. METABOLIC PANEL ([id number]) 2022-03-10 13:46:00 Ed Urena [facility] CBC WITH DIFF 2022-03-10 13:46:00 Ed Urena [facility] URINALYSIS 2022-03-10 13:46:00 Ed Urena [facility] URINE CULTURE 2022-03-10 13:46:00 Ed Urena [facility] TDAP VACCINE, >11 YRS, IM 2022-03-09 22:13:45 Raheem Urena [facility] FLU VACC (), 6 MO-64 YRS, .5ML, IM, QUAD (FLUCELVAX) 2022-03-09 22:00:27 Ed Urena [facility] POCT HEMOGLOBIN A1C TEST 2022-02-24 19:11:00 Cielo Littlejohn [facility] Encounters Start Date/Time End Date/Time Encounter Type Admission Type Attending [facility] Care Department Encounter ID Source 2024-10-17 14:00:00 2024-10-17 14:00:00 Outpatient [place] [facility] [id number] [facility] 2024-08-18 00:00:00 2024-08-18 09:15:28 Specialty Pharmacy Maya Montoya [facility] 1..840.114 350.1.13.10 4.2.7.2.686 [id number] [facility] 2024-08-17 16:00:00 2024-08-17 16:19:27 Outpatient ED PIZANO [facility] [id number] [facility] 2024-08-17 16:00:00 2024-08-17 16:19:27 Office Visit Ed Urena [facility] MEDICAL OFFICE BUILDING 1..840.114 350.1.13.10 4.2.7.2.686 [id number] [facility] 2024-08-16 07:30:00 2024-08-16 07:45:00 Tree Warden Visit Lab, Ed [place]yl[place] Ang - Db [facility] MEDICAL OFFICE BUILDING 1..840.114 350.1.13.10 4.2.7.2.686 [id number] [facility] 2024-08-16 07:30:00 2024-08-16 07:30:00 Outpatient R ED URENA [facility] [id number] [facility] 2024-06-23 16:00:00 2024-06-23 16:00:00 Outpatient R ED URENA [facility] [id number] [facility] 2022-08-24 00:00:00 2024-06-17 02:41:52 Orders Only Yasmeen, Yessi [facility] Hospital[facility] MEDICAL OFFICE BUILDING 1.2.840.114 350.1.13.10 4.2.7.2.686 [id number] [facility] 2024-06-07 00:00:00 2024-06-08 06:30:53 [facility] MEDICAL OFFICE BUILDING 1.2.840.114 350.1.13.10 4.2.7.2.686 [id number] [facility] 2024-06-07 00:00:00 2024-06-07 17:01:36 Telephone Ed [facility] OFF[facility] BU[facility] 1.2.840.114 350.1.13.10 4.2.7.2.686 [id number] [facility] 2024-06-06 00:00:00 2024-06-06 19:30:11 Refill [facility] Hospital[facility] MEDICAL OFFICE BUILDING 1.2.840.114 350.1.13.10 4.2.7.2.686 [id number] [facility] 2024-05-30 15:30:00 2024-05-30 16:25:21 Outpatient R ED URENA [facility] [id number] [facility] 2024-05-30 15:30:00 2024-05-30 16:25:21 Office Visit Anene, [facility] JOE?SHANAE SOFIA MEDICAL OFFICE BUILDING 1..840.114 350.1.13.10 4.2.7.2.686 [id number] [facility] 2024-04-19 00:00:00 2024-04-20 13:59:56 [facility]phone [facility]E [facility] MEDICAL OFFICE BUILDING 1..840.114 350.1.13.10 4.2.7.2.686 [id number] [facility] 2024-03-24 14:30:00 2024-03-24 14:30:00 Outpatient R JAMA JOHNSON [facility] [id number] [facility] 2024-03-21 15:30:00 2024-03-21 15:30:00 Outpatient R JAMA JOHNSON [facility] [id number] [facility] 2024-02-01 16:00:00 2024-02-01 16:00:00 Outpatient R CHRISSIE CARRASCO SIBY [facility] [id number] [facility] 2024-01-20 15:40:00 2024-01-20 16:10:22 Outpatient R RIGOBERTO JOHNSTON [facility] [id number] [facility] 2024-01-20 15:40:00 2024-01-20 16:10:22 [facility] ..840.114 350.1.13.10 4.2.7.2.686 [id number] [facility] 2024-01-18 15:20:00 2024-01-18 15:20:00 [facility] [id number] [facility] 2023-12-23 00:00:00 2023-12-23 14:57:22 Telephone Romel [facility] JOE?SHANAE GONZALEZ MEDICAL OFFICE BUILDING 1..840.114 350.1.13.10 4.2.7.2.686 [id number] [facility] 2023-12-21 07:45:00 2023-12-21 08:00:00 Tree Warden Visit Lab, Ang - Db Ed Urena Lab, Ang - Db [facility] JOE?SHANAE [facility] MEDICAL OFFICE BUILDING 1.840.114 350.1.13.10 4.2.7.2.686 [id number] [facility] 2023-12-21 07:45:00 2023-12-21 07:45:00 Outpatient R ED URENA [facility] [id number] [facility] 2023-12-20 16:30:00 2023-12-20 17:04:25 Outpatient R ED URENA [facility] [id number] [facility] 2023-12-20 16:30:00 2023-12-20 17:04:25 [facility] 1.840.114 350.1.13.10 4.2.7.2.686 [id number] [facility] 2023-12-16 15:00:00 2023-12-16 15:00:00 Outpatient R RIGOBERTO JOHNSTON [facility] [id number] [facility] 2023-11-30 16:00:00 2023-11-30 16:00:00 Outpatient R PRAKASH LITTLEJOHN [facility] [id number] [facility] 2023-11-05 00:00:00 2023-11-05 14:04:44 [facility]ill [facility] 1..840.114 350.1.13.10 4.2.7.2.686 [id number] [facility] 2023-10-30 00:00:00 2023-11-01 08:34:28 Refill Ed U[facility]E [facility] 1.840.114 350.1.13.10 4.2.7.2.686 [id number] [facility] 2023-08-07 00:00:00 2023-08-07 00:00:00 [facility]ill [facility]E [facility] MEDICAL OFFICE BUILDING 1.840.114 350.1.13.10 4.2.7.2.686 [id number] [facility] 2023-07-29 15:30:00 2023-07-29 15:30:00 Outpatient R ED URENA [facility] [id number] [facility] 2023-07-27 00:00:00 2023-07-27 00:00:00 Telephone [facility] 1.0.114 350.1.13.10 4.2.7.2.686 [id number] [facility] 2023-07-19 16:00:00 2023-07-19 16:38:26 Outpatient R ED URENA [facility] [id number] [facility] 2023-07-19 16:00:00 2023-07-19 16:38:26 [facility] 1.0.114 350.1.13.10 4.2.7.2.686 [id number] [facility] 2023-07-19 00:00:00 2023-07-19 00:00:00 Orders Only Doctor Unassigned, Numidia [facility] 1.2840.114 350.1.13.10 4.2.7.2.686 [id number] [facility] 2023-06-23 15:30:00 2023-06-23 15:30:00 Outpatient R VAISHNAVI HERNANDEZ [facility] [id number] [facility] 2023-06-18 13:45:00 2023-06-18 15:27:23 Outpatient R UNKNOWN, ATTENDING [facility] [id number] [facility] 2023-06-18 13:45:00 2023-06-18 14:00:00 Tree Warden Visit Lab, Yo - Tremaine Unknown, Attending [facility] MEDICAL OFFICE BUILDING 1..840.114 350.1.13.10 4.2.7.2.686 [id number] [facility] 2023-06-15 00:00:00 2023-06-15 00:00:00 Ed Rosen [facility] MEDICAL OFFICE BUILDING 1..840.114 350.1.13.10 4.2.7.2.686 [id number] [facility] 2023-06-04 00:00:00 2023-06-04 00:00:00 Telephone Vaishnavi Hernandez [facility] 1..840.114 350.1.13.10 4.2.7.2.686 [id number] [facility] 2023-06-01 16:00:00 2023-06-01 16:57:48 Outpatient R PRAKASH LITTLEJOHN [facility] [id number] [facility] 2023-06-01 16:00:00 2023-06-01 16:57:48 Office Visit Eron [facility] MEDICAL OFFICE BUILDING 1..840.114 350.1.13.10 4.2.7.2.686 [id number] [facility] 2023-05-10 00:00:00 2023-05-10 00:00:00 Patient Secure Msg Doctor Unassigned, Numidia [facility] JOE?SHANAE SO[facility] MED[facility] OFF[facility] BUILD[facility] 1.84.114 350.1.13.10 4.2.7.2.686 [id number] [facility] 2023-05-07 12:11:39 2023-05-07 23:59:00 Outpatient R ED URENA [facility] [id number] [facility] 2023-05-07 12:11:39 2023-05-07 23:59:00 Hospital [facility] MEDICAL OFFICE BUILDING 1.84.114 350.1.13.10 4.2.7.2.686 [id number] [facility] 2023-05-07 00:00:00 2023-05-07 00:00:00 Patient Secure Msg Doctor Unassigned, Numidia [facility] MEDICAL OFFICE BUILDING 1.84.114 350.1.13.10 4.2.7.2.686 [id number] [facility] 2023-05-06 14:36:19 2023-05-06 23:59:00 Outpatient R ED URENA [facility] [id number] [facility] 2023-05-06 14:36:19 2023-05-06 23:59:00 Hospital [facility] MEDICAL OFFICE BUILDING 1.84.114 350.1.13.10 4.2.7.2.686 [id number] [facility] 2023-05-06 15:00:00 2023-05-06 15:00:00 Tree Warden Visit Lab, Yo Penaloza [facility]E?[facility] MEDICAL OFFICE BUILDING 1.84.114 350.1.13.10 4.2.7.2.686 [id number] [facility] 2023-05-06 13:30:00 2023-05-06 14:39:13 [facility]SHANAE GONZALE[facility] MED[facility] OFF[facility] BUILD[facility] 1.84.114 350.1.13.10 4.2.7.2.686 [id number] [facility] 2023-03-27 00:00:00 2023-03-27 00:00:00 Refill [facility] GARY DIAZ?SHANAE SO[facility]IA MED[facility] OFF[facility] BUILDING 1.84.114 350.1.13.10 4.2.7.2.686 [id number] [facility] 2023-03-13 00:00:00 2023-03-13 00:00:00 [facility]E [facility] MEDICAL OFFICE BUILDING 1.84.114 350.1.13.10 4.2.7.2.686 [id number] [facility] 2023-03-12 16:00:00 2023-03-12 16:36:57 Outpatient R ED URENA [facility] [id number] [facility] 2023-03-12 16:00:00 2023-03-12 16:36:57 Office Visit [facility] 1.840.114 350.1.13.10 4.2.7.2.686 [id number] [facility] 2023-01-19 15:00:00 2023-01-19 15:58:41 Outpatient R ERON [facility] [id number] [facility] 2023-01-19 15:00:00 2023-01-19 15:58:41 [facility] MED[facility] OFFICE BUILDING 1.840.114 350.1.13.10 4.2.7.2.686 [id number] [facility] 2023-01-15 07:30:00 2023-01-15 08:31:34 Outpatient R ED URENA [facility] [id number] [facility] 2023-01-15 07:30:00 2023-01-15 07:45:00 Tree Warden Visit Lab, Yo Penaloza [facility] MEDICAL OFFICE BUILDING 1.2.840.114 350.1.13.10 4.2.7.2.686 [id number] [facility] 2023-01-11 11:00:00 2023-01-11 13:59:43 [facility] [id number] [facility] 2023-01-11 11:00:00 2023-01-11 13:59:43 Telemedici ne Visit [facility] MEDICAL OFFICE BUILDING 1..840.114 350.1.13.10 4.2.7.2.686 [id number] [facility] 2023-01-11 00:00:00 2023-01-11 00:00:00 Telephone Romel [facility] JOE?[facility] MEDICAL OFFICE BUILDING 1..840.114 350.1.13.10 4.2.7.2.686 [id number] [facility] 2022-12-16 14:00:00 2022-12-16 14:20:00 [facility] 1..840.114 350.1.13.10 4.2.7.2.686 [id number] [facility] 2022-12-16 14:00:00 2022-12-16 14:00:00 Out[facility] [id number] [facility] 2022-12-11 00:00:00 2022-12-11 00:00:00 Refill Prakash Littlejohn [facility] JOE?SHANAE GON[facility] MED[facility] OFF[facility] BUILD[facility] 1.2.840.114 350.1.13.10 4.2.7.2.686 [id number] [facility] 2022-12-10 13:30:00 2022-12-10 14:03:28 Outpatient [facility] [id number] [facility] 2022-12-10 13:30:00 2022-12-10 14:03:28 [facility] 1.2.840.114 350.1.13.10 4.2.7.2.686 [id number] [facility] 2022-12-10 00:00:00 2022-12-10 00:00:00 Refill [facility] 1..840.114 350.1.13.10 4.2.7.2.686 [id number] [facility] 2022-12-10 00:00:00 2022-12-10 00:00:00 Telephone [facility] MEDICAL OFFICE BUILDING 1.2.840.114 350.1.13.10 4.2.7.2.686 [id number] [facility] 2022-11-18 00:00:00 2022-11-18 00:00:00 Telephone [facility] MEDICAL OFFICE BUILDING 1.2.840.114 350.1.13.10 4.2.7.2.686 [id number] [facility] 2022-11-14 00:00:00 2022-11-14 00:00:00 Orders Only Doctor Unassigned, Numidia [facility] 1.0.114 350.1.13.10 4.2.7.2.686 [id number] [facility] 2022-11-13 16:00:00 2022-11-13 16:15:00 Tree Warden Visit Lab, Ang - Tremaine KrishnanNury [facility]E [facility] MED[facility] OFFICE BUILDING 1.84114 350.1.13.10 4.2.7.2.686 [id number] [facility] 2022-11-13 16:00:00 2022-11-13 15:56:45 Outpatient R ED URENA [facility] [id number] [facility] 2022-11-11 13:00:00 2022-11-11 13:00:00 Outpatient R RIGOBERTO JOHNSTON [facility] [id number] [facility] 2022-11-10 15:00:00 2022-11-10 15:00:00 Outpatient R MIGEL GUAN STRAHIL [facility] [id number] [facility] 2022-10-30 16:00:00 2022-10-30 16:45:43 Outpatient R ED URENA [facility] [id number] [facility] 2022-10-30 16:00:00 2022-10-30 16:45:43 [facility] 1.84.114 350.1.13.10 4.2.7.2.686 [id number] [facility] 2022-10-28 00:00:00 2022-10-28 00:00:00 Refill Rigoberto Johnston [facility] 1.840.114 350.1.13.10 4.2.7.2.686 [id number] [facility] 2022-10-16 00:00:00 2022-10-16 00:00:00 Refill Preston [facility] 1.2.840.114 350.1.13.10 4.2.7.2.686 [id number] [facility] 2022-10-14 13:20:00 2022-10-14 13:52:14 Outpatient R [facility] [id number] [facility] 2022-10-14 13:20:00 2022-10-14 13:40:00 Office Visit Preston [facility] 1.2.840.114 350.1.13.10 4.2.7.2.686 [id number] [facility] 2022-10-02 14:00:00 2022-10-02 14:00:00 [facility] [id number] 2022-10-02 00:00:00 2022-10-02 00:00:00 Telephone Vaishnavi Hernandez [facility] 1.2.840.114 350.1.13.10 4.2.7.2.686 [id number] [facility] 2022-09-07 16:00:00 2022-09-07 16:00:00 Outpatient ED PIZANO [facility] [id number] [facility] 2022-09-04 16:00:00 2022-09-04 16:15:00 Tree Warden [facility] 1.2.840.114 350.1.13.10 4.2.7.2.686 [id number] Jennie [facility] 2022-09-04 16:00:00 2022-09-04 16:00:00 Outpatient ED PIZANO [facility] [id number] [facility] 2022-09-03 16:30:00 2022-09-03 16:30:00 Outpatient R [facility] [id number] [facility] 2022-08-25 09:30:00 2022-08-25 09:58:40 Outpatient R BENI SEQUEIRA [facility] [id number] [facility] 2022-08-24 15:30:00 2022-08-24 16:18:33 [facility] [id number] [facility] 2022-08-24 15:30:00 2022-08-24 16:18:33 [facility] MEDICAL OFFICE BUILDING 1.2.840.114 350.1.13.10 4.2.7.2.686 [id number] [facility] 2022-08-21 14:00:00 2022-08-21 14:00:00 Outpatient R COURTNEY PEDRAZA [facility] [id number] [facility] 2022-08-17 08:00:00 2022-08-17 08:00:00 [facility] [id number] [facility] 2022-08-17 00:00:00 2022-08-17 00:00:00 Refill Prakash Littlejohn [facility] MEDICAL OFFICE BUILDING 1..840.114 350.1.13.10 4.2.7.2.686 [id number] [facility] 2022-08-15 08:15:00 2022-08-15 08:30:00 Tree Warden Visit Pojeff, Adc Lab [facility] 1..840.114 350.1.13.10 4.2.7.2.686 [id number] [facility] 2022-08-15 08:15:00 2022-08-15 08:15:00 Outpatient R [facility] [id number] [facility] 2022-08-14 11:15:00 2022-08-14 11:15:00 Outpatient R [facility] [id number] [facility] 2022-08-13 00:00:00 2022-08-13 00:00:00 Telephone Diego [facility] 1.2.840.114 350.1.13.10 4.2.7.2.686 [id number] [facility] 2022-08-12 10:30:00 2022-08-12 10:30:00 Outpatient R [facility] [id number] [facility] 2022-08-11 00:00:00 2022-08-11 00:00:00 Telephone [facility] 1.2.840.114 350.1.13.10 4.2.7.2.686 [id number] [facility] 2022-08-05 15:30:00 2022-08-05 16:16:13 Outpatient R AMEZQUITA JESSICA [facility] [id number] [facility] 2022-08-05 15:30:00 2022-08-05 16:16:13 Office Visit Jessica Amezquita [facility] 1.2.840.114 350.1.13.10 4.2.7.2.686 [id number] [facility] 2022-08-04 16:00:00 2022-08-04 16:54:58 Outpatient R VAISHNAVI HERNANDEZ [facility] [id number] [facility] 2022-08-04 16:00:00 2022-08-04 16:54:58 Office Visit [facility]nav[facility] 1.114 350.1.13.10 4.2.7.2.686 [id number] [facility] 2022-08-04 16:30:00 2022-08-04 16:45:00 Tree Warden Visit Vtc-Lab Vaishnavi Hernandez [facility] [place] [facility] 1.114 350.1.13.10 4.2.7.2.686 [id number] [facility] 2022-07-27 08:15:00 2022-07-27 08:30:00 Tree Warden Visit Lab, Yo Urena [facility]?SHANAE GONZALEZ MEDICAL OFFICE BUILDING 1.114 350.1.13.10 4.2.7.2.686 [id number] [facility] 2022-07-27 08:15:00 2022-07-27 08:15:00 [facility] [id number] 2022-07-27 00:00:00 2022-07-27 00:00:00 Telephone David Vaishnavi [facility]TY [place] [facility] 1.114 350.1.13.10 4.2.7.2.686 [id number] [facility] 2022-07-24 14:30:00 2022-07-24 15:35:21 Outpatient R ED URENA [facility] [id number] [facility] 2022-07-24 14:30:00 2022-07-24 15:35:21 Office [facility]E GONZALE[facility] MED[facility] OFF[facility] BUILD[facility] 1.114 350.1.13.10 4.2.7.2.686 [id number] [facility] 2022-07-24 00:00:00 2022-07-24 00:00:00 Orders Only Doctor Unassigned, Numidia [facility] 1.2.840.114 350.1.13.10 4.2.7.2.686 [id number] [facility] 2022-07-10 00:00:00 2022-07-10 00:00:00 Telephone [facility] 1.2.840.114 350.1.13.10 4.2.7.2.686 [id number] [facility] 2022-07-08 09:35:27 2022-07-08 23:59:00 Hospital Encounter [facility] 1.2.840.114 350.1.13.10 4.2.7.2.686 [id number] [facility] 2022-07-08 10:30:00 2022-07-08 10:45:00 Tree Warden Visit 1, Adc Lab [facility] 1.2840.114 350.1.13.10 4.2.7.2.686 [id number] [facility] 2022-07-08 09:37:38 2022-07-08 09:37:38 Outpatient R [facility] [id number] [facility] 2022-07-08 00:00:00 2022-07-08 00:00:00 Orders Only Doctor Unassigned, Numidia [facility] 1.2.840.114 350.1.13.10 4.2.7.2.686 [id number] [facility] 2022-06-29 00:00:00 2022-06-29 00:00:00 Ed Rosen [facility]?SHANAE [facility]BER[facility]ER[facility] MEDICAL OFFICE BUILDING 1.2840.114 350.1.13.10 4.2.7.2.686 [id number] [facility] 2022-06-25 13:00:00 2022-06-25 13:51:49 Outpatient [facility] [id number] [facility] 2022-06-25 13:00:00 2022-06-25 13:51:49 Office [facility] 1..114 350.1.13.10 4.2.7.2.686 [id number] [facility] 2022-06-25 00:00:00 2022-06-25 00:00:00 Orders Only Doctor Unassigned, Numidia [facility] 1..114 350.1.13.10 4.2.7.2.686 [id number] [facility] 2022-06-23 15:30:00 2022-06-23 16:34:50 Outpatient R SPRING ARITA [facility] [id number] [facility] 2022-06-23 15:30:00 2022-06-23 16:34:50 Office [facility] 1..114 350.1.13.10 4.2.7.2.686 [id number] [facility] 2022-06-23 00:00:00 2022-06-23 00:00:00 Telephone Vaishnavi Hernandez [facility] 1..114 350.1.13.10 4.2.7.2.686 [id number] [facility] 2022-06-18 00:00:00 2022-06-18 00:00:00 Telephone Yamilka Fink [facility] 1..114 350.1.13.10 4.2.7.2.686 [id number] [facility] 2022-06-17 15:00:00 2022-06-17 15:15:00 Tree Warden Visit Lab, Yo - Tremaine Arita [facility]?SHANAE [facility] MEDICAL OFFICE BUILDING 1..114 350.1.13.10 4.2.7.2.686 [id number] [facility] 2022-06-17 15:00:00 2022-06-17 15:00:00 Outpatient R [facility] [id number] [facility] 2022-06-17 00:00:00 2022-06-17 00:00:00 Telephone Santiago Wagner [facility] 1..114 350.1.13.10 4.2.7.2.686 [id number] [facility] 2022-06-17 00:00:00 2022-06-17 00:00:00 [facility]..114 350.1.13.10 4.2.7.2.686 [id number] [facility] 2022-06-11 00:00:00 2022-06-11 00:00:00 [facility] 1..114 350.1.13.10 4.2.7.2.686 [id number] [facility] 2022-06-01 14:30:00 2022-06-01 15:11:27 [facility] [id number] [facility] 2022-06-01 14:30:00 2022-06-01 15:11:27 [facility]NAE GONZALEZ MEDICAL OFFICE BUILDING 1.114 350.1.13.10 4.2.7.2.686 [id number] [facility] 2022-05-29 15:20:00 2022-05-29 15:20:00 Outpatient R AMANDA ZHOU [facility] [id number] [facility] 2022-05-29 12:01:00 2022-05-29 13:58:00 Emergency X LEV [facility] ERT [id number] [facility] 2022-05-29 12:01:00 2022-05-29 13:58:00 Emergency Lev Walsh [facility] 1.20.114 350.1.13.10 4.2.7.2.686 [id number] [facility] 2022-05-20 16:00:00 2022-05-20 16:00:00 Outpatient ED PIZANO [facility] [id number] [facility] 2022-05-08 09:50:00 2022-05-08 12:53:00 Outpatient R [facility] [id number] [facility] 2022-05-08 09:50:00 2022-05-08 12:53:00 Hospital Encounter Siva Janie [facility] [place] 1.2840.114 350.1.13.10 4.2.7.2.686 [id number] [facility] 2022-05-08 10:50:00 2022-05-08 11:47:00 Surgery Janie Paniagua [facility] [place] 1.2840.114 350.1.13.10 4.2.7.2.686 [id number] [facility] 2022-05-08 00:00:00 2022-05-08 00:00:00 Orders Only Doctor Unassigned, Numidia [facility] 1.2840.114 350.1.13.10 4.2.7.2.686 [id number] [facility] 2022-03-16 00:00:00 2022-03-16 00:00:00 Prep For Surgery Janie Paniagua [facility] BUILDING 1.2.840.114 350.1.13.10 4.2.7.2.686 [id number] [facility] 2022-03-13 08:45:00 2022-03-13 09:17:50 Outpatient R STEPHANIE [facility] [id number] [facility] 2022-03-13 08:45:00 2022-03-13 09:17:50 Office Visit Jessica Amezquita [facility] BUILDING 1.2.840.114 350.1.13.10 4.2.7.2.686 [id number] [facility] 2022-03-10 07:45:00 2022-03-10 08:00:00 Tree Warden Visit Lab, Yo [facility] BUILD[facility] 1.2.840.114 350.1.13.10 4.2.7.2.686 [id number] [facility] 2022-03-10 07:45:00 2022-03-10 07:45:00 Outpatient R ROMEL ED [facility] [id number] [facility] 2022-03-09 16:00:00 2022-03-09 16:43:58 Outpatient R ROMELED [facility] [id number] [facility] 2022-03-09 16:00:00 2022-03-09 16:43:58 Office [facility] MED[facility] OFF[facility] BUILD[facility] 1.2.840.114 350.1.13.10 4.2.7.2.686 [id number] [facility] 2022-03-06 16:00:00 2022-03-06 16:00:00 Outpatient R ED URENA [facility] [id number] [facility] 2022-02-25 00:00:00 2022-02-25 00:00:00 Refill Eron [facility] JOE?SHANAE GONZALEZ MEDICAL OFFICE BUILDING 1.2.840.114 350.1.13.10 4.2.7.2.686 [id number] [facility] 2022-02-24 14:30:00 2022-02-24 14:59:43 Outpatient R ERON [facility] [id number] [facility] 2022-02-24 14:30:00 2022-02-24 14:59:43 Office Visit Eron [facility] JOE?SHANAE GONZALE[facility] MEDICAL OFFICE BUILDING 1.2.840.114 350.1.13.10 4.2.7.2.686 [id number] [facility] 2022-02-24 00:00:00 2022-02-24 00:00:00 Refill Eron [facility] JOE?SHA[facility]E [facility] MEDICAL OFFICE BUILDING 1.2.840.114 350.1.13.10 4.2.7.2.686 [id number] [facility] 2022-02-13 16:30:00 2022-02-13 16:30:00 Outpatient DENITA MARINO [facility] [id number] [facility] 2021-12-11 10:00:00 2021-12-11 10:15:00 Office Visit [facility] MED[facility] BU[facility] 1.2.840.114 350.1.13.10 4.2.7.2.686 [id number] [facility] 2021-12-11 10:00:00 2021-12-11 10:00:00 Outpatient DENITA MARINO [facility] [id number] [facility] 2021-12-08 00:00:00 2021-12-08 00:00:00 Telephone [facility]rakash Littlejohn [facility] MEDICAL OFFICE BUILDING 1.2.840.114 350.1.13.10 4.2.7.2.686 [id number] [facility] 2021-12-05 00:00:00 2021-12-05 00:00:00 Telephone Denita Ponce [facility] JOE?SHANAE [facility] MEDICAL OFFICE BUILDING 1.2.840.114 350.1.13.10 4.2.7.2.686 [id number] [facility] 2021-12-05 00:00:00 2021-12-05 00:00:00 Telephone Denita Ponce [facility] JOE?SHANAE [facility] MEDICAL OFFICE BUILDING 1.2.840.114 350.1.13.10 4.2.7.2.686 [id number] [facility] 2021-11-19 16:30:00 2021-11-19 16:30:00 Outpatient R DENITA PONCE [facility] [id number] [facility] 2021-11-07 14:00:00 2021-11-07 14:21:24 Office Visit Denita Ponce [facility] JOE?SHANAE [facility] MEDICAL OFFICE BUILDING 1.2.840.114 350.1.13.10 4.2.7.2.686 [id number] [facility] 2021-11-07 14:00:00 2021-11-07 14:00:00 Outpatient R DENITA PONCE [facility] [id number] [facility] 2021-11-06 19:52:00 2021-11-07 00:05:00 Emergency [facility] [id number] [facility] 2021-11-06 19:52:00 2021-11-07 00:05:00 Emergency X [facility] [id number] [facility] 2021-11-06 19:52:00 2021-11-07 00:05:00 Emergency Narinder Anderson [facility] 1.2.840.114 350.1.13.10 4.2.7.2.686 [id number] [facility] 2021-10-23 11:15:00 2021-10-23 11:52:04 Outpatient R DENITA PONCE [facility] [id number] [facility] 2021-10-23 11:15:00 2021-10-23 11:30:00 Office Visit Denita Ponce [facility]?SHANAE [facility] MEDICAL OFFICE BUILDING 1.2.840.114 350.1.13.10 4.2.7.2.686 [id number] [facility] 2021-10-23 11:15:00 2021-10-23 11:15:00 Outpatient R DENITA PONCE [facility] [id number] [facility] 2021-10-22 10:20:00 2021-10-22 10:38:00 Emergency X [facility] ERT [id number] [facility] 2021-10-22 10:20:00 2021-10-22 10:38:00 Emergency Drew Ingram [facility] 1.2.840.114 350.1.13.10 4.2.7.2.686 [id number] [facility] 2021-10-22 10:20:00 2021-10-22 10:38:00 Emergency [facility] [id number] [facility] 2021-10-21 15:30:00 2021-10-21 16:18:40 Outpatient R PRAKASH LITTLEJOHN [facility] [id number] [facility] 2021-10-21 15:30:00 2021-10-21 16:18:40 Office Visit Prakash Littlejohn [facility] JOE?SHANAE GONZALEZ MEDICAL OFFICE BUILDING 1..840.114 350.1.13.10 4.2.7.2.686 [id number] [facility] 2021-10-21 15:30:00 2021-10-21 15:30:00 Outpatient R ERONPRAKASH [facility] [id number] [facility] 2021-10-20 18:27:00 2021-10-20 21:32:00 Emergency X Brody [facility] ERT [id number] [facility] 2021-10-20 18:27:00 2021-10-20 21:32:00 Emergency Brody Earlge [facility] 1..840.114 350.1.13.10 4.2.7.2.686 [id number] [facility] 2021-10-20 18:27:00 2021-10-20 21:32:00 Emergency X Brody [facility] ERT [id number] [facility] 2021-10-17 16:00:00 2021-10-17 16:15:00 Office Visit Denita Ponce Wali [facility] JOE?SHANAE G[facility]ZALEZ MEDICAL OFFICE BUILDING 1.2.840.114 350.1.13.10 4.2.7.2.686 [id number] [facility] 2021-10-17 16:00:00 2021-10-17 16:00:00 Outpatient R DENITA PONCE [facility] [id number] [facility] 2021-10-17 16:00:00 2021-10-17 16:00:00 Outpatient R DENITA PONCE [facility] [id number] [facility] 2021-10-04 00:00:00 2021-10-04 00:00:00 Refill Prakash Littlejohn [facility] JOE?SHANAE [facility] MEDICAL OFFICE BUILDING 1.2.840.114 350.1.13.10 4.2.7.2.686 [id number] [facility] 2021-09-24 00:00:00 2021-09-24 00:00:00 Refill Jovan [facility]?SHANAE GONZALEZ MEDICAL OFFICE BUILDING 1.84.114 350.1.13.10 4.2.7.2.686 [id number] [facility] 2021-09-17 15:15:00 2021-09-17 15:30:00 Office Visit Denita Ponce [facility]?SHANAE [facility] MEDICAL OFFICE BUILDING 1.840.114 350.1.13.10 4.2.7.2.686 [id number] [facility] 2021-09-17 15:15:00 2021-09-17 15:15:00 Outpatient DENITA MARINO [facility] [id number] [facility] 2021-08-20 00:00:00 2021-08-20 00:00:00 Refill Jovan [facility]?SHANAE [facility] MED[facility] OFF[facility] BUILDING 1.840.114 350.1.13.10 4.2.7.2.686 [id number] [facility] 2021-08-13 16:15:00 2021-08-13 16:32:17 Outpatient DENITA MARINO [facility] [id number] [facility] 2021-08-13 16:15:00 2021-08-13 16:30:00 Office Visit Denita Ponce [facility]?SHANAE [facility] MED[facility] OFF[facility] BUILDING 1..840.114 350.1.13.10 4.2.7.2.686 [id number] [facility] 2021-08-13 16:15:00 2021-08-13 16:15:00 Outpatient DENITA MARINO [facility] [id number] [facility] 2021-07-17 09:00:00 2021-07-17 09:00:00 Outpatient DENITA MARINO [facility] [id number] [facility] 2021-07-11 16:00:00 2021-07-11 16:00:00 Outpatient R [facility] [id number] [facility] 2021-07-11 13:15:00 2021-07-11 13:15:00 Outpatient R ERON [facility] [id number] [facility] 2021-07-09 16:00:00 2021-07-09 17:09:10 Outpatient R ERON [facility] [id number] [facility] 2021-07-09 00:00:00 2021-07-09 00:00:00 Orders Only Doctor Unassigned, Numidia [facility] 1..114 350.1.13.10 4.2.7.2.686 [id number] [facility] 2021-05-12 00:00:00 2021-05-12 00:00:00 Orders Only Doctor Unassigned, Numidia [facility] 1.0.114 350.1.13.10 4.2.7.2.686 [id number] [facility] 2021-04-22 00:00:00 2021-04-22 00:00:00 [facility] 1..114 350.1.13.10 4.2.7.2.686 [id number] [facility] 2021-03-26 00:00:00 2021-03-26 00:00:00 Denita Benites [facility]ILD[facility] ONE 1.0.114 350.1.13.10 4.2.7.2.686 [id number] [facility] 2021-02-21 13:30:00 2021-02-21 13:30:00 Outpatient R ATTILA SIMEON [facility] [id number] [facility] 2020-12-25 16:00:00 2020-12-25 16:00:00 Outpatient R ERON [facility] [id number] [facility] 2020-10-10 00:00:00 2020-10-10 00:00:00 Refill Eron [facility] 1.2.840.114 350.1.13.10 4.2.7.2.686 [id number] [facility] 2020-09-17 14:30:00 2020-09-17 14:30:00 Outpatient R ERON [facility] [id number] [facility] 2020-09-17 00:00:00 2020-09-17 00:00:00 Refill Eron [facility] 1.2.840.114 350.1.13.10 4.2.7.2.686 [id number] [facility] 2020 00:00:00 2020 00:00:00 Refradha Littlejohn [facility] 1.2.840.114 350.1.13.10 4.2.7.2.686 [id number] [facility] 2020-07-16 00:00:00 2020-07-16 00:00:00 Orders Only Doctor Unassigned, Numidia [facility] 1.2840.114 350.1.13.10 4.2.7.2.686 [id number] [facility] 2020-05-16 00:00:00 2020-05-16 00:00:00 Refill Littlejohn [facility] 1.2.840.114 350.1.13.10 4.2.7.2.686 [id number] 220 [id number] [facility] 2020-05-15 15:15:13 2020-05-15 16:26:08 Office Visit Prakash Littlejohn [facility] 1.2.840.114 350.1.13.10 4.2.7.2.686 [id number] 220 [id number] [facility] 2020-05-15 15:30:00 2020-05-15 15:30:00 Outpatient R [facility]ITTLE[facility]OHN [facility] [id number] [facility] 2020-05-10 00:00:00 2020-05-10 00:00:00 Orders Only Doctor Unassigned, Numidia [facility] 1.2.840.114 350.1.13.10 4.2.7.2.686 [id number] [facility] 2020-04-09 00:00:00 2020-04-09 00:00:[address] [facility] 1.2.840.114 350.1.13.10 4.2.7.2.686 [id number] 220 [id number] [facility] 2020-03-25 00:00:00 2020-03-25 00:00:[address] [facility] 1.2.840.114 350.1.13.10 4.2.7.2.686 [id number] 220 [id number] [facility] 2020-03-23 00:00:00 2020-03-23 00:00:[address] [facility] 1.2840.114 350.1.13.10 4.2.7.2.686 [id number] 220 [id number] [facility] 2020-02-13 15:30:00 2020-02-13 15:30:00 Outpatient R ERON [facility] [id number] [facility] 2020-02-08 00:00:00 2020-02-08 00:00:00 Refill Eron [facility] 1.2.114 350.1.13.10 4.2.7.2.686 [id number] 220 [id number] [facility] 2020-02-07 17:19:30 2020-02-07 17:34:30 Tree Warden Visit Pob, Adc Lab Main Eron [facility] 1..114 350.1.13.10 4.2.7.2.686 [id number] [facility] 2020-02-07 16:13:47 2020-02-07 17:10:45 Office Visit Eron [facility] 1..114 350.1.13.10 4.2.7.2.686 [id number] 220 [id number] [facility] 2020-02-07 16:30:00 2020-02-07 16:30:00 Outpatient R ERON [facility] [id number] [facility] 2020-02-07 00:00:00 2020-02-07 00:00:00 Orders Only Doctor Unassigned, Numidia [facility] 1.114 350.1.13.10 4.2.7.2.686 [id number] [id number] [facility] 2020-02-03 00:00:00 2020-02-03 00:00:00 Refill Denita Ponce [facility] 1.114 350.1.13.10 4.2.7.2.686 [id number] [facility] 2020-01-30 00:00:00 2020-01-30 00:00:00 Refill Eron [facility] 1.2.840.114 350.1.13.10 4.2.7.2.686 [id number] 220 [id number] [facility] 2019-11-23 00:00:00 2019-11-23 00:00:00 [facility] 1.2.840.114 350.1.13.10 4.2.7.2.686 [id number] 220 [id number] [facility] 2019-11-15 08:19:13 2019-11-15 08:34:13 Tree Warden Visit 2, Adc Lab OmarmashaDenita [facility] 1.2.840.114 350.1.13.10 4.2.7.2.686 [id number] [facility] 2019-11-15 08:00:00 2019-11-15 08:00:00 Outpatient R [facility] [id number] [facility] 2019-11-09 00:00:00 2019-11-09 00:00:[address] [facility] 1.2.840.114 350.1.13.10 4.2.7.2.686 [id number] [facility] 2019-11-08 09:07:25 2019-11-08 11:21:[address] [facility] 1.2.840.114 350.1.13.10 4.2.7.2.686 [id number] [facility] 2019-11-08 10:53:11 2019-11-08 11:08:11 Tree Warden Visit 2, Adc Lab Eron [facility] 1.2.840.114 350.1.13.10 4.2.7.2.686 [id number] [facility] 2019-11-08 09:30:00 2019-11-08 09:30:00 Outpatient R PRAKASH LITTLEJOHN [facility] [id number] [facility] 2019-10-13 00:00:00 2019-10-13 00:00:00 Telephone Denita Ponce [facility] Office Building [facility] 1.2840.114 350.1.13.10 4.2.7.2.686 [id number] 044 [id number] [facility] 2019-10-10 00:00:00 2019-10-10 00:00:00 Telephone Denita Ponce [facility] 1.84.114 350.1.13.10 4.2.7.2.686 [id number] [facility] 2019-08-09 14:30:00 2019-08-09 14:30:00 Outpatient R PRAKASH LITTLEJOHN [facility] [id number] [facility] 2019-01-16 15:54:16 2019-01-16 16:19:47 Office Visit Denita Ponce [facility] 1.84.114 350.1.13.10 4.2.7.2.686 [id number] 044 [id number] [facility] 2018-12-13 15:43:30 2018-12-13 16:32:48 Office Visit Denita Ponce [facility] 1.284.114 350.1.13.10 4.2.7.2.686 [id number] [id number] [facility] 2018-12-07 00:00:00 2018-12-07 00:00:00 Refill Denita Ponce [facility] 1.84.114 350.1.13.10 4.2.7.2.686 [id number] 044 [id number] [facility] 2018-12-06 13:44:04 2018-12-06 15:53:35 Office Visit Denita Ponce [facility] Office [facility] 1.2840.114 350.1.13.10 4.2.7.2.686 [id number] [id number] [facility] 2018-12-06 14:48:43 2018-12-06 15:03:43 Tree Warden Visit 1, Adc Lab Denita Ponce [facility] 1.2840.114 350.1.13.10 4.2.7.2.686 [id number] [facility] 2017-11-24 14:00:00 2017-11-24 14:00:00 Outpatient [facility] [id number] [facility] Results Test Description Test Time Test Comments Results Result Co mments Source [facility] with [id number] 19:10:17* Test Item Value Reference Range Interpretation [...] 34.6 g/dL 31.2-35.0 RDW-SD (test code = 26126-0) 36.6 fL 38.5-51.6 L RDW-CV (test code = 788-0) 12.1 % 12.1-15.4 PLT (test code = 777-3) 273 150-328 MPV (test code = 51295-7) 10.3 fL 9.8-13.0 NRBC/100 WBC (test code = 6031851681) 0.0 0.0-10.0 NRBC x10^3 (test code = 4954934079) See_Comment [Automated messa ge] The system which generated this result transmitted reference range: 10*3/?L. The reference range was not used to interpret this result as normal/abnormal. GRAN MAT (NEUT) % (test code = 770-8) 65.3 % IMM GRAN % (test code = 2121376975) 0.30 % LYMPH % (test code = 736-9) 23.8 % MONO % (test code = 5905-5) 7.1 % EOS % (test code = 713-8) 2.3 % BASO % (test code = 706-2) 1.2 % GRAN MAT x10^3(ANC) (test code = 1866791948) 4.81 10*3/uL 1.99-6.95 IMM GRAN x10^3 (test code = 4398346889) 0.00-0.06 LYMPH x10^3 (test code = 731-0) 1.75 10*3/uL 1.09-3.23 MONO x10^3 (test code = 742-7) 0.52 10*3/uL 0.36-1.02 EOS x10^3 (test code = 711-2) 0.17 10*3/uL 0.06-0.53 BASO x10^3 (test code = 704-7) 0.09 10*3/uL 0.01-0.09 Lab Interpretation (test code = 22984-3) Abnormal [facility] Hemoglobin A1C [id number] 21:46:00* Test Item Value Reference Range Interpretation Comme [facility] POCT HBA1C (test code = 4548-4) 9.2 % 4-6 A Lab Interpretation (test cod e = 19809-2) Abnormal [facility] Hemoglobin A1C [id number] 21:46:00* Test Item Value Reference Range Interpretation Comme [facility] POCT HBA1C (test code = 4548-4) 9.2 % 4-6 A Lab Interpretation (test cod e = 94214-8) [facility] 23:32:25* Test Item Value Reference Range Interpretation Comme [facility] HGB A1C (test code = 4548-4) 8.7 % 4.0-5.7 H JUAN (test code = JUAN) Reference RangesNormal: <5.7%Prediabetes: 5.7 - 6.4%Diabetes: > 6.5% Lab Interpretation (test code = 56001-3) [facility]Total Cholesterol, Triglycerides, HDL)2023-05-06 23:04:57* Test Item Value Reference Range Interpretation Comme nts CHOL (test code = 3412284333) 123 mg/dL 120-200 HDL (test code = 4463774998) 37 mg/dL >=40 L HDLC RATIO (test code = 5665396451) 3.3 <=5.0 TRIG (test code = 0995025059) 162 mg/dL 30-170 LDL CHOL (test code = 20224-3) 54 mg/dL <=160 VLDL (test code = 5763258852) 32 mg/dL 5-60 Lab Interpretation (test cod e = 52592-2) Abnormal [facility] HEMOGLOBIN A1C [id number] 18:40:00* Test Item Value Reference Range Interpretation Comme [facility] POCT HBA1C (test code = 4548-4) 12.1 % 4-6 A Lab Interpretation (test cod e = 42680-8) Abnormal [facility] HEMOGLOBIN A1C [id number] 18:40:00* Test Item Value Reference Range Interpretation Comme [facility] POCT HBA1C (test code = 4548-4) 12.1 % 4-6 A Lab Interpretation (test cod e = 90152-7) [facility] (72785)2022-11-13 22:06:03* Test Item Value Reference Range Interpretation Comme nts NA (test code = 5711878104) 134 mmol/L 135-145 L K (test code = 6088008619) 4.3 mmol/L 3.5-5.0 CL (test code = 7931348608) 101 mmol/L 98-108 CO2 TOTAL (test code = 5654780531) 23 mmol/L 23-31 AGAP (test code = 8322863655) 10 2-16 BUN (test code = 4011210396) 36 mg/dL 7-23 H GLUCOSE (test code = 6199465486) 372 mg/dL 70-110 H CREATININE (test code = 6972627142) 1.83 mg/dL 0.60-1.25 H TOTAL BILI (test code = 7728383957) 0.5 mg/dL 0.1-1.1 CALCIUM (test code = 6117027127) 8.6 mg/dL 8.6-10.6 T PROTEIN (test code = 6023512056) 6.5 g/dL 6.3-8.2 ALBUMIN (test code = 0070773350) 3.6 g/dL 3.5-5.0 ALK PHOS (test code = 2563173093) 149 U/L 34-122 H ALTv (test code = 1742-6) 14 U/L 5-50 AST(SGOT) (test code = 2095379884) 19 U/L 13-40 eGFR (test code = 9789254908) 37.8 mL/min/1.73m2 JUAN (test code = JUAN) [...] imaging tests). Lab Interpretation (test code = 72906-1) Abnormal [facility]. METABOLIC PANEL (37891)2022-11-13 22:06:03* Test Item Value Reference Range Interpretation Comme nts NA (test code = 0708805425) 134 mmol/L 135-145 L K (test code = 8968735552) 4.3 mmol/L 3.5-5.0 CL (test code = 8643538477) 101 mmol/L 98-108 CO2 TOTAL (test code = 4157676472) 23 mmol/L 23-31 AGAP (test code = 0408635306) 10 2-16 BUN (test code = 9591493330) 36 mg/dL 7-23 H GLUCOSE (test code = 8149625662) 372 mg/dL 70-110 H CREATININE (test code = 1468394053) 1.83 mg/dL 0.60-1.25 H TOTAL BILI (test code = 2345196989) 0.5 mg/dL 0.1-1.1 CALCIUM (test code = 4875518806) 8.6 mg/dL 8.6-10.6 T PROTEIN (test code = 1817714241) 6.5 g/dL 6.3-8.2 ALBUMIN (test code = 8313930390) 3.6 g/dL 3.5-5.0 ALK PHOS (test code = 6957043878) 149 U/L 34-122 H ALTv (test code = 1742-6) 14 U/L 5-50 AST(SGOT) (test code = 0495888433) 19 U/L 13-40 eGFR (test code = 9739629622) 37.8 mL/min/1.73m2 JUAN (test code = JUAN) [...] imaging tests). Lab Interpretation (test code = 98645-3) Abnormal [facility] WITH [id number] 21:29:55* Test Item Value Reference Range Interpretation Comme nts WBC (test code = 6690-2) 6.82 See_Comment [[employer]] The system which generated this result transmitted reference range: 4.20 - 10.70 10*3/?L. The reference range was not used to interpret this result as normal/abnormal. RBC (test code = 789-8) 4.39 See_Comment [[employer]] The system which generated this result transmitted [...] g/dL 31.2-35.0 H RDW-SD (test code = 64559-8) 36.3 fL 38.5-51.6 L RDW-CV (test code = 788-0) 12.0 % 12.1-15.4 L PLT (test code = 777-3) 244 See_Comment [Automated messa ge] The system which generated this result transmitted reference range: 150 - 328 10*3/?L. The reference range was not used to interpret this result as normal/abnormal. MPV (test code = 25837-7) 10.8 fL 9.8-13.0 NRBC/100 WBC (test code = 4146010585) 0.0 See_Comment [Automated me ssage] The system which generated this result transmitted reference range: 0.0 - 10.0 /100 WBCs. The reference range was not used to interpret this result as normal/abnormal. NRBC x10^3 (test code = 8827159533) See_Comment [Automated messa ge] The system which generated this result transmitted reference range: 10*3/?L. The reference range was not used to interpret this result as normal/abnormal. GRAN MAT (NEUT) % (test code = 770-8) 55.9 % IMM GRAN % (test code = 3327761845) 0.40 % LYMPH % (test code = 736-9) 32.6 % MONO % (test code = 5905-5) 8.9 % EOS % (test code = 713-8) 1.3 % BASO % (test code = 706-2) 0.9 % GRAN MAT x10^3(ANC) (test code = 7882806540) 3.81 10*3/uL 1.99-6.95 IMM GRAN x10^3 (test code = 8160877373) 0.03 10*3/uL 0.00-0.06 LYMPH x10^3 (test code = 731-0) 2.22 10*3/uL 1.09-3.23 MONO x10^3 (test code = 742-7) 0.61 10*3/uL 0.36-1.02 EOS x10^3 (test code = 711-2) 0.09 10*3/uL 0.06-0.53 BASO x10^3 (test code = 704-7) 0.06 10*3/uL 0.01-0.09 Lab Interpretation (test code = 79419-2) Abnormal [facility] WITH [id number] 21:29:55* Test Item Value Reference Range Interpretation [...] g/dL 31.2-35.0 H RDW-SD (test code = 82484-2) 36.3 fL 38.5-51.6 L RDW-CV (test code = 788-0) 12.0 % 12.1-15.4 L PLT (test code = 777-3) 244 See_Comment [Automated messa ge] The system which generated this result transmitted reference range: 150 - 328 10*3/?L. The reference range was not used to interpret this result as normal/abnormal. MPV (test code = 06104-7) 10.8 fL 9.8-13.0 NRBC/100 WBC (test code = 3502748416) 0.0 See_Comment [Automated me ssage] The system which generated this result transmitted reference range: 0.0 - 10.0 /100 WBCs. The reference range was not used to interpret this result as normal/abnormal. NRBC x10^3 (test code = 1289502343) See_Comment [Automated messa ge] The system which generated this result transmitted reference range: 10*3/?L. The reference range was not used to interpret this result as normal/abnormal. GRAN MAT (NEUT) % (test code = 770-8) 55.9 % IMM GRAN % (test code = 9511416440) 0.40 % LYMPH % (test code = 736-9) 32.6 % MONO % (test code = 5905-5) 8.9 % EOS % (test code = 713-8) 1.3 % BASO % (test code = 706-2) 0.9 % GRAN MAT x10^3(ANC) (test code = 8479599881) 3.81 10*3/uL 1.99-6.95 IMM GRAN x10^3 (test code = 0728639672) 0.03 10*3/uL 0.00-0.06 LYMPH x10^3 (test code = 731-0) 2.22 10*3/uL 1.09-3.23 MONO x10^3 (test code = 742-7) 0.61 10*3/uL 0.36-1.02 EOS x10^3 (test code = 711-2) 0.09 10*3/uL 0.06-0.53 BASO x10^3 (test code = 704-7) 0.06 10*3/uL 0.01-0.09 Lab Interpretation (test code = 30347-7) Abnormal [facility] URINALYSIS, [id number] 21:01:00 * Test Item Value Reference Range [...] U APPEAR (test code = 3267) clear [facility] URINALYSIS, [id number] 21:01:00 * Test Item Value Reference Range [...] U APPEAR (test code = 3267) clear [facility] URINALYSIS, [id number] 19:06:00 * Test Item Value Reference Range [...] U APPEAR (test code = 3267) clear [facility] URINALYSIS, [id number] 19:06:00 * Test Item Value Reference Range [...] U APPEAR (test code = 3267) clear [facility] GLUCOSE (AUTOMATED)2022-05-08 16:32:04* Test Item Value Reference Range Interpretation Comme nts POCT GLU (test code = 9623587287) 242 mg/dL 70-110 H Lab Interpretation (test cod e = 15275-9) Abnormal [facility] GLUCOSE (AUTOMATED)2022-05-08 16:32:04* Test Item Value Reference Range Interpretation Comme nts POCT GLU (test code = 8959069152) 242 mg/dL 70-110 H Lab Interpretation (test cod e = 64024-8) Abnormal [facility]. METABOLIC PANEL (79854)2022-03-10 23:46:15* Test Item Value Reference Range Interpretation Comme nts NA (test code = 3179158397) 141 mmol/L 135-145 K (test code = 7643535114) 3.9 mmol/L 3.5-5.0 CL (test code = 1287159620) 104 mmol/L 98-108 CO2 TOTAL (test code = 3360798534) 28 mmol/L 23-31 AGAP (test code = 0061484757) 2-16 BUN (test code = 9504473722) 40 mg/dL 7-23 H GLUCOSE (test code = 4972558476) 186 mg/dL 70-110 H CREATININE (test code = 7155903969) 1.89 mg/dL 0.60-1.25 H TOTAL BILI (test code = 7506165389) 0.5 mg/dL 0.1-1.1 CALCIUM (test code = 1442074266) 8.8 mg/dL 8.6-10.6 T PROTEIN (test code = 8418515502) 7.4 g/dL 6.3-8.2 ALBUMIN (test code = 7363167392) 4.4 g/dL 3.5-5.0 ALK PHOS (test code = 3258803933) 109 U/L 34-122 ALTv (test code = 1742-6) 16 U/L 5-50 AST(SGOT) (test code = 7691214295) 25 U/L 13-40 eGFR (test code = 9424610390) mL/min/1.73m2 JUAN (test code = JUAN) Association [...] imaging tests). Lab Interpretation (test code = 16355-8) Abnormal [facility]. METABOLIC PANEL (84147)2022-03-10 23:46:15* Test Item Value Reference Range Interpretation Comme nts NA (test code = 1854894006) 141 mmol/L 135-145 K (test code = 3050387788) 3.9 mmol/L 3.5-5.0 CL (test code = 4252768551) 104 mmol/L 98-108 CO2 TOTAL (test code = 9248356316) 28 mmol/L 23-31 AGAP (test code = 0713496574) 2-16 BUN (test code = 2408736764) 40 mg/dL 7-23 H GLUCOSE (test code = 1493183429) 186 mg/dL 70-110 H CREATININE (test code = 3974034099) 1.89 mg/dL 0.60-1.25 H TOTAL BILI (test code = 2377647622) 0.5 mg/dL 0.1-1.1 CALCIUM (test code = 1414774309) 8.8 mg/dL 8.6-10.6 T PROTEIN (test code = 5900324777) 7.4 g/dL 6.3-8.2 ALBUMIN (test code = 7719538619) 4.4 g/dL 3.5-5.0 ALK PHOS (test code = 2695206355) 109 U/L 34-122 ALTv (test code = 1742-6) 16 U/L 5-50 AST(SGOT) (test code = 8705355685) 25 U/L 13-40 eGFR (test code = 2086541244) mL/min/1.73m2 JUAN (test code = JUAN) Association [...] imaging tests). Lab Interpretation (test code = 59664-7) [facility]30638[facility]10 23:46:15* Test Item Value Reference Range Interpretation Comme nts NA (test code = 4098685411) 141 mmol/L 135-145 K (test code = 8007790620) 3.9 mmol/L 3.5-5.0 CL (test code = 2206294079) 104 mmol/L 98-108 CO2 TOTAL (test code = 6345282441) 28 mmol/L 23-31 AGAP (test code = 6365772187) 2-16 BUN (test code = 5651877801) 40 mg/dL 7-23 H GLUCOSE (test code = 7505724293) 186 mg/dL 70-110 H CREATININE (test code = 6396482481) 1.89 mg/dL 0.60-1.25 H TOTAL BILI (test code = 9107402633) 0.5 mg/dL 0.1-1.1 CALCIUM (test code = 6778935340) 8.8 mg/dL 8.6-10.6 T PROTEIN (test code = 9722074884) 7.4 g/dL 6.3-8.2 ALBUMIN (test code = 8335284257) 4.4 g/dL 3.5-5.0 ALK PHOS (test code = 6561939143) 109 U/L 34-122 ALTv (test code = 1742-6) 16 U/L 5-50 AST(SGOT) (test code = 4075140836) 25 U/L 13-40 eGFR (test code = 0008697103) mL/min/1.73m2 JUAN (test code = JUAN) Association [...] imaging tests). Lab Interpretation (test code = 64295-5) Abnormal [facility] WITH [id number] 19:46:27* Test Item Value Reference Range Interpretation Comme nts WBC (test code = 6690-2) See_Comment [Automated [employer] The system which generated this result transmitted reference range: 4.20 - 10.70 10*3/?L. The reference range was not used to interpret this result as normal/abnormal. RBC (test code = 789-8) See_Comment [Automated messa ge] The system which [...] g/dL 31.2-35.0 H RDW-SD (test code = 72580-1) 34.6 fL 38.5-51.6 L RDW-CV (test code = 788-0) 11.7 % 12.1-15.4 L PLT (test code = 777-3) See_Comment [Automated [employer]] The system which generated this result transmitted reference range: 150 - 328 10*3/?L. The reference range was not used to interpret this result as normal/abnormal. MPV (test code = 50093-9) 10.6 fL 9.8-13.0 NRBC/100 WBC (test code = 1947035182) See_Comment [Automated [employer] ssage] The system which generated this result transmitted reference range: 0.0 - 10.0 /100 WBCs. The reference range was not used to interpret this result as normal/abnormal. NRBC x10^3 (test code = 4342426530) See_Comment [Automated messa ge] The system which generated this result transmitted reference range: 10*3/?L. The reference range was not used to interpret this result as normal/abnormal. GRAN MAT (NEUT) % (test code = 770-8) 53.7 % IMM GRAN % (test code = 6966726439) 0.70 % LYMPH % (test code = 736-9) 35.1 % MONO % (test code = 5905-5) 7.8 % EOS % (test code = 713-8) 1.9 % BASO % (test code = 706-2) 0.8 % GRAN MAT x10^3(ANC) (test code = 6749475910) 3.94 10*3/uL 1.99-6.95 IMM GRAN x10^3 (test code = 8123454801) 0.05 10*3/uL 0.00-0.06 LYMPH x10^3 (test code = 731-0) 2.58 10*3/uL 1.09-3.23 MONO x10^3 (test code = 742-7) 0.57 10*3/uL 0.36-1.02 EOS x10^3 (test code = 711-2) 0.14 10*3/uL 0.06-0.53 BASO x10^3 (test code = 704-7) 0.06 10*3/uL 0.01-0.09 Lab Interpretation (test code = 77958-4) Abnormal [facility] WITH [id number] 19:46:27* Test Item Value Reference Range Interpretation Comme nts WBC (test code = 6690-2) See_Comment [Automated messa ge] The system which generated this result transmitted reference range: 4.20 - 10.70 10*3/?L. The reference range was not used to interpret this result as normal/abnormal. RBC (test code = 789-8) See_Comment [Automated messa ge] The system which [...] g/dL 31.2-35.0 H RDW-SD (test code = 45100-4) 34.6 fL 38.5-51.6 L RDW-CV (test code = 788-0) 11.7 % 12.1-15.4 L PLT (test code = 777-3) See_Comment [Automated [employer]] The system which generated this result transmitted reference range: 150 - 328 10*3/?L. The reference range was not used to interpret this result as normal/abnormal. MPV (test code = 61596-2) 10.6 fL 9.8-13.0 NRBC/100 WBC (test code = 5192351466) See_Comment [Automated [employer] ssage] The system which generated this result transmitted reference range: 0.0 - 10.0 /100 WBCs. The reference range was not used to interpret this result as normal/abnormal. NRBC x10^3 (test code = 1207287037) See_Comment [Automated [employer]] The system which generated this result transmitted reference range: 10*3/?L. The reference range was not used to interpret this result as normal/abnormal. GRAN MAT (NEUT) % (test code = 770-8) 53.7 % IMM GRAN % (test code = 5582552442) 0.70 % LYMPH % (test code = 736-9) 35.1 % MONO % (test code = 5905-5) 7.8 % EOS % (test code = 713-8) 1.9 % BASO % (test code = 706-2) 0.8 % GRAN MAT x10^3(ANC) (test code = 5222044677) 3.94 10*3/uL 1.99-6.95 IMM GRAN x10^3 (test code = 4062579384) 0.05 10*3/uL 0.00-0.06 LYMPH x10^3 (test code = 731-0) 2.58 10*3/uL 1.09-3.23 MONO x10^3 (test code = 742-7) 0.57 10*3/uL 0.36-1.02 EOS x10^3 (test code = 711-2) 0.14 10*3/uL 0.06-0.53 BASO x10^3 (test code = 704-7) 0.06 10*3/uL 0.01-0.09 Lab Interpretation (test code = 40426-0) Abnormal [facility] WITH [id number] 19:46:27* Test Item Value Reference Range Interpretation Comme nts WBC (test code = 6690-2) See_Comment [Automated messa ge] The system which generated this result transmitted reference range: 4.20 - 10.70 10*3/?L. The reference range was not used to interpret this result as normal/abnormal. RBC (test code = 789-8) See_Comment [Automated messa ge] The system which [...] g/dL 31.2-35.0 H RDW-SD (test code = 58978-2) 34.6 fL 38.5-51.6 L RDW-CV (test code = 788-0) 11.7 % 12.1-15.4 L PLT (test code = 777-3) See_Comment [Automated messa ge] The system which generated this result transmitted reference range: 150 - 328 10*3/?L. The reference range was not used to interpret this result as normal/abnormal. MPV (test code = 29513-9) 10.6 fL 9.8-13.0 NRBC/100 WBC (test code = 3209957979) See_Comment [Automated [employer] ssage] The system which generated this result transmitted reference range: 0.0 - 10.0 /100 WBCs. The reference range was not used to interpret this result as normal/abnormal. NRBC x10^3 (test code = 2714173064) See_Comment [Automated messa ge] The system which generated this result transmitted reference range: 10*3/?L. The reference range was not used to interpret this result as normal/abnormal. GRAN MAT (NEUT) % (test code = 770-8) 53.7 % IMM GRAN % (test code = 3864835802) 0.70 % LYMPH % (test code = 736-9) 35.1 % MONO % (test code = 5905-5) 7.8 % EOS % (test code = 713-8) 1.9 % BASO % (test code = 706-2) 0.8 % GRAN MAT x10^3(ANC) (test code = 4976503217) 3.94 10*3/uL 1.99-6.95 IMM GRAN x10^3 (test code = 2665909068) 0.05 10*3/uL 0.00-0.06 LYMPH x10^3 (test code = 731-0) 2.58 10*3/uL 1.09-3.23 MONO x10^3 (test code = 742-7) 0.57 10*3/uL 0.36-1.02 EOS x10^3 (test code = 711-2) 0.14 10*3/uL 0.06-0.53 BASO x10^3 (test code = 704-7) 0.06 10*3/uL 0.01-0.09 Lab Interpretation (test code = 96171-5) Abnormal [facility] HEMOGLOBIN A1C [id number] 19:13:00* Test Item Value Reference Range Interpretation Comme [facility] POCT HBA1C (test code = 4548-4) 12.4 % 4-6 A Lab Interpretation (test cod e = 65916-0) Abnormal [facility] HEMOGLOBIN A1C [id number] 19:13:00* Test Item Value Reference Range Interpretation Comme [facility] POCT HBA1C (test code = 4548-4) 12.4 % 4-6 A Lab Interpretation (test cod e = 56224-1) Abnormal [facility] Notes Date/Time Note Provider Source 2024-08-16 07:30:00 Images from the original note were not included. Venipuncture collection performed by clean technique on the right anticubitus. Total of 1 attempts were made. Slight pressure and a bandage/dressing were applied to the site(s). The patient experienced no complications. The following specimens were processed according to instructions and sent to [facility] laboratories per lab order on 08/16/2024 : LT BLUE SST 1 RED LAV 2 PPT DK GREEN (LiHep) DK GREEN (SodH) TORRES DK BLUE (K2) DK BLUE (S) ACD Blood Culture NIPT/NTD [facility] 2024-06-12 13:50:58 Trulicity approved from 06/07/2024 to 06/07/2025 GEMENT ENGINEER Margo Portillo MA [facility] 2024-06-07 16:48:17 PA for Trulicity initiated on 06/07/2024 Stephen: [email or web address] PA Rx #: [id number] Outcome Approved on June 07 by [facility] 2017 Your PA request has been approved. Additional information will be provided in the approval communication. (Message 1145) Authorization Expiration Date: 06/06/2025 GEMENT ENGINEER Yessi Arana LVN [facility] 2024-06-07 10:38:30 Last Refilled: Disp Refills Start End DAMIEN insulin glargine U-300 conc (TOUJEO SOLOSTAR U-300 INSULIN) 300 unit/mL (1.5 mL) InPn 9 mL 1 05/30/2024 -- -- Sig: inject 30 Units under the skin in the morning. Sent to pharmacy as: insulin glargine (U-300) conc. 300 unit/mL (1.5 mL) subcutaneous pen (Toujeo SoloStar U-300 Insulin) Class: eRX Route: Subcutaneous Order: [id number] Date/Time Signed: 05/30/2024 15:40 E-Prescribing Status: Receipt confirmed by pharmacy (05/30/2024 3:40 PM MANAGEMENT ENGINEER) Notes: Please review Recent Visits Date Type Provider Dept 05/30/24 Office Visit Ed Urena, [employer] 12/20/23 Office Visit Ed Urena, [employer] [employer] 07/19/23 Office Visit Ed Urena, [employer] [employer] 05/06/23 Office Visit Ed Urena, TRIMMER AND REINFORCER [facility] 03/12/23 Office Visit Ed Urena [employer]IMMER AND [employer]INFORCER [facility] Showing recent visits within past 540 days with a meds authorizing provider and meeting all other requirements Future Appointments No visits were found meeting these conditions. Showing future appointments within next 150 days with a meds authorizing provider and meeting all other requirements [facility] 2024-06-06 19:28:32 Received PA Stephen Code: [id number] for Trulicity, have placed in provider's box. [facility] Bee Guajardo [facility] 2024-04-20 13:58:28 Called patient to get insurance information and he was not able to give me the information at the time of the call . If patient calls back please add insurance information . I did let him know we are OON with [employer] insurance [facility] Elisabeth Peace [facility] 2024-04-20 09:04:11 Pss please reach out to patient concerning His insurance. It recently changed to [employer]. He has more questions. I informed him that he would be getting a call back. Thank You. [facility] 2024-04-19 16:45:24 Patient is requesting to speak to the clinic about diabetes GEMENT ENGINEER Rafael Connolly [facility] 2023-12-23 14:42:06 Referral placed per Ed Urena DNP [facility] 2023-12-21 07:45:00 Images from the original note were not included. Venipuncture collection performed by clean technique on the right anticubitus. Total of 1 attempts were made. Slight pressure and a bandage/dressing were applied to the site(s). The patient experienced no complications. The following specimens were processed according to instructions and sent to [facility] laboratories per lab order on 12/21/2023 : LT BLUE SST 2 RED LAV 2 PPT DK GREEN (LiHep) DK GREEN (SodH) TORRES DK BLUE (K2) DK BLUE (S) ACD Blood Culture NIPT/NTD [facility] 2023-11-05 14:00:53 Last office visit: 07/19/23 Next office visit: 12/02/23 Requested Prescriptions Pending Prescriptions Disp Refills amLODIPine 10 mg tablet 30 tablet 11 Sig: Take 1 tablet by mouth in the morning. Last fill date: 03/12/23 90 with 11 refills Sarah Castro MA [facility] 2023-11-01 08:32:47 Last Refilled: Disp Refills Start End DAMIEN ezetimibe 10 mg tablet 90 tablet 1 03/12/2023 -- -- Sig: Take 1 tablet by mouth in the morning. Sent to pharmacy as: ezetimibe 10 mg tablet (ZETIA) Class: eRX Route: Oral Order: [id number] Date/Time Signed: 03/12/2023 16:23 E-Prescribing Status: Receipt confirmed by pharmacy (03/12/2023 4:23 PM MANAGEMENT ENGINEER) Notes: Recent Visits Date Type Provider Dept 07/19/23 Office Visit Ed Urena, TRIMMER AND REINFORCER [facility] 05/06/23 Office Visit Ed Urena, TRIMMER AND REINFORCER [facility] 03/12/23 Office Visit Ed Urena, TRIMMER AND REINFORCER [facility] 12/10/22 Office Visit Ed Urena, TRIMMER AND REINFORCER [facility] 10/30/22 Office Visit Ed Urena, TRIMMER AND REINFORCER [facility] 08/24/22 Office Visit Ed Urena, TRIMMER AND REINFORCER [facility] 07/24/22 Office Visit Ed Urena, TRIMMER AND REINFORCER [facility] 06/01/22 Office Visit Ed Urena, TRIMMER AND REINFORCER [facility] Showing recent visits within past 540 days with a meds authorizing provider and meeting all other requirements Future Appointments Date Type Provider Dept 12/20/23 Appointment Ed Urena [employer] [employer]INFORC[facility] Showing future appointments within next 150 days with a meds authorizing provider and meeting all other requirements [facility] 2023-08-09 08:28:13 Last Refilled: torvastatin 20 mg tablet 90 tablet 3 07/24/2022 -- -- Sig: Take 1 tablet by mouth in the morning. Sent to pharmacy as: atorvastatin 20 mg tablet (LIPITOR) Class: eRX Route: Oral Order: [id number] Date/Time Signed: 07/24/2022 15:21 E-Prescribing Status: Receipt confirmed by pharmacy (07/24/2022 3:21 PM CDT) Disp Refills Start End DAMIEN tadalafiL (CIALIS) 10 mg tablet 20 tablet 0 03/12/2023 -- No Sig: Take 1 tablet by mouth as needed for Erectile dysfunction. Sent to pharmacy as: tadalafiL 10 mg tablet (Cialis) Class: eRX Route: Oral Order: [id number] Date/Time Signed: 03/12/2023 16:29 E-Prescribing Status: Receipt confirmed by pharmacy (03/12/2023 4:29 PM MANAGEMENT ENGINEER) Recent Visits Date Type Provider Dept 07/19/23 Office Visit Ed Urena, TRIMMER AND REINFORCER [facility] 05/06/23 Office Visit Ed Urena, TRIMMER AND REINFORCER [facility] 03/12/23 Office Visit Ed Urena, TRIMMER AND REINFORCER [facility] 12/10/22 Office Visit Ed Urena, TRIMMER AND REINFORCER [facility] 10/30/22 Office Visit Ed Urena, TRIMMER AND REINFORCER [facility] 08/24/22 Office Visit Ed Urena, TRIMMER AND REINFORCER [facility] 07/24/22 Office Visit Ed Urena, TRIMMER AND REINFORCER [facility] 06/01/22 Office Visit Ed Urena, TRIMMER AND REINFORCER [facility] 03/09/22 Office Visit Ed Urena, TRIMMER AND REINFORCER [facility] Showing recent visits within past 540 days with a meds authorizing provider and meeting all other requirements Future Appointments Date Type Provider Dept 12/20/23 Appointment Ed Urena, TRIMMER AND REINFORCER [facility] Showing future appointments within next 150 days with a meds authorizing provider and meeting all other requirements Ayesha Carrasco [facility] 2023-07-27 15:05:43 Appointment scheduled for 07/29/23. Sidra Perez RN [facility] 2023-07-27 13:52:01 Will address at next visit, if urgently needed, add to . T [facility] 2023-07-27 12:59:45 Please review and advise. Yessi Arana LVN [facility] 2023-07-27 12:48:06 Copied from [facility] #[id number]. Topic: Clinical - Order >> Jul 27, 2023 12:45 PM Patient Mutual Fund Analyst wrote: Toya Carrizales is a 62 year old male is calling in stating he was seen 07/18 and forgot to request handicap sticker during OV Please advise [phone] Ricardo Granado [facility] 2023-06-18 13:45:00 Images from the original note were not included. Venipuncture collection performed by clean technique on the right anticubitus. Total of 1 attempts were made. Slight pressure and a bandage/dressing were applied to the site(s). The patient experienced no complications. The following specimens were processed according to instructions and sent to [facility] laboratories per lab order on 06/18/2023: LT BLUE SST 3 RED LAV 1 PPT DK GREEN (LiHep) DK GREEN (SodH) TORRES DK BLUE (K2) DK BLUE (S) ACD Blood Culture NIPT/NTD Patient has been identified by and name and was provided with cup, antiseptic towelette, and clean catch instructions. 3 urine specimen(s) sent. Unpreserved 3 Urine Culture Aptima tube Other urine GEMENT ENGINEER [facility] 2023-06-15 10:11:53 Images from the original note were not included. Notes: Return in about 3 months (around 08/05/2023), or if symptoms worsen or fail to improve. After Visit Summary (Automatic SnapShot taken 05/06/2023) Last Refilled: LOVAZA, [id number] ethyl esters, 1 gram capsuleSig: Take 2 capsules by mouth in the morning and 2 capsules in the evening.Disp: 180 capsule Refills: 1Start: 06/15/2023lass: eRXFor: HypertriglyceridemiaLast ordered: 3 months ago (03/16/2023) by Ed Anene, TRIMMER AND REINFORCER Over the Counter: OTC Edprvv8206/15/2023 09:35 AM Protocol Details Valid encounter within last 12 months To be filled at: [id number] [place] [facility] [address] Recent Visits Date Type Provider Dept 05/06/23 Office Visit Ed Urena, TRIMMER AND REINFORCER [facility] 03/12/23 Office Visit AneZeynep truonga, TRIMMER AND REINFORCER [facility] 12/10/22 Office Visit Nury Urenathia, TRIMMER AND REINFORCER [facility] 10/30/22 Office Visit Nury Urenathia, TRIMMER AND REINFORCER [facility] 08/24/22 Office Visit Zeynep Urenaa, TRIMMER AND REINFORCER [facility] 07/24/22 Office Visit Zeynep Urenaa, TRIMMER AND REINFORCER [facility] 06/01/22 Office Visit Zeynep Urenaa, TRIMMER AND REINFORCER [facility] 03/09/22 Office Visit Zeynep Urenaa, TRIMMER AND REINFORCER [facility] Showing recent visits within past 540 days with a meds authorizing provider and meeting all other requirements Future Appointments Date Type Provider Dept 07/19/23 Appointment Ed Urena, TRIMMER AND REINFORCER [facility] Showing future appointments within next 150 days with a meds authorizing provider and meeting all other requirements [facility] 2023-05-06 15:00:00 Images from the original note were not included. Venipuncture collection performed by clean technique on the right anticubitus. Total of 1 attempts were made. Slight pressure and a bandage/dressing were applied to the site(s). The patient experienced no complications. The following specimens were processed according to instructions and sent to [facility] laboratories per lab order on 05/06/2023: LT BLUE SST 1 RED LAV 1 PPT DK GREEN (LiHep) DK GREEN (SodH) TORRES DK BLUE (K2) DK BLUE (S) ACD Blood Culture NIPT/NTD Patient has been identified by and name and was provided with cup, antiseptic towelette, and clean catch instructions. 2 urine specimen(s) sent. Unpreserved 1 Urine Culture 1 Aptima tube Other urine GEMENT ENGINEER [facility] 2023-01-15 07:30:00 Formatting of this n ote is different from the original. Images from the original note were not included. Venipuncture collection performed by clean technique on the right anticubitus. Total of 1 attempts were made. Slight pressure and a bandage/dressing were applied to the site(s). The patient experienced no complications. The following specimens were processed according to instructions and sent to [facility] laboratories per lab order on 01/15/2023 : LT BLUE SST 2 RED LAV 2 PPT DK GREEN (LiHep) DK GREEN (SodH) TORRES DK BLUE (K2) DK BLUE (S) ACD Blood Culture NIPT/NTD [facility] 2023-01-11 11:53:49 Formatting of this n ote might be different from the original. Provider spoke with patient. [facility] 2023-01-11 10:59:04 Formatting of this n ote might be different from the original. Toya Carrizales is a 62 year old male that is ready for telehealth appt with Ms. Urena Hansa Wall [facility] 2022-12-11 11:02:51 Formatting of this n ote is different from the original. GABAPENTIN 300 MG CAPSULE gabapentin 300 mg capsule 180 capsule 1 08/17/2022 No Sig: TAKE 1 CAPSULE BY MOUTH IN THE MORNING AND 1 CAPSULE IN THE EVENING. Sent to pharmacy as: gabapentin 300 mg capsule (NEURONTIN) Class: eRX Route: Oral Order: [id number] Date/Time Signed: 08/17/2022 10:05 E-Prescribing Status: Receipt confirmed by pharmacy (08/17/2022 10:05 AM CDT) Ivette:02/24/2022 - gabapentin 300 mg capsule; Take 1 capsule by mouth in the morning and 1 capsule in the evening. Dispense: 180 capsule; Refill: 0 Nov:01/19/2023 Refill sent [facility] 2022-12-10 16:49:51 Formatting of this n ote might be different from the original. I just restarted his insulin, take that instead , and keep follow up plans Sarah Castro MA [facility] 2022-12-10 16:49:30 Formatting of this n ote might be different from the original. Attempted to contact patient, left message on voicemail. Per KENDELL Azevedo - I just restarted his insulin, take that instead , and keep follow up plans T [facility] 2022-12-10 16:33:33 Formatting of this n ote might be different from the original. I just restarted his insulin, take that instead , and keep follow up plans [facility] 2022-12-10 14:55:32 Formatting of this n ote might be different from the original. states insurance will not cover ozempic. Please advise. Sidra Murray [facility] 2022-12-10 14:40:04 Formatting of this n ote is different from the original. Images from the original note were not included. Please review OZEMPIC 0.25 mg or 0.5 mg (2 mg/3 mL) PnIj Changed from: semaglutide (OZEMPIC) 0.25 mg or 0.5 mg(2 mg/1.5 mL) PnIj Possible duplicate: Hover to review recent actions on this medication Sig: INJECT 0.25 MG UNDER THE SKIN WEEKLY. Disp: Not specified (Pharmacy requested: 3 Each) Refills: 0 Start: 12/10/2022 Class: eRX For: Type 2 diabetes mellitus with chronic kidney disease, with long-term current use of insulin, unspecified CKD stage Last ordered: Today (12/10/2022) by KENDELL Azevedo Last refill: 12/10/2022 Rx #: [id number] Pharmacy comment: Alternative Requested:NEED PA NOT COVERED. Off-Protocol Failed 12/10/2022 01:56 PM Protocol Details Medication not assigned to a protocol, forward to provider. Valid encounter within last 12 months This request has changes from the previous prescription. To be filled at: [facility]/pharmacy #[id number] - [place], [place] - [address] Sarah Castro MA [facility] 2022-11-24 10:58:42 Formatting of this n ote might be different from the original. Advised patient of message per Ed Urena. [facility] 2022-11-20 10:31:44 Formatting of this n ote might be different from the original. Attempted to contact patient, left message on voicemail Sarah Castro MA [facility] 2022-11-19 16:21:00 Formatting of this n ote might be different from the original. Please make sure you are taking your atorvastatin and ezetimibe- these were prescribed in July for the cholesterol, the reason I added another regimen is because the cholesterol worsened instead of better- verify that you are taking the atorvastatin and ezetimibe, then see cardiology as recommended. Do not worry about the vascepa, it can be expensive. You can add fish oil OTC, it will help as adjunct to the atorvastatin and ezetimibe. [facility] 2022-11-18 16:43:04 Formatting of this n ote might be different from the original. Please review and advise. Wilma Pablo LVN [facility] 2022-11-18 16:31:20 Formatting of this n ote might be different from the original. [facility] Pharmacy faxed in a request for an alternative RX: icosapent ethyL (VASCEPA) 1 gram capsule to OMEGA-3 ETHYL ESTERS 1 GM CAP due to the prescribed medication not being covered by insurance. [facility]/pharmacy #[id number] - [place], [place] - [address] [address] Brittany Phillips [facility]
[2024-08-21] MEDS ORDERED: GABAPENTIN 300 MG CAP ONE (17:58)
[2024-08-21 18:04] LABS: Absolute Basophils 0.1 K/uL (0-0.5); Absolute Eosinophils 0.2 K/uL (0-0.5); Absolute Monocytes 0.9 K/uL (0.1-1.3); Absolute Neutrophil 6.9 K/uL (1.8-8.0); Basophils % 0.9 % (0-1.3); Eosinophils % 1.9 % (0-4.4); Hematocrit 34.9 % (39.6-49.0); Hemoglobin 12.4 g/dL (13.6-17.9); MCHC 35.5 g/dL (32.0-36.0); MCV 81.6 fL (80-100); MPV 7.5 fL (7.6-11.3); Monocytes % 8.7 % (3.3-12.3); Neutrophils % 68.5 % (41.7-73.7); Nucleated Red Blood Cells % 0.1 % (0-0); Platelets 259 thou/uL (152-406); RBC Red Blood Cell Count 4.28 M/uL (4.33-5.43); Red Cell Distribution Width 13.4 % (12.1-15.2)
[2024-08-21 18:15] LABS: Anion Gap 9.4 mEq/L (5.0-15.0); Potassium 4.4 mEq/L (3.5-5.1)
--- NOTE | 2024-08-21 18:22 | RAD REPORT ---
EXAMINATION: UPPER EXTREMITY VENOUS UNILATE CLINICAL INDICATION: Left arm pain TECHNIQUE: Complete bilateral duplex sonography of the left upper extremity veins was performed. The examination included compression for vein patency, color Doppler imaging and flow augmentation in response to distal compression of the internal jugular,, subclavian, axillary, brachial, radial, ulna r, cephalic and basilic veins. .Grayscale, color and spectral analysis performed on all vessels COMPARISON: No prior exam. FINDINGS: The left internal jugular, subclavian, axillary, brachial, basilic, cephalic, radial and ulnar veins are generally compressible and demonstrate augmentation. Color Doppler demonstrates good flow. IMPRESSION: No evidence of venous thrombus left upper extremity
[2024-08-21] MEDS ORDERED: NA CHLORIDE 0.9% 500 ML ONE (19:19)
--- NOTE | 2024-08-21 19:25 | RAD REPORT ---
EXAM:Soft Tissue Neck Wo Contr CLINICAL HISTORY: Neck pain and swelling TECHNIQUE: Unenhanced CT axial images of the neck obtained COMPARISON: None CLINICAL HISTORY: Neck pain and swelling Neck pain FINDINGS: The pharynx, larynx and subglottic trachea appear unremarkable Parotid, submandibular and right thyroid gland appear unremarkable. 12 mm low-density nodule right lobe thyroid gland containing calcifications. No significant lymphadenopathy seen. No fluid within the visualized sinuses/mastoids noted IMPRESSION: 12 mm nodule right lobe thyroid gland. Nonemergent thyroid ultrasound recommended No acute abnormality is displayed
--- NOTE | 2024-08-21 19:32 | ER ---
Nurse's Notes [facility] Name: Dhaval Carrizales Age: 63 yrs Sex: Male : 1960 Arrival Date: 08/21/2024 Time: 17:21 Bed 19 Private MD: Diagnosis: Acute left sided neck pain Presentation: 08/21 17:43 Chief complaint: Patient states: Driving and sudden pain to left side of neck, radiates jl7 down to left arm, swelling noted. Coronavirus screen: At this time, the client does not indicate any symptoms associated with coronavirus-19. Ebola Screen: No symptoms or risks identified at this time. Initial Sepsis Screen: Does the patient meet any 2 criteria? No. Patient's initial sepsis screen is negative. Does the patient have a suspected source of infection? No. Patient's initial sepsis screen is negative. Risk Assessment: Do you want to hurt yourself or someone else? Patient reports no desire to harm self or others. Onset of symptoms was August 21, 2024. 17:43 Method Of Arrival: Ambulatory [facility] 17:43 Acuity: DANDRE 3 jl7 Triage Assessment: 17:44 General: Appears in no apparent distress. uncomfortable, Behavior is calm, cooperative, jl7 appropriate for age. Pain: Complains of pain in neck Pain currently is 8 out of 10 on a pain scale. Historical: - Allergies: 17:44 No Known Allergies; jl7 - PMHx: 17:44 Diabetes - NIDDM; High Cholesterol; Hypertension; jl7 - Immunization history:: Adult Immunizations unknown. - Infectious Disease History:: Denies. - Social history:: Smoking status: Patient denies any tobacco usage or history of. Screenin:22 [facility] ED Fall Risk Assessment (Adult) History of falling in the last 3 months, me1 including since admission No falls in past 3 months (0 pts) Confusion or Disorientation No (0 pts) Intoxicated or Sedated No (0 pts) Impaired Gait No (0 pts) Mobility Assist Device Used No (0 pt) Altered Elimination No (0 pt) Score/Fall Risk Level 0 - 2 = Low Risk Maintained a safe environment, Provided non-skid footwear, Hourly rounding (assess needs \T\ fall precautionary measures) done. Abuse screen: Denies threats or abuse. Nutritional screening: No deficits noted. Tuberculosis screening: No symptoms or risk factors identified. Assessment: 18:22 General: Appears in no apparent distress. uncomfortable, well groomed, well developed, me1 well nourished, Behavior is calm, cooperative, appropriate for age, Reports Driving and sudden pain to left side of neck, radiates down to left arm, swelling noted. Pain: Complains of pain in neck Pain radiates to back of neck and back of left arm Pain currently is 8 out of 10 on a pain scale. Quality of pain is described as burning, Pain began suddenly, Is continuous. Neuro: Level of Consciousness is awake, alert, obeys commands, Oriented to person, place, time, situation, Appropriate for age. Cardiovascular: Patient's skin is warm and dry. Respiratory: Airway is patent Respiratory effort is even, unlabored, Respiratory pattern is regular, symmetrical. GI: No signs and/or symptoms were reported involving the gastrointestinal system. : No signs and/or symptoms were reported regarding the genitourinary system. EENT: No signs and/or symptoms were reported regarding the EENT system. Derm: Skin is intact, is healthy with good turgor, Skin is pink, warm \T\ dry. Musculoskeletal: Reports pain in back of left arm and neck. Vital Signs: 17:43 BP 193 / 90; Pulse 83; Resp 17; Temp 97; Pulse Ox 96% ; Weight 92.53 kg; Height 5 ft. 6 jl7 in. ; Pain 8/10; 18:00 BP 186 / 88; Pulse 79; Resp 16; Pulse Ox 98% ; me1 19:00 BP 183 / 94; Pulse 78; Resp 16; Pulse Ox 96% ; me1 19:30 BP 190 / 90; Pulse 80; Resp 16; Temp 98.4; Pulse Ox 97% ; me1 17:43 Body Mass Index 32.93 (92.53 kg, 167.64 cm) jl7 17:43 Pain Scale: Adult 7 ED Course: 17:25 Patient arrived in ED. cj3 17:28 Chel Ferris PA-C is PHCP. sb4 17:28 Viri Torres MD is Attending Physician. sb4 17:44 Triage completed. jl7 17:44 Arm band placed on right wrist. jl7 17:45 Chiqui Clark, CLARENCE is Primary Nurse. me1 17:55 Basic Metabolic Panel Sent. me1 17:55 CBC with Diff Sent. me1 17:55 Initial lab(s) drawn, by me, sent to lab. Inserted saline lock: 22 gauge in right me1 antecubital area, using aseptic technique. 18:16 UPPER EXTREMITY VENOUS UNILATE In Process Unspecified. EDMS 18:22 Patient has correct armband on for positive identification. Bed in low position. Call me1 light in reach. Side rails up X2. Provided Education on: POC. Verbalized understanding.. Client placed on continuous cardiac and pulse oximetry monitoring. NIBP monitoring applied. Pulse ox on. NIBP on. 18:22 No provider procedures requiring assistance completed. me1 18:49 Soft Tissue Neck Wo Contr In Process Unspecified. EDMS 19:31 Elio Abraham DO is Referral Physician. sb4 19:50 IV discontinued, intact, bleeding controlled, No redness/swelling at site. Pressure me1 dressing applied. Administered Medications: 17:59 Drug: Gabapentin PO 300 mg PO once Route: PO; me1 19:18 Follow up: Response: No adverse reaction me1 19:22 Drug: NS 0.9% IV 500 ml 500 ml IV at 1 bolus once; to be given as a bolus over 30 me1 minutes Volume: 500 ml; Route: IV; Rate: 1 bolus; Site: right antecubital; 19:49 Follow up: Response: No adverse reaction; IV Status: Completed infusion; IV Intake: me1 500ml Medication: 18:22 VIS not applicable for this client. me1 Intake: 19:49 IV: 500ml; Total: 500ml. vt1 Outcome: 19:31 Discharge ordered by MD. sb4 19:50 Discharged to home ambulatory, me1 19:50 Condition: stable 19:50 Discharge instructions given to patient, Instructed on discharge instructions, follow up and referral plans. medication usage, Demonstrated understanding of instructions, follow-up care, medications, Prescriptions given X 1, 19:54 Patient left the ED. me1 Signatures: Dispatcher [employer] EDMS Bradly Chaparro RN RN jl7 Chel Ferris PASangeethaC PARich [email or web address] Chiqui Clark RN RN me1 Donna Goodwin cj3 Corrections: (The following items were deleted from the chart) 18:21 17:43 Chief complaint: Patient states: Driving and sudden pain to left side of neck, me1 radiates down to left arm, swelling noted jl7
--- NOTE | 2024-08-21 19:33 | EDPHYS ---
Physician Documentation [facility] Name: Dhaval Carrizales Age: 63 yrs Sex: Male : 1960 Arrival Date: 08/21/2024 Time: 17:21 Bed 19 Private MD: ED Physician Viri Torres HPI: 08/21 18:32 This 63 yrs old Male presents to ER via Ambulatory with complaints of Neck sb4 Swelling, Arm Swelling. 18:34 Patient reports pain in his left lower anterior neck that began this afternoon. He sb4 states that it feels like he was "stung "by something. States that he feels like it is swollen and the pain radiates down his arm and has made it go numb intermittently. He denies any injury to the area. He denies any history of blood clots. He states his arm was swollen but has improved. He denies any chest pain or shortness of breath. Historical: - Allergies: 17:44 No Known Allergies; jl7 - PMHx: 17:44 Diabetes - NIDDM; High Cholesterol; Hypertension; jl7 - Immunization history:: Adult Immunizations unknown. - Infectious Disease History:: Denies. - Social history:: Smoking status: Patient denies any tobacco usage or history of. ROS: 18:34 Constitutional: Negative for fever, chills, and weight loss, sb4 18:34 Neck: Positive for pain at rest, swelling, of the left anterior aspect of neck, 18:34 All other systems are negative, Exam: 18:34 Constitutional: This is a well developed, well nourished patient who is awake, alert, sb4 and in no acute distress. Head/Face: Normocephalic, atraumatic. Eyes: Extra-ocular motions intact. Periorbital areas with no swelling, redness, or edema. ENT: Mucous membranes moist. Neck: Supple, full range of motion without nuchal rigidity, or vertebral point tenderness. Cardiovascular: Regular rate and rhythm with a normal S1 and S2. Respiratory: No increased work of breathing, no retractions or nasal flaring. Abdomen/GI: Soft, non-tender, no distension. Skin: Warm, dry with normal turgor. Normal color with no rashes, no lesions, and no evidence of cellulitis. Vital Signs: 17:43 BP 193 / 90; Pulse 83; Resp 17; Temp 97; Pulse Ox 96% ; Weight 92.53 kg; Height 5 ft. 6 jl7 in. ; Pain 8/10; 18:00 BP 186 / 88; Pulse 79; Resp 16; Pulse Ox 98% ; me1 19:00 BP 183 / 94; Pulse 78; Resp 16; Pulse Ox 96% ; me1 19:30 BP 190 / 90; Pulse 80; Resp 16; Temp 98.4; Pulse Ox 97% ; me1 17:43 Body Mass Index 32.93 (92.53 kg, 167.64 cm) jl7 17:43 Pain Scale: Adult jl7 MDM: 17:32 Medical Screening Exam initiated sb4 19:30 ED course: Patient states that he saw his primary care 4 days ago, had blood work done. sb4 States he knows his kidney function has worsened and has PCP is aware as well. She has modified his medications and he has a follow-up appointment scheduled with nephrology. Patient states his neck pain is better after receiving the gabapentin, I suspect his pain is more nerve related. Will discharge home safely at this time with prescription for gabapentin. 19:33 Data reviewed: vital signs, nurses notes, lab test result(s), radiologic studies, and sb4 as a result, I will discharge patient. Care significantly affected by the following chronic conditions: Diabetes, Hypertension, Congestive Heart Failure, Obesity, Chronic Kidney Disease. Counseling: I had a detailed discussion with the patient and/or guardian regarding the historical points, exam findings, and any diagnostic results supporting the discharge/admit diagnosis, the presence of at least one elevated blood pressure reading (>120/80) during this emergency department visit, lab results, radiology results, the need for outpatient follow up, for definitive care, nephrology, to return to the emergency department if symptoms worsen or persist or if there are any questions or concerns that arise at home. 08/21 17:46 Order name: Basic Metabolic Panel; Complete Time: 18:25 sb4 08/21 17:46 Order name: CBC with Diff; Complete Time: 18:30 sb4 08/21 18:05 Order name: UPPER EXTREMITY VENOUS UNILATE; Complete Time: 18:25 EDMS 08/21 18:30 Order name: Soft Tissue Neck Wo Contr; Complete Time: 19:27 EDMS 08/21 17:46 Order name: IV Saline Lock; Complete Time: 17:55 sb4 Administered Medications: 17:59 Drug: Gabapentin PO 300 mg PO once Route: PO; me1 19:18 Follow up: Response: No adverse reaction me1 19:22 Drug: NS 0.9% IV 500 ml 500 ml IV at 1 bolus once; to be given as a bolus over 30 me1 minutes Volume: 500 ml; Route: IV; Rate: 1 bolus; Site: right antecubital; 19:49 Follow up: Response: No adverse reaction; IV Status: Completed infusion; IV Intake: me1 500ml Disposition: 19:39 Co-signature as Attending Physician, Viri Torres MD I agree with the assessment and gb1 plan of care. I reviewed the patient's care provided by the Advanced Practice Provider and agree with the diagnosis and treatment plan. Disposition Summary: 08/21/24 19:31 Discharge Ordered Notes: Location: Home sb4 Problem: new sb4 Symptoms: have improved sb4 Condition: Stable sb4 Diagnosis - Acute left sided neck pain sb4 Followup: sb4 - With: Elio Abraham DO - When: 1 week - Reason: Recheck today's complaints, Re-evaluation by your physician Discharge Instructions: - Discharge Summary Sheet sb4 - Pinched Nerve sb4 - Food Basics for Chronic Kidney Disease sb4 - Chronic Kidney Disease, Adult sb4 Forms: - Patient Portal Instructions sb4 - Leadership Thank You Letter sb4 Prescriptions: - gabapentin 100 mg Oral tablet - take 2 tablet ORAL route every 8 hours; 15 tablet; Refills: 0, Product sb4 Selection Permitted Signatures: Dispatcher [employer] Bradly Wallace RN RN [email or web address] Chel Ferris PA-C PA-C sb4 Chiqui Clark RN RN me1 Viri Torres MD MD gb1 Corrections: (The following items were deleted from the chart) 18:05 17:47 Extremity Venous [email or web address] ordered. EDMS ELKINS
[2024-08-21 20:23] VITALS: BP 190/90; TEMP 98.4; O2SAT 97
== END 2024-08-21 19:54 | disposition home or self-care (01) ==
LOC: ER 17:21
DX: M54.2 Cervicalgia (principal)
CPT/HCPCS: 85025; 80048; 36415; 70490; 93971; 99284; J7040